=== PATIENT | female | born 1930 | race Caucasian/White ===

== ENCOUNTER → 2016-10-01 | Outpatient (CLI) | payer MEDICARE ==
--- NOTE | 2016-10-01 09:09 | MM ---
Reason for exam: follow-up at short interval from prior study. Last mammogram was performed 6 months ago. 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 Quadrectomy of both breasts, 1976. Took estrogen for 16 years beginning at age 40. Took progesterone for 16 years beginning at age 40. Physical Findings: Nurse did not find any significant physical abnormalities on exam. MG 3D Diag Mammo W/Cad SHANICE Bilateral CC and MLO view(s) were taken. Prior study comparison: April 02, 2016, left breast MG 3d diag mammo w/cad LT. August 28, 2015, bilateral MG 3d screening mammo w/cad. The breast tissue is heterogeneously dense. This may lower the sensitivity of mammography. There is chronic nodularity bilaterally. Stable post operative changes bilaterally.. These results were verbally communicated with the patient and result sheet given to the patient on 10/01/16. ASSESSMENT: Benign, BI-RAD 2 RECOMMENDATION: Routine screening mammogram of both breasts in 1 year.
== END | disposition home or self-care (01) ==
LOC: RADMAMWWP 08:17
PROVIDERS: ATTEND Internal Medicine
DX: R92.8 Other abnormal and inconclusive findings on diagnostic imaging of breast (principal)
CPT/HCPCS: G0204; G0279

== ENCOUNTER 2017-09-27 20:45 | Inpatient (IN) | payer MEDICARE ==
[2017-09-27] MEDS ORDERED: ACETAMINOPHEN TAB 500 MG TAB PO STA (21:24)
[2017-09-27] MEDS ORDERED: IBUPROFEN 600 MG TAB PO STA (21:24)
--- NOTE | 2017-09-27 21:36 | ED ---
General Adult HPI - General Chief complaint: Shortness of Breath Stated complaint: Shaking, EUNICE Time Seen by Provider: 09/27/17 20:55 Source: patient, RN notes reviewed Mode of arrival: wheelchair Limitations: no limitations - History of Present Illness Initial comments: Is an 86-year-old female who presents emergency Department complaining that she just doesn't feel well all over. Patient states she's been a little weaker today than normal. Patient states it started about 1:00 this afternoon. Patient is unaware that she had a fever patient denies any cough. Patient denies shortness of breath or difficulty breathing. Patient denies any chest pain or palpitations. Patient denies any abdominal pain patient denies nausea vomiting diarrhea per patient denies any neck pain or stiffness per patient denies any patient denies any lightheadedness dizziness nursing about so. Patient denies any dysuria hematuria urinary from [place]. Patient states she did get a flu shot this year. - Related Data Home Medications Medication Instructions Recorded Confirmed Aspirin 81 mg PO DAILY 09/27/17 09/27/17 Carbidopa-Levodopa 25-100 mg 2 tab PO TID 09/27/17 09/27/17 [Sinemet 25-100] Cholecalciferol (Vitamin D3) 2,000 unit PO DAILY 09/27/17 09/27/17 [Vitamin D3] Digoxin [Lanoxin] 125 mcg PO DAILY 09/27/17 09/27/17 Donepezil [Aricept] 10 mg PO HS 09/27/17 09/27/17 Omeprazole 20 mg PO AC-BRKFST 09/27/17 09/27/17 Polyethylene Glycol 3350 [Miralax] 17 gm PO DAILY 09/27/17 09/27/17 Allergies Allergy/AdvReac Type Severity Reaction Status Date / Time No Known Allergies Allergy Verified 09/27/17 21:23 Review of Systems ROS Statement: Those systems with pertinent positive or pertinent negative responses have been documented in the HPI. ROS Other: All systems not noted in ROS Statement are negative. Past Medical History Past Medical History: Atrial Fibrillation, GERD/Reflux Additional Past Medical History / Comment(s): parkinson's. History of Any Multi-Drug Resistant Organisms: None Reported Past Surgical History: Cholecystectomy, Hysterectomy Additional Past Surgical History / Comment(s): left ear. Past Psychological History: No Psychological Hx Reported Smoking Status: Former smoker Past Alcohol Use History: None Reported Past Drug Use History: None Reported General Exam - General Exam Comments Initial Comments: GENERAL: Patient is well-developed and well-nourished. Patient is nontoxic and well- hydrated and is in mild distress. ENT: Neck is soft and supple. No significant lymphadenopathy is noted. Oropharynx is clear. Moist mucous membranes. Neck has full range of motion without eliciting any pain. EYES: The sclera were anicteric and conjunctiva were pink and moist. Extraocular movements were intact and pupils were equal round and reactive to light. Eyelids were unremarkable. PULMONARY: Unlabored respirations. Good breath sounds bilaterally. No audible rales rhonchi or wheezing was noted. CARDIOVASCULAR: There is a regular rate and rhythm without any murmurs gallops or rubs. ABDOMEN: Soft and nontender with normal bowel sounds. No palpable organomegaly was noted. There is no palpable pulsatile mass. SKIN: Skin is clear with no lesions or rashes and otherwise unremarkable. NEUROLOGIC: Patient is alert and oriented x3. Cranial nerves II through XII are grossly intact. Motor and sensory are also intact. Normal speech, volume and content. Symmetrical smile. MUSCULOSKELETAL: Normal extremities with adequate strength and full range of motion. No lower extremity swelling or edema. No calf tenderness. LYMPHATICS: No significant lymphadenopathy is noted PSYCHIATRIC: Normal psychiatric evaluation. Normal interpersonal interactions appears functionally intact in deals appropriately with others. No signs of depression. No signs of anxiety. Limitations: no limitations Course Vital Signs 09/27/17 09/27/17 09/27/17 20:55 22:55 23:54 Temperature 100.8 F H 99.1 F Pulse Rate 107 H 84 92 Respiratory 20 16 16 Rate Blood Pressure 204/89 170/78 176/84 O2 Sat by Pulse 98 96 98 Oximetry Medical Decision Making - Medical Decision Making EKG shows normal sinus rhythm at 86 bpm DE interval is 204 QRS is 1:30 QT interval 366 QTC is 437. Patient's EKG shows a right bundle branch block I spoke with some physician he agreed to admit the patient admitted the patient I wrote admitting orders. Patient had a urinary tract infection he received 2 g of Rocephin emergency department as well as a liter and a half of fluid. - Lab Data Result diagrams: 09/27/17 21:57 09/27/17 21:57 Lab Results 09/27/17 09/27/1718 Range/Units 21:30 21:57 21:57 WBC 20.0 H (3.8-10.6) k/uL RBC 4.33 (3.80-5.40) m/uL Hgb 13.0 (11.4-16.0) gm/dL Hct 39.9 (34.0-46.0) % MCV 92.3 (80.0-100.0) fL MCH 29.9 (25.0-35.0) pg MCHC 32.4 (31.0-37.0) g/dL RDW 13.7 (11.5-15.5) % Plt Count 269 (150-450) k/uL Neutrophils % 92 % Lymphocytes % 1 % Monocytes % 5 % Eosinophils % 0 % Basophils % 0 % Neutrophils # 18.5 H (1.3-7.7) k/uL Lymphocytes # 0.2 L (1.0-4.8) k/uL Monocytes # 1.0 (0-1.0) k/uL Eosinophils # 0.1 (0-0.7) k/uL Basophils # 0.0 (0-0.2) k/uL PT (9.0-12.0) sec INR (<1.2) APTT (22.0-30.0) sec Sodium 138 (137-145) mmol/L Potassium 4.3 (3.5-5.1) mmol/L Chloride 99 (98-107) mmol/L Carbon Dioxide 30 (22-30) mmol/L Anion Gap 9 mmol/L BUN 42 H (7-17) mg/dL Creatinine 1.20 H (0.52-1.04) mg/dL Est GFR (MDRD) Af Amer 52 (>60 ml/min/1.73 sqM) Est GFR (MDRD) Non-Af 43 (>60 ml/min/1.73 sqM) Glucose 141 H (74-99) mg/dL Plasma Lactic Acid Stevan (0.7-2.0) mmol/L Calcium 9.4 (8.4-10.2) mg/dL Total Bilirubin 0.6 (0.2-1.3) mg/dL AST 20 (14-36) U/L ALT 17 (9-52) U/L Alkaline Phosphatase 71 (38-126) U/L Troponin I (0.000-0.034) ng/mL Total Protein 6.3 (6.3-8.2) g/dL Albumin 3.8 (3.5-5.0) g/dL Urine Color Yellow Urine Appearance Cloudy H (Clear) Urine pH 5.5 (5.0-8.0) Ur Specific Bonita 1.015 (1.001-1.035) Urine Protein 1+ H (Negative) Urine Glucose (UA) Negative (Negative) Urine Ketones Trace H (Negative) Urine Blood Small H (Negative) Urine Nitrite Negative (Negative) Urine Bilirubin Negative (Negative) Urine Urobilinogen <2.0 (<2.0) mg/dL Ur Leukocyte Esterase Large H (Negative) Urine RBC 29 H (0-5) /hpf Urine WBC >182 H (0-5) /hpf Urine WBC Clumps Many H (None) /hpf Ur Squamous Epith Cells 1 (0-4) /hpf Urine Mucus Rare H (None) /hpf Influenza Type A RNA (Not Detectd) Influenza Type B (PCR) (Not Detectd) 09/27/17 09/27/17 09/27/17 Range/Units 21:57 21:57 21:57 WBC (3.8-10.6) k/uL RBC (3.80-5.40) m/uL Hgb (11.4-16.0) gm/dL Hct (34.0-46.0) % MCV (80.0-100.0) fL MCH (25.0-35.0) pg MCHC (31.0-37.0) g/dL RDW (11.5-15.5) % Plt Count (150-450) k/uL Neutrophils % % Lymphocytes % % Monocytes % % Eosinophils % % Basophils % % Neutrophils # (1.3-7.7) k/uL Lymphocytes # (1.0-4.8) k/uL Monocytes # (0-1.0) k/uL Eosinophils # (0-0.7) k/uL Basophils # (0-0.2) k/uL PT 10.1 (9.0-12.0) sec INR 1.0 (<1.2) APTT 22.1 (22.0-30.0) sec Sodium (137-145) mmol/L Potassium (3.5-5.1) mmol/L Chloride (98-107) mmol/L Carbon Dioxide (22-30) mmol/L Anion Gap mmol/L BUN (7-17) mg/dL Creatinine (0.52-1.04) mg/dL Est GFR (MDRD) Af Amer (>60 ml/min/1.73 sqM) Est GFR (MDRD) Non-Af (>60 ml/min/1.73 sqM) Glucose (74-99) mg/dL Plasma Lactic Acid Stevan 1.3 (0.7-2.0) mmol/L Calcium (8.4-10.2) mg/dL Total Bilirubin (0.2-1.3) mg/dL AST (14-36) U/L ALT (9-52) U/L Alkaline Phosphatase (38-126) U/L Troponin I (0.000-0.034) ng/mL Total Protein (6.3-8.2) g/dL Albumin (3.5-5.0) g/dL Urine Color Urine Appearance (Clear) Urine pH (5.0-8.0) Ur Specific Bonita (1.001-1.035) Urine Protein (Negative) Urine Glucose (UA) (Negative) Urine Ketones (Negative) Urine Blood (Negative) Urine Nitrite (Negative) Urine Bilirubin (Negative) Urine Urobilinogen (<2.0) mg/dL Ur Leukocyte Esterase (Negative) Urine RBC (0-5) /hpf Urine WBC (0-5) /hpf Urine WBC Clumps (None) /hpf Ur Squamous Epith Cells (0-4) /hpf Urine Mucus (None) /hpf Influenza Type A RNA Not Detected (Not Detectd) Influenza Type B (PCR) Not Detected (Not Detectd) 09/27/17 Range/Units 21:57 WBC (3.8-10.6) k/uL RBC (3.80-5.40) m/uL Hgb (11.4-16.0) gm/dL Hct (34.0-46.0) % MCV (80.0-100.0) fL MCH (25.0-35.0) pg MCHC (31.0-37.0) g/dL RDW (11.5-15.5) % Plt Count (150-450) k/uL Neutrophils % % Lymphocytes % % Monocytes % % Eosinophils % % Basophils % % Neutrophils # (1.3-7.7) k/uL Lymphocytes # (1.0-4.8) k/uL Monocytes # (0-1.0) k/uL Eosinophils # (0-0.7) k/uL Basophils # (0-0.2) k/uL PT (9.0-12.0) sec INR (<1.2) APTT (22.0-30.0) sec Sodium (137-145) mmol/L Potassium (3.5-5.1) mmol/L Chloride (98-107) mmol/L Carbon Dioxide (22-30) mmol/L Anion Gap mmol/L BUN (7-17) mg/dL Creatinine (0.52-1.04) mg/dL Est GFR (MDRD) Af Amer (>60 ml/min/1.73 sqM) Est GFR (MDRD) Non-Af (>60 ml/min/1.73 sqM) Glucose (74-99) mg/dL Plasma Lactic Acid Stevan (0.7-2.0) mmol/L Calcium (8.4-10.2) mg/dL Total Bilirubin (0.2-1.3) mg/dL AST (14-36) U/L ALT (9-52) U/L Alkaline Phosphatase (38-126) U/L Troponin I 0.024 (0.000-0.034) ng/mL Total Protein (6.3-8.2) g/dL Albumin (3.5-5.0) g/dL Urine Color Urine Appearance (Clear) Urine pH (5.0-8.0) Ur Specific Bon[place] (1.001-1.035) Urine Protein (Negative) Urine Glucose (UA) (Negative) Urine Ketones (Negative) Urine Blood (Negative) Urine Nitrite (Negative) Urine Bilirubin (Negative) Urine Urobilinogen (<2.0) mg/dL Ur Leukocyte Esterase (Negative) Urine RBC (0-5) /hpf Urine WBC (0-5) /hpf Urine WBC Clumps (None) /hpf Ur Squamous Epith Cells (0-4) /hpf Urine Mucus (None) /hpf Influenza Type A RNA (Not Detectd) Influenza Type B (PCR) (Not Detectd) Disposition Clinical Impression: Urinary tract infection, Weakness Disposition: ADMITTED IP TO THIS HOSP Referrals: Manny Yanez MD [STAFF PHYSICIAN] - 1-2 days Time of Disposition: 23:57
[2017-09-27 21:42] LABS: Appearance,Urine Cloudy (Clear); Bilirubin,Urine Negative (Negative); Blood,Urine Small (Negative); Color,Urine Yellow; Glucose,Urine (UA) Negative (Negative); Ketones,Urine Trace (Negative); Leukocyte Esterase,Urine Large (Negative); Mucus,Urine Rare /hpf; Nitrite,Urine Negative (Negative); PH, Urine 5.5 (5.0-8.0); Protein,Urine 1+ (Negative); RBC,Urine 29 /hpf (0-5); Specific Gravity,Urine 1.015 (1.001-1.035); Squamous Epithelial Cell,Urine 1 /hpf (0-4); Urobilinogen,Urine <2.0 mg/dL (<2.0); WBC,Urine >182 /hpf (0-5)
[2017-09-27] MEDS: SODIUM CHLORIDE 0.9% 500 ML IV SCH (21:56)
[2017-09-27 22:12] LABS: Basophils % (A) 0 %; Eosinophils # (A) 0.1 k/uL (0-0.7); Eosinophils % (A) 0 %; HCT 39.9 % (34.0-46.0); Lymphocytes # (A) 0.2 k/uL (1.0-4.8); Lymphocytes % (A) 1 %; MCH 29.9 pg (25.0-35.0); MCHC 32.4 g/dL (31.0-37.0); MCV 92.3 fL (80.0-100.0); Mean Platelet Volume 7.2; Monocytes % (A) 5 %; Neutrophils # (A) 18.5 k/uL (1.3-7.7); Neutrophils % (A) 92 %; Platelet Count 269 k/uL (150-450); RBC 4.33 m/uL (3.80-5.40); RDW 13.7 % (11.5-15.5)
[2017-09-27 22:20] LABS: Partial Thromboplastin Time 22.1 sec (22.0-30.0); Prothrombin Time 10.1 sec (9.0-12.0)
[2017-09-27 22:21] LABS: Albumin 3.8 g/dL (3.5-5.0); Calcium 9.4 mg/dL (8.4-10.2); Potassium 4.3 mmol/L (3.5-5.1); Total Bilirubin 0.6 mg/dL (0.2-1.3); Total Protein 6.3 g/dL (6.3-8.2)
--- NOTE | 2017-09-27 22:37 | XR ---
EXAMINATION TYPE: XR chest 2V DATE OF EXAM: 09/27/2017 COMPARISON: 05/04/2011 HISTORY: Fever TECHNIQUE: Frontal and lateral views of the chest are obtained. FINDINGS: There is no heart failure nor confluent pneumonic infiltrate. Thoracic aorta is atheromato us. There are chest leads. Costophrenic angles are clear. IMPRESSION: No active cardiopulmonary disease. No change.
[2017-09-27] MEDS ORDERED: cefTRIAXone IN SWFI 1,000 MG/10 ML SYRINGE IVP STA (22:51)
[2017-09-27] MEDS ORDERED: SODIUM CHLORIDE 0.9% 1,000 ML IV ONE (22:52)
[2017-09-27] MEDS ORDERED: cefTRIAXone IN SWFI 2,000 MG/20 ML SYRINGE IVP STA (22:53)
[2017-09-28] MEDS ORDERED: ACETAMINOPHEN TAB 325 MG TAB PO PRN
[2017-09-28] MEDS ORDERED: IBUPROFEN 400 MG TAB PO PRN
[2017-09-28] MEDS ORDERED: SODIUM CHLORIDE 0.9% 1,000 ML IV STA (00:01)
[2017-09-28] MEDS ORDERED: ONDANSETRON 4 MG/2 ML VIAL IVP PRN (00:30)
[2017-09-28] MEDS ORDERED: traMADol 50 MG TAB PO PRN (00:30)
[2017-09-28] MEDS ORDERED: LACTATED RINGERS 1,000 ML IV SCH (00:30)
[2017-09-28] MEDS ORDERED: NALOXONE 0.4 MG/ML 1 ML VIAL IV PRN (00:30)
--- NOTE | 2017-09-28 00:44 | P.HPIM ---
History of Present Illness H&P Date: 09/28/17 Chief Complaint: Chills 86-year-old female who presents emergency Department complaining from fevers, chills. She has also been having general weakness, shortness of breath, she has not been eating and drinking well the last few days. She denied having any chest pain, no cough. No nausea or vomiting, no abdominal pain, no diarrhea. No headaches, no neck pain or stiffness, no lightheadedness or dizziness. She has been having some urinary urgency but denied any dysuria. He does have chronic urinary frequency. No hematuria. In the emergency department she was found to have a fever of 100.8, she was tachycardic at 107, urinalysis was positive for pyuria and she was found to be dehydrated as well. Subsequently she was admitted to the hospital for further evaluation and management. Review of Systems 12 point review of system was performed, negative except for HPI Past Medical History Past Medical History: Atrial Fibrillation, GERD/Reflux Additional Past Medical History / Comment(s): parkinson's. History of Any Multi-Drug Resistant Organisms: None Reported Past Surgical History: Cholecystectomy, Hysterectomy Additional Past Surgical History / Comment(s): left ear. Past Psychological History: No Psychological Hx Reported Smoking Status: Former smoker Past Alcohol Use History: None Reported Past Drug Use History: None Reported Medications and Allergies Home Medications Medication Instructions Recorded Confirmed Type Aspirin 81 mg PO DAILY 09/27/17 09/27/17 History Carbidopa-Levodopa 25-100 mg 2 tab PO TID 09/27/17 09/27/17 History [Sinemet 25-100] Cholecalciferol (Vitamin D3) 2,000 unit PO DAILY 09/27/17 09/27/17 History [Vitamin D3] Digoxin [Lanoxin] 125 mcg PO DAILY 09/27/17 09/27/17 History Donepezil [Aricept] 10 mg PO HS 09/27/17 09/27/17 History Omeprazole 20 mg PO AC-BRKFST 09/27/17 09/27/17 History Polyethylene Glycol 3350 [Miralax] 17 gm PO DAILY 09/27/17 09/27/17 History Allergies Allergy/AdvReac Type Severity Reaction Status Date / Time No Known Allergies Allergy Verified 09/27/17 21:23 Physical Exam Vitals: Vital Signs Temp Pulse Resp BP Pulse Ox 09/27/17 23:54 99.1 F 92 16 176/84 98 09/27/17 22:55 84 16 170/78 96 09/27/17 20:55 100.8 F H 107 H 20 204/89 98 Intake and Output 09/27/17 09/27/17 09/28/17 14:59 22:59 06:59 Other: Weight 61.235 kg Patient Weight 09/28/17 06:59 Weight 61.235 kg Constitutional: No acute distress, conversant, pleasant Eyes:Anicteric sclerae, moist conjunctiva, no lid-lag, PERRLA, ENMT: Oropharynx clear, no erythema, exudates Neck: Supple, FROM, no masses, or JVD, No carotid bruits, No thyromegaly Lungs: Clear to auscultation, Clear to percussion, Normal respiratory effort, no accessory muscle use Cardiovascular: Heart regular in rate and rhythm, No murmurs, gallops, or rubs, No peripheral edema Abdominal: Soft, Nontender, no guarding, rebound or rigidity, Normoactive bowel sounds, No hepatomegaly, No splenomegaly, No palpable mass Skin: Normal temperature, tone, texture, turgor, no induration, No subcutaneous nodules, No rash, lesions, No ulcers Extremities: No digital cyanosis, No clubbing, Pedal pulses intact and symmetrical, Radial pulses intact and symmetrical, No calf tenderness Psychiatric: Alert and oriented to person, place and time, appropriate affect, intact judgement Neuro: Muscles Strength 5/5 in all 4 extremities, Sensation to light touch grossly present throughout, Cranial nerves II-XII grossly intact, no focal sensory deficits Results CBC & Chem 7: 09/27/17 21:57 09/27/17 21:57 Labs: Abnormal Lab Results - Last 24 Hours (Table) 09/27/17 09/27/17 09/27/17 Range/Units 21:30 21:57 21:57 WBC 20.0 H (3.8-10.6) k/uL Neutrophils # 18.5 H (1.3-7.7) k/uL Lymphocytes # 0.2 L (1.0-4.8) k/uL BUN 42 H (7-17) mg/dL Creatinine 1.20 H (0.52-1.04) mg/dL Glucose 141 H (74-99) mg/dL Urine Appearance Cloudy H (Clear) Urine Protein 1+ H (Negative) Urine Ketones Trace H (Negative) Urine Blood Small H (Negative) Ur Leukocyte Esterase Large H (Negative) Urine RBC 29 H (0-5) /hpf Urine WBC >182 H (0-5) /hpf Urine WBC Clumps Many H (None) /hpf Urine Mucus Rare H (None) /hpf Assessment and Plan Plan: #1 acute sepsis: Likely secondary to urinary tract infection Admit to inpatient Monitor temperature curve Start ceftriaxone 1 g IV daily Blood and urine cultures were obtained in the emergency department Follow-up cultures Check lactic acid Was bolused with 1 L in the emergency department, will resume IV fluids at 200 mL per hour #2 Accelerated hypertension: Likely get worse with IV fluids No history of hypertension in the past We'll treat with labetalol 10 mg IV every hour when necessary #3 Parkinson disease: Continue levodopa #4 paroxysmal atrial fibrillation: Continue digoxin Not on anticoagulation likely secondary to falls. #5 DVT prophylaxis: Lovenox subcu Sepsis - Sepsis Sepsis Focused Exam #1 Sepsis Focused Exam Date: 09/28/17 Sepsis Focused Exam Time: 01:00 Sepsis Focused Exam Complete: Yes Vital Signs & RN Notes Reviewed: Yes Capillary Refill: < 2 Seconds: Fingers, Toes Peripheral Pulses: Normal: Radial (R), Radial (L), Posterior Tibialis (R), Posterior Tibialis (L), Dorsalis Pedis (R), Dorsalis Pedis (L) Skin Color: Normal for Patient Respiratory Exam: normal lung sounds Cardiovascular Exam: regular rate, tachycardia
[2017-09-28] MEDS: SODIUM CHLORIDE 0.9% 500 ML IV SCH (01:07)
[2017-09-28] MEDS: SODIUM CHLORIDE 0.9% 1,000 ML IV SCH ×4 (01:30→20:56)
[2017-09-28 02:47] VITALS: BMI 21.7
[2017-09-28 07:17] LABS: Basophils # (A) 0.1 k/uL (0-0.2); Basophils % (A) 0 %; Eosinophils # (A) 0.2 k/uL (0-0.7); Eosinophils % (A) 1 %; HCT 41.2 % (34.0-46.0); HGB 12.7 gm/dL (11.4-16.0); Lymphocytes # (A) 1.2 k/uL (1.0-4.8); Lymphocytes % (A) 7 %; MCH 29.8 pg (25.0-35.0); MCHC 30.9 g/dL (31.0-37.0); MCV 96.4 fL (80.0-100.0); Mean Platelet Volume 6.8; Monocytes # (A) 1.1 k/uL (0-1.0); Monocytes % (A) 6 %; Neutrophils # (A) 14.3 k/uL (1.3-7.7); Neutrophils % (A) 83 %; Platelet Count 256 k/uL (150-450); RBC 4.27 m/uL (3.80-5.40); RDW 13.6 % (11.5-15.5); WBC 17.2 k/uL (3.8-10.6)
[2017-09-28 07:31] LABS: Albumin 3.3 g/dL (3.5-5.0); Calcium 8.5 mg/dL (8.4-10.2); Total Bilirubin 0.6 mg/dL (0.2-1.3); Total Protein 5.9 g/dL (6.3-8.2)
[2017-09-28] MEDS: ASPIRIN 81 MG PO SCH (07:45)
[2017-09-28] MEDS: CARBIDOPA-LEVODOPA 25-100 MG 1 EACH TAB PO SCH ×3 (07:45→20:57)
[2017-09-28] MEDS: PANTOPRAZOLE 40 MG TABLET PO SCH (07:45)
[2017-09-28] MEDS: CHOLECALCIFEROL 1,000 UNIT TAB PO SCH (07:46)
[2017-09-28] MEDS: POLYETHYLENE GLYCOL 3350 17 GM POWD.PACK PO SCH (07:46)
[2017-09-28] MEDS: DIGOXIN 125 MCG TAB PO SCH (07:46)
--- NOTE | 2017-09-28 11:52 | P.PN ---
Progress Note - Text Progress Note Date: 09/28/17 Briefly this is a 86-year-old female that presented with weakness and was found to have sepsis secondary to acute urinary tract infection, apparently she was previously treated with an unknown antibiotic for urinary tract infection pretty recently. It appears the patient's fever is broken, we'll continue empiric IV antibiotics with cefazolin, and await urine cultures and sensitivities.
[2017-09-28] MEDS: hydrALAZINE HCL 10 MG TAB PO PRN ×2 (16:14→21:07)
[2017-09-28] MEDS: DONEPEZIL 10 MG TAB PO SCH (20:57)
[2017-09-28] MEDS: cefTRIAXone IN SWFI 1,000 MG/10 ML SYRINGE IVP SCH (20:58)
[2017-09-29] MEDS: SODIUM CHLORIDE 0.9% 1,000 ML IV SCH ×3 (01:06→22:05)
[2017-09-29] MEDS: POLYETHYLENE GLYCOL 3350 17 GM POWD.PACK PO SCH (07:18)
[2017-09-29] MEDS: hydrALAZINE HCL 10 MG TAB PO PRN ×2 (07:18→22:31)
[2017-09-29] MEDS: DIGOXIN 125 MCG TAB PO SCH (07:19)
[2017-09-29] MEDS: PANTOPRAZOLE 40 MG TABLET PO SCH (07:19)
[2017-09-29] MEDS: ASPIRIN 81 MG PO SCH (07:19)
[2017-09-29] MEDS: CHOLECALCIFEROL 1,000 UNIT TAB PO SCH (07:19)
[2017-09-29] MEDS: CARBIDOPA-LEVODOPA 25-100 MG 1 EACH TAB PO SCH ×3 (07:19→22:01)
[2017-09-29 07:27] LABS: Glucose,Whole Blood 87 mg/dL (75-99)
[2017-09-29] MEDS ORDERED: cloNIDine HCL 0.2 MG TAB PO STA (11:59)
[2017-09-29] MEDS ORDERED: ALPRAZolam 0.5 MG TAB PO STA (12:18)
[2017-09-29] MEDS: HYDROCHLOROTHIAZIDE 25 MG TAB PO SCH (12:43)
--- NOTE | 2017-09-29 13:39 | P.PN ---
Subjective Progress Note Date: 09/29/17 The patient reports to being diaphoretic and sweaty and hot at night, no reported fevers though by nursing. Nursing reports that elevated blood pressures intermittently since yesterday with no previous history of hypertension. Patient also having episodes of lightheadedness, otherwise no acute events overnight Objective - Vital Signs Vital signs: Vital Signs Temp 97.8 F 09/29/17 07:00 Pulse 63 09/29/17 08:56 Resp 18 09/29/17 07:00 BP 210/90 09/29/17 12:08 Pulse Ox 99 09/29/17 07:00 Intake & Output 09/28/17 09/29/17 09/29/17 18:59 06:59 18:59 Intake Total 2280 300 Balance 2280 300 Weight 61.235 kg Intake: Intake, IV Titration 1999 300 Amount Sodium Chloride 0.9% 1999 300 000 ml @ 100 mls/hr IV . Q10H [facility] Rx#:[id number] Oral 280 Other: Voiding Method Toilet Toilet Toilet # Voids 5 2 - Exam Constitutional: No acute distress, conversant, pleasant Eyes: Anicteric sclerae, moist conjunctiva, no lid-lag, PERRLA ENMT: NC/AT,Oropharynx clear, no erythema, exudates Neck:Supple, FROM, no masses, or JVD, No carotid bruits; No thyromegaly Lungs: Clear to auscultation, Clear to percussion, Normal respiratory effort, no accessory muscle use Cardiovascular: Heart regular in rate and rhythm, No murmurs, gallops, or rubs no peripheral edema Abdominal: Soft Nontender, nom distended, no guarding, no rebound or rigidity, Normoactive bowel sounds No hepatomegaly, No splenomegaly, No palpable mass No abdominal wall hernia noted Skin: Normal temperature, tone, texture, turgor, No induration No subcutaneous nodules, No rash, lesions, No ulcers Extremities:No digital cyanosis No clubbing, Pedal pulses intact and symmetrical Radial pulses intact and symmetrical Normal gait and station, No calf tenderness Psychiatric: Alert and oriented to person, place and time, Appropriate affect Intact judgement Neuro: Muscles Strength 5/5 in all 4 extremities, Sensation to light touch grossly present throughout, Cranial nerves II-XII grossly intact. No focal sensory deficits - Labs CBC & Chem 7: 09/28/17 06:57 09/28/17 06:57 Labs: Microbiology - Last 24 Hours (Table) 09/27/17 21:30 Urine Culture - Final Urine,Voided 09/27/17 21:57 Blood Culture - Preliminary Blood No Growth after 24 hours Assessment and Plan (1) Sepsis Narrative/Plan: * Patient afebrile leukocytosis trending down from 20-17 we'll recheck today * Urine cultures pending, awaiting cultures and sensitivities * Continue with empiric coverage with Rocephin Current Visit: Yes Status: Acute Code(s): A41.9 - SEPSIS, UNSPECIFIED ORGANISM SNOMED Code(s): 50049114 (2) Accelerated hypertension Narrative/Plan: * Patient having if to percussion episodes of elevated blood pressure no previous history of hypertension * She was started on when necessary hydralazine yesterday but still pretty elevated today sbp 190s * Give her single dose of clonidine 0.2 and start her on HCTZ 25 mg by mouth daily. * suspect an underlying's anxiety component we'll give her Xanax and see if that makes it better Current Visit: Yes Status: Acute Code(s): I10 - ESSENTIAL (PRIMARY) HYPERTENSION SNOMED Code(s): 93500549 (3) Urinary tract infection Narrative/Plan: * Treatment as above Current Visit: Yes Status: Acute Code(s): N39.0 - URINARY TRACT INFECTION, SITE NOT SPECIFIED SNOMED Code(s): 23337567 (4) Weakness Narrative/Plan: * PT following likely secondary to urinary tract infection Current Visit: Yes Status: Acute Code(s): R53.1 - WEAKNESS SNOMED Code(s) : 62760471
[2017-09-29 14:06] LABS: Basophils % (A) 0 %; Eosinophils # (A) 0.2 k/uL (0-0.7); Eosinophils % (A) 2 %; HGB 10.9 gm/dL (11.4-16.0); Lymphocytes # (A) 0.8 k/uL (1.0-4.8); Lymphocytes % (A) 9 %; MCH 30.5 pg (25.0-35.0); MCHC 32.9 g/dL (31.0-37.0); MCV 92.8 fL (80.0-100.0); Mean Platelet Volume 7.6; Monocytes # (A) 0.6 k/uL (0-1.0); Monocytes % (A) 6 %; Neutrophils # (A) 6.9 k/uL (1.3-7.7); Neutrophils % (A) 79 %; Platelet Count 205 k/uL (150-450); RBC 3.56 m/uL (3.80-5.40); RDW 13.8 % (11.5-15.5); WBC 8.7 k/uL (3.8-10.6)
[2017-09-29] MEDS: DONEPEZIL 10 MG TAB PO SCH (22:01)
[2017-09-29] MEDS: cefTRIAXone IN SWFI 1,000 MG/10 ML SYRINGE IVP SCH (22:01)
[2017-09-30] MEDS: CARBIDOPA-LEVODOPA 25-100 MG 1 EACH TAB PO SCH ×3 (07:47→21:37)
[2017-09-30] MEDS: HYDROCHLOROTHIAZIDE 25 MG TAB PO SCH (07:48)
[2017-09-30] MEDS: ASPIRIN 81 MG PO SCH (07:48)
[2017-09-30] MEDS: DIGOXIN 125 MCG TAB PO SCH (07:49)
[2017-09-30] MEDS: PANTOPRAZOLE 40 MG TABLET PO SCH (07:49)
[2017-09-30] MEDS: POLYETHYLENE GLYCOL 3350 17 GM POWD.PACK PO SCH (07:49)
[2017-09-30] MEDS: CHOLECALCIFEROL 1,000 UNIT TAB PO SCH (07:49)
[2017-09-30] MEDS: SODIUM CHLORIDE 0.9% 1,000 ML IV SCH (07:50)
[2017-09-30 08:59] LABS: Basophils % (A) 1 %; Eosinophils # (A) 0.2 k/uL (0-0.7); Eosinophils % (A) 2 %; HCT 36.3 % (34.0-46.0); HGB 11.5 gm/dL (11.4-16.0); Lymphocytes # (A) 0.9 k/uL (1.0-4.8); Lymphocytes % (A) 11 %; MCH 29.7 pg (25.0-35.0); MCHC 31.6 g/dL (31.0-37.0); MCV 93.8 fL (80.0-100.0); Mean Platelet Volume 7.5; Monocytes # (A) 0.4 k/uL (0-1.0); Monocytes % (A) 5 %; Neutrophils # (A) 6.4 k/uL (1.3-7.7); Neutrophils % (A) 80 %; Platelet Count 223 k/uL (150-450); RBC 3.87 m/uL (3.80-5.40); RDW 13.9 % (11.5-15.5)
[2017-09-30 09:15] LABS: Calcium 9.1 mg/dL (8.4-10.2); Potassium 3.9 mmol/L (3.5-5.1)
[2017-09-30] MEDS ORDERED: amLODIPine 5 MG TAB PO STA (10:11)
--- NOTE | 2017-09-30 12:43 | P.PN ---
Subjective Progress Note Date: 09/30/17 Principal diagnosis: General weakness and chills Patient was having some chills last night, her blood pressure has been running high 170s to 180s systolic. Patient has been anxious on and off throughout the hospitalization. Objective - Vital Signs Vital signs: Vital Signs Temp 97.4 F L 09/30/17 07:00 Pulse 69 09/30/17 08:00 Resp 16 09/30/17 08:00 BP 175/84 09/30/17 07:00 Pulse Ox 97 09/30/17 07:00 Intake & Output 09/29/17 09/30/17 09/30/17 18:59 06:59 18:59 Intake Total 800 1600 Balance 800 1600 Intake: IV 1000 Sodium Chloride 0.9% 1, 1000 000 ml @ 100 mls/hr IV . Q10H [facility] Rx#:[id number] Intake, IV Titration 800 500 Amount Sodium Chloride 0.9% 1, 800 500 000 ml @ 100 mls/hr IV . Q10H [facility] Rx#:[id number] Oral 100 Other: Voiding Method Toilet Toilet Toilet # Voids 1 1 - Exam Constitutional: No acute distress, conversant, pleasant Eyes:Anicteric sclerae, moist conjunctiva, no lid-lag, PERRLA, ENMT: Oropharynx clear, no erythema, exudates Neck: Supple, FROM, no masses, or JVD, No carotid bruits, No thyromegaly Lungs: Clear to auscultation, Clear to percussion, Normal respiratory effort, no accessory muscle use Cardiovascular: Heart regular in rate and rhythm, No murmurs, gallops, or rubs, No peripheral edema Abdominal: Soft, Nontender, no guarding, rebound or rigidity, Normoactive bowel sounds, No hepatomegaly, No splenomegaly, No palpable mass Skin: Normal temperature, tone, texture, turgor, no induration, No subcutaneous nodules, No rash, lesions, No ulcers Extremities: No digital cyanosis, No clubbing, Pedal pulses intact and symmetrical, Radial pulses intact and symmetrical, No calf tenderness Psychiatric: Alert and oriented to person, place and time, appropriate affect, intact judgement Neuro: Muscles Strength 5/5 in all 4 extremities, Sensation to light touch grossly present throughout, Cranial nerves II-XII grossly intact, no focal sensory deficits - Labs CBC & Chem 7: 09/30/17 08:16 09/30/17 08:16 Labs: Abnormal Lab Results - Last 24 Hours (Table) 09/29/17 09/30/17 09/30/17 Range/Units 13:53 08:16 08:16 RBC 3.56 L (3.80-5.40) m/uL Hgb 10.9 L (11.4-16.0) gm/dL Hct 33.0 L (34.0-46.0) % Lymphocytes # 0.8 L 0.9 L (1.0-4.8) k/uL BUN 19 H (7-17) mg/dL Microbiology - Last 24 Hours (Table) 09/27/17 21:57 Blood Culture - Preliminary Blood No Growth after 48 hours 09/27/17 21:30 Urine Culture - Final Urine,Voided Assessment and Plan Plan: #1 Acute sepsis: Likely secondary to urinary tract infection Continue ceftriaxone 1 g IV daily Blood and urine cultures with no growth so far #2 Accelerated hypertension: Likely get worse with IV fluids No history of hypertension in the past, further investigation revealed that patient's blood pressure is normally on the lower side according to her Add Norvasc 5 mg daily Consult cardiology, Dr. Yanez is familiar with the patient, she follows up with him for her atrial fibrillation #3 Parkinson disease: Continue levodopa #4 paroxysmal atrial fibrillation: Continue digoxin Not on anticoagulation likely secondary to falls. Consult cardiology as above #5 DVT prophylaxis: Lovenox subcu
--- NOTE | 2017-09-30 15:33 | P.CRDCN ---
History of Present Illness Consult date: 09/30/17 Consult reason: hypertension History of present illness: Mrs. 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 She sees Dr. Yanez in the office. We have been asked to see her in consultation for elevated blood pressure. Primary team has tried catapres, hydrochlorothiazide and amlodipine without success. She states she has never had an issue with her blood pressure, she typically runs on the lower side of normal. She is currently admitted into the hospital with urinary tract infection is being treated with IV Rocephin. Blood pressure on admission was 204/89 heart rate of 107 she for of 100.8. Since admission her blood pressures have fluctuated from 200 systolic to 150. She is no longer febrile. EKG on arrival reveals sinus mechanism with evidence of left ventricular hypertrophy, right bundle branch block as well as left fascicular block. Chest x-ray is negative for acute cardiopulmonary process. Laboratory data reviewed, hemoglobin 11.5, with blood cell count on admission 20 down to 8.0, potassium 3.9, creatinine 1.03 down from 1.2 on admission. Current cardiac medications include digoxin 125 g daily and aspirin 81 mg daily. Telemetry tracings reveal sinus rhythm with episodes of bradycardia down to the mid 40s. She denies symptoms of dizziness, chest pain, shortness of breath, palpitations, diaphoresis, nausea or vomiting. Review of Systems At the time of exam: CONSTITUTIONAL: Denies fever. Denies chills. EYES: Denies blurred vision. Denies vision changes. Denies eye pain. EARS, NOSE, MOUTH & THROAT: Denies headache. Denies sore throat. Denies ear pain. CARDIOVASCULAR: Denies chest pain. Denies shortness of breath. Denies orthopnea. Denies PND. Denies palpitations. RESPIRATORY: Denies cough. GASTROINTESTINAL: Denies abdominal pain. Denies diarrhea. Denies constipation. Denies nausea. Denies vomiting. MUSCULOSKELETAL: Denies myalgias. INTEGUMENTARY: Denies pruitis. Denies rash. NEUROLOGIC: Denies numbness. Denies tingling. Denies weakness. PSYCHIATRIC: Denies anxiety. Denies depression. ENDOCRINE: Denies fatigue. Denies weight change. Denies polydipsia. Denies polyurina. GENITOURINARY: Denies burning, hematuria or urgency with micturation. HEMATOLOGIC: Denies history of anemia. Denies bleeding. Past Medical History Past Medical History: Atrial Fibrillation, GERD/Reflux Additional Past Medical History / Comment(s): parkinson's. History of Any Multi-Drug Resistant Organisms: None Reported Past Surgical History: Cholecystectomy, Hysterectomy Additional Past Surgical History / Comment(s): left ear. Past Psychological History: No Psychological Hx Reported Smoking Status: Former smoker Past Alcohol Use History: None Reported Past Drug Use History: None Reported - Past Family History Mother Family Medical History: No Reported History Medications and Allergies Home Medications Medication Instructions Recorded Confirmed Type Aspirin 81 mg PO DAILY 09/27/17 09/27/17 History Carbidopa-Levodopa 25-100 mg 2 tab PO TID 09/27/17 09/27/17 History [Sinemet 25-100] Cholecalciferol (Vitamin D3) 2,000 unit PO DAILY 09/27/17 09/27/17 History [Vitamin D3] Digoxin [Lanoxin] 125 mcg PO DAILY 09/27/17 09/27/17 History Donepezil [Aricept] 10 mg PO HS 09/27/17 09/27/17 History Omeprazole 20 mg PO AC-BRKFST 09/27/17 09/27/17 History Polyethylene Glycol 3350 [Miralax] 17 gm PO DAILY 09/27/17 09/27/17 History Allergies Allergy/AdvReac Type Severity Reaction Status Date / Time No Known Allergies Allergy Verified 09/27/17 21:23 Physical Exam Vitals: Vital Signs Temp Pulse Resp BP Pulse Ox 09/30/17 08:00 69 16 09/30/17 07:00 97.4 F L 69 16 175/84 97 09/29/17 23:22 52 L 158/73 09/29/17 22:01 97.3 F L 51 L 16 188/88 95 Intake and Output 09/30/17 09/30/17 09/30/17 06:59 14:59 22:59 Intake Total 1500 Balance 1500 Intake: IV 1000 Sodium Chloride 0.9% 1, 1000 000 ml @ 100 mls/hr IV . Q10H [facility] Rx#:[id number] Intake, IV Titration 500 Amount Sodium Chloride 0.9% 1, 500 000 ml @ 100 mls/hr IV . Q10H [facility] Rx#:[id number] Other: Voiding Method Toilet # Voids 1 Blood pressure 144/67 heart rate 67 afebrile maintaining oxygen saturations on room air. GENERAL: This is a 86-year-old female in no apparent distress at the time of my examination. HEENT: Head is atraumatic, normocephalic. Pupils are equal, round. Sclerae anicteric. Conjunctivae are clear. Mucous membranes of the mouth are moist. Neck is supple. There is no jugular venous distention. No carotid bruit is heard. LUNGS: Clear to auscultation no wheezes, rales or rhonchi. No chest wall tenderness is noted on palpation or with deep breathing. HEART: Regular rate and rhythm without murmurs, rubs or gallops. S1 and S2 heard. ABDOMEN: Soft, nontender. Bowel sounds are heard. No organomegaly noted. EXTREMITIES: No evidence of peripheral edema and no calf tenderness noted. VASCULAR: Radial and dorsalis pedis pulses palpated, no evidence of clubbing. NEUROLOGIC: Patient is awake, alert and oriented x3. Results 09/30/17 08:16 09/30/17 08:16 CBC 09/30/17 Range/Units 08:16 WBC 8.0 (3.8-10.6) k/uL RBC 3.87 (3.80-5.40) m/uL Hgb 11.5 (11.4-16.0) gm/dL Hct 36.3 (34.0-46.0) % Plt Count 223 (150-450) k/uL Comprehensive Metabolic Panel 09/30/17 Range/Units 08:16 Sodium 142 (137-145) mmol/L Potassium 3.9 (3.5-5.1) mmol/L Chloride 107 (98-107) mmol/L Carbon Dioxide 27 (22-30) mmol/L BUN 19 H (7-17) mg/dL Creatinine 1.03 (0.52-1.04) mg/dL Glucose 93 (74-99) mg/dL Calcium 9.1 (8.4-10.2) mg/dL Current Medications Generic Name Dose Route Start Last Admin Trade Name Freq PRN Reason Stop Dose Admin Acetaminophen 650 mg 09/28/17 00:00 Tylenol Tab PO Q4HR PRN Fever and/ or Pain Amlodipine Besylate 5 mg 10/01/17 09:00 Norvasc PO DAILY [facility] Aspirin 81 mg 09/28/17 09:00 09/30/17 07:48 Aspirin PO 81 mg DAILY [facility] Administration Carbidopa/Levodopa 2 each 09/28/17 09:00 09/30/17 07:47 Sinemet 25-100 PO 2 each TID MAGGIE Administration Ceftriaxone Sodium 1,000 mg 09/28/17 22:00 09/29/17 22:01 Rocephin IVP 1,000 mg Q24H MAGGIE Administration Cholecalciferol 2,000 unit 09/28/17 09:00 09/30/17 07:49 Vitamin D3 PO 2,000 unit DAILY [facility] Administration Digoxin 125 mcg 09/28/17 09:00 09/30/17 07:49 Lanoxin PO 125 mcg DAILY [facility] Administration Donepezil HCl 10 mg 09/28/17 21:00 09/29/17 22:01 Aricept PO 10 mg HS [facility] Administration Hydrochlorothiazide 25 mg 09/29/17 12:15 09/30/17 07:48 Hydrodiuril PO 25 mg DAILY [facility] Administration Ibuprofen 400 mg 09/28/17 00:00 Motrin PO Q6HR PRN Pain Lisinopril 5 mg 09/30/17 15:30 Zestril PO DAILY [facility] Naloxone HCl 0.2 mg 09/28/17 00:30 Narcan IV Q2M PRN Opioid Reversal Ondansetron HCl 4 mg 09/28/17 00:30 Zofran IVP Q8HR PRN Nausea And Vomiting Pantoprazole Sodium 40 mg 09/28/17 07:30 09/30/17 07:49 Protonix PO 40 mg AC-BRKFST [facility] Administration Polyethylene Glycol 17 gm 09/28/17 09:00 09/30/17 07:49 Miralax PO 17 gm DAILY [facility] Administration Tramadol HCl 50 mg 09/28/17 00:30 Ultram PO Q6H PRN Moderate Pain Intake and Output 09/30/17 09/30/17 09/30/17 06:59 14:59 22:59 Intake Total 1500 Balance 1500 Intake: IV 1000 Sodium Chloride 0.9% 1, 1000 000 ml @ 100 mls/hr IV . Q10H [facility] Rx#:[id number] Intake, IV Titration 500 Amount Sodium Chloride 0.9% 1, 500 000 ml @ 100 mls/hr IV . Q10H [facility] Rx#:[id number] Other: Voiding Method Toilet # Voids 1 09/30/17 08:16 09/30/17 08:16 Assessment and Plan Assessment: ASSESSMENT 1. Hypertension, no history 2. Urinary tract infection 3. Paroxysmal atrial fibrillation not on long-term anticoagulation secondary to frequent falls. Maintaining sinus mechanism. PLAN Add small dose of lisinopril 5 mg to daily regimen. Continue with amlodipine and hctz as was previously ordered. Telemetry can be discontinued. Further recommendations to follow based on clinical course. Thank you kindly for this consultation. Nurse Practitioner note has been reviewed, I agree with a documented findings and plan of care. Patient was seen and examined.
[2017-09-30] MEDS: LISINOPRIL 5 MG TAB PO SCH (16:38)
[2017-09-30] MEDS: DONEPEZIL 10 MG TAB PO SCH (21:37)
[2017-09-30] MEDS: cefTRIAXone IN SWFI 1,000 MG/10 ML SYRINGE IVP SCH (21:37)
[2017-10-01] MEDS: DIGOXIN 125 MCG TAB PO SCH (06:08)
[2017-10-01] MEDS: LISINOPRIL 5 MG TAB PO SCH (06:08)
[2017-10-01] MEDS: HYDROCHLOROTHIAZIDE 25 MG TAB PO SCH (06:08)
[2017-10-01] MEDS: PANTOPRAZOLE 40 MG TABLET PO SCH (07:56)
[2017-10-01] MEDS: CHOLECALCIFEROL 1,000 UNIT TAB PO SCH (07:56)
[2017-10-01] MEDS: ASPIRIN 81 MG PO SCH (07:56)
[2017-10-01] MEDS: POLYETHYLENE GLYCOL 3350 17 GM POWD.PACK PO SCH (07:56)
[2017-10-01] MEDS: CARBIDOPA-LEVODOPA 25-100 MG 1 EACH TAB PO SCH ×3 (07:56→21:34)
[2017-10-01] MEDS ORDERED: amLODIPine 5 MG TAB PO SCH (09:00)
[2017-10-01] MEDS ORDERED: LISINOPRIL 5 MG TAB PO ONE (09:00)
[2017-10-01] MEDS ORDERED: amLODIPine 5 MG TAB PO ONE (09:00)
--- NOTE | 2017-10-01 10:11 | P.PN ---
Subjective Progress Note Date: 10/01/17 Principal diagnosis: Patient is seen and examined in follow-up of urinary tract infection and uncontrolled hypertension Patient seen and examined today, denies any chest pain trouble breathing denies any headache denies any focal neurologic deficits speech is coherent and intact. She reports some sweating and dizziness when she gets up. She is concerned regarding her high blood pressure readings. She reported to me that she never had high blood pressure readings in the past and if anything her doctors always told her that her blood pressure is low and prescribed her compression stockings to help prevent orthostatic hypotension and falls that she was experiencing. Otherwise patient is tolerating diet denies any dysuria or hematuria denies any nausea or vomiting. Objective - Vital Signs Vital signs: Vital Signs Temp 97.7 F 10/01/17 07:00 Pulse 72 10/01/17 07:00 Resp 18 10/01/17 07:00 BP 194/86 10/01/17 07:00 Pulse Ox 98 10/01/17 07:00 Intake & Output 09/30/17 10/01/17 10/01/17 18:59 06:59 18:59 Intake Total 400 Balance 400 Weight 61.235 kg Intake: Oral 400 Other: Voiding Method Toilet Toilet # Voids 1 1 - Exam Constitutional: vital signs stable, Not in acute distress, pleasant, conversant Eyes: Pupils equal round reactive to light , anicteric sclerae, moist conjunctivae Lungs: Clear to auscultation bilaterally, clear to percussion, normal respiratory effort no use of accessory muscles Cardiovascular: Regular rate and rhythm, no murmurs, no gallops, no rubs, no peripheral edema Gastrointestinal: Soft, no tenderness to palpation, no palpable hepatosplenomegally, bowel sounds positive, no abdominal wall hernias Extremities: No digital cyanosis or clubbing, peripheral pulses palpable and equal over bilateral radial arteries and dorsalis pedis artery, no calf muscle tenderness Psych: Alert, oriented to place, person and time, appropriate affect, intact judgment Neuro: Cranial nerves II-XII grossly intact, no focal sensory deficits to touch , finger-nose exam is intact and speech is coherent and intact - Labs CBC & Chem 7: 09/30/17 08:16 09/30/17 08:16 Labs: Microbiology - Last 24 Hours (Table) 09/27/17 21:57 Blood Culture - Preliminary Blood No Growth after 72 hours Assessment and Plan Assessment: 86 years old female with history of Parkinson disease, paroxysmal A. fib not on anticoagulation, presented due to sweating and generalized weakness was found to have acute urinary tract infection. During this hospital course her blood pressure has been very labile ranging between systolic of 200 down to 110s without taking any blood pressure medications. Blood pressure medications were started yesterday and today patient is complaining of some sweating and dizziness when she gets up. I believe this is all due to autonomic dysfunction and advanced age that's causing positional changes and her blood pressure readings. I further discussed the case with cardiology who she sees regularly Jalen Wheat the nurse practitioner agrees with my plan of holding the blood pressure medications to avoid hypotension, and to check her blood pressure only and sitting positions after 15 minutes of sitting on the chair to have accurate readings. Seems like every time they measured her blood pressure when she is laying flat or she just changed her position the blood pressure readings will be high. I measured the blood pressure myself while she was sitting down for at least 50 minutes and the readings were around 105/58 in both arms. Plan: #Sepsis secondary to urinary tract infection #Acute urinary tract infection Continue with Rocephin to finish a 3 day course of antibiotics Cultures are negative to date Leukocytosis resolved, patient afebrile, patient denies any symptoms of dysuria or hematuria at this point #labile hypertension Patient does not have history of hypertension, actually she complains of frequent falls and orthostatic dizziness, she has been told by her PCP and other physicians in the office that her blood pressure normally runs low and that she should have used compression stockings I think the higher blood pressure readings during this hospital stay is driven by autonomic dysfunction as blood pressure is measured while laying flat or when the patient just changed position resulting in high reading Blood pressure should be measured while patient is sitting down in the chair for at least 15 minutes in both arms I measured the blood pressure myself and in both arms it was around 105/58 Today patient is complaining of some dizziness and sweating I believe this is due to hypotension after starting 3 new blood pressure medications yesterday #Parkinson disease currently stable Continue levodopa #Paroxysmal atrial fibrillation not on anticoagulation due to risk of frequent falling at home, currently in sinus rhythm Continue with digoxin Cardiology is following #DVT prophylaxis On Lovenox subcu Patient will be monitored for another 24 hours off blood pressure medications, renal ultrasound will be performed to check for renal artery stenosis as a possible secondary cause of hypertension for further evaluation, Blood pressure will be monitored closely today and if stable then patient will be possibly discharge tomorrow to home
--- NOTE | 2017-10-01 14:27 | P.PN ---
Subjective Progress Note Date: 10/01/17 Mrs. 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 She sees Dr. Yanez in the office. We have been asked to see her in consultation for elevated blood pressure. Primary team has tried catapres, hydrochlorothiazide and amlodipine without success. She states she has never had an issue with her blood pressure, she typically runs on the lower side of normal. She is currently admitted into the hospital with urinary tract infection is being treated with IV Rocephin. Blood pressure on admission was 204/89 heart rate of 107 she for of 100.8. Since admission her blood pressures have fluctuated from 200 systolic to 150. She is no longer febrile. Hydrochlorothiazide and amlopdipine were added per primary. EKG on arrival reveals sinus mechanism with evidence of left ventricular hypertrophy, right bundle branch block as well as left fascicular block. Chest x-ray is negative for acute cardiopulmonary process. Laboratory data reviewed, hemoglobin 11.5, with blood cell count on admission 20 down to 8.0, potassium 3.9, creatinine 1.03 down from 1.2 on admission. Current cardiac medications include digoxin 125 g daily and aspirin 81 mg daily. Telemetry tracings reveal sinus rhythm with episodes of bradycardia down to the mid 40s. She denies symptoms of dizziness, chest pain, shortness of breath, palpitations, diaphoresis, nausea or vomiting. 10/01/2017 Mrs. Lewis is seen today in follow-up. She is seen sitting in bed with family at the bedside. Blood pressure readings are continuing to be elevated even after being on 3 different medications. Primary started amlodipine and hydrochlorothiazide and we added lisinopril yesterday. Apparently her blood pressure readings were rechecked by Dr. Bah himself after she had been sitting for some time and he got a reading of 105/58 in both arms. He has discontinued antihypertensive medications. She continues to c/o episodes of diaphoresis and headache. Objective - Vital Signs Vital signs: Vital Signs Temp 97.7 F 10/01/17 07:00 Pulse 72 10/01/17 08:00 Resp 18 10/01/17 08:00 BP 194/86 10/01/17 07:00 Pulse Ox 98 10/01/17 07:00 Intake & Output 09/30/17 10/01/17 10/01/17 18:59 06:59 18:59 Intake Total 400 Balance 400 Weight 61.235 kg Intake: Oral 400 Other: Voiding Method Toilet Toilet Toilet # Voids 1 1 - Exam Documented blood pressure from this morning 194/86 with heart rate 72, afebrile and maintain oxygen saturations with oxygen via nasal cannula GENERAL: Well-appearing, well-nourished and in no acute distress. NECK: Supple without JVD or thyromegaly. LUNGS: Breath sounds clear to auscultation bilaterally. Respiration equal and unlabored. No wheezes, rales or rhonchi. HEART: Regular rate and rhythm without murmurs, rubs or gallops. S1 and S2 heard. EXTREMITIES: Normal range of motion, no edema. No clubbing or cyanosis. Peripheral pulses intact and strong. - Labs CBC & Chem 7: 09/30/17 08:16 09/30/17 08:16 Labs: Microbiology - Last 24 Hours (Table) 09/27/17 21:57 Blood Culture - Preliminary Blood No Growth after 72 hours Assessment and Plan Assessment: ASSESSMENT 1. Hypertension, no history 2. Urinary tract infection 3. Paroxysmal atrial fibrillation not on long-term anticoagulation secondary to frequent falls. Maintaining sinus mechanism. Telemetry can be discontinued. PLAN Apparently blood pressure readings have been inconsistent. Recommend manual blood pressure measurements after she has been sitting with her feet on the ground for at least 5 minutes. Agree with holding medications as a trial to evaluate the actual need for antihypertensives. Further recommendations to follow. Nurse Practitioner note has been reviewed, I agree with a documented findings and plan of care. Patient was seen and examined.
--- NOTE | 2017-10-01 17:37 | US ---
EXAMINATION TYPE: US renal artery duplex complete DATE OF EXAM: 10/01/2017 COMPARISON: NONE CLINICAL HISTORY: elevated bp, new meds not effective. HTN for 5 days MEASUREMENTS: RENAL SIZE: Rt Kidney: 10.6 x 3.8 x 5.3cm Lt Kidney: 9.9 x 5.2 x 4.2cm RESISTANCE INDEX Right: 0.69 Left: 0.67 RA/AO RATIO (< 3.5 ) Right: 1.8 Left: 2.0 RA VELOCITY ( < 180 cm/s) Right: 145.8cm/s Left: 162.9cm/s *Technical limitations due to overlying bowel content. Calcifications noted within aorta. Cystic area lower pole left kidney = 2.0 x 1.7 x 1.5cm. No evidence of renal artery stenosis as visualized. Good upstroke at segmentals at hilum. Low resistive waveforms noted throughout. Grayscale, color Doppler, spectral Doppler imaging performed of the aorta, renal arteries, there is c olor flow in the aorta. Cortical medullary differentiation maintained within the kidneys. Waveform an alysis shows risk upstroke at the evaluated arteries. IMPRESSION: Exam is somewhat limited. Renal artery stenosis is not evident. Atheromatous changes present of the a enio. Probable simple cyst lower pole left kidney.
--- NOTE | 2017-10-01 18:01 | ECHOF ---
Referral Reason:murmur MEASUREMENTS -------- HEIGHT: 167.6 cm WEIGHT: 61.2 kg BP: 194/86 RVIDd: 1.7 cm (< 3.3) IVSd: 0.9 cm (0.6 - 1.1) LVIDd: 4.3 cm (3.9 - 5.3) LVPWd: 1.0 cm (0.6 - 1.1) IVSs: 1.2 cm LVIDs: 2.8 cm LVPWs: 1.3 cm LAESV Index (A-L): 32.89 ml/m Ao Diam: 2.9 cm (2.0 - 3.7) AV Cusp: 1.6 cm (1.5 - 2.6) LA Diam: 2.7 cm (2.7 - 3.8) EPSS: 0.3 cm MV E Nixon: 0.90 m/s MV DecT: 229 ms MV A Nixon: 1.05 m/s MV E/A Ratio: 0.86 RAP: 15.00 mmHg RVSP: 41.84 mmHg MV EF SLOPE: 110.98 mm/s (70 - 150) MV EXCURSION: 1.46 cm (> 18.000) FINDINGS -------- Resting bradycardia (HR<60bpm). This was a technically good study. The left ventricular size is normal. Left ventricular wall thickness is normal. Overall left vent ricular systolic function is normal with, an EF between 55 - 60 %. The right ventricle is normal in size and function. LA is midly dilated 29-33ml/m2. RA appears enlarged. Aortic valve is trileaflet and is mildly thickened. There is no evidence of aortic regurgitation. There is no evidence of aortic stenosis. The mitral valve leaflets are mildly thickened. Mild mitral annular calcification present. There is trace to mild mitral regurgitation. Mild tricuspid regurgitation present. There is mild pulmonary hypertension. The right ventricular systolic pressure, as measured by Doppler, is 41.84mmHg. Trace/mild (physiologic) pulmonic regurgitation. The aortic root size is normal. The inferior vena cava is dilated with no significant inspiratory collapse which is consistent estima malaika right atrial pressure of >20 mmHg. Echo free space indicative of a pericardial fat pad. There is no pericardial effusion. CONCLUSIONS -------- 1. Resting bradycardia (HR<60bpm). 2. This was a technically good study. 3. The left ventricular size is normal. 4. Left ventricular wall thickness is normal. 5. Overall left ventricular systolic function is normal with, an EF between 55 - 60 %. 6. LA is midly dilated 29-33ml/m2. 7. RA appears enlarged. 8. Aortic valve is trileaflet and is mildly thickened. 9. The mitral valve leaflets are mildly thickened. 10. Mild mitral annular calcification present. 11. There is trace to mild mitral regurgitation. 12. Mild tricuspid regurgitation present. 13. There is mild pulmonary hypertension. 14. The right ventricular systolic pressure, as measured by Doppler, is 41.84mmHg. 15. Trace/mild (physiologic) pulmonic regurgitation. 16. The aortic root size is normal. 17. The inferior vena cava is dilated with no significant inspiratory collapse which is consistent es timated right atrial pressure of >20 mmHg. 18. Echo free space indicative of a pericardial fat pad. 19. There is no pericardial effusion. CRUTCHING CONTRACTOR: Mo Morataya RDCS
[2017-10-01] MEDS: cefTRIAXone IN SWFI 1,000 MG/10 ML SYRINGE IVP SCH (21:35)
[2017-10-01] MEDS: DONEPEZIL 10 MG TAB PO SCH (21:35)
[2017-10-02 07:53] LABS: Basophils # (A) 0.1 k/uL (0-0.2); Basophils % (A) 1 %; Eosinophils # (A) 0.1 k/uL (0-0.7); Eosinophils % (A) 2 %; HCT 38.4 % (34.0-46.0); HGB 12.7 gm/dL (11.4-16.0); Lymphocytes % (A) 14 %; MCH 30.3 pg (25.0-35.0); MCHC 33.2 g/dL (31.0-37.0); MCV 91.3 fL (80.0-100.0); Mean Platelet Volume 6.9; Monocytes # (A) 0.5 k/uL (0-1.0); Monocytes % (A) 6 %; Neutrophils # (A) 5.2 k/uL (1.3-7.7); Neutrophils % (A) 73 %; Platelet Count 249 k/uL (150-450); RBC 4.21 m/uL (3.80-5.40); RDW 13.6 % (11.5-15.5); WBC 7.1 k/uL (3.8-10.6)
[2017-10-02] MEDS: DIGOXIN 125 MCG TAB PO SCH (08:20)
[2017-10-02] MEDS: CARBIDOPA-LEVODOPA 25-100 MG 1 EACH TAB PO SCH ×3 (08:30→21:50)
[2017-10-02] MEDS: ASPIRIN 81 MG PO SCH (08:30)
[2017-10-02 08:38] LABS: Calcium 9.3 mg/dL (8.4-10.2); Potassium 3.4 mmol/L (3.5-5.1)
[2017-10-02] MEDS ORDERED: LISINOPRIL 10 MG TAB PO SCH (09:00)
[2017-10-02] MEDS ORDERED: amLODIPine 10 MG TAB PO SCH (09:00)
[2017-10-02] MEDS ORDERED: POTASSIUM CHLORIDE ER 20 MEQ TAB.ER PO STA (09:54)
[2017-10-02] MEDS: POLYETHYLENE GLYCOL 3350 17 GM POWD.PACK PO SCH (10:40)
[2017-10-02] MEDS: CHOLECALCIFEROL 1,000 UNIT TAB PO SCH (10:40)
[2017-10-02] MEDS: PANTOPRAZOLE 40 MG TABLET PO SCH (10:40)
--- NOTE | 2017-10-02 12:23 | P.PN ---
Subjective Progress Note Date: 10/02/17 Principal diagnosis: Patient is seen and examined in follow-up of urinary tract infection and orthostatic hypotension Patient seen and examined today, patient continues to deny any trouble breathing or chest pain or any focal neurologic deficits however she is feeling dizzy every time she gets up and walk blood pressure is still low bile most likely due to orthostatic hypotension. RN thought that she felt irregular heartbeats today when the patient tried to go to the bathroom and felt dizzy as she dropped her blood pressure and had a heart rate in the 130s, however; EKG showed sinus rhythm along with telemetry at this time. Otherwise patient to tolerating by mouth intake, denies any nausea or vomiting. Denies any dysuria or hematuria at this point however continues to have nocturia Objective - Vital Signs Vital signs: Vital Signs Temp 98.6 F 10/01/17 23:00 Pulse 133 H 10/02/17 08:00 Resp 16 10/02/17 08:00 BP 89/52 10/02/17 07:00 Pulse Ox 99 10/01/17 23:00 Intake & Output 10/01/17 10/02/17 10/02/17 18:59 06:59 18:59 Intake Total 400 Balance 400 Intake: Oral 400 Other: Voiding Method Toilet Toilet Toilet # Voids 4 2 - Exam Constitutional: vital signs reviewed, Not in acute distress, pleasant, conversant, family at bed side Eyes: Pupils equal round reactive to light , anicteric sclerae, moist conjunctivae Lungs: Clear to auscultation bilaterally, clear to percussion, normal respiratory effort no use of accessory muscles Cardiovascular: Regular rate and rhythm, no murmurs, no gallops, no rubs, no peripheral edema Gastrointestinal: Soft, no tenderness to palpation, no palpable hepatosplenomegally, bowel sounds positive, no abdominal wall hernias Extremities: No digital cyanosis or clubbing, peripheral pulses palpable and equal over bilateral radial arteries and dorsalis pedis artery, no calf muscle tenderness Psych: Alert, oriented to place, person , appropriate affect, intact judgment Neuro: Cranial nerves II-XII grossly intact, no focal sensory deficits to touch , finger-nose exam is intact, no dysdiadikokinesis and speech is coherent and intact - Labs CBC & Chem 7: 10/02/17 07:10 10/02/17 07:10 Labs: Abnormal Lab Results - Last 24 Hours (Table) 10/02/17 Range/Units 07:10 Potassium 3.4 L (3.5-5.1) mmol/L Carbon Dioxide 31 H (22-30) mmol/L Microbiology - Last 24 Hours (Table) 09/27/17 21:57 Blood Culture - Preliminary Blood No Growth after 96 hours Assessment and Plan Assessment: 86 years old female with history of Parkinson disease, paroxysmal A. fib not on anticoagulation, presented due to sweating and generalized weakness was found to have acute urinary tract infection however it was partially treated as has just finished a course of antibiotics for sinus infection, cultures been negative to date . During this hospital course her blood pressure has been very labile ranging between systolic of 200 down to 78 at times without taking any blood pressure medications. Blood pressure medications were started for 1 day due to high systolic blood pressure readings, however patient started complaining of some sweating and dizziness when she gets up which got worse for which blood pressure pills were discontinued. I believe this is all due to autonomic dysfunction and advanced age that's causing orthostatic hypotension, along with known side effects of carbidopa that the patient is taking which results in hypotension mainly orthostatic . Cardiology agreed on holding blood pressure medications due to hypotension. Blood pressure should be measured while patient sitting down in a chair with feet flat on the ground for at least 5-10 minutes before checking the blood pressure. Other options would be utilizing MIL hoses compression stockings for the legs, I discussed with cardiology to consider Midodrin if appropriate, otherwise to avoid the side effect of carbidopa A she will be required to have a medication vacation where carbidopa should be stopped for couple weeks before reintroduced at the lower dose to try to avoid side effects, family were not excited about this idea as carbidopa has really helped with her Parkinson symptoms and they would like to continue carbidopa at the current dose which has been increased back in June. Plan: #Sepsis secondary to urinary tract infection, resolved #Acute urinary tract infection, urine culture reflects partially treated UTI due to being on antibiotics for sinus infection prior to presentation. Continue with Rocephin to finish a 3 day course of antibiotics Cultures are negative to date Leukocytosis resolved, patient afebrile, patient denies any symptoms of dysuria or hematuria at this point Patient has completed course of antibiotic with Rocephin IV. last dose today #Orthostatic hypotension this is multifactorial possibly due to side effect of levodopa/carbidopa, and some component of autonomic dysfunction with advanced age Patient does not have history of hypertension, actually she complains of frequent falls and orthostatic dizziness, she has been told by her PCP and other physicians in the office that her blood pressure normally runs low and that she should have used compression stockings Blood pressure should be measured while patient is sitting down in the chair for at least 5-10 minutes in both arms Yesterday when I took the blood pressure manually she was ranging between mid 70s systolic blood pressure too low 100s Add compression stockings bilaterally for the legs Discussed with cardiology to consider Midodrin #Parkinson disease currently stable Continue levodopa/carbidopa Medication dose was increased recently around June I discussed with the family to avoid the side effect of orthostatic hypotension we will need to lower the dose, the only way to achieve that if we get to have medication vacation where we stop it for couple weeks and then reintroduce it at a lower dose as this type of medication the patient will always require to increase the dose on regular basis to achieve symptomatic control of her Parkinson #Paroxysmal atrial fibrillation not on anticoagulation due to risk of frequent falling at home, currently in sinus rhythm Continue with digoxin Cardiology is following RN suspect possible event of short-lived atrial fibrillation with RVR today however we don't have any EKG or cardiac exercise physiologist rhythm strip to confirm that Electrolytes checked, potassium replaced #Hypokalemia, replace orally Continue to follow-up electrolytes #DVT prophylaxis On Lovenox subcu #Proximal muscle weakness Check a vitamin D3 Check vitamin B-12 level Renal artery ultrasound shows no evidence of renal artery stenosis 2-D echocardiogram of the heart shows left ventricular ejection fraction 5560% no other significant valvular abnormalities Patient continues to struggle with orthostatic hypotension will await further cardiology input regarding possibly starting Midodrin Follow-up electrolytes and replace accordingly Follow vitamin D3 and B12 levels
--- NOTE | 2017-10-02 14:24 | P.PN ---
Subjective Progress Note Date: 10/02/17 Mrs. 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 She sees Dr. Yanez in the office. We have been asked to see her in consultation for elevated blood pressure. Primary team has tried catapres, hydrochlorothiazide and amlodipine without success. She states she has never had an issue with her blood pressure, she typically runs on the lower side of normal. She is currently admitted into the hospital with urinary tract infection is being treated with IV Rocephin. Blood pressure on admission was 204/89 heart rate of 107 she for of 100.8. Since admission her blood pressures have fluctuated from 200 systolic to 150. She is no longer febrile. Hydrochlorothiazide and amlopdipine were added per primary. EKG on arrival reveals sinus mechanism with evidence of left ventricular hypertrophy, right bundle branch block as well as left fascicular block. Chest x-ray is negative for acute cardiopulmonary process. Laboratory data reviewed, hemoglobin 11.5, with blood cell count on admission 20 down to 8.0, potassium 3.9, creatinine 1.03 down from 1.2 on admission. Current cardiac medications include digoxin 125 g daily and aspirin 81 mg daily. Telemetry tracings reveal sinus rhythm with episodes of bradycardia down to the mid 40s. She denies symptoms of dizziness, chest pain, shortness of breath, palpitations, diaphoresis, nausea or vomiting. 10/01/2017 Mrs. Lewis is seen today in follow-up. She is seen sitting in bed with family at the bedside. Blood pressure readings are continuing to be elevated even after being on 3 different medications. Primary started amlodipine and hydrochlorothiazide and we added lisinopril yesterday. Apparently her blood pressure readings were rechecked by Dr. Bah himself after she had been sitting for some time and he got a reading of 105/58 in both arms. He has discontinued antihypertensive medications. She continues to c/o episodes of diaphoresis and headache. 10/02/2017 She is seen today resting in bed with family at the bedside. This morning she was getting up to the bathroom with nursing staff and she became acutely dizzy. Her heart was racing and was tachycardic. Blood pressure was low in the 89/52. EKG was obtained and showed no change. She continues to maintain sinus mechanism. All blood pressure meds are still being held. She is laying in bed in no acute distress, denies dizziness, chest pain, shortness of breath, palpitation. Continues to have symptoms of diaphoresis. Objective - Vital Signs Vital signs: Vital Signs Temp 98.6 F 10/01/17 23:00 Pulse 133 H 10/02/17 08:00 Resp 16 10/02/17 08:00 BP 89/52 10/02/17 07:00 Pulse Ox 99 10/01/17 23:00 Intake & Output 10/01/17 10/02/17 10/02/17 18:59 06:59 18:59 Intake Total 400 Balance 400 Intake: Oral 400 Other: Voiding Method Toilet Toilet Toilet # Voids 4 2 3 - Exam GENERAL: Well-appearing, well-nourished and in no acute distress. NECK: Supple without JVD or thyromegaly. LUNGS: Breath sounds clear to auscultation bilaterally. Respiration equal and unlabored. No wheezes, rales or rhonchi. HEART: Regular rate and rhythm without murmurs, rubs or gallops. S1 and S2 heard. EXTREMITIES: Normal range of motion, no edema. No clubbing or cyanosis. Peripheral pulses intact and strong. - Labs CBC & Chem 7: 10/02/17 07:10 10/02/17 07:10 Labs: Abnormal Lab Results - Last 24 Hours (Table) 10/02/17 Range/Units 07:10 Potassium 3.4 L (3.5-5.1) mmol/L Carbon Dioxide 31 H (22-30) mmol/L Microbiology - Last 24 Hours (Table) 09/27/17 21:57 Blood Culture - Preliminary Blood No Growth after 96 hours Assessment and Plan Assessment: ASSESSMENT 1. Hypertension, no history 2. Urinary tract infection 3. Paroxysmal atrial fibrillation not on long-term anticoagulation secondary to frequent falls. Maintaining sinus mechanism. 4. Parkinson's disease PLAN Continue to monitor blood pressure and heart rate closely. Agree with no further antihypertensive medications. Consider possible neurogenic cause of symptoms secondary to her parkinsons disease. We will continue to follow as needed. Nurse Practitioner note has been reviewed, I agree with a documented findings and plan of care. Patient was seen and examined.
[2017-10-02] MEDS: DONEPEZIL 10 MG TAB PO SCH (20:20)
--- NOTE | 2017-10-02 21:35 | P.CNNES ---
History of Present Illness Consult date: 10/02/17 Reason for Consult: Patient with Parkinson's Disease and labile hypertension. History of Present Illness: This patient is a 86-year-old right-handed white female who was brought into the emergency room for evaluation of sepsis and not feeling well. In the ER the patient was complaining of fevers and chills for several days prior to her admission. She was not eating or drinking well for the last few days. In the emergency room her temperature was 100.8. She was tachycardic with heart rate of 107. Urinalysis came back positive for urinary tract infection. The patient has a history of underlying Parkinson's disease which is been treated for the last 3 years by her neurologist Dr. Powell. She states that in June her dose of Sinemet was increased to 2 tablets by mouth 3 times a day. Prior to that she was on 1-1/2 tablets. Patient states that her Parkinson's condition remains very stable. She was admitted to the hospital and is currently being treated for urinary tract infection. She did show signs of accelerated hypertension and apparently blood pressures have been very labile. She also has a history of paroxysmal atrial fibrillation and is currently on digoxin. She is not on any anticoagulation due to risk of falls. Today the patient's blood pressure has been relatively stable. Prior to that she had very labile blood pressure readings as high as 200 systolic dropping to 80 systolic. She is being evaluated by cardiology who have discontinued her antihypertensive medications yesterday morning. Blood pressures seem to be stable today. She was checked for orthostatic hypotension at bedside this evening and does not appear to show evidence at this time. There was concern whether the patient may be on excessive amount of Sinemet possibly contributing to the fluctuations in her blood pressure. She does not manifest any signs of dyskinesias which would be a sign of excessive Sinemet use. In fact she feels her current dose of Sinemet has been very good in controlling all of her Parkinson features. There is a possibility the patient may have some degree of autonomic dysfunction which can be related to the Parkinson's disease. We are recommending that she should be referred to a tertiary center for autonomic testing. At this time we would recommend she be maintained on her current dose of Sinemet and this can be further addressed by her neurologist when she is discharged. The patient has been up and ambulating today and seems to be doing somewhat better. Blood pressure has not been as labile as on admission. She is being treated for urinary tract infection at this time as well. We will await further recommendations from cardiology as to whether she clearly has orthostatic hypotension to the point that she would require Midodrin. We have discussed all of these findings in detail with the patient and her daughter at bedside. All their questions were answered. We will continue close neurological follow-up with the patient. Review of Systems Constitutional: Denies chills, Denies fever Eyes: denies blurred vision, denies pain Ears, nose, mouth and throat: Denies headache, Denies sore throat Cardiovascular: Denies chest pain, Denies shortness of breath Respiratory: Denies cough Gastrointestinal: Denies abdominal pain, Denies diarrhea, Denies nausea, Denies vomiting Genitourinary: Denies dysuria, Denies hematuria Musculoskeletal: Denies myalgias Integumentary: Denies pruritus, Denies rash Neurological: Reports gait dysfunction, Reports memory loss, Reports motor disturbance, Denies numbness, Denies weakness Psychiatric: Denies anxiety, Denies depression Endocrine: Denies fatigue, Denies weight change Past Medical History Past Medical History: Atrial Fibrillation, GERD/Reflux Additional Past Medical History / Comment(s): parkinson's. History of Any Multi-Drug Resistant Organisms: None Reported Past Surgical History: Cholecystectomy, Hysterectomy Additional Past Surgical History / Comment(s): left ear. Past Psychological History: No Psychological Hx Reported Smoking Status: Former smoker Past Alcohol Use History: None Reported Past Drug Use History: None Reported - Past Family History Mother Family Medical History: No Reported History Medications and Allergies Home Medications Medication Instructions Recorded Confirmed Type Aspirin 81 mg PO DAILY 09/27/17 09/27/17 History Carbidopa-Levodopa 25-100 mg 2 tab PO TID 09/27/17 09/27/17 History [Sinemet 25-100] Cholecalciferol (Vitamin D3) 2,000 unit PO DAILY 09/27/17 09/27/17 History [Vitamin D3] Digoxin [Lanoxin] 125 mcg PO DAILY 09/27/17 09/27/17 History Donepezil [Aricept] 10 mg PO HS 09/27/17 09/27/17 History Omeprazole 20 mg PO AC-[id number] 09/27/17 09/27/17 History Polyethylene Glycol 3350 [Miralax] 17 gm PO DAILY 09/27/17 09/27/17 History Allergies Allergy/AdvReac Type Severity Reaction Status Date / Time No Known Allergies Allergy Verified 09/27/17 21:23 Physical Examination - Vital Signs Vital Signs: Vital Signs Temp Pulse Pulse Pulse Resp BP BP 10/02/17 15:29 16 10/02/17 15:00 121 H 10/02/17 08:00 133 H 79 16 10/02/17 07:00 133 H 79 133 H 89/52 157/114 10/01/17 23:00 98.6 F 69 16 144/72 Pulse Ox 10/02/17 15:29 10/02/17 15:00 10/02/17 08:00 10/02/17 07:00 10/01/17 23:00 99 Intake and Output 10/02/17 10/02/17 10/02/17 06:59 14:59 22:59 Other: Voiding Method Toilet Toilet Toilet # Voids 2 3 - Constitutional General appearance: average body habitus, cooperative - EENT EENT: PERRL, mucous membranes moist - Respiratory Respiratory: lungs clear, normal breath sounds - Cardiovascular Cardiovascular: regular rate, normal S1, normal S2 Extremities: no peripheral edema bilaterally - Gastrointestinal Gastrointestinal: normoactive bowel sounds - Integumentary Integumentary: normal - Neurologic Cranial nerve examination: PERRL, EOMI, VFF, V1/V2/V3 grossly intact, face symmetric, tongue midline, intact gag reflex, intact corneal reflex, normal palatal elevation Speech examination: intact Sensorimotor examination: intact Motor examination - right side: 4/5: biceps, triceps, wrist flexion, wrist extension, commercial account executive, hip flexors, knee extensors, dorsiflexion, toe extension (EHL) , plantarflexion Motor examination - left side: 4/5: biceps, triceps, wrist flexion, wrist extension, commercial account executive, hip flexors, knee extensors, dorsiflexion, toe extension (EHL) , plantarflexion Detailed sensory examination: intact Reflex and gait examination: intact Reflexes: 1+: ankle, bicep, knee, tricep - Musculoskeletal Musculoskeletal: no pain - Psychiatric Psychiatric: mood/affect appropriate, cooperative Results - Laboratory Findings CBC and BMP: 10/02/17 07:10 10/02/17 07:10 Abnormal Lab Findings: Abnormal Labs 09/27/17 09/27/17 09/27/17 21:30 21:57 21:57 WBC 20.0 H RBC Hgb Hct MCHC Neutrophils # 18.5 H Lymphocytes # 0.2 L Monocytes # Potassium Carbon Dioxide BUN 42 H Creatinine 1.20 H Glucose 141 H Total Protein Albumin Urine Appearance Cloudy H Urine Protein 1+ H Urine Ketones Trace H Urine Blood Small H Ur Leukocyte Esterase Large H Urine RBC 29 H Urine WBC >182 H Urine WBC Clumps Many H Urine Mucus Rare H 09/28/17 09/28/17 09/29/17 06:57 06:57 13:53 WBC 17.2 H RBC 3.56 L Hgb 10.9 L Hct 33.0 L MCHC 30.9 L Neutrophils # 14.3 H Lymphocytes # 0.8 L Monocytes # 1.1 H Potassium Carbon Dioxide BUN 35 H Creatinine 1.20 H Glucose Total Protein 5.9 L Albumin 3.3 L Urine Appearance Urine Protein Urine Ketones Urine Blood Ur Leukocyte Esterase Urine RBC Urine WBC Urine WBC Clumps Urine Mucus 09/30/17 09/30/17 10/02/17 08:16 08:16 07:10 WBC RBC Hgb Hct MCHC Neutrophils # Lymphocytes # 0.9 L Monocytes # Potassium 3.4 L Carbon Dioxide 31 H BUN 19 H Creatinine Glucose Total Protein Albumin Urine Appearance Urine Protein Urine Ketones Urine Blood Ur Leukocyte Esterase Urine RBC Urine WBC Urine WBC Clumps Urine Mucus Assessment and Plan (1) Autonomic dysfunction Current Visit: Yes Status: Acute Code(s): G90.9 - DISORDER OF THE AUTONOMIC NERVOUS SYSTEM, UNSPECIFIED SNOMED Code(s): 34853456 (2) Accelerated hypertension Current Visit: Yes Status: Acute Code(s): I10 - ESSENTIAL (PRIMARY) HYPERTENSION SNOMED Code(s): 39632678 (3) Urinary tract infection Current Visit: Yes Status: Acute Code(s): N39.0 - URINARY TRACT INFECTION, SITE NOT SPECIFIED SNOMED Code(s): 88540907 Plan: This patient is a 86-year-old right-handed white female with a known history of Parkinson's disease. She was admitted to Hospital with symptoms of fever and chills. She was found to have evidence of a urinary tract infection and has been treated with antibiotic therapy. She has a history of Parkinson's disease and is been on Sinemet at high dose. Neurology was consulted today due to question of orthostatic hypotension and blood pressure variations. Given her history of Parkinson's disease she most likely has some degree of autonomic dysfunction. We are recommending that she should have this evaluated at a tertiary center with autonomic testing. At this time we would recommend she be maintained on her current dose of Sinemet and to follow-up with her regular neurologist soon after discharge. Her neurological exam reveals her to have no significant findings of Parkinson's symptoms on exam testing. She appears to be appropriate on her current dose of Sinemet. She has no signs of dyskinesias suggesting overdose of the Sinemet currently being given to her. We would recommend she follow-up with her neurologist soon after discharge. He can help arrange for referral to a tertiary center were more elaborate autonomic testing can be done. This likely is contributing to her variation and blood pressure readings. Cardiology is also evaluating the patient and we will await their further recommendations. She has been doing better today after discontinuation of all antihypertensive medications yesterday morning. Would continue to increase her activity and to monitor her closely for any further changes. We did check her for orthostatic hypotension today and she does not seem to demonstrate that on testing at bedside today. We will continue to follow her progress closely. We did discuss all of these findings in detail with the patient and her daughter bedside. All their questions were answered. We will continue to follow her closely during this admission. Her overall prognosis at this time remains guarded.
[2017-10-02] MEDS: cefTRIAXone IN SWFI 1,000 MG/10 ML SYRINGE IVP SCH (21:50)
[2017-10-03] MEDS: PANTOPRAZOLE 40 MG TABLET PO SCH (07:49)
[2017-10-03] MEDS: ASPIRIN 81 MG PO SCH (07:49)
[2017-10-03] MEDS: DIGOXIN 125 MCG TAB PO SCH (07:50)
[2017-10-03] MEDS: CARBIDOPA-LEVODOPA 25-100 MG 1 EACH TAB PO SCH (07:50)
[2017-10-03] MEDS: CHOLECALCIFEROL 1,000 UNIT TAB PO SCH (07:50)
[2017-10-03] MEDS: POLYETHYLENE GLYCOL 3350 17 GM POWD.PACK PO SCH (07:54)
[2017-10-03 07:58] LABS: Calcium 9.7 mg/dL (8.4-10.2); Magnesium 1.7 mg/dL (1.6-2.3); Potassium 3.7 mmol/L (3.5-5.1)
[2017-10-03 08:22] LABS: Basophils # (A) 0.1 k/uL (0-0.2); Basophils % (A) 1 %; Eosinophils # (A) 0.1 k/uL (0-0.7); Eosinophils % (A) 1 %; HCT 39.6 % (34.0-46.0); Lymphocytes # (A) 1.2 k/uL (1.0-4.8); Lymphocytes % (A) 14 %; MCH 30.1 pg (25.0-35.0); MCHC 32.8 g/dL (31.0-37.0); MCV 91.6 fL (80.0-100.0); Mean Platelet Volume 6.8; Monocytes # (A) 0.5 k/uL (0-1.0); Monocytes % (A) 6 %; Neutrophils # (A) 5.9 k/uL (1.3-7.7); Neutrophils % (A) 73 %; Platelet Count 266 k/uL (150-450); RBC 4.33 m/uL (3.80-5.40); RDW 13.6 % (11.5-15.5); WBC 8.1 k/uL (3.8-10.6)
[2017-10-03 08:25] VITALS: BP 92/51; PULSE 79; RESP 18; TEMP 97.7
--- NOTE | 2017-10-03 10:25 | P.DS ---
Providers Date of admission: 09/27/17 23:59 Attending physician: Lacy Easley MD Consults: 09/30/17 12:43 Consult Physician Routine Consulting Provider: Manny Yanez Consult Reason/Comments: a-fib, HTN Do you want consulting provider notified?: Yes 10/02/17 17:05 Consult Physician Routine Consulting Provider: Desiree Ling Consult Reason/Comments: parkinsons, postural hypotension Do you want consulting provider notified?: Yes Primary care physician: Stated None Hospital Course: Diagnosis at discharge #. Sepsis 2/2 UTI #. UTI , upon presentation , no chronic hackett catheter # Labile Blood pressure (SBP max of 200 and kervin of 78 mmHg) due to orthostatic hypotension vs autonomic dysfunction (with parkinsons disease) #. Parkinson's disease #. Paroxysmal atrial fibrilation not on anticoagulation due to fall risk 86 years old female with history of Parkinson disease, paroxysmal A. fib not on anticoagulation, presented due to sweating and generalized weakness was found to have acute urinary tract infection however it was partially treated as has just finished a course of antibiotics for sinus infection, cultures been negative to date . This was treated with full course of Rocephine IVPB while inpatient. Fever and leukocytosis were resolved. During this hospital course her blood pressure has been very labile ranging between systolic of 200 down to 78 at times without taking any blood pressure medications. Blood pressure medications were started for 1 day due to high systolic blood pressure readings , however patient started complaining of some sweating and dizziness when she gets up which got worse for which blood pressure pills were discontinued. I believe this is all due to autonomic dysfunction and advanced age that's causing orthostatic hypotension, along with known side effects of carbidopa that the patient is taking which results in hypotension mainly orthostatic . Cardiology agreed on holding blood pressure medications due to hypotension. Blood pressure should be measured while patient sitting up in a chair with feet flat on the ground for at least 5-10 minutes before checking the blood pressure. Other options would be utilizing MIL hoses compression stockings for the legs, I discussed with cardiology to consider Midodrin if appropriate, otherwise to avoid the side effect of carbidopa/Levodopa she will be required to have a medication vacation where carbidopa should be stopped for couple weeks before reintroduced at the lower dose to try to avoid side effects, Neurology was consulted for further evaluation , and found that carbidopa/ Levodopa is well controlling her symptoms of parkinsons disease and refrained from adjusting the dose, however suggested to the family considering taking the patient to a tertiary center for further evaluation of possilbe autonomic dysfunction , which family agreed. Patient was seen and examined on day of discharge again the blood pressure was in the 150s systolic while laying flat and in the low 100 when sitting up in the chair. Patient denies any fevers or chills chest pain or trouble breathing denies any palpitations. Constitutional: vital signs stable , Not in acute distress, pleasant, conversant Lungs: Clear to auscultation bilaterally, clear to percussion, normal respiratory effort no use of accessory muscles Cardiovascular: Regular rate and rhythm, no murmurs, no gallops, no rubs, no peripheral edema Gastrointestinal: Soft, no tenderness to palpation, no palpable hepatosplenomegally, bowel sounds positive, no abdominal wall hernias Extremities: No digital cyanosis or clubbing, peripheral pulses palpable and equal over bilateral radial arteries and dorsalis pedis artery, no calf muscle tenderness Psych: Alert, oriented to place, person and situation, appropriate affect, intact judgment Patient was discharged in good condition Patient was extensively counseled regarding safety at home to take it slow when changes position or getting out of the bed to take it very slow and wait for a few minutes before she changes position make sure that she is not getting dizzy. She will also utilize a walker that she has a home, agrees to utilize a night light. Seek help from family members when she needs to use the bathroom at night. Patient also counseled to drink enough water daily and to consider oral rehydration solution that she come to her home or other electrolyte rich drinks like gatorade Patient follow-up with her neurologist to seek referral to surgery For Function Testing. And to Evaluate for Any Dose Adjustments of Her Levodopa Carbidopa Patient Is Also Given Referral to New PCP per Her Request Dr. Yates 50 minutes were spent discharging this patient, and more than 50% of the time was spent in counseling the patient and family and in coordinating care. Pertinent Studies: Renal artery ultrasound shows no evidence of renal artery stenosis 2-D echocardiogram of the heart shows left ventricular ejection fraction 55-60% no other significant valvular abnormalities Patient Condition at Discharge: Stable Plan - Discharge Summary New Discharge Prescriptions: Continue Cholecalciferol (Vitamin D3) [Vitamin D3] 2,000 unit PO DAILY Digoxin [Lanoxin] 125 mcg PO DAILY Aspirin 81 mg PO DAILY Polyethylene Glycol 3350 [Miralax] 17 gm PO DAILY Omeprazole 20 mg PO AC-BRKT Carbidopa-Levodopa 25-100 mg [Sinemet 25-100 mg] 2 tab PO TID Donepezil [Aricept] 10 mg PO HS Discharge Medication List Aspirin 81 mg PO DAILY 09/27/17 [History] Carbidopa-Levodopa 25-100 mg [Sinemet 25-100 mg] 2 tab PO TID 09/27/17 [History] Cholecalciferol (Vitamin D3) [Vitamin D3] 2,000 unit PO DAILY 09/27/17 [History] Digoxin [Lanoxin] 125 mcg PO DAILY 09/27/17 [History] Donepezil [Aricept] 10 mg PO HS 09/27/17 [History] Omeprazole 20 mg PO AC-BRKFST 09/27/17 [History] Polyethylene Glycol 3350 [Miralax] 17 gm PO DAILY 09/27/17 [History] Follow up Appointment(s)/Referral(s): Patrick Yates MD [STAFF PHYSICIAN] - 1 Week (Patient to call Dr. Yates' s office Thursday to schedule follow up appointment. The office is closed at time of discharge. ) Manny Yanez MD [STAFF PHYSICIAN] - 1-2 days (Patient to call Dr. Yanez's office Thursday to schedule follow up appointment. The office is closed at time of discharge. ) Patient Instructions/Handouts: Urinary Tract Infection in Women (DC), Chronic Hypertension (DC), Coronary Artery Disease in Women (DC) Activity/Diet/Wound Care/Special Instructions: Follow up with primary caregiver 1 to 5 days Call on Thursday to schedule 's appointments, office closed on weekends Care Plan Goals (MU): take it slow when you change position, walk next to rain, hold rails , use walker , keep a night light on , Discharge Disposition: HOME SELF-CARE
== END 2017-10-03 10:55 | disposition home or self-care (01) | DRG 872 ==
LOC: EC 20:45 → 5MS5E 23:59
PROVIDERS: ADMIT Internal Medicine; ATTEND Internal Medicine
DX: A41.9 Sepsis, unspecified organism (principal); G20 Parkinson's disease; I95.89 Other hypotension; E86.0 Dehydration; I48.0 Paroxysmal atrial fibrillation; I45.2 Bifascicular block; G90.9 Disorder of the autonomic nervous system, unspecified; E87.6 Hypokalemia; N39.0 Urinary tract infection, site not specified; M62.81 Muscle weakness (generalized); I51.7 Cardiomegaly; K21.9 Gastro-esophageal reflux disease without esophagitis; R29.6 Repeated falls; Z79.899 Other long term (current) drug therapy; Z79.82 Long term (current) use of aspirin; Z90.710 Acquired absence of both cervix and uterus; Z91.81 History of falling; Z87.891 Personal history of nicotine dependence
CPT/HCPCS: 36415; 71046; 80048; 80053; 81001; 82306; 82607; 83605; 83735; 84484; 85025; 85610; 85730; 87040; 87086; 87502; 93005; 93306; 93975; 96361; 96374; 99285

== ENCOUNTER → 2017-10-19 | Outpatient (CLI) | payer MEDICARE ==
--- NOTE | 2017-10-20 08:45 | US ---
EXAMINATION TYPE: US thyroid st tissue head/neck DATE OF EXAM: 10/19/2017 COMPARISON: NONE CLINICAL HISTORY: E04.2 nontoxic multinodular goiter. Elderly patient who had to sit up during exam. GLAND SIZE: Right Lobe: 5.1 x 2.3 x 2.2 cm Overall Parenchyma: heterogenous Left Lobe: 5.1 x 1.8 x 2.3 cm Overall Parenchyma: heterogeneous Isthmus Thickness: 0.6 cm NODULES RIGHT: # of nodules measured on right: 0 LEFT: # of nodules measured on left: 1 1. 0.6 x 0.5 x 0.7 cm isoechoic solid nodule at the lower pole with well-defined margins. This nodu le is wider than tall and shows intranodular vascularity. Immediately adjacent there is an additional focus, slightly smaller in size. ISTHMUS: # of nodules measured in the isthmus: 0 Bilateral neck scanned, no evidence of lymphadenopathy. IMPRESSION: Subcentimeter thyroid nodules
== END | disposition home or self-care (01) ==
LOC: RADUSWWP 15:57
PROVIDERS: ATTEND Family Medicine
DX: E04.2 Nontoxic multinodular goiter (principal)
CPT/HCPCS: 76536

== ENCOUNTER → 2017-10-28 | Outpatient (CLI) | payer MEDICARE ==
--- NOTE | 2017-10-28 11:59 | FL ---
MODIFIED SWALLOW / DEGLUTITION STUDY DATE OF EXAM: 10/28/2017 CLINICAL HISTORY: 86-year-old female Dysphagia. History of Parkinson's disease with food sticking in the throat and coming back up. TECHNIQUE: Deglutition study is performed utilizing thin liquid barium, honey and nectar thick liqui d barium, barium thick applesauce, and barium coated cracker. Total fluoroscopy time: 1 minute 45 seconds. Total images: None. Real-time fluoroscopy support was provided to speech pathology. COMPARISON: None. FINDINGS: The oral and pharyngeal phases show satisfactory initiation and propagation with all modalities teste d. Normal mastication is seen with solid modalities tested. There is no evidence of penetration or aspiration with any modality tested. No significant pharyngeal residue was appreciated. Incidentally, there are C4-C6 anterior endplate spondylosis mildly impressing onto the posterior hypo pharynx/upper cervical esophagus. IMPRESSION: Functional swallow. Some anterior endplate spondylosis mildly impressing on to the posterior cervical esophagus. Please refer to speech therapist notes for further details if necessary.
== END | disposition home or self-care (01) ==
LOC: RADFLMAIN 10:56
PROVIDERS: ATTEND Psychiatry & Neurology Neurology
DX: G20 Parkinson's disease (principal)
CPT/HCPCS: 74230

== ENCOUNTER → 2017-11-09 | Outpatient (CLI) | payer MEDICARE ==
--- NOTE | 2017-11-10 13:51 | MM ---
Reason for exam: screening (asymptomatic). Last mammogram was performed 1 year and 1 month ago. 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 Quadrectomy of both breasts, 1977. Took estrogen for 16 years beginning at age 40. Took progesterone for 16 years beginning at age 40. Physical Findings: A clinical breast exam by your physician is recommended on an annual basis and results should be correlated with mammographic findings. MG 3D Screening Mammo W/Cad Bilateral CC and MLO view(s) were taken. Prior study comparison: October 01, 2016, bilateral MG 3d diag mammo w/cad SHANICE. April 02, 2016, left breast MG 3d diag mammo w/cad LT. The breast tissue is heterogeneously dense. This may lower the sensitivity of mammography. Benign calcifications bilaterally. Post surgical changes bilaterally. No significant changes when compared with prior studies. ASSESSMENT: Benign, BI-RAD 2 RECOMMENDATION: Routine screening mammogram of both breasts in 1 year. Manage on a clinical basis with regard to generalized right breast lumpiness. If there is a focal palpable abnormality diagnostic mammogram is recommended.
== END | disposition home or self-care (01) ==
LOC: RADMAMWWP 14:33
PROVIDERS: ATTEND Family Medicine
DX: Z12.31 Encounter for screening mammogram for malignant neoplasm of breast (principal)
CPT/HCPCS: 77063; 77067

== ENCOUNTER 2018-01-26 21:58 | Inpatient (IN) | payer MEDICARE ==
[2018-01-26] MEDS ORDERED: SODIUM CHLORIDE 0.9% 500 ML IV ONE (22:59)
[2018-01-26 23:12] LABS: Basophils # (A) 0.1 k/uL (0-0.2); Basophils % (A) 0 %; Eosinophils # (A) 0.1 k/uL (0-0.7); Eosinophils % (A) 1 %; HCT 37.7 % (34.0-46.0); HGB 12.3 gm/dL (11.4-16.0); Lymphocytes # (A) 0.9 k/uL (1.0-4.8); Lymphocytes % (A) 8 %; MCH 30.2 pg (25.0-35.0); MCHC 32.6 g/dL (31.0-37.0); MCV 92.4 fL (80.0-100.0); Mean Platelet Volume 6.9; Monocytes # (A) 0.8 k/uL (0-1.0); Monocytes % (A) 7 %; Neutrophils # (A) 8.8 k/uL (1.3-7.7); Neutrophils % (A) 80 %; Platelet Count 328 k/uL (150-450); RBC 4.08 m/uL (3.80-5.40); RDW 13.8 % (11.5-15.5); WBC 10.9 k/uL (3.8-10.6)
[2018-01-26 23:24] LABS: Albumin 4.2 g/dL (3.5-5.0); Calcium 9.3 mg/dL (8.4-10.2); Magnesium 1.7 mg/dL (1.6-2.3); Total Bilirubin 0.4 mg/dL (0.2-1.3); Total Protein 6.6 g/dL (6.3-8.2)
[2018-01-26 23:25] LABS: INR 1.1 (<1.2); Partial Thromboplastin Time 23.3 sec (22.0-30.0); Prothrombin Time 10.4 sec (9.0-12.0)
[2018-01-26 23:27] LABS: Appearance,Urine Cloudy (Clear); Bacteria,Urine Rare /hpf; Bilirubin,Urine Negative (Negative); Blood,Urine Negative (Negative); Color,Urine Yellow; Glucose,Urine (UA) Negative (Negative); Hyaline Casts,Urine 29 /lpf (0-2); Ketones,Urine Trace (Negative); Leukocyte Esterase,Urine Moderate (Negative); Mucus,Urine Rare /hpf; Nitrite,Urine Negative (Negative); PH, Urine 5.5 (5.0-8.0); Protein,Urine Trace (Negative); RBC,Urine 3 /hpf (0-5); Specific Gravity,Urine 1.017 (1.001-1.035); Squamous Epithelial Cell,Urine 8 /hpf (0-4); WBC,Urine 9 /hpf (0-5)
--- NOTE | 2018-01-26 23:39 | XR ---
EXAMINATION TYPE: XR chest 2V DATE OF EXAM: 01/26/2018 COMPARISON: 09/27/2017 HISTORY: Syncope TECHNIQUE: Frontal and lateral views of the chest are obtained. FINDINGS: There is no heart failure nor confluent pneumonic infiltrate. Heart is enlarged. Costophre nils angles are clear. Thoracic aorta is atheromatous. Bony thorax is intact. IMPRESSION: No active cardiopulmonary disease. Cardiomegaly. No change.
--- NOTE | 2018-01-26 23:39 | ED ---
General Adult HPI - General Chief complaint: Syncope Stated complaint: Fall Time Seen by Provider: 01/26/18 22:21 Source: patient Mode of arrival: ambulatory Limitations: no limitations - History of Present Illness Initial comments: This is an 87-year-old female who presents emergency department for multiple falls route the day and also syncope. Patient lives alone with her . He states that she usually ambulate with a walker however has been very unsteady on her feet which has gradually worsened over the last few weeks. Today she fell multiple times. She is he states that today she just decided to let go of her walker and she fell straight back and hit her head. There is no loss of consciousness at that time however he states that later on when they're in the kitchen she had an episode where her eyes rolled back in her head like she was about to fall. He is able to catch her and put her down on a chair before she fell however this is when they decided to bring her to the emergency department. Patient states that she does not have any chest pain. She states that she does feel generally weak and was recently diagnosed with a urinary tract infection by her primary doctor. Also stated that her kidney function was also noted to be "off" by her primary doctor. She was started on some type of diuretic and told to follow-up this week for repeat labs. She denies any nausea, vomiting, or diarrhea. No dark or bloody stools. No other acute complaints. - Related Data Home Medications Medication Instructions Recorded Confirmed Carbidopa-Levodopa 25-100 mg 2 tab PO TID 09/27/17 01/26/18 [Sinemet 25-100 mg] Digoxin [Lanoxin] 125 mcg PO DAILY 09/27/17 01/26/18 Donepezil [Aricept] 10 mg PO HS 09/27/17 01/26/18 Polyethylene Glycol 3350 [Miralax] 17 gm PO DAILY PRN 09/27/17 01/26/18 Ciprofloxacin HCl [Cipro] 250 mg PO Q12H 01/26/18 01/26/18 Furosemide [Lasix] 20 mg PO DAILY 01/26/18 01/26/18 Allergies Allergy/AdvReac Type Severity Reaction Status Date / Time No Known Allergies Allergy Verified 01/26/18 22:51 Review of Systems ROS Statement: Those systems with pertinent positive or pertinent negative responses have been documented in the HPI. ROS Other: All systems not noted in ROS Statement are negative. Past Medical History Past Medical History: Atrial Fibrillation, GERD/Reflux Additional Past Medical History / Comment(s): parkinson's. History of Any Multi-Drug Resistant Organisms: None Reported Past Surgical History: Cholecystectomy, Hysterectomy Additional Past Surgical History / Comment(s): left ear. Past Psychological History: No Psychological Hx Reported Smoking Status: Former smoker Past Alcohol Use History: None Reported Past Drug Use History: None Reported - Past Family History Mother Family Medical History: No Reported History General Exam - General Exam Comments Initial Comments: Constitutional: Awake alert Appears comfortable Head: Normocephalic atraumatic , no obvious signs of head trauma Eyes: no conjunctival injection No scleral icterus EOMI Neck: No JVD Supple, no midline tenderness Heart: Regular rate rhythm normal S1-S2 no murmurs Lungs: Clear to auscultation bilaterally No wheezing No rales Abdomen: Soft nondistended nontender Extremities: Non edematous DP pulses intact Radial pulses intact Neuro: A&Ox3 No focal neurologic deficits, patient was ambulatory with assistance to the bathroom Psych: Appropriate mood and affect Limitations: no limitations Course Vital Signs 01/26/18 01/26/18 01/26/18 22:08 22:37 23:50 Temperature 96.9 F L 97.4 F L Pulse Rate 74 63 60 Respiratory 19 18 18 Rate Blood Pressure 93/61 143/68 166/68 O2 Sat by Pulse 99 97 99 Oximetry EKG Findings - EKG Comments: EKG Findings:: EKG showing normal sinus rhythm with a rate of 61. There is a first-degree AV block. The patient has what appears to be a right bundle- branch block as well. There is no abnormal ST segment changes or T-wave inversions. QTC is 430. No ectopy. Medical Decision Making - Medical Decision Making Is in a 7-year-old female who presents emergency department for multiple falls and a syncopal episode. The patient was found to have signs of dehydration and acute kidney injury with a creatinine of 1.8. The patient otherwise had no other abnormalities on her workup. No traumatic findings. The patient has been having multiple falls which is been gradually worsening for the last few weeks. The family is concerned with her debility and not being able to ambulate throughout the house. There is concern for her safety as well. Due to her having a syncopal episode in her dehydration and like to keep her fluids overnight. She also may benefit from physical therapy evaluation. Patient likely needs to go through a course of rehab to get her strength back. The patient and family are updated of the plan and agree. All questions answered. - Lab Data Result diagrams: 01/26/18 22:30 01/26/18 22:30 Lab Results 01/26/18 01/26/18 01/26/18 Range/Units 22:30 22:30 22:30 WBC 10.9 H (3.8-10.6) k/uL RBC 4.08 (3.80-5.40) m/uL Hgb 12.3 (11.4-16.0) gm/dL Hct 37.7 (34.0-46.0) % MCV 92.4 (80.0-100.0) fL MCH 30.2 (25.0-35.0) pg MCHC 32.6 (31.0-37.0) g/dL RDW 13.8 (11.5-15.5) % Plt Count 328 (150-450) k/uL Neutrophils % 80 % Lymphocytes % 8 % Monocytes % 7 % Eosinophils % 1 % Basophils % 0 % Neutrophils # 8.8 H (1.3-7.7) k/uL Lymphocytes # 0.9 L (1.0-4.8) k/uL Monocytes # 0.8 (0-1.0) k/uL Eosinophils # 0.1 (0-0.7) k/uL Basophils # 0.1 (0-0.2) k/uL PT (9.0-12.0) sec INR (<1.2) APTT (22.0-30.0) sec Sodium 139 (137-145) mmol/L Potassium 4.0 (3.5-5.1) mmol/L Chloride 97 L (98-107) mmol/L Carbon Dioxide 26 (22-30) mmol/L Anion Gap 16 mmol/L BUN 46 H (7-17) mg/dL Creatinine 1.80 H (0.52-1.04) mg/dL Est GFR (CKD-EPI)AfAm 29 (>60 ml/min/1.73 sqM) Est GFR (CKD-EPI)NonAf 25 (>60 ml/min/1.73 sqM) Glucose 118 H (74-99) mg/dL Calcium 9.3 (8.4-10.2) mg/dL Magnesium 1.7 (1.6-2.3) mg/dL Total Bilirubin 0.4 (0.2-1.3) mg/dL AST 19 (14-36) U/L ALT 18 (9-52) U/L Alkaline Phosphatase 68 (38-126) U/L CK-MB (CK-2) 2.4 (0.0-2.4) ng/mL Troponin I 0.018 (0.000-0.034) ng/mL Total Protein 6.6 (6.3-8.2) g/dL Albumin 4.2 (3.5-5.0) g/dL Urine Color Urine Appearance (Clear) Urine pH (5.0-8.0) Ur Specific [place] (1.001-1.035) Urine Protein (Negative) Urine Glucose (UA) (Negative) Urine Ketones (Negative) Urine Blood (Negative) Urine Nitrite (Negative) Urine Bilirubin (Negative) Urine Urobilinogen (<2.0) mg/dL Ur Leukocyte Esterase (Negative) Urine RBC (0-5) /hpf Urine WBC (0-5) /hpf Ur Squamous Epith Cells (0-4) /hpf Urine Bacteria (None) /hpf Hyaline Casts (0-2) /lpf Urine Mucus (None) /hpf 01/26/18 01/26/18 Range/Units 22:30 23:05 WBC (3.8-10.6) k/uL RBC (3.80-5.40) m/uL Hgb (11.4-16.0) gm/dL Hct (34.0-46.0) % MCV (80.0-100.0) fL MCH (25.0-35.0) pg MCHC (31.0-37.0) g/dL RDW (11.5-15.5) % Plt Count (150-450) k/uL Neutrophils % % Lymphocytes % % Monocytes % % Eosinophils % % Basophils % % Neutrophils # (1.3-7.7) k/uL Lymphocytes # (1.0-4.8) k/uL Monocytes # (0-1.0) k/uL Eosinophils # (0-0.7) k/uL Basophils # (0-0.2) k/uL PT 10.4 (9.0-12.0) sec INR 1.1 (<1.2) APTT 23.3 (22.0-30.0) sec Sodium (137-145) mmol/L Potassium (3.5-5.1) mmol/L Chloride (98-107) mmol/L Carbon Dioxide (22-30) mmol/L Anion Gap mmol/L BUN (7-17) mg/dL Creatinine (0.52-1.04) mg/dL Est GFR (CKD-EPI)AfAm (>60 ml/min/1.73 sqM) Est GFR (CKD-EPI)NonAf (>60 ml/min/1.73 sqM) Glucose (74-99) mg/dL Calcium (8.4-10.2) mg/dL Magnesium (1.6-2.3) mg/dL Total Bilirubin (0.2-1.3) mg/dL AST (14-36) U/L ALT (9-52) U/L Alkaline Phosphatase (38-126) U/L CK-MB (CK-2) (0.0-2.4) ng/mL Troponin I (0.000-0.034) ng/mL Total Protein (6.3-8.2) g/dL Albumin (3.5-5.0) g/dL Urine Color Yellow Urine Appearance Cloudy H (Clear) Urine pH 5.5 (5.0-8.0) Ur Specific [place] 1.017 (1.001-1.035) Urine Protein Trace H (Negative) Urine Glucose (UA) Negative (Negative) Urine Ketones Trace H (Negative) Urine Blood Negative (Negative) Urine Nitrite Negative (Negative) Urine Bilirubin Negative (Negative) Urine Urobilinogen 2.0 (<2.0) mg/dL Ur Leukocyte Esterase Moderate H (Negative) Urine RBC 3 (0-5) /hpf Urine WBC 9 H (0-5) /hpf Ur Squamous Epith Cells 8 H (0-4) /hpf Urine Bacteria Rare H (None) /hpf Hyaline Casts 29 H (0-2) /lpf Urine Mucus Rare H (None) /hpf Disposition Clinical Impression: CATHI (acute kidney injury), Dehydration, Syncope Disposition: ADMITTED IP TO THIS [facility] Condition: Stable
--- NOTE | 2018-01-26 23:40 | XR ---
EXAMINATION TYPE: XR pelvis AP view DATE OF EXAM: 01/26/2018 COMPARISON: NONE HISTORY: Pain after a fall TECHNIQUE: Single view FINDINGS: Pelvic ring is intact. There is vascular calcification. There is periarticular calcificatio n at the hip joints. Sacroiliac joints appear normal. Hip joint spaces are normal for age. IMPRESSION: No fracture. Mild chondrocalcinosis.
--- NOTE | 2018-01-26 23:43 | CT ---
EXAMINATION TYPE: CT brain shahida tian DATE OF EXAM: 01/26/2018 COMPARISON: NONE HISTORY: Fall CT DLP: 1361.50 mGycm Automated exposure control for dose reduction was used. TECHNIQUE: CT scan of the head and cervical spine are performed without contrast. FINDINGS: There is mild cerebral atrophy. There is no mass effect nor midline shift. There is no si gn of intracranial hemorrhage. The calvarium is intact. The cervical vertebra have normal alignment. There is moderate posterior endplate spurring at C3-4 an d C5-6. There is developmentally adequate spinal canal. I see no cervical bony spinal stenosis. There is some narrowing of the C4-5 C5-6 disc spaces. Facet joints are intact. Skull base is intact. IMPRESSION: Head CT scan is normal for age. Spondylotic changes in the cervical spine. No fracture. Moderate hypertrophic facet arthropathy noted on the right side at C1-C2.
[2018-01-26 23:58] LABS: Creatine Kinase MB 2.4 ng/mL (0.0-2.4); Troponin I 0.018 ng/mL (0.000-0.034)
[2018-01-27] MEDS ORDERED: NALOXONE 0.4 MG/ML 1 ML VIAL IV PRN (00:10)
[2018-01-27] MEDS ORDERED: POLYETHYLENE GLYCOL 3350 17 GM POWD.PACK PO PRN (00:12)
[2018-01-27] MEDS: SODIUM CHLORIDE 0.9% 1,000 ML IV SCH ×2 (00:43→11:39)
[2018-01-27] MEDS: CARBIDOPA-LEVODOPA 25-100 MG 1 EACH TAB PO SCH ×3 (07:26→21:03)
[2018-01-27] MEDS ORDERED: DIGOXIN 125 MCG TAB PO SCH (09:00)
[2018-01-27] MEDS ORDERED: ASPIRIN 325 MG TAB PO STA (11:54)
[2018-01-27] MEDS ORDERED: LORazepam 2 MG/ML INJ IV PRN (15:56)
[2018-01-27] MEDS ORDERED: LACTULOSE 20 GM/30 ML CUP PO PRN (15:56)
[2018-01-27] MEDS ORDERED: CALCIUM CARBONATE 500 MG CHEWABLE PO PRN (15:56)
[2018-01-27] MEDS ORDERED: ONDANSETRON 4 MG/2 ML VIAL IVP PRN (15:56)
--- NOTE | 2018-01-27 17:19 | HP ---
HISTORY AND PHYSICAL DATE OF ADMISSION: 01/27/2018 DATE OF SERVICE: 01/27/2018 PRESENTING COMPLAINT: Falls. HISTORY OF PRESENTING COMPLAINT: This is an extremely pleasant 87-year-old patient who follows with Dr. Montano. The patient is accompanied by her and her son. Chronic stable medical conditions include Parkinson disease, paroxysmal atrial fibrillation and mild dementia. The patient is able to give me rather good description of her history. The patient was diagnosed with Parkinson disease 2-3 years ago and has been stable on the current medications. Patient has noticed difficulty in swallowing for at least about a year and food gets stuck in the middle of the chest, sometimes has to bring it back up. The patient has lost about 25-30 pounds. Patient over a year ago did have an attempted EGD what was described by the family and nothing further could be done because there some bleeding inside. I cannot get any more details about the same. The patient also has known paroxysmal atrial fibrillation for which patient is on digoxin. The patient does get severe reflux symptoms. The patient is occasionally forgetful, but able to carry out her activities. The patient now presents with falls, weak and tired. Does get dizzy, lightheaded with standing up. The patient has been diagnosed with autonomic dysfunction with a blood pressure also being rather labile. Because patient had falls 3 times in the last 24-48 hours, hence she was brought in. Denies any chest pain or palpitation. There was some troponin leak. Hence she has been also admitted for further cardiac workup. REVIEW OF SYSTEMS: CONSTITUTIONAL: Tired. HEENT: None. RESPIRATORY: None. CARDIOVASCULAR: None. GASTROINTESTINAL: As above. GENITOURINARY: Urinary incontinence. MUSCULOSKELETAL: None. DERMATOLOGICAL: None. HEMATOLOGIC: None. LYMPHATICS: None. PSYCHIATRY: Occasionally forgetful. NEUROLOGICAL: As above. PAST MEDICAL HISTORY: Parkinson disease, paroxysmal atrial fibrillation, autonomic dysfunction, GERD, mild dementia, atrial fibrillation, gait dysfunction, uses a walker. PAST SURGICAL HISTORY: Cholecystectomy, hysterectomy. SOCIAL HISTORY: The patient smoked a pack a day for 30 years, stopped 35 years ago. No alcohol. . FAMILY HISTORY: Reviewed, noncontributory to presentation. HOME MEDICATIONS: 1. MiraLAX 17 g p.o. daily p.r.n. 2. Lasix 20 mg p.o. daily. 3. Aricept 10 mg q.h.s. 4. Digoxin 125 mcg p.o. daily. 5. Cipro 250 mg q.12h. 6. Sinemet 25/100 2 tablets p.o. t.i.d. ALLERGIES: None. EXAMINATION: Temperature 97.5, pulse 68, respirations 16, blood pressure 157/75, pulse ox 100% on room air. GENERAL APPEARANCE: Thin build, sitting up, awake. EYES: Pupils equal. Conjunctivae pale. HEENT: External nose and ears normal. Oral cavity: Dry mucous membranes. NECK: JVD not raised. Mass not palpable. RESPIRATORY: Effort normal. LUNGS: Slightly decreased breath sounds. CARDIOVASCULAR: First and second sounds normal. No edema. ABDOMEN: Soft, nontender. Liver and spleen not palpable. LYMPHATIC: No lymph node palpable in neck or axillae. PSYCHIATRY: Alert and oriented x3. Mood and affect normal. NEUROLOGICAL: Pupils equal. Cranial nerves grossly intact. Power and sensation grossly intact. The patient has got no rigidity. No tremors. INVESTIGATIONS: White count 10.9, hemoglobin 12.3. Potassium 4, BUN 46, creatinine 1.80. Troponin 0.018, 0.030, 0.067. Chest x-ray: Some cardiomegaly. EKG shows right bundle branch block. ASSESSMENT: 1. Acute renal failure, prerenal. Cannot rule out an acute tubular necrosis component. The patient with poor oral intake and also being on Lasix. 2. Idiopathic Parkinson disease with symptoms controlled on the current medications. 3. Progressive dysphagia with food getting stuck in the middle of the chest. Need to rule out stricture versus that secondary to malignancy. 4. Weight loss from poor oral intake. 5. Gait dysfunction. Patient uses a walker at the baseline. 6. Paroxysmal atrial fibrillation, currently in sinus rhythm. 7. Severe gastroesophageal reflux disease. 8. Chronic urinary stress incontinence. 9. Autonomic dysfunction, explaining patient's labile hypertension and heart rate and orthostatic hypertension. PLAN: At this point, will stop patient's Lasix. Will also stop the digoxin in the setting of renal failure and hydrate the patient. Repeat labs in the morning. Fall precautions are in place. Continue with the patient's Sinemet. We will do a barium swallow in the morning and also consulting GI with a view to EGD. Will get a Cardiology opinion because of troponin leak, though in the setting of renal failure, this is not much of a concern. Patient denies any cardiac symptoms. The patient also will be put on PPIs. I do not see much of a benefit to Aricept right now. Hence, will discontinue the same and that is possibly contributing to some of the side effects; hence, will stop the same. Care was discussed at length with the patient. This took a bit of time. The patient has multiple issues, will need at least 2 overnights in the hospital. Repeat electrolytes. MMODL / IJN: [id number] /
[2018-01-27] MEDS: ENOXAPARIN 40 MG/0.4 ML SYRINGE SQ SCH (18:14)
[2018-01-27] MEDS: LACTATED RINGERS 1,000 ML IV SCH ×2 (18:15→23:16)
[2018-01-27] MEDS ORDERED: DONEPEZIL 10 MG TAB PO SCH (21:00)
[2018-01-27] MEDS ORDERED: MELATONIN 3 MG TABLET PO PRN (21:00)
[2018-01-27] MEDS: METOPROLOL TARTRATE 12.5 MG TAB PO SCH (21:03)
[2018-01-28 06:54] LABS: Basophils # (A) 0.1 k/uL (0-0.2); Basophils % (A) 1 %; Eosinophils # (A) 0.1 k/uL (0-0.7); Eosinophils % (A) 1 %; HCT 35.4 % (34.0-46.0); HGB 11.5 gm/dL (11.4-16.0); Lymphocytes % (A) 13 %; MCH 30.5 pg (25.0-35.0); MCHC 32.6 g/dL (31.0-37.0); MCV 93.6 fL (80.0-100.0); Monocytes # (A) 0.5 k/uL (0-1.0); Monocytes % (A) 6 %; Neutrophils # (A) 5.8 k/uL (1.3-7.7); Neutrophils % (A) 76 %; Platelet Count 289 k/uL (150-450); RBC 3.79 m/uL (3.80-5.40); RDW 13.9 % (11.5-15.5); WBC 7.7 k/uL (3.8-10.6)
[2018-01-28 07:04] LABS: Calcium 8.8 mg/dL (8.4-10.2); Potassium 3.8 mmol/L (3.5-5.1)
[2018-01-28] MEDS: METOPROLOL TARTRATE 12.5 MG TAB PO SCH ×2 (08:03→20:40)
[2018-01-28] MEDS: ENOXAPARIN 40 MG/0.4 ML SYRINGE SQ SCH (08:04)
[2018-01-28] MEDS: CARBIDOPA-LEVODOPA 25-100 MG 1 EACH TAB PO SCH ×3 (08:04→20:40)
[2018-01-28] MEDS: LACTATED RINGERS 1,000 ML IV SCH ×3 (08:17→21:35)
--- NOTE | 2018-01-28 09:39 | FL ---
EXAMINATION TYPE: FL barium swallow DATE OF EXAM: 01/28/2018 CLINICAL HISTORY: Dysphagia TECHNIQUE: A double contrast esophagram is performed utilizing air and barium. A total of 1 minute and 49 seconds of fluoroscopic time was utilized during procedure with 36 images saved. COMPARISON: 10/28/2017 FINDINGS: The patient described difficulty initiating each swallow. The esophagus shows abnormal devin lity as there are tertiary contractions in the gravity dependent position seen throughout the entiret y of the esophagus that are reproduced throughout the examination. There is also delayed emptying int o the stomach due to mild narrowing at the gastroesophageal junction without obstruction or stricture . No hiatal hernia is seen. Moderate grade intraesophageal reflux was noted throughout the exam witho ut gastroesophageal reflux. Again noted are anterior osteophytes from approximately C4-C6 mildly impr essing upon the upper cervical esophagus in the patient's area of dysphagia. IMPRESSION: 1. Diffusely abnormal motility with tertiary contractions throughout the examination and the entirety of the esophagus most compatible with presbyesophagus. Overall delayed transit and slowed emptying t hrough the slightly narrowed gastroesophageal junction without obstructing stricture. 2. Moderate grade intraesophageal reflux throughout the examination. 3. Redemonstration of anterior osteophytes from approximately C4-C6 mildly impressing upon the upper posterior cervical esophagus in the region of the patient's localized dysphagia.
--- NOTE | 2018-01-28 10:20 | CONS ---
CONSULTATION CHIEF COMPLAINT: Recurrent falls. This is an 87-year-old lady with history of severe parkinsonism, paroxysmal atrial fibrillation, and dementia who comes to hospital having had falls at home. She has been having similar problems for the last several months and has had same problems at last admission. Patient lost about 30 pounds and has not been able to swallow and keep food down. At the time of my evaluation, she appears alert, pleasant. Denies any actual syncopal events other than the falls. Patient also has had labile hypertension secondary to autonomic dysfunction. Her labile hypertension is probably related to a combination of problems including parkinsonism, the medication she is on for parkinsonism, the weight loss and intravascular volume depletion and dehydration. The troponin is slightly elevated at 0.18, 0.03 and 0.067 and this may be related to the renal insufficiency that she had on presentation with a BUN of 46 and creatinine of 1.8. EKG shows sinus rhythm with right bundle branch block and left anterior fascicular block and nonspecific ST-T wave changes. She did not have any high-grade AV block. PAST MEDICAL HISTORY: Significant for parkinsonism. CURRENT MEDICATIONS: Include Sinemet, Lanoxin, Aricept, Lasix. ALLERGIES: There are no known drug allergies. FAMILY HISTORY: Negative for premature coronary artery disease. SOCIAL HISTORY: Negative for current smoking or EtOH abuse. REVIEW OF SYSTEMS: HEENT is unremarkable. CARDIAC: As described above. RESPIRATORY: Negative. GI negative. GENITOURINARY: Negative. ALLERGY/IMMUNOLOGY: Negative. MUSCULOSKELETAL: Significant for parkinsonism. PSYCHOSOCIAL: Negative. ENDOCRINE Negative. HEMATOLOGICAL: Negative. DERM: Negative Rest of the system review is not relevant. PHYSICAL EXAM: On exam, patient is afebrile. Heart rate is 80 beats per minute, blood pressure is 176/83, respiratory rate is 18. Chest exam reveals good air entry bilaterally. Heart exam reveals first and second heart sounds and a systolic murmur at the left lower sternal border. Abdomen is soft. Exam of extremities did not reveal any edema. Peripheral pulses are felt. ASSESSMENT: 1. Recurrent falls, probably related to parkinsonism and dehydration. 2. Elevated troponin secondary to renal insufficiency. 3. Weight loss. 4. Hypertension. PLAN: I am going to start the patient on Norvasc 5 mg daily, stop the Lasix, stop the digoxin that she is on. I will obtain a 2D echo. MMODL / IJN: [id number] /
--- NOTE | 2018-01-28 11:41 | ECHOF ---
Referral Reason:assess wall motion abnormality MEASUREMENTS -------- HEIGHT: 167.6 cm WEIGHT: 59.4 kg BP: 175/77 IVSd: 0.9 cm (0.6 - 1.1) LVIDd: 4.1 cm (3.9 - 5.3) LVPWd: 1.0 cm (0.6 - 1.1) IVSs: 1.2 cm LVIDs: 2.4 cm LVPWs: 1.6 cm Ao Diam: 3.2 cm (2.0 - 3.7) AV Cusp: 1.9 cm (1.5 - 2.6) LA Diam: 3.1 cm (2.7 - 3.8) MV EXCURSION: 6.681 mm (> 18.000) MV EF SLOPE: 51 mm/s (70 - 150) EPSS: 0.5 cm MV E Nixon: 0.76 m/s MV DecT: 282 ms MV A Nixon: 0.88 m/s MV E/A Ratio: 0.87 RAP: 5.00 mmHg RVSP: 21.90 mmHg FINDINGS -------- Sinus rhythm. This was a technically good study. The left ventricular size is normal. Left ventricular wall thickness is normal. Overall left vent ricular systolic function is normal with, an EF between 60 - 65 %. The right ventricle is normal in size. The left atrium is normal in size. The right atrium is normal in size. Aortic valve is trileaflet and is mildly thickened. The mitral valve leaflets are mildly thickened. No mitral regurgitation. Mild tricuspid regurgitation present. The right ventricular systolic pressure, as measured by Doppl er, is 21.90mmHg. Pulmonic valve appears structurally normal. The aortic root size is normal. The pericardium is normal. CONCLUSIONS -------- 1. Sinus rhythm. 2. This was a technically good study. 3. The left ventricular size is normal. 4. Left ventricular wall thickness is normal. 5. Overall left ventricular systolic function is normal with, an EF between 60 - 65 %. 6. The right ventricle is normal in size. 7. The left atrium is normal in size. 8. The right atrium is normal in size. 9. Aortic valve is trileaflet and is mildly thickened. 10. The mitral valve leaflets are mildly thickened. 11. No mitral regurgitation. 12. Mild tricuspid regurgitation present. 13. The right ventricular systolic pressure, as measured by Doppler, is 21.90mmHg. 14. Pulmonic valve appears structurally normal. 15. The aortic root size is normal. 16. The pericardium is normal. INTERPERSONAL COMMUNICATIONS PROFESSOR: Maria Eugenia Mitchell RDCS
[2018-01-28] MEDS: amLODIPine 5 MG TAB PO SCH (15:12)
--- NOTE | 2018-01-28 16:47 | PN ---
PROGRESS NOTE DATE OF SERVICE: 01/28/18 PRESENTING COMPLAINT: Fall. INTERVAL HISTORY: This patient with multiple problems including multiple falls, found to be severely orthostatic, has underlying autonomic dysfunction. Barium swallow was cut back showing presbyesophagus. 2D echocardiogram was unremarkable. The patient is not able to keep much food down again even though now she is on a pureed diet. REVIEW OF SYSTEMS: Done for constitutional, cardiovascular, GI, pulmonary; relevant findings as above. CURRENT MEDICATIONS: Reviewed. PHYSICAL EXAMINATION: On examination; temperature 97.9, pulse 54, respirations 16, blood pressure 132/84, lying down, standing up to 84/53, pulse ox 96% on room air. GENERAL APPEARANCE: Lying in bed, tired-appearing. EYES: Pupils equal. Conjunctivae pale. HEENT: External appearance of nose and ears normal. Oral cavity normal. NECK: JVD not raised. Mass not palpable. RESPIRATORY: Effort, lungs decreased breath sounds. CARDIOVASCULAR: 1st and 2nd sounds normal. No edema. ABDOMEN: Soft, nontender. Liver and spleen not palpable. PSYCHIATRY: Alert and oriented x3. Mood and affect normal. INVESTIGATIONS: White count 7.7, potassium 3.8, BUN 30, creatinine 1.11. 2D echo unremarkable. ASSESSMENT: 1. Acute renal failure prerenal from poor oral intake and Lasix, improving. 2. Idiopathic Parkinson disease. 3. 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 4. Severe gastroesophageal reflux disease from above. 5. Weight loss from poor oral intake. 6. Gait dysfunction, uses a walker. 7. Paroxysmal atrial fibrillation, currently in sinus rhythm. 8. Chronic urinary stress incontinence. 9. Significant autonomic dysfunction causing labile hypertension and orthostatic hypertension. PLAN: Patient will be started on Protonix 40 mg twice a day given that the patient is not able to keep any food down and has been losing some weight. The only other option is getting a feeding tube. Will have GI address that with the patient. The patient was thinking about the same. We will also add Florinef 0.1 mg twice a day and patient already got Steven stockings and go from there. Overall prognosis is guarded. MMODL / IJN: [id number] /
[2018-01-28] MEDS: PANTOPRAZOLE 40 MG TABLET PO SCH (17:37)
[2018-01-28] MEDS: FLUDROCORTISONE 0.1 MG TAB PO SCH ×2 (17:37→20:40)
[2018-01-29] MEDS: PANTOPRAZOLE 40 MG TABLET PO SCH ×3 (06:21→18:48)
[2018-01-29] MEDS: LACTATED RINGERS 1,000 ML IV SCH ×2 (06:30→20:10)
--- NOTE | 2018-01-29 12:27 | P.PN ---
Subjective Progress Note Date: 01/29/18 Principal diagnosis: Falls and labile blood pressure This is an 87-year-old female with known history of severe parkinsonism, paroxysmal atrial fibrillation, dementia, who presented to the hospital after having several falls at home. Patient also has lost a significant amount of weight and has not been able to swallow and keep food down. She was seen in consultation yesterday by Dr. Bonilla because of abnormal troponin as well as labile hypertension. An echocardiogram with Doppler study was performed which revealed an ejection fraction of 60-65%. Blood pressure 136 /68, heart rate in the 60s, 96% on room air. Objective - Vital Signs Vital signs: Vital Signs Temp 97.8 F 01/29/18 08:00 Pulse 68 01/29/18 08:00 Resp 16 01/29/18 08:00 BP 136/69 01/29/18 08:00 Pulse Ox 96 01/29/18 08:00 Intake & Output 01/28/18 01/29/18 01/29/18 18:59 06:59 18:59 Intake Total 1323 2250 Output Total 450 Balance 873 2250 Weight 59.5 kg 58.9 kg 58.9 kg Intake: IV 625 1250 Lactated Ringers 1,000 ml 625 1250 @ 125 mls/hr IV .Q8H [facility] Rx#:[id number] Intake, IV Titration 1000 Amount Lactated Ringers 1,000 ml 1000 @ 125 mls/hr IV .Q8H [facility] Rx#:[id number] Oral 698 Output: Urine 450 Other: Voiding Method Bedpan Toilet Toilet # Voids 1 5 # Bowel Movements 0 - Exam PHYSICAL EXAMINATION: GENERAL: Pleasant 87 year old female in no apparent distress at the time of my examination HEENT: Head is atraumatic, normocephalic. Pupils equal, round. Sclera anicteric. Conjunctiva are clear. Mucous membranes of the mouth are moist. Neck is supple. There is no elevated jugular venous pressure.] No carotid bruit is heard. HEART EXAMINATION: Heart S1, S2 systolic murmur is heard. No murmur or gallop heard. CHEST EXAMINATION: Lungs are clear to auscultation and precussion. No chest wall tenderness is noted on palpation or with deep breathing. ABDOMEN: Soft, nontender. Bowel sounds are heard. No organomegaly noted. EXTREMITIES: 2+ peripheral pulses with no evidence of peripheral edema and no calf tenderness noted. NEUROLOGIC patient is awake, alert and oriented OX3. . - Labs CBC & Chem 7: 01/28/18 06:03 01/28/18 06:03 Assessment and Plan Plan: Assessment and plan #1 recurrent falls, likely secondary to parkinsonism and dehydration. #2 abnormal troponin, likely secondary to renal insufficiency #3 weight loss #4 hypertension Plan Patient's blood pressure today is stable, echocardiogram with Doppler study revealed a normal left ventricular systolic function. From cardiology's perspective we will follow this patient along with you now on an as-needed basis only, please don't hesitate to call with any questions. DNP note has been reviewed, I agree with a documented findings and plan of care. Patient was seen and examined.
[2018-01-29] MEDS: CARBIDOPA-LEVODOPA 25-100 MG 1 EACH TAB PO SCH ×3 (13:29→20:11)
[2018-01-29] MEDS: ENOXAPARIN 40 MG/0.4 ML SYRINGE SQ SCH (13:29)
[2018-01-29 15:31] LABS: Glucose,Whole Blood 97 mg/dL (75-99)
[2018-01-29] MEDS: METOPROLOL TARTRATE 12.5 MG TAB PO SCH ×2 (16:22→20:10)
[2018-01-29] MEDS: amLODIPine 5 MG TAB PO SCH (16:22)
[2018-01-29] MEDS: FLUDROCORTISONE 0.1 MG TAB PO SCH ×2 (16:22→20:10)
[2018-01-29] MEDS ORDERED: PROPOFOL 10 MG/ML 20 ML VIAL IV ONE (16:33)
[2018-01-29] MEDS ORDERED: ceFAZolin 1,000 MG VIAL ONE (16:33)
[2018-01-29] MEDS ORDERED: LIDOCAINE 1% INJ 10MG/ML (20 ML MDV) ONE (16:33)
[2018-01-29] MEDS ORDERED: IV FLUID CONTINUATION 150 ML IV ONE (17:10)
--- NOTE | 2018-01-29 17:19 | P.CONS ---
History of Present Illness - Reason for Consult Consult date: 01/29/18 Dysphagia. - History of Present Illness The patient is an 87-year-old female with history of Parkinson's disease, atrial fibrillation and mild dementia, was admitted to the hospital because of weakness and frequent falls. Apparently she has been having difficulty swallowing with the sensation of food stuck in her esophagus. This has been happening for the last year or so. She lost 25-30 pounds over that period of time. She had an attempt at upper endoscopy previously and during this hospitalization she had a barium swallow that appeared abnormal with difficulty of initiating the swallow as well as tertiary contractions and possible narrowing in the distal esophagus. We will asked to see her regarding her difficulties swallowing. Review of Systems Constitutional: Denied fever, chills or unintentional weight loss Neurologic: No headaches, double vision or other sensory or motor changes Cardiopulmonary: No chest pains, shortness of breath or palpitations Gastrointestinal: See present illness above Genitourinary: No hematuria, dysuria or frequency Musculoskeletal:No joint swelling or pain Skin: No rashes Hematologic: No bleeding tendency Psychiatric: No anxiety or depression Past Medical History Past Medical History: Atrial Fibrillation, GERD/Reflux Additional Past Medical History / Comment(s): parkinson's. History of Any Multi-Drug Resistant Organisms: None Reported Past Surgical History: Cholecystectomy, Hysterectomy Additional Past Surgical History / Comment(s): left ear. Past Psychological History: No Psychological Hx Reported Smoking Status: Former smoker Past Alcohol Use History: None Reported Past Drug Use History: None Reported - Past Family History Mother Family Medical History: No Reported History Medications and Allergies Home Medications Medication Instructions Recorded Confirmed Type Carbidopa-Levodopa 25-100 mg 2 tab PO TID 09/27/17 01/26/18 History [Sinemet 25-100 mg] Digoxin [Lanoxin] 125 mcg PO DAILY 09/27/17 01/26/18 History Donepezil [Aricept] 10 mg PO HS 09/27/17 01/26/18 History Polyethylene Glycol 3350 [Miralax] 17 gm PO DAILY PRN 09/27/17 01/26/18 History Ciprofloxacin HCl [Cipro] 250 mg PO Q12H 01/26/18 01/26/18 History Furosemide [Lasix] 20 mg PO DAILY 01/26/18 01/26/18 History Allergies Allergy/AdvReac Type Severity Reaction Status Date / Time No Known Allergies Allergy Verified 01/26/18 22:51 Physical Exam Vitals: Vital Signs Temp Pulse Resp BP BP Pulse Ox 01/29/18 12:00 97.9 F 63 18 159/76 99 01/29/18 08:00 97.8 F 68 16 136/69 96 01/29/18 04:00 97.8 F 64 17 164/84 98 01/28/18 23:44 55 L 16 01/28/18 23:42 97.6 F 55 L 16 151/80 98 01/28/18 20:00 97.7 F 63 19 167/87 98 01/28/18 16:00 98.7 F 68 16 168/88 98 Intake and Output 01/29/18 01/29/18 01/29/18 06:59 14:59 22:59 Intake Total 1250 Balance 1250 Intake: IV 1250 Lactated Ringers 1,000 ml 1250 @ 125 mls/hr IV .Q8H [facility] Rx#:[id number] Other: Voiding Method Toilet Toilet # Voids 1 3 # Bowel Movements 0 Weight 58.9 kg 58.9 kg General: Appears stated age, very pleasant in no acute distress Head and neck: Normocephalic and atraumatic, conjunctivae pink and sclerae not icteric, mucous membranes moist and pink. No masses in the neck or tracheal shifts Lungs: Clear to auscultation with no dullness to percussion Heart: Irregular, no abnormal sounds, murmurs, gallops or friction Abdomen: Soft, no masses or organomegalies. No tenderness. Bowel sounds present Extremities: No clubbing, cyanosis or edema Neurologic: Alert and oriented 3. Cranial nerves grossly intact. No gross sensory or motor abnormalities Results CBC & Chem 7: 01/28/18 06:03 01/28/18 06:03 Assessment and Plan Assessment: A 57-year-old female with dysphagia and abnormal esophagogram. With her symptoms including weakness, falls and significant weight loss enteral nutritional support could be considered. Plan: Agree with your current management. I discussed at length with the patient and family an approach that includes an upper endoscopy with the possibility of placing a gastrostomy feeding tube depending on the findings as you have suggested.
--- NOTE | 2018-01-29 18:11 | P.PCN ---
Date of Procedure: 01/29/18 Procedure(s) Performed: Procedure: Esophagogastroduodenoscopy and biopsy and placement of a gastrostomy feeding tube percutaneously PEG. Preoperative diagnosis: Dysphagia, weight loss and abnormal barium swallow. Postoperative diagnosis: 1. Esophagitis, biopsies obtained to rule out infectious etiology. 2. Successful replacement of gastrostomy feeding tube. Preparation and sedation: Were provided by anesthesia. Brief clinical history: The patient is an 87-year-old female with history of Parkinson's disease, atrial fibrillation and mild dementia, was admitted to the hospital because of weakness and frequent falls. Apparently, she has been having difficulty swallowing with the sensation of food stuck in her esophagus. This has been happening for the last year or so. She lost 25-30 pounds over that period of time. She had an attempt at upper endoscopy previously and during this hospitalization she had a barium swallow that appeared abnormal with difficulty of initiating the swallow as well as tertiary contractions and possible narrowing in the distal esophagus. Other details as summarized in the history and physical and dictated consultation and progress notes. This evaluation is to assess for treatable conditions to guide our therapy and for possible placement of a feeding tube since she has not been receiving adequate large amount for close to a year. Procedure: With the patient on her left lateral decubitus position and after informed consent and adequate sedation, I passed a Olympus-GIF 160 video upper endoscope through the cricopharyngeus down the esophagus. There was significant hesitation to passing the endoscope through the cricopharyngeus area possibly related to her dysmotility problem. There was some erythema in the esophagus and occasional white exudates not classical of Marita esophagitis but biopsies were obtained at the conclusion of the examination. The GE junction was around 40 cm from the incisors. The endoscope was then passed into the stomach which was insufflated with air and inspected in detail including the retroflex view in the cardia. Finally, the endoscope was passed through the pylorus into the duodenum. The stomach, pyloric channel, duodenal bulb, post bulbar area and descending duodenum appeared normal. At this point, I proceeded to place a gastrostomy feeding tube. The skin was cleansed with Betadine. 1% Xylocaine was used for local anesthesia. A small incision was made using #11 blade. A needle catheter was then inserted through the incision and once in the gastric lumen it was captured with the snare that was advanced through the operating channel of the endoscope. Subsequently, a guidewire was passed through the needle and was captured by the snare, then the endoscope and the guidewire were withdrawn through the mouth. A 20-[place] [employer] gastrostomy feeding tube was then advanced over the guidewire and once it emerged through the abdominal incision it was pulled to position. I reinserted the endoscope over the guidewire back into the stomach to confirm the proper placement of the feeding tube and as I was withdrawing the endoscope , I took time to biopsy the esophagus. 1 g Kefzol was given IV piggyback during the procedure. The patient tolerated the procedure well. Plan: I summarized the findings to the patient and to the family. We will consult the dietitian regarding tube feedings.
--- NOTE | 2018-01-29 22:27 | PN ---
PROGRESS NOTE DATE OF SERVICE: 01/29/2018. PRESENTING COMPLAINT: Fall. INTERVAL HISTORY: The patient presented with severe orthostasis from autonomic dysfunction. Found to have Presbyesophagus. The patient is having trouble also with pureed diet. REVIEW OF SYSTEMS: Done for constitutional, cardiovascular, GI, pulmonary; relevant findings as above. CURRENT MEDICATIONS: Reviewed, that include Norvasc, Sinemet, Florinef LR, Lopressor. PHYSICAL EXAMINATION: Temperature 97.9, pulse 62, respiratory rate 18, blood pressure 159/76, pulse ox 99% on room air. GENERAL APPEARANCE: Lying in bed, comfortable. EYES: Pupils equal. Conjunctivae pale. HEENT: External appearance of nose and ears. Oral cavity normal. NECK: JVD not raised. Mass not palpable. Respiratory effort normal. LUNGS: Decreased breath sounds. CARDIOVASCULAR: 1st and 2nd heart sounds are normal. No edema. ABDOMEN: Soft, nontender. Liver and spleen not palpable. PSYCHIATRY: Alert and oriented x3. Mood and affect normal. INVESTIGATIONS: Accu-Cheks are noted. ASSESSMENT: 1. Acute renal failure, prerenal, from poor oral intake and Lasix, improving. 2. Idiopathic Parkinson disease. 3. Severe dysphagia and regurgitation from severe presbyesophagus. 4. Severe gastroesophageal reflux disease and possibly esophagitis. 5. Weight loss from poor oral intake. 6. Gait dysfunction, uses a walker. 7. Paroxysmal atrial fibrillation, currently in sinus rhythm. 8. Chronic urinary stress incontinence. 9. Significant autonomic dysfunction causing labile hypertension and orthostatic hypotension. PLAN: I had talk with the patient earlier today about the PEG tube and then spoke to the patient's son and . The options are really limited as the patient is not able to swallow. Later, Dr. Vieira also came in the room and we all had a combined talk. The patient did, in the meantime, agree to proceed with a PEG tube, well understanding that the options are very limited and she will continue to lose weight otherwise. Later today patient will be proceeding for a PEG tube. Total time spent today was about 40 minutes with over 25 minutes of discussion. MMCOLTL / REBEKAN: [id number] /
[2018-01-30] MEDS: ACETAMINOPHEN TAB 325 MG TAB PO PRN ×4 (00:31→20:55)
[2018-01-30] MEDS: LACTATED RINGERS 1,000 ML IV SCH ×3 (02:30→15:34)
[2018-01-30 06:23] LABS: Glucose,Whole Blood 108 mg/dL (75-99)
[2018-01-30] MEDS: PANTOPRAZOLE 40 MG TABLET PO SCH ×3 (06:31→16:39)
[2018-01-30 07:22] LABS: Calcium 8.7 mg/dL (8.4-10.2); Potassium 3.2 mmol/L (3.5-5.1)
[2018-01-30] MEDS: ENOXAPARIN 40 MG/0.4 ML SYRINGE SQ SCH (08:14)
[2018-01-30] MEDS: amLODIPine 5 MG TAB PO SCH (08:14)
[2018-01-30] MEDS: METOPROLOL TARTRATE 12.5 MG TAB PO SCH ×2 (08:14→20:52)
[2018-01-30] MEDS: CARBIDOPA-LEVODOPA 25-100 MG 1 EACH TAB PO SCH ×3 (08:14→20:52)
[2018-01-30] MEDS: FLUDROCORTISONE 0.1 MG TAB PO SCH ×2 (08:14→20:52)
[2018-01-30 11:39] LABS: Glucose,Whole Blood 100 mg/dL (75-99)
[2018-01-30 13:59] LABS: Hemoglobin A1C 5.7 % (4.0-6.0)
[2018-01-30] MEDS ORDERED: POTASSIUM CHLORIDE ER 20 MEQ TAB.ER PO STA (14:33)
[2018-01-30 16:27] LABS: Glucose,Whole Blood 125 mg/dL (75-99)
[2018-01-30 21:27] LABS: Glucose,Whole Blood 99 mg/dL (75-99)
--- NOTE | 2018-01-30 23:19 | PN ---
PROGRESS NOTE DATE OF SERVICE: 01/30/2018 PRESENTING COMPLAINT: Fall. INTERVAL HISTORY: This patient presents with severe orthostatic from autonomic dysfunction, also having progressive dysphagia, found to have presbyesophagus. The patient had a PEG tube placed yesterday, was started on slow feed tubing. and son are present in the room. The patient is otherwise comfortable. REVIEW OF SYSTEMS: Done for constitutional, cardiovascular, GI, pulmonary; relevant findings as above. CURRENT MEDICATIONS: Reviewed that include: 1. Sinemet. 2. Lopressor. 3. Florinef. EXAMINATION: Temperature 97, pulse 80, respirations 18, blood pressure 113/76, pulse ox 97% on room air. GENERAL APPEARANCE: Lying in bed, cheerful, awake. EYES: Conjunctivae pale. HEENT: External appearance of nose and ears normal. Oral cavity normal. NECK: JVD not raised. Mass not palpable. RESPIRATORY: Effort normal. LUNGS: Decreased breath sounds. CARDIOVASCULAR: First and second sounds normal. No edema. ABDOMEN: Soft, nontender. PEG tube in place. Liver, spleen not palpable. PSYCHIATRY: Alert and oriented x3. Mood and affect were normal. INVESTIGATIONS: Potassium 3.2, BUN 23, creatinine 1.01. Accu-Cheks are noted. ASSESSMENT: 1. Acute renal failure, prerenal from poor oral intake and Lasix, improved. 2. Idiopathic Parkinson disease. 3. Severe dysphagia and regurgitation from severe presbyesophagus. 4. Severe gastroesophageal reflux disease and esophagitis. 5. Weight loss from poor oral intake. 6. Gait dysfunction, uses a walker. 7. Paroxysmal atrial fibrillation, currently in sinus rhythm. 8. Chronic urinary stress incontinence. 9. Severe autonomic dysfunction causing labile hypertension, orthostatic hypertension. 10.Percutaneous endoscopic gastrostomy tube placement. Overall, patient is feeling much better. Care was discussed with the patient and family. Potassium will be replaced. They are looking at patient going to ECF because of patient's significant weakness. PT/OT is on the case. licensed clinical social worker is also consulted, looking at patient going to the F. MMCOLTL / IJN: [id number] /
[2018-01-31 00:17] LABS: Glucose,Whole Blood 132 mg/dL (75-99)
[2018-01-31 06:32] LABS: Calcium 8.8 mg/dL (8.4-10.2); Potassium 3.4 mmol/L (3.5-5.1)
[2018-01-31 06:40] LABS: Glucose,Whole Blood 103 mg/dL (75-99)
[2018-01-31] MEDS: ACETAMINOPHEN TAB 325 MG TAB PO PRN (06:45)
[2018-01-31] MEDS: CARBIDOPA-LEVODOPA 25-100 MG 1 EACH TAB PO SCH ×3 (08:51→21:14)
[2018-01-31] MEDS: FLUDROCORTISONE 0.1 MG TAB PO SCH ×2 (08:51→21:14)
[2018-01-31] MEDS: ENOXAPARIN 40 MG/0.4 ML SYRINGE SQ SCH (08:51)
[2018-01-31] MEDS: amLODIPine 5 MG TAB PO SCH (08:51)
[2018-01-31] MEDS: METOPROLOL TARTRATE 12.5 MG TAB PO SCH ×2 (08:52→21:14)
[2018-01-31 11:35] LABS: Glucose,Whole Blood 123 mg/dL (75-99)
[2018-01-31] MEDS ORDERED: POTASSIUM CHLORIDE ER 20 MEQ TAB.ER PO STA (15:09)
[2018-01-31] MEDS ORDERED: POTASSIUM BICARBONATE/CIT AC 20 MEQ TABLET.EFF PO ONE (16:45)
[2018-01-31 17:09] LABS: Glucose,Whole Blood 105 mg/dL (75-99)
[2018-01-31] MEDS: PANTOPRAZOLE SODIUM 40 MG GRANULE PKT PO SCH (17:23)
--- NOTE | 2018-01-31 19:50 | PN ---
PROGRESS NOTE DATE OF SERVICE: 01/31/18. PRESENTING COMPLAINT: Fall. INTERVAL HISTORY: This patient presented with severe orthostatic hypotension from autonomic dysfunction, severe dysphagia, found to have presbyesophagus and esophagitis, had a PEG tube placed, just feels tired, run down. PEG tube feeding is up to 30 mL an hour. The patient just feels tired. The patient has slight diarrhea. REVIEW OF SYSTEMS: Done for constitutional, cardiovascular, GI, pulmonary; relevant findings as above. CURRENT MEDICATIONS: Reviewed. The patient has lactulose of course will be discontinued. The patient is only p.r.n. Zofran will be stopped. PHYSICAL EXAMINATION: Temperature 97.8, pulse 52, respiratory 18, blood pressure 134/76, pulse ox 99% on room air. GENERAL APPEARANCE: Lying in bed, tired appearing. EYES: Pupils equal. Conjunctivae pale. HEENT: External appearance of nose and ears normal. Oral cavity normal. NECK: JVD not raised. Mass not palpable. RESPIRATORY: Effort, lungs decreased breath sounds. CARDIOVASCULAR: 1st and 2nd sounds normal. No edema. ABDOMEN: Soft, nontender. PEG tube in place. Liver and spleen not palpable. PSYCHIATRY: Alert and oriented x3. Mood and affect normal. INVESTIGATIONS: Potassium 3.4, BUN 23, creatinine 0.9. Accu-Cheks are noted. ASSESSMENT: 1. Acute renal failure prerenal from poor oral intake and Lasix, now resolved. 2. Idiopathic Parkinson disease. 3. Severe dysphagia and regurgitation from severe presbyesophagus. 4. Severe gastroesophageal reflux disease and esophagitis. 5. Weight loss from poor oral intake. 6. Gait dysfunction, uses a walker. 7. Paroxysmal atrial fibrillation, currently in sinus rhythm. 8. Chronic urinary stress incontinence. 9. Severe autonomic dysfunction causing labile hypertension, orthostatic hypotension. 10.Percutaneous PEG tube placement. 11.Medical debility. PLAN: Care was discussed with the at the bedside. Looking at the patient go down to the ECF. The patient has rather slight diarrhea from the tube feeding, which is expected. We will add some MiraLAX. MMODL / IJN: [id number] /
[2018-01-31 20:26] LABS: Glucose,Whole Blood 129 mg/dL (75-99)
[2018-01-31 20:27] VITALS: RESP 16
[2018-01-31] MEDS: PSYLLIUM HUSK 100% 6 GM PACKET PO SCH ×2 (21:14→21:22)
[2018-02-01 06:19] LABS: Glucose,Whole Blood 100 mg/dL (75-99)
[2018-02-01] MEDS: PANTOPRAZOLE SODIUM 40 MG GRANULE PKT PO SCH (07:39)
[2018-02-01] MEDS: CARBIDOPA-LEVODOPA 25-100 MG 1 EACH TAB PO SCH (07:39)
[2018-02-01] MEDS: ENOXAPARIN 40 MG/0.4 ML SYRINGE SQ SCH (07:39)
[2018-02-01] MEDS: FLUDROCORTISONE 0.1 MG TAB PO SCH (07:40)
[2018-02-01] MEDS: amLODIPine 5 MG TAB PO SCH (07:40)
[2018-02-01] MEDS: METOPROLOL TARTRATE 12.5 MG TAB PO SCH (07:40)
[2018-02-01] MEDS: PSYLLIUM HUSK 100% 6 GM PACKET PO SCH (07:48)
[2018-02-01 08:22] LABS: Calcium 8.8 mg/dL (8.4-10.2); Potassium 3.6 mmol/L (3.5-5.1)
[2018-02-01 10:59] VITALS: BMI 22.2
[2018-02-01 11:46] LABS: Glucose,Whole Blood 116 mg/dL (75-99)
[2018-02-01 15:49] VITALS: BP 160/78; PULSE 68; TEMP 97.8
--- NOTE | 2018-02-01 16:12 | DS ---
DISCHARGE SUMMARY DATE OF ADMISSION: 01/27/2018. DATE OF DISCHARGE: February 01, 2018. FINAL DIAGNOSES: 1. Acute renal failure prerenal from poor oral intake, present on admission. 2. Severe dysphagia and regurgitation from severe presbyesophagus, new diagnosis. 3. Severe gastroesophageal reflux disease esophagitis from reflux POA. 4. Weight loss from poor oral intake. 5. Gait dysfunction uses a walker. 6. Paroxysmal atrial fibrillation currently in sinus rhythm. 7. Chronic urinary stress incontinence. 8. Severe autonomic dysfunction causing labile hypertension/orthostatic hypertension. 9. Percutaneous PEG tube placement procedure by Dr. Vieira. 10.Medical debility. HOSPITAL COURSE: This patient presented with multiple issues, having a lot of difficulty swallowing. The patient had a barium study that did confirm presbyesophagus. The patient had lost about 30 pounds. EGD was carried out that did show esophagitis and a PEG tube was placed. The patient tolerating a diet well. For orthostatic hypertension, patient is put on Florinef and given stockings. Overall patient doing better. Care was discussed today with the patient and family at the bedside. Questions were answered. Tube feeding will go from 12 hours at night. Discussion and discharge planning more than 35 minutes. DISCHARGE MEDICATIONS: 1. Sinemet 25/100 2 tablets p.o. t.i.d. 2. Florinef 0.1 mg p.o. b.i.d. 3. Melatonin 3 mg q.h.s. p.r.n. 4. Lopressor 12.5 p.o. b.i.d. 5. Protonix 40 mg p.o. b.i.d. 6. Metamucil 6 grams p.o. b.i.d. 7. Amlodipine 5 mg p.o. daily. 8. Jevity 1.5 90 mL 12 hours at night from 8:00 pm to 8:00 am. DISPOSITION: [facility]. FOLLOW: Follow up with Dr. Reeves at [facility]. Follow up with Dr. Montano after DC from [facility]. Discharge planning more than 35 minutes. Additionally discontinued medications include digoxin, MiraLAX and Aricept, Lasix and ciprofloxacin. MMODL / IJN: [id number] /
== END 2018-02-01 16:45 | DRG 683 ==
LOC: EC 21:58 → 5MS5E 01-27 00:13 → INTOOBSV 01-27 00:13 → 6SEL 01-27 14:18 → OBSVTOIN 01-27 15:56 → 5MS5E 01-31 10:19
PROVIDERS: ADMIT Hospitalist; ATTEND Hospitalist
PROC: 3E0G76Z Introduction of Nutritional Substance into Upper GI, Via Natural or Artificial Opening (ICD-10-PCS; 2018-01-29)
PROC: 0DB58ZX Excision of Esophagus, Via Natural or Artificial Opening Endoscopic, Diagnostic (ICD-10-PCS; principal; 2018-01-29 09:30)
PROC: 0DH63UZ Insertion of Feeding Device into Stomach, Percutaneous Approach (ICD-10-PCS; 2018-01-29 09:30)
DX: N17.9 Acute kidney failure, unspecified (principal); I45.2 Bifascicular block; N39.0 Urinary tract infection, site not specified; E86.0 Dehydration; G20 Parkinson's disease; I48.0 Paroxysmal atrial fibrillation; G90.9 Disorder of the autonomic nervous system, unspecified; R13.10 Dysphagia, unspecified; F03.90 Unspecified dementia, unspecified severity, without behavioral disturbance, psychotic disturbance, mood disturbance, and anxiety; K22.8 Other specified diseases of esophagus; N39.3 Stress incontinence (female) (male); I95.1 Orthostatic hypotension; I10 Essential (primary) hypertension; K21.0 Gastro-esophageal reflux disease with esophagitis; R63.4 Abnormal weight loss; R29.6 Repeated falls; R26.81 Unsteadiness on feet; Z79.899 Other long term (current) drug therapy; Z90.49 Acquired absence of other specified parts of digestive tract; Z90.710 Acquired absence of both cervix and uterus; Z87.891 Personal history of nicotine dependence; W19.XXXA Unspecified fall, initial encounter; Y92.000 Kitchen of unspecified non-institutional (private) residence as the place of occurrence of the external cause
CPT/HCPCS: 36415; 43239; 43246; 70450; 71046; 72125; 72170; 74220; 80048; 80053; 81001; 82553; 83036; 83735; 84484; 85025; 85379; 85610; 85730; 88305; 93005; 93306; 96360; 96361; 99285

== ENCOUNTER → 2018-02-23 | Outpatient (CLI) | payer MEDICARE ==
--- NOTE | 2018-02-23 16:46 | US ---
EXAMINATION TYPE: US venous doppler duplex LE DATE OF EXAM: 02/23/2018 3:03 PM COMPARISON: NONE CLINICAL HISTORY: R79.1 ABN COAGULATION PROFILE. Elevated d dimer SIDE PERFORMED: Bilateral TECHNIQUE: The lower extremity deep venous system is examined utilizing real time linear array sonog boby with graded compression, doppler sonography and color-flow sonography. VESSELS IMAGED: External Iliac Vein (EIV) Common Femoral Vein Deep Femoral Vein Greater Saphenous Vein * Femoral Vein Popliteal Vein Small Saphenous Vein * Proximal Calf Veins (* superficial vessels) Right Leg: Appears negative for DVT Left Leg: Appears negative for DVT Grayscale, color doppler, spectral doppler imaging performed of the deep veins of the lower extremiti es. There is normal flow, compressibility, vascular waveforms. IMPRESSION: No sonographic evidence of deep venous thrombosis within either lower extremity.
== END ==
LOC: RADUSWWP 15:01
PROVIDERS: ATTEND Family Medicine
DX: R79.1 Abnormal coagulation profile (principal)
CPT/HCPCS: 93970

== ENCOUNTER 2018-04-27 12:14 | Emergency (ER) | payer MEDICARE ==
[2018-04-27 12:22] VITALS: RESP 18
[2018-04-27] MEDS ORDERED: SODIUM CHLORIDE 0.9% 1,000 ML IV ONE (12:39)
--- NOTE | 2018-04-27 12:42 | ED ---
General Adult HPI - General Chief complaint: Weakness Stated complaint: Fall Time Seen by Provider: 04/27/18 12:15 Source: patient, RN notes reviewed Mode of arrival: wheelchair Limitations: no limitations - History of Present Illness Initial comments: This is an 87-year-old female presents emergency Department complaining that she has been falling on a regular basis for the last 2 or 3 months. Patient states she does have Parkinson's disease. Patient states she is not able to eat swallow very good so they put a feeding tube in place so she get more food. Patient states she does not drink much water or fluids every day and they did not put any into her feeding tube. Patient states normally in the morning she feels very weak but has a day goes on she gets stronger but today she did seem any stronger this afternoon and she fell over trying to get her underwear on so her brought her to the emergency department. Patient currently states she hit her right lower back and it's tender to palpation but there was no significant tenderness according to the patient. Patient denies hitting her head or neck. Patient denies any extremity pain. Patient denies any chest pain difficulty breathing or shortness of breath. Patient denies any palpitations. Patient denies any recent fever chills or cough. Patient denies any nausea vomiting or diarrhea recently. - Related Data Home Medications Medication Instructions Recorded Confirmed Carbidopa-Levodopa 25-100 mg 2 tab PO Q8H 09/27/17 04/27/18 [Sinemet 25-100 mg] Ferrous Sulfate [Feosol] 325 mg PO DAILY 04/27/18 04/27/18 Furosemide [Lasix] 20 mg PO BID 04/27/18 04/27/18 Osmolite 1.5cal Liquid 237 ml PO DAILY 04/27/18 04/27/18 Potassium Chloride Oral Liquid 40 meq PEG/G-TUBE DAILY 04/27/18 04/27/18 Previous Rx's Medication Instructions Recorded Fludrocortisone [Florinef] 0.1 mg PO BID tab 02/01/18 Metoprolol Tartrate [Lopressor] 12.5 mg PO BID tab 02/01/18 Pantoprazole Sodium [Protonix] 40 mg PO BID #1 tablet. 02/01/18 amLODIPine [Norvasc] 5 mg PO DAILY tab 02/01/18 Allergies Allergy/AdvReac Type Severity Reaction Status Date / Time No Known Allergies Allergy Verified 04/27/18 12:44 Review of Systems ROS Statement: Those systems with pertinent positive or pertinent negative responses have been documented in the HPI. ROS Other: All systems not noted in ROS Statement are negative. Past Medical History Past Medical History: Atrial Fibrillation, GERD/Reflux Additional Past Medical History / Comment(s): parkinson's. History of Any Multi-Drug Resistant Organisms: None Reported Past Surgical History: Cholecystectomy, Hysterectomy Additional Past Surgical History / Comment(s): left ear. Past Psychological History: No Psychological Hx Reported Smoking Status: Former smoker Past Alcohol Use History: None Reported Past Drug Use History: None Reported - Past Family History Mother Family Medical History: No Reported History General Exam - General Exam Comments Initial Comments: GENERAL: Patient is well-developed and well-nourished. Patient is nontoxic and well- hydrated and is in no acute distress. ENT: Neck is soft and supple. No significant lymphadenopathy is noted. Oropharynx is clear. Moist mucous membranes. Neck has full range of motion without eliciting any pain. EYES: The sclera were anicteric and conjunctiva were pink and moist. Extraocular movements were intact and pupils were equal round and reactive to light. Eyelids were unremarkable. PULMONARY: Unlabored respirations. Good breath sounds bilaterally. No audible rales rhonchi or wheezing was noted. CARDIOVASCULAR: There is a regular rate and rhythm without any murmurs gallops or rubs. ABDOMEN: Soft and nontender with normal bowel sounds. No palpable organomegaly was noted. There is no palpable pulsatile mass. SKIN: Skin is clear with no lesions or rashes and otherwise unremarkable. NEUROLOGIC: Patient is alert and oriented x3. Cranial nerves II through XII are grossly intact. Motor and sensory are also intact. Normal speech, volume and content. Symmetrical smile. MUSCULOSKELETAL: Normal extremities with adequate strength and full range of motion. No lower extremity swelling or edema. No calf tenderness. Patient has some slight tenderness to the right lower back. LYMPHATICS: No significant lymphadenopathy is noted PSYCHIATRIC: Normal psychiatric evaluation. Limitations: no limitations Course Vital Signs 04/27/18 04/27/18 04/27/18 12:16 13:00 13:15 Temperature 98.0 F Pulse Rate 72 67 Pulse Rate [ 70 Sitting Cork Wirer] Pulse Rate [ 73 Standing Cork Wirer ] Pulse Rate [ 65 Supine Cork Wirer] Respiratory 18 18 Rate Blood Pressure 84/55 114/58 Blood Pressure 99/59 [Right Arm Sitting] Blood Pressure 72/51 [Right Arm Standing] Blood Pressure 131/60 [Right Arm Supine] O2 Sat by Pulse 100 97 Oximetry 04/27/18 14:31 Temperature Pulse Rate Pulse Rate [ 72 Sitting Cork Wirer] Pulse Rate [ 76 Standing Cork Wirer ] Pulse Rate [ 75 Supine Cork Wirer] Respiratory Rate Blood Pressure Blood Pressure 159/76 [Right Arm Sitting] Blood Pressure 110/59 [Right Arm Standing] Blood Pressure 177/70 [Right Arm Supine] O2 Sat by Pulse Oximetry Medical Decision Making - Medical Decision Making EKG shows normal sinus rhythm at 67 bpm [place] interval is 202 QRS is 134 QT interval 444 QTC is 469. Patient's EKG shows no ST segment elevation or depression however there is a right bundle branch block. Patient's received a liter and a half of fluid and when I went back in the room the patient was feeling back to her baseline. Repeat orthostatics though she was still orthostatic positive her blood pressures at the lowest were 110 systolic. An patient had no symptoms while standing. - Lab Data Result diagrams: 04/27/18 12:38 04/27/18 12:38 Lab Results 04/27/18 04/27/18 04/27/18 Range/Units 12:38 12:38 12:38 WBC 11.0 H (3.8-10.6) k/uL RBC 4.37 (3.80-5.40) m/uL Hgb 12.9 (11.4-16.0) gm/dL Hct 39.7 (34.0-46.0) % MCV 90.9 (80.0-100.0) fL MCH 29.5 (25.0-35.0) pg MCHC 32.5 (31.0-37.0) g/dL RDW 14.2 (11.5-15.5) % Plt Count 257 (150-450) k/uL Neutrophils % 78 % Lymphocytes % 11 % Monocytes % 7 % Eosinophils % 1 % Basophils % 0 % Neutrophils # 8.5 H (1.3-7.7) k/uL Lymphocytes # 1.2 (1.0-4.8) k/uL Monocytes # 0.8 (0-1.0) k/uL Eosinophils # 0.1 (0-0.7) k/uL Basophils # 0.0 (0-0.2) k/uL Sodium 140 (137-145) mmol/L Potassium 3.7 (3.5-5.1) mmol/L Chloride 97 L (98-107) mmol/L Carbon Dioxide 33 H (22-30) mmol/L Anion Gap 10 mmol/L BUN 58 H (7-17) mg/dL Creatinine 1.40 H (0.52-1.04) mg/dL Est GFR (CKD-EPI)AfAm 39 (>60 ml/min/1.73 sqM) Est GFR (CKD-EPI)NonAf 34 (>60 ml/min/1.73 sqM) Glucose 98 (74-99) mg/dL Calcium 9.4 (8.4-10.2) mg/dL Magnesium 2.1 (1.6-2.3) mg/dL Total Bilirubin 0.7 (0.2-1.3) mg/dL AST 20 (14-36) U/L ALT 11 (9-52) U/L Alkaline Phosphatase 76 (38-126) U/L Troponin I 0.032 (0.000-0.034) ng/mL Total Protein 6.5 (6.3-8.2) g/dL Albumin 3.9 (3.5-5.0) g/dL Urine Color Urine Appearance (Clear) Urine pH (5.0-8.0) Ur Specific [place] (1.001-1.035) Urine Protein (Negative) Urine Glucose (UA) (Negative) Urine Ketones (Negative) Urine Blood (Negative) Urine Nitrite (Negative) Urine Bilirubin (Negative) Urine Urobilinogen (<2.0) mg/dL Ur Leukocyte Esterase (Negative) Urine RBC (0-5) /hpf Urine WBC (0-5) /hpf Ur Squamous Epith Cells (0-4) /hpf Hyaline Casts (0-2) /lpf Urine Mucus (None) /hpf 04/27/18 Range/Units 13:06 WBC (3.8-10.6) k/uL RBC (3.80-5.40) m/uL Hgb (11.4-16.0) gm/dL Hct (34.0-46.0) % MCV (80.0-100.0) fL MCH (25.0-35.0) pg MCHC (31.0-37.0) g/dL RDW (11.5-15.5) % Plt Count (150-450) k/uL Neutrophils % % Lymphocytes % % Monocytes % % Eosinophils % % Basophils % % Neutrophils # (1.3-7.7) k/uL Lymphocytes # (1.0-4.8) k/uL Monocytes # (0-1.0) k/uL Eosinophils # (0-0.7) k/uL Basophils # (0-0.2) k/uL Sodium (137-145) mmol/L Potassium (3.5-5.1) mmol/L Chloride (98-107) mmol/L Carbon Dioxide (22-30) mmol/L Anion Gap mmol/L BUN (7-17) mg/dL Creatinine (0.52-1.04) mg/dL Est GFR (CKD-EPI)AfAm (>60 ml/min/1.73 sqM) Est GFR (CKD-EPI)NonAf (>60 ml/min/1.73 sqM) Glucose (74-99) mg/dL Calcium (8.4-10.2) mg/dL Magnesium (1.6-2.3) mg/dL Total Bilirubin (0.2-1.3) mg/dL AST (14-36) U/L ALT (9-52) U/L Alkaline Phosphatase (38-126) U/L Troponin I (0.000-0.034) ng/mL Total Protein (6.3-8.2) g/dL Albumin (3.5-5.0) g/dL Urine Color Yellow Urine Appearance Clear (Clear) Urine pH 5.5 (5.0-8.0) Ur Specific [place] 1.011 (1.001-1.035) Urine Protein Negative (Negative) Urine Glucose (UA) Negative (Negative) Urine Ketones Negative (Negative) Urine Blood Negative (Negative) Urine Nitrite Negative (Negative) Urine Bilirubin Negative (Negative) Urine Urobilinogen <2.0 (<2.0) mg/dL Ur Leukocyte Esterase Small H (Negative) Urine RBC 1 (0-5) /hpf Urine WBC 4 (0-5) /hpf Ur Squamous Epith Cells 4 (0-4) /hpf Hyaline Casts 11 H (0-2) /lpf Urine Mucus Rare H (None) /hpf Disposition Clinical Impression: Renal insufficiency, Dehydration, Orthostatic hypotension Disposition: HOME SELF-CARE Instructions: Hypotension (ED), Dehydration (ED) Is patient prescribed a controlled substance at d/c from ED?: No Referrals: Vincent Montano MD [Primary Care Provider] - 1-2 days Time of Disposition: 14:42
[2018-04-27 13:14] LABS: Albumin 3.9 g/dL (3.5-5.0); Calcium 9.4 mg/dL (8.4-10.2); Magnesium 2.1 mg/dL (1.6-2.3); Potassium 3.7 mmol/L (3.5-5.1); Total Bilirubin 0.7 mg/dL (0.2-1.3); Total Protein 6.5 g/dL (6.3-8.2)
[2018-04-27 13:17] LABS: Appearance,Urine Clear (Clear); Bilirubin,Urine Negative (Negative); Blood,Urine Negative (Negative); Color,Urine Yellow; Glucose,Urine (UA) Negative (Negative); Hyaline Casts,Urine 11 /lpf (0-2); Ketones,Urine Negative (Negative); Leukocyte Esterase,Urine Small (Negative); Mucus,Urine Rare /hpf; Nitrite,Urine Negative (Negative); PH, Urine 5.5 (5.0-8.0); Protein,Urine Negative (Negative); RBC,Urine 1 /hpf (0-5); Specific Gravity,Urine 1.011 (1.001-1.035); Squamous Epithelial Cell,Urine 4 /hpf (0-4); Urobilinogen,Urine <2.0 mg/dL (<2.0); WBC,Urine 4 /hpf (0-5)
[2018-04-27 13:23] LABS: Basophils % (A) 0 %; Eosinophils # (A) 0.1 k/uL (0-0.7); Eosinophils % (A) 1 %; HCT 39.7 % (34.0-46.0); HGB 12.9 gm/dL (11.4-16.0); Lymphocytes # (A) 1.2 k/uL (1.0-4.8); Lymphocytes % (A) 11 %; MCH 29.5 pg (25.0-35.0); MCHC 32.5 g/dL (31.0-37.0); MCV 90.9 fL (80.0-100.0); Mean Platelet Volume 6.7; Monocytes # (A) 0.8 k/uL (0-1.0); Monocytes % (A) 7 %; Neutrophils # (A) 8.5 k/uL (1.3-7.7); Neutrophils % (A) 78 %; Platelet Count 257 k/uL (150-450); RBC 4.37 m/uL (3.80-5.40); RDW 14.2 % (11.5-15.5)
[2018-04-27 14:33] VITALS: PULSE 75
[2018-04-27 15:14] VITALS: BP 172/81; TEMP 97.9
== END 2018-04-27 15:16 | disposition home or self-care (01) ==
LOC: EC 12:14
DX: N28.9 Disorder of kidney and ureter, unspecified (principal); E86.0 Dehydration; I95.1 Orthostatic hypotension; I45.10 Unspecified right bundle-branch block; G20 Parkinson's disease; Z87.891 Personal history of nicotine dependence; Z79.899 Other long term (current) drug therapy; W19.XXXA Unspecified fall, initial encounter; Y92.002 Bathroom of unspecified non-institutional (private) residence as the place of occurrence of the external cause
CPT/HCPCS: 36415; 80053; 81001; 83735; 84484; 85025; 93005; 96360; 96361; 99285

== ENCOUNTER → 2018-08-04 | Outpatient (CLI) | payer MEDICARE ==
--- NOTE | 2018-08-04 11:50 | FL ---
EXAMINATION TYPE: FL barium swallow w video DATE OF EXAM: 08/04/2018 MODIFIED SWALLOW / DEGLUTITION STUDY CLINICAL HISTORY: Dysphagia. History of Parkinson's disease. TECHNIQUE: Deglutition study is performed utilizing thin liquid barium, honey and nectar thick liqui d barium, barium thick pudding, and barium coated cracker. A total of 2 minutes 39 seconds of fluoros copic time was utilized during procedure. Serial spot images are saved. COMPARISON: Prior esophagram January 28, 2018. FINDINGS: The oral and pharyngeal phases show satisfactory initiation and propagation with all modali ties tested. Satisfactory mastication is seen with solid modalities tested. There is no evidence of penetration or aspiration with any modality tested. Mild pharyngeal residue was appreciated into the piriform sinus. At origin of trachea along prevertebral tissue there is persistent nearly 1 cm densit y could reflect calcification incidentally noted, it was felt possible diverticulum but persisted in retrospect prior to patient drinking. Note is made of redemonstration of severe esophageal dysmotilit y or achalasia with pooling of contrast in the esophagus and abnormal tertiary contractions. Similar findings are discussed on prior esophagram report. IMPRESSION: No penetration or aspiration observed. Please refer to speech therapist notes for furthe r details if necessary.
== END ==
LOC: RADFLMAIN 10:38
DX: Z43.1 Encounter for attention to gastrostomy (principal)
CPT/HCPCS: 74230

== ENCOUNTER → 2018-08-17 | Day surgery (SDC) | payer MEDICARE ==
[2018-08-13 10:14] VITALS: BMI 21.4
[~2018-08-17] MED LIST: HYDROmorphone 0.5 MG/0.5 ML SYRINGE IVP PRN; LACTATED RINGERS 1,000 ML IV ONE; LACTATED RINGERS 1,000 ML IV SCH; LIDOCAINE 1% 20 ML VIAL (10MG/ML) FOR IV START INTRADERMA PRN; LIDOCAINE 1% INJ 10MG/ML (20 ML MDV) ONE; PROPOFOL 10 MG/ML 20 ML VIAL IV ONE
[2018-08-17 07:34] VITALS: TEMP 97.4
--- NOTE | 2018-08-17 10:29 | P.PCN ---
Date of Procedure: 08/17/18 Procedure(s) Performed: Procedure: PEG tube removal. Preoperative diagnosis: History of dysphagia and weight loss and PEG tube placement. Postoperative diagnosis: Successful removal of the PEG tube with gentle traction. Preparation and sedation: Was provided by anesthesia. Brief clinical history: The patient is an 87-year-old female with history of Parkinson's disease, atrial fibrillation and mild dementia who had a feeding tube placed in January of last year because of difficulty swallowing with the sensation of food stuck in her throat and 25-30 pounds of weight loss and abnormal barium study. The patient has done well since and is now able to take her feedings and supplements orally. There was issues with the feeding tube including possible fungal growth inside the tube and she wanted it removed or replaced if there is still need. I scheduled a modified barium swallow which did not show any penetration and aspiration. Procedure: With the patient in the supine position and after informed consent and adequate sedation, the gastrostomy feeding tube was removed by gentle sustained traction and it came out intact. The site of the tube did not show any infection, inflammation or bleeding. It was cleansed and a pressure dressing was placed. The patient tolerated the procedure well. Plan: The patient will be kept nothing by mouth for 2-4 hours then allowed liquid diet for the following meal and then her diet can be advanced as tolerated. Further plans can be made based on her course. She will follow-up with you as planned.
[2018-08-17 10:50] VITALS: BP 160/81; PULSE 117; RESP 18
== END ==
LOC: ORWHC2ENDO 07:18
DX: Z43.1 Encounter for attention to gastrostomy (principal); I48.91 Unspecified atrial fibrillation; K21.9 Gastro-esophageal reflux disease without esophagitis; G20 Parkinson's disease; F03.90 Unspecified dementia, unspecified severity, without behavioral disturbance, psychotic disturbance, mood disturbance, and anxiety; I11.0 Hypertensive heart disease with heart failure; I50.9 Heart failure, unspecified; I95.1 Orthostatic hypotension; Z79.899 Other long term (current) drug therapy
CPT/HCPCS: J2001; J2704; G0463; 99212

== ENCOUNTER 2018-08-20 04:55 | Inpatient (IN) | payer MEDICARE ==
[2018-08-20] MEDS ORDERED: PIPERACILLIN-TAZOBACTAM 3.375 GM in SODIUM CHLORIDE 0.9% 100 ML IVPB STA (05:15)
[2018-08-20] MEDS ORDERED: VANCOMYCIN IV PER PHARMACY 1 EACH MISC MISCELLANE PRN (05:15)
[2018-08-20] MEDS: SODIUM CHLORIDE 0.9% 500 ML 500 ML IV SCH (05:40)
[2018-08-20 05:48] LABS: Basophils % (A) 0 %; Eosinophils # (A) 0.2 k/uL (0-0.7); Eosinophils % (A) 2 %; HCT 39.6 % (34.0-46.0); HGB 12.9 gm/dL (11.4-16.0); Lymphocytes # (A) 0.7 k/uL (1.0-4.8); Lymphocytes % (A) 6 %; MCH 30.4 pg (25.0-35.0); MCHC 32.5 g/dL (31.0-37.0); MCV 93.7 fL (80.0-100.0); Mean Platelet Volume 7.2; Monocytes # (A) 0.6 k/uL (0-1.0); Monocytes % (A) 5 %; Neutrophils # (A) 9.2 k/uL (1.3-7.7); Neutrophils % (A) 83 %; Platelet Count 208 k/uL (150-450); RBC 4.23 m/uL (3.80-5.40); WBC 11.1 k/uL (3.8-10.6)
--- NOTE | 2018-08-20 05:54 | XR ---
EXAM: XR Chest, 2 Views CLINICAL HISTORY: ITS.REASON XR Reason: cough TECHNIQUE: Frontal and lateral views of the chest. COMPARISON: 01/26/18 chest x-ray IMPRESSION: Increased opacity in the right lower lobe, likely subsegmental atelectasis. No pleural effusion. Unchanged heart size.
[2018-08-20 05:57] LABS: INR 1.1 (<1.2); Partial Thromboplastin Time 28.9 sec (22.0-30.0); Prothrombin Time 11.3 sec (9.0-12.0)
[2018-08-20] MEDS ORDERED: VANCOMYCIN 1,250 MG in SODIUM CHLORIDE 0.9% 250 ML IVPB ONE (06:00)
[2018-08-20 06:05] LABS: Albumin 3.9 g/dL (3.5-5.0); Calcium 9.2 mg/dL (8.4-10.2); Potassium 3.3 mmol/L (3.5-5.1); Total Bilirubin 0.9 mg/dL (0.2-1.3); Total Protein 6.8 g/dL (6.3-8.2)
[2018-08-20 06:17] LABS: Creatine Kinase MB 2.1 ng/mL (0.0-2.4); Troponin I 0.014 ng/mL (0.000-0.034)
[2018-08-20] MEDS ORDERED: Potassium Replacement Protocol 1 EACH MISC MISCELLANE PRN (06:29)
--- NOTE | 2018-08-20 07:12 | ED ---
General Adult HPI - General Chief complaint: Upper Respiratory Infection Stated complaint: COUGH,EUNICE Time Seen by Provider: 08/20/18 05:15 Source: patient, family Mode of arrival: wheelchair Limitations: no limitations - History of Present Illness Initial comments: Mary is an 87-year-old female with a history of Parkinson's and previously a history of difficulty with swallowing for which she had a gastrostomy tube placed. The tube was subsequently removed earlier in the week. Patient reports she's had a minimally productive cough throughout the week, throughout the night tonight she had persistent coughing shortness breath which prompted her come to the ER for evaluation. Patient denies any fevers, chills, nausea or vomiting she reports she's been eating well with no difficulty with swallowing. She does report palpitations shortness of breath and minimally productive cough. She did receive her flu vaccine this year. - Related Data Home Medications Medication Instructions Recorded Confirmed RX: Carbidopa-Levodopa 25-100 mg 2 tab PO Q8H 09/27/17 08/20/18 [Sinemet 25-100 mg] Ferrous Sulfate [Feosol] 325 mg PO DAILY 04/27/18 08/20/18 RX: Potassium Chloride Oral Liquid 20 meq PEG/G-TUBE DAILY 04/27/18 08/20/18 Pramipexole [Mirapex] 0.25 mg PO DAILY 08/13/18 08/20/18 Furosemide [Lasix] 20 mg PO DAILY 08/20/18 08/20/18 Pantoprazole Sodium [Protonix] 40 mg PO DAILY 08/20/18 08/20/18 Previous Rx's Medication Instructions Recorded RX: Fludrocortisone [Florinef] 0.1 mg PO BID tab 02/01/18 RX: Metoprolol Tartrate [Lopressor] 12.5 mg PO BID tab 02/01/18 Allergies Allergy/AdvReac Type Severity Reaction Status Date / Time No Known Allergies Allergy Verified 08/20/18 07:07 Review of Systems ROS Statement: Those systems with pertinent positive or pertinent negative responses have been documented in the HPI. ROS Other: All systems not noted in ROS Statement are negative. Past Medical History Past Medical History: Atrial Fibrillation, GERD/Reflux Additional Past Medical History / Comment(s): parkinson's. History of Any Multi-Drug Resistant Organisms: None Reported Past Surgical History: Cholecystectomy, Hysterectomy Additional Past Surgical History / Comment(s): left ear. Past Psychological History: No Psychological Hx Reported Smoking Status: Former smoker Past Alcohol Use History: None Reported Past Drug Use History: None Reported - Past Family History Mother Family Medical History: No Reported History Sister(s) Family Medical History: Cancer General Exam - General Exam Comments Initial Comments: Physical Exam GENERAL: Elderly female in moderate distress HENT: Normocephalic, Atraumatic. EYES: PERRL, EOMI PULMONARY: Crackles at right base CARDIOVASCULAR: Tachycardic, regular ABDOMEN: Soft and nontender with normal bowel sounds. Well-healing gastrostomy incision SKIN: Skin is clear with no lesions or rashes and otherwise unremarkable. : Deferred NEUROLOGIC: Patient is alert and oriented x3. Moving all extremities spontaneously MUSCULOSKELETAL: Normal extremities with adequate strength and full range of motion. No lower extremity swelling or edema. No calf tenderness. PSYCHIATRIC: Normal psychiatric evaluation. Limitations: no limitations Limitations: no limitations Course Vital Signs 08/20/18 08/20/18 08/20/18 04:57 05:30 06:00 Temperature 98.4 F Pulse Rate 116 H 102 H 93 Respiratory 20 20 24 Rate Blood Pressure 120/79 158/84 158/84 O2 Sat by Pulse 93 L 95 96 Oximetry 08/20/18 07:00 Temperature Pulse Rate 96 Respiratory 24 Rate Blood Pressure 162/96 O2 Sat by Pulse 96 Oximetry EKG Findings - EKG Comments: EKG Findings:: EKG obtained at 5:46 AM, rate is 102 rhythm is sinus tachycardia no prolonged LA and bifascicular block. LA is 216, QRS 132, QTc 471. Acute ST elevations or depressions no evidence of acute ischemia or infarction. Medical Decision Making - Medical Decision Making Patient was seen and evaluated history was obtained from the patient at bedside and review of medical record Signs were reviewed patient was noted to be hypoxic with oxygen saturation of only 93% on room air, tachycardic with heart rates ranging from 102-120 afebrile Patient with cough on physical exam patient has audible crackles Sepsis workup initiated Broad spectrum antibiotics ordered Labs with mild leukocytosis, elevated creatinine, hypokalemia Chest x-ray with right lower lobe consolidation concerning for pneumonia versus atelectasis on x-ray however based on her physical exam I have a high concern for pneumonia Patient care was discussed with Dr. D of the [facility] Physician Team who agrees with plan for admission for sepsis secondary to pneumonia with hypoxia and an elderly female - Lab Data Result diagrams: 08/20/18 05:25 08/20/18 05:25 Lab Results 08/20/18 08/20/18 08/20/18 Range/Units 05:25 05:25 05:25 WBC 11.1 H (3.8-10.6) k/uL RBC 4.23 (3.80-5.40) m/uL Hgb 12.9 (11.4-16.0) gm/dL Hct 39.6 (34.0-46.0) % MCV 93.7 (80.0-100.0) fL MCH 30.4 (25.0-35.0) pg MCHC 32.5 (31.0-37.0) g/dL RDW 14.0 (11.5-15.5) % Plt Count 208 (150-450) k/uL Neutrophils % 83 % Lymphocytes % 6 % Monocytes % 5 % Eosinophils % 2 % Basophils % 0 % Neutrophils # 9.2 H (1.3-7.7) k/uL Lymphocytes # 0.7 L (1.0-4.8) k/uL Monocytes # 0.6 (0-1.0) k/uL Eosinophils # 0.2 (0-0.7) k/uL Basophils # 0.0 (0-0.2) k/uL PT (9.0-12.0) sec INR (<1.2) APTT (22.0-30.0) sec Sodium 139 (137-145) mmol/L Potassium 3.3 L (3.5-5.1) mmol/L Chloride 100 (98-107) mmol/L Carbon Dioxide 31 H (22-30) mmol/L Anion Gap 8 mmol/L BUN 29 H (7-17) mg/dL Creatinine 1.06 H (0.52-1.04) mg/dL Est GFR (CKD-EPI)AfAm 55 (>60 ml/min/1.73 sqM) Est GFR (CKD-EPI)NonAf 48 (>60 ml/min/1.73 sqM) Glucose 130 H (74-99) mg/dL Plasma Lactic Acid Stevan 1.2 (0.7-2.0) mmol/L Calcium 9.2 (8.4-10.2) mg/dL Total Bilirubin 0.9 (0.2-1.3) mg/dL AST 18 (14-36) U/L ALT 30 (9-52) U/L Alkaline Phosphatase 67 (38-126) U/L Total Creatine Kinase (30-135) U/L CK-MB (CK-2) (0.0-2.4) ng/mL CK-MB (CK-2) Rel Index Troponin I (0.000-0.034) ng/mL Total Protein 6.8 (6.3-8.2) g/dL Albumin 3.9 (3.5-5.0) g/dL Influenza Type A RNA (Not Detectd) Influenza Type B (PCR) (Not Detectd) 08/20/18 08/20/18 08/20/18 Range/Units 05:25 05:25 05:25 WBC (3.8-10.6) k/uL RBC (3.80-5.40) m/uL Hgb (11.4-16.0) gm/dL Hct (34.0-46.0) % MCV (80.0-100.0) fL MCH (25.0-35.0) pg MCHC (31.0-37.0) g/dL RDW (11.5-15.5) % Plt Count (150-450) k/uL Neutrophils % % Lymphocytes % % Monocytes % % Eosinophils % % Basophils % % Neutrophils # (1.3-7.7) k/uL Lymphocytes # (1.0-4.8) k/uL Monocytes # (0-1.0) k/uL Eosinophils # (0-0.7) k/uL Basophils # (0-0.2) k/uL PT 11.3 (9.0-12.0) sec INR 1.1 (<1.2) APTT 28.9 (22.0-30.0) sec Sodium (137-145) mmol/L Potassium (3.5-5.1) mmol/L Chloride (98-107) mmol/L Carbon Dioxide (22-30) mmol/L Anion Gap mmol/L BUN (7-17) mg/dL Creatinine (0.52-1.04) mg/dL Est GFR (CKD-EPI)AfAm (>60 ml/min/1.73 sqM) Est GFR (CKD-EPI)NonAf (>60 ml/min/1.73 sqM) Glucose (74-99) mg/dL Plasma Lactic Acid Stevan (0.7-2.0) mmol/L Calcium (8.4-10.2) mg/dL Total Bilirubin (0.2-1.3) mg/dL AST (14-36) U/L ALT (9-52) U/L Alkaline Phosphatase (38-126) U/L Total Creatine Kinase 60 (30-135) U/L CK-MB (CK-2) 2.1 (0.0-2.4) ng/mL CK-MB (CK-2) Rel Index 3.5 Troponin I 0.014 (0.000-0.034) ng/mL Total Protein (6.3-8.2) g/dL Albumin (3.5-5.0) g/dL Influenza Type A RNA Not Detected (Not Detectd) Influenza Type B (PCR) Not Detected (Not Detectd) Critical Care Time Critical Care Time: Yes Total Critical Care Time: 15 Critical Care Time: Critical Care Critical care time was exclusive of separately billable procedures and treating other patients and teaching time. Critical care was necessary to treat or prevent imminent or life-threatening deterioration. Critical care was time spent personally by me on the following activities: development of treatment plan with patient or surrogate, discussions with consultants, discussions with primary provider, evaluation of patient's response to treatment, examination of patient, obtaining history from patient or surrogate, ordering and performing treatments and interventions, ordering and review of laboratory studies, ordering and review of radiographic studies, pulse oximetry, re-evaluation of patient's condition and review of old charts. Disposition Clinical Impression: Sepsis, CAP (community acquired pneumonia), Hypokalemia Disposition: ADMITTED IP TO THIS HOSP Is patient prescribed a controlled substance at d/c from ED?: No Referrals: Vincent Montano MD [Primary Care Provider] - 1-2 days
[2018-08-20] MEDS: CARBIDOPA-LEVODOPA 25-100 MG 1 EACH TAB PO SCH ×3 (07:51→21:32)
[2018-08-20] MEDS: POTASSIUM CHLORIDE ER 20 MEQ TAB.ER PO SCH ×2 (07:56→09:13)
[2018-08-20] MEDS ORDERED: PRAMIPEXOLE 0.25 MG TAB PO SCH (09:00)
[2018-08-20 09:09] LABS: Appearance,Urine Clear (Clear); Bilirubin,Urine Negative (Negative); Blood,Urine Negative (Negative); Color,Urine Yellow; Glucose,Urine (UA) Negative (Negative); Ketones,Urine Negative (Negative); Leukocyte Esterase,Urine Small (Negative); Mucus,Urine Rare /hpf; Nitrite,Urine Negative (Negative); PH, Urine 5.5 (5.0-8.0); Protein,Urine Trace (Negative); RBC,Urine 1 /hpf (0-5); Specific Gravity,Urine 1.011 (1.001-1.035); Squamous Epithelial Cell,Urine 2 /hpf (0-4); Urobilinogen,Urine <2.0 mg/dL (<2.0); WBC,Urine 1 /hpf (0-5)
[2018-08-20] MEDS: FLUDROCORTISONE 0.1 MG TAB PO SCH ×2 (09:11→21:32)
[2018-08-20] MEDS: METOPROLOL TARTRATE 12.5 MG TAB PO SCH ×2 (09:11→20:38)
[2018-08-20] MEDS ORDERED: MELATONIN 3 MG TABLET PO PRN (09:44)
[2018-08-20] MEDS ORDERED: ONDANSETRON 4 MG/2 ML VIAL IVP PRN (09:44)
[2018-08-20] MEDS ORDERED: NALOXONE 0.4 MG/ML 1 ML VIAL IV PRN (09:44)
[2018-08-20] MEDS ORDERED: ACETAMINOPHEN TAB 325 MG TAB PO PRN (09:44)
[2018-08-20] MEDS ORDERED: SODIUM CHLORIDE 0.9% 1,000 ML IV SCH (09:45)
[2018-08-20] MEDS ORDERED: ALBUTEROL NEBULIZED 2.5 MG/3 ML INHALATION PRN (09:50)
--- NOTE | 2018-08-20 09:58 | P.HPIM ---
History of Present Illness H&P Date: 08/20/18 Chief Complaint: cough The patient is a 87-year-old female with a past medical history of Parkinson's disease, esophageal dysmotility with recent PEG tube removal on 08/17, congestive heart failure, atrial fibrillation, and mild dementia who presented to the ER with cough for 3-4 days. The ER she underwent an extensive evaluation. On arrival she was tachycardic with a heart rate of 116 and tachypnic with a respiratory rate of 24. IV fluids, and potassium. She was admitted for further monitoring. Patient seen and examined at bedside in the ER with present. Patient does have mild dementia and also helps in history taking. She began developing a cough 3-4 days ago [place] and she has had increased weakness and falls. This is associated with shortness of breath that is worse when trying to ambulate better with rest. She has had chills but denies taking her temperature. She reports a runny and stuffy nose. No sore throat. She reports diarrhea but the takes it was secondary to accidental administration of MiraLAX. The patient makes it into a drink not realizing what it was. She also reports DrBarbara gonsales. states that this is unchanged from chronic. She's had worsening confusion over the last several days. She does have baseline dementia but seems to be getting worse. did have pneumonia last week and was hospitalized for 3 days and then given a course of oral Levaquin. Patient has been following with GI regarding dysphagia. She initially had a PEG tube secondary to poor oral intake and weight loss. That was removed on by Dr. Vieira. Prior to PEG tube being removed she had a formal barium swallow study which did not show any difficulty with swallowing but did show poor esophageal motility with possible achalasia. EGD did not demonstrate achalasia and its likely secondary to her Parkinson's disease. Patient reports that she does still sometimes have vomiting but it has not significantly increased since her PEG tube was removed. They have not noticed any signs of choking when eating or aspiration. Patient currently uses a walker. Her helps her with her ADLs including have to help her with dressing. He does all the cooking and cleaning and is her 24-hour caregiver. He indicates some caregiver burnout. They have children but all of them live out of state and unable to help on a regular basis. Review of Systems Pertinent positives and negatives as discussed in HPI, a complete review of systems was performed and all other systems are negative. Past Medical History Past Medical History: Atrial Fibrillation, Cancer, Heart Failure, GERD/Reflux, Hypertension, Musculoskeletal Disorder, Neurologic Disorder Additional Past Medical History / Comment(s): Severe presbyesophagus-recently had peg tube removed/still some swallowing difficulty, severe esophagitis, parkinson's disease, confused at times per spousedementia, gait dysfunction, falls, automic dysfunction-HTN/orthostatic hypotension, IBS, stress incontinence , goiter, skin cancer with removals. History of Any Multi-Drug Resistant Organisms: None Reported Past Surgical History: Breast Surgery, Cholecystectomy, Ear Surgery, Hysterectomy, Tonsillectomy Additional Past Surgical History / Comment(s): EGDs/Peg tube insertion and removal on 08/17/18, colonoscopy, R ear stapedectomy, bilateral 1/4 breast removed (thought cancer but was calcium deposits), skin cancer removals. Smoking Status: Former smoker Past Drug Use History: None Reported Additional History: Lives with , needs help wtih ADLs, Uses a walker - Past Family History Mother Family Medical History: Congestive Heart Failure (CHF) Sister(s) Family Medical History: Cancer Additional Family Medical History / Comment(s): Colon cancer Father Additional Family Medical History / Comment(s): Father was an alcoholic. Medications and Allergies Home Medications Medication Instructions Recorded Confirmed Type Carbidopa-Levodopa 25-100 mg 2 tab PO TID 09/27/17 08/20/18 History [Sinemet 25-100 mg] Fludrocortisone [Florinef] 0.1 mg PO BID tab 02/01/18 08/20/18 Rx Metoprolol Tartrate [Lopressor] 12.5 mg PO BID tab 02/01/18 08/20/18 Rx Ferrous Sulfate [Feosol] 325 mg PO DAILY@1000 04/27/18 08/20/18 History Potassium Chloride Oral Liquid 10 meq PEG/G-TUBE BID 04/27/18 08/20/18 History Pramipexole [Mirapex] 0.25 mg PO DAILY@1800 08/13/18 08/20/18 History Furosemide [Lasix] 20 mg PO DAILY 08/20/18 08/20/18 History Pantoprazole Sodium [Protonix] 40 mg PO DAILY 08/20/18 08/20/18 History Allergies Allergy/AdvReac Type Severity Reaction Status Date / Time No Known Allergies Allergy Verified 08/20/18 07:07 Physical Exam Osteopathic Statement: *. No significant issues noted on an osteopathic structural exam other than those noted in the History and Physical/Consult. Vitals: Vital Signs Temp Pulse Pulse Resp BP BP Pulse Ox 08/20/18 09:23 98.4 F 94 16 95/56 92 L 08/20/18 08:00 98.6 F 08/20/18 07:56 96 22 138/100 93 L 08/20/18 07:00 96 24 162/96 96 08/20/18 06:00 93 24 158/84 96 08/20/18 05:30 102 H 20 158/84 95 08/20/18 04:57 98.4 F 116 H 20 120/79 93 L Intake and Output 08/19/18 08/20/18 08/20/18 22:59 06:59 14:59 Other: Weight 62.142 kg 63.73 kg General: ill appearing, mild distress, appears at stated age, normal weight Derm: no unusual rashes/lesions no unusual ecchymoses, warm, dry Head: atraumatic, normocephalic, symmetric Eyes: EOMI, no lid lag, anicteric sclera, pupils equal round reactive to light ENT: Nose and ears atraumatic, no thrush, no pharyngeal erythema Neck: No thyromegaly, no cervical lymphadenopathy, trachea midline, supple Mouth: no lip lesion, mucus membranes dry Cardiovascular: S1S2 reg, no murmur, positive posterior tibial pulse bilateral, no edema, capillary refill less than 2 seconds Lungs: rhonchi b/l bases R>L , no accessory muscle use Abdominal: soft, nontender to palpation, no guarding, no appreciable organomegaly, normal bowel sounds Ext: no gross muscle atrophy, muscle strength 4 out of 5 in b/l UE, 4/5 RLE and 3/5 LLE, no contractures, Neuro: CN II-XI grossly intact, light touch intact all 4 extremities, finger to nose poor bilateral, Psych:Alert, oriented to self and situation, appropriate affect Results CBC & Chem 7: 08/20/18 05:25 08/20/18 05:25 Labs: Abnormal Lab Results - Last 24 Hours (Table) 08/20/18 08/20/18 08/20/18 Range/Units 05:25 05:25 08:42 WBC 11.1 H (3.8-10.6) k/uL Neutrophils # 9.2 H (1.3-7.7) k/uL Lymphocytes # 0.7 L (1.0-4.8) k/uL Potassium 3.3 L (3.5-5.1) mmol/L Carbon Dioxide 31 H (22-30) mmol/L BUN 29 H (7-17) mg/dL Creatinine 1.06 H (0.52-1.04) mg/dL Glucose 130 H (74-99) mg/dL Urine Protein Trace H (Negative) Ur Leukocyte Esterase Small H (Negative) Urine Mucus Rare H (None) /hpf Chest x-ray: report reviewed, image reviewed (R LL infiltrate) Thrombosis Risk Factor Assmnt - DVT/VTE Prophylaxis DVT/VTE Prophylaxis: Pharmacologic Prophylaxis ordered - Choose All That Apply Any of the Below Risk Factors Present?: Yes Each Factor Represents 1 point: Sepsis (< 1month), Serious lung disease incl. pneumonia (< 1month) Other Risk Factors: Yes Each Risk Factor Represents 3 Points: Age 75 years or older Other congenital or acquired thrombophilia - If yes, enter type in comment: No Thrombosis Risk Factor Assessment Total Risk Factor Score: 5 Thrombosis Risk Factor Assessment Level: High Risk Assessment and Plan Assessment: Pneumonia with sepsis( tachycardia and tachypnea) - Zosyn to cover for gram negatives and anerobes, with possibility of aspiration. Consult speech for review - Levaquin to cover atypicals - Sputum culture if able - IVF gentle with hx of CHF - Bronchodilators Acute hypoxic respiratoy failure - treatment as above - check echo with recent edema and addition of lasix Dementia - safe and supportive environment Hypokalemia - replace and recheck in AM - check magnesium in AM Parkinsons disease with frequent falls and gait instability, autonomic instability - continue home florinef - Fall precautions - PT/OT - Mirapex, sinemet Esophageal dysmotility - consult speech - is on regular diet at home. GERD - PPI A fib - not on chronic anticoagulation due to falls - monitor HE - Continue home metoprolol The patient is admitted with an anticipated greater than 2 midnight stay for evaluation of Pneumonia with sepsis. Surrogate decision-maker: CODE STATUS: DO NOT RESUSCITATE DVT prophylaxis: Heparin Discussed with: Patient, , ED nursing Anticipated discharge date: 2-[address]: home with home health A total of 65 minutes was spent on the care of this complex patient more than 50 % of the time was spent in counseling and care coordination.
[2018-08-20] MEDS ORDERED: POTASSIUM BICARBONATE/CIT AC 20 MEQ TABLET.EFF PO SCH (10:00)
[2018-08-20] MEDS: PANTOPRAZOLE 40 MG TABLET PO SCH (10:08)
[2018-08-20] MEDS: POTASSIUM BICARBONATE/CIT AC 20 MEQ TABLET.EFF PEG/G-TUBE SCH (10:09)
[2018-08-20] MEDS: FERROUS SULFATE 325 MG TAB PO SCH (10:18)
[2018-08-20] MEDS: ALBUTEROL NEBULIZED 2.5 MG/3 ML INHALATION SCH ×3 (11:19→19:52)
--- NOTE | 2018-08-20 11:31 | ECHOF ---
Referral Reason:chf MEASUREMENTS -------- HEIGHT: 167.6 cm WEIGHT: 63.5 kg BP: 95/56 RVIDd: 2.5 cm (< 3.3) IVSd: 1.1 cm (0.6 - 1.1) LVIDd: 4.5 cm (3.9 - 5.3) LVPWd: 1.1 cm (0.6 - 1.1) IVSs: 1.2 cm LVIDs: 3.0 cm LVPWs: 1.3 cm LA Diam: 3.0 cm (2.7 - 3.8) LAESV Index (A-L): 23.78 ml/m Ao Diam: 3.3 cm (2.0 - 3.7) AV Cusp: 1.9 cm (1.5 - 2.6) MV EXCURSION: 15.358 mm (> 18.000) MV EF SLOPE: 146 mm/s (70 - 150) EPSS: 0.7 cm RAP: 5.00 mmHg RVSP: 40.20 mmHg FINDINGS -------- Undetermined rhythm. This was a technically adequate study. The left ventricular size is normal. There is borderline concentric left ventricular hypertrophy. Overall left ventricular systolic function is low-normal with, an EF between 50 - 55 %. The right ventricle is normal in size. Normal LA size by volume 22+/-6 ml/m2. The right atrium is normal in size. There is mild aortic valve sclerosis. The mitral valve leaflets are mildly thickened. Mild mitral annular calcification present. Mild m itral regurgitation is present. Mild tricuspid regurgitation present. There is mild pulmonary hypertension. The right ventricular systolic pressure, as measured by Doppler, is 40.20mmHg. The pulmonic valve was not well visualized. The aortic root size is normal. Normal inferior vena cava with normal inspiratory collapse consistent with estimated right atrial pre ssure of 5 mmHg. The inferior vena cava is mildly dilated. There is no pericardial effusion. CONCLUSIONS -------- 1. Undetermined rhythm. 2. This was a technically adequate study. 3. The left ventricular size is normal. 4. There is borderline concentric left ventricular hypertrophy. 5. Overall left ventricular systolic function is low-normal with, an EF between 50 - 55 %. 6. The right ventricle is normal in size. 7. Normal LA size by volume 22+/-6 ml/m2. 8. The right atrium is normal in size. 9. There is mild aortic valve sclerosis. 10. The mitral valve leaflets are mildly thickened. 11. Mild mitral annular calcification present. 12. Mild mitral regurgitation is present. 13. Mild tricuspid regurgitation present. 14. There is mild pulmonary hypertension. 15. The right ventricular systolic pressure, as measured by Doppler, is 40.20mmHg. 16. The pulmonic valve was not well visualized. 17. The aortic root size is normal. 18. Normal inferior vena cava with normal inspiratory collapse consistent with estimated right atrial pressure of 5 mmHg. 19. The inferior vena cava is mildly dilated. 20. There is no pericardial effusion. CLINICAL QUALITY ASSURANCE SPECIALIST: Ana Yusuf RDCS
[2018-08-20] MEDS: LEVOFLOXACIN 750MG-D5W PMX 750 MG in DEXTROSE/WATER 1 150ML.BAG IVPB SCH (12:36)
[2018-08-20 13:16] LABS: Appearance,Urine Clear (Clear); Bilirubin,Urine Negative (Negative); Blood,Urine Negative (Negative); Color,Urine Light Yellow; Glucose,Urine (UA) Negative (Negative); Ketones,Urine Negative (Negative); Leukocyte Esterase,Urine Negative (Negative); Nitrite,Urine Negative (Negative); PH, Urine 5.5 (5.0-8.0); Protein,Urine Negative (Negative); Specific Gravity,Urine 1.009 (1.001-1.035); Urobilinogen,Urine <2.0 mg/dL (<2.0)
[2018-08-20] MEDS ORDERED: SODIUM CHLORIDE 0.9% 500 ML 500 ML IV ONE (16:45)
[2018-08-20] MEDS ORDERED: METOPROLOL TARTRATE 12.5 MG TAB PO STA (16:53)
[2018-08-20] MEDS: PRAMIPEXOLE 0.25 MG TAB PO SCH (17:40)
[2018-08-20] MEDS ORDERED: DILTIAZEM DRIP BOLUS FROM BAG 1 MG SOLN IV ONE (17:53)
[2018-08-20] MEDS ORDERED: HEPARIN SODIUM,PORCINE 5,000 UNIT/ML 1 ML VIAL IV PRN (17:59)
[2018-08-20] MEDS ORDERED: DILTIAZEM 50 MG in SODIUM CHLORIDE 0.9% 40 ML IV SCH (18:00)
[2018-08-20] MEDS ORDERED: HEPARIN SOD,PORK IN 0.45% NACL 25,000 UNIT in 0.45% NACL 1 250ML.BAG IV SCH (18:00)
--- NOTE | 2018-08-20 18:07 | P.PN ---
Progress Note - Text Progress Note Date: 08/20/18 Hospitalist Interval Note CTSP: A fib with RVR Nursing noted HR 120-150, attempted 500 cc bolus without adequate decrease in her HR. Patient seen and examined at bedside. She denies chest pain, palpitations, is still having SOB which may be worse than earlier today. Appears at same mentation level. Vital signs reviewed General: non toxic, no distress, appears at stated age Derm: warm, dry Head: atraumatic, normocephalic, symmetric Eyes: EOMI, no lid lag, anicteric sclera Mouth: no lip lesion, mucus membranes moist Cardiovascular: S1S2 irreg, no murmur, positive posterior tibial pulse bilateral , Lungs: Rhonchi bilateral , no accessory muscle use Ext: no gross muscle atrophy, no edema, no contractures Neuro: CN II-XI grossly intact, no focal neuro deficits Psych: Alert, oriented to self and situation, appropriate affect Assessment/Plan: A fib with RVR- 0.9NS bolus without response, stat BMP and Mg, troponin, and PT/ INR, cardizem 10 mg IVP followed by gtt, heparin gtt due to A fib with RVR. Transfer to [facility] care. Consult cardiology Likely due to PNA and cough A total of 31 minutes of critical care time was spent with this complex patient.
[2018-08-20 18:44] LABS: Calcium 8.3 mg/dL (8.4-10.2); Magnesium 1.5 mg/dL (1.6-2.3); Potassium 3.4 mmol/L (3.5-5.1)
[2018-08-20] MEDS: POTASSIUM BICARBONATE/CIT AC 20 MEQ TABLET.EFF NG-TUBE SCH ×2 (20:37→21:32)
[2018-08-20] MEDS: guaiFENesin 600 MG TABLET.ER PO SCH (20:38)
[2018-08-20] MEDS ORDERED: HEPARIN SODIUM,PORCINE 5,000 UNIT/ML 1 ML VIAL SQ SCH (21:00)
[2018-08-20] MEDS ORDERED: POTASSIUM BICARBONATE/CIT AC 20 MEQ TABLET.EFF PO ONE (23:24)
[2018-08-20] MEDS ORDERED: FUROSEMIDE 10 MG/ML 2 ML VIAL IV ONE (23:38)
[2018-08-21] MEDS: MAGNESIUM SULFATE-D5W PMX 1 GM in DEXTROSE/WATER 1 100ML.BAG IVPB SCH ×3 (00:13→04:36)
[2018-08-21] MEDS ORDERED: VANCOMYCIN 1,250 MG in SODIUM CHLORIDE 0.9% 250 ML IVPB SCH (06:00)
[2018-08-21] MEDS: PANTOPRAZOLE 40 MG TABLET PO SCH (06:32)
[2018-08-21] MEDS: CARBIDOPA-LEVODOPA 25-100 MG 1 EACH TAB PO SCH ×3 (06:32→21:39)
--- NOTE | 2018-08-21 06:59 | XR ---
EXAMINATION TYPE: XR chest 1V portable DATE OF EXAM: 08/21/2018 HISTORY: pneumonia. REFERENCE: Previous study dated 08/20/2018. FINDINGS: Lung volumes are prominent. The heart is mildly enlarged. There is improved aeration of bot h lung bases. Pleural spaces are clear. IMPRESSION: 1. COPD. 2. CARDIOMEGALY. 3. OVERALL IMPROVED AERATION OF BOTH LUNG BASES.
[2018-08-21 07:20] LABS: HGB 12.1 gm/dL (11.4-16.0); MCH 29.7 pg (25.0-35.0); MCHC 31.1 g/dL (31.0-37.0); MCV 95.5 fL (80.0-100.0); Mean Platelet Volume 7.3; Platelet Count 203 k/uL (150-450); RBC 4.09 m/uL (3.80-5.40); RDW 13.7 % (11.5-15.5)
[2018-08-21 07:36] LABS: Calcium 8.7 mg/dL (8.4-10.2); Magnesium 2.4 mg/dL (1.6-2.3); Phosphorus 2.9 mg/dL (2.5-4.5); Potassium 3.4 mmol/L (3.5-5.1)
[2018-08-21] MEDS: ALBUTEROL NEBULIZED 2.5 MG/3 ML INHALATION SCH ×3 (08:20→21:41)
[2018-08-21] MEDS: FUROSEMIDE 20 MG TAB PO SCH (08:54)
[2018-08-21] MEDS: POTASSIUM BICARBONATE/CIT AC 20 MEQ TABLET.EFF PEG/G-TUBE SCH (08:54)
[2018-08-21] MEDS: FLUDROCORTISONE 0.1 MG TAB PO SCH ×2 (08:54→21:38)
[2018-08-21] MEDS: METOPROLOL TARTRATE 25 MG TAB PO SCH ×2 (08:54→21:39)
[2018-08-21] MEDS: FERROUS SULFATE 325 MG TAB PO SCH (08:54)
[2018-08-21] MEDS: guaiFENesin 600 MG TABLET.ER PO SCH ×2 (08:54→21:39)
[2018-08-21] MEDS: ASPIRIN 81 MG PO SCH (09:06)
--- NOTE | 2018-08-21 09:06 | P.PN ---
Subjective Progress Note Date: 08/21/18 Principal diagnosis: shortness of breath This patient is a 87-year-old female with a past medical history of Parkinson's disease, esophageal dysmotility with recent PEG tube removal on 08/17, congestive heart failure, atrial fibrillation, and mild dementia who presented to the ER with cough for 3-4 days. The ER she underwent an extensive evaluation. On arrival she was tachycardic with a heart rate of 116 and tachypnic with a respiratory rate of 24. She was started on zosyn, vancomycin, IV fluids, and potassium. She was admitted for further monitoring and care of pneumonia. She was started on bronchdilators, mucines, and abx where changed to levaquin and zosyn. Echo was completed which showed normal EF. She developed A.fib with RVR on the evening of 08/20. She responded to an additional dose of oral metoprolol she was not started on a heparin gtt as she is a poor candidate for anticoagulation due to hx of falls. Patient seen and examined at bedside. States that she can feel her heart racing when she lays flat. Still feeling SOB and having a cough. No nausea, no vomiting , no diarrhea. Still feeling weak. Objective - Vital Signs Vital signs: Vital Signs Temp 98 F 08/21/18 08:00 Pulse 88 08/21/18 08:24 Resp 16 08/21/18 08:00 BP 117/63 08/21/18 08:00 Pulse Ox 90 L 08/21/18 08:24 Intake & Output 08/20/18 08/21/18 08/21/18 18:59 06:59 18:59 Intake Total 850 Output Total 1050 Balance 850 -1050 Weight 63.73 kg 61.3 kg Intake: Intake, IV Titration 450 Amount Levofloxacin 750Mg-D5w 150 Pmx 750 mg In Dextrose/ Water 1 150ml.bag @ 100 mls/hr IVPB Q48H MAGG[facility] Rx#: [id number] Piperacillin-Tazobactam 3 100 .375 gm In Sodium Chloride 0.9% 100 ml @ 25 mls/hr IVPB ONCE STA Rx# :[id number] Sodium Chloride 0.9% 1, 200 000 ml @ 50 mls/hr IV . Q20H MAGGIE Rx#:[id number] Oral 400 Output: Urine 1050 Other: # Voids 1 - Exam General: ill appearing, mild distress, appears at stated age Derm: warm, dry Head: atraumatic, normocephalic, symmetric Eyes: EOMI, no lid lag, anicteric sclera Mouth: no lip lesion, mucus membranes moist Cardiovascular: S1S2 irrg and tachy, no murmur, positive posterior tibial pulse bilateral, Lungs: rhonchi with faint wheeze bilateral , no accessory muscle use Abdominal: soft, nontender to palpation, no guarding, no appreciable organomegaly Ext: no gross muscle atrophy, no edema, no contractures Neuro: CN II-XI grossly intact, no focal neuro deficits Psych: Alert, oriented to situation, appropriate affect - Labs CBC & Chem 7: 08/21/18 05:54 08/21/18 05:54 Labs: Abnormal Lab Results - Last 24 Hours (Table) 08/20/18 08/20/18 08/21/18 Range/Units 08:42 17:36 05:54 Potassium 3.4 L 3.4 L (3.5-5.1) mmol/L Chloride 95 L (98-107) mmol/L Carbon Dioxide 39 H (22-30) mmol/L BUN 21 H 18 H (7-17) mg/dL Glucose 133 H 130 H (74-99) mg/dL Calcium 8.3 L (8.4-10.2) mg/dL Magnesium 1.5 L 2.4 H (1.6-2.3) mg/dL Urine Protein Trace H (Negative) Ur Leukocyte Esterase Small H (Negative) Urine Mucus Rare H (None) /hpf Microbiology - Last 24 Hours (Table) 08/20/18 05:25 Blood Culture - Preliminary Blood No Growth after 24 hours 08/20/18 08:42 Urine Culture - Preliminary Urine,Voided Assessment and Plan Assessment: Pneumonia with sepsis (tachycardia and tachypnea) - Zosyn and Levaquin D #2 - Sputum culture if able - IVF stopped and given lasix X 1. - Bronchodilators, add steroids Acute hypoxic respiratoy failure - treatment as above - echo with preserved EF and no over signs of heart failure Dementia - safe and supportive environment A fib - not on chronic anticoagulation due to falls, ASA added - Tele - increase metoprolol to 25 BID - cardio recs - echo with preserved EF and no significant valvular disease Hypokalemia - replace and recheck in AM Parkinsons disease with frequent falls and gait instability, autonomic instability - continue home damarisf - Fall precautions - PT/OT - Mirapex, sinemet Esophageal dysmotility - consult speech - is on regular diet at home. GERD - PPI Hypomagnesemia, resolved DVT prophylaxis: Heparin Discussed with: Patient, nursing Anticipated discharge date: 2-[address]: home with home health A total of 40 minutes was spent on the care of this complex patient more than 50 % of the time was spent in counseling and care coordination.
[2018-08-21] MEDS: predniSONE 20 MG TAB PO SCH (09:07)
--- NOTE | 2018-08-21 18:46 | CONS ---
CONSULTATION DATE OF SERVICE: August 21, 2018. REASON FOR THE CONSULTATION: Atrial fibrillation. HISTORY OF PRESENT ILLNESS: This is a very pleasant 87-year-old female patient who I follow in the office as an outpatient with known history of paroxysmal atrial fibrillation, as well as known history of advanced dementia who was brought to the hospital by her family. Apparently, the patient has been experiencing symptoms of cough and shortness of breath, so she was diagnosed with pneumonia. She was found to be in atrial fibrillation with rapid ventricular response. She has been diagnosed with paroxysmal atrial fibrillation and she was receiving metoprolol 12.5 mg p.o. b.i.d. She was not on any oral anticoagulation because of her risk of falling and bleeding. I did address that with her today who stated that her dementia has gotten worse and her gait is very unsteady. PAST MEDICAL HISTORY: 1. Paroxysmal atrial fibrillation. 2. Underlying dementia. PAST SURGICAL HISTORY: No major cardiovascular surgery. SOCIAL HISTORY: The patient does not smoke or drink alcohol. MEDICATIONS: Medications at home include metoprolol 12.5 mg p.o. b.i.d. PHYSICAL EXAMINATION: GENERAL APPEARANCE: The patient does not look in any pain or distress. Vitals showed pressure is 133/70, heart rate 102 beats per minute and saturation is 94%. Cardiovascular examination shows irregularly irregular rhythm with a normal S1 and S2. Respiratory examination shows clear breathing sounds bilaterally. Extremities examination no pedal edema was noted. ASSESSMENT: 1. Atrial fibrillation with rapid ventricular response. 2. Paroxysmal atrial fibrillation. PLAN: 1. Agree about increasing the dose of metoprolol to 25 mg p.o. b.i.d. 2. I would I would not start the patient on any oral anticoagulation, giving her history of falling and bleeding. 3. We will continue following up with her. Thank you for allowing us to participate in her care. MMODL / IJN: [id number] /
[2018-08-21] MEDS: PRAMIPEXOLE 0.25 MG TAB PO SCH (21:31)
[2018-08-21] MEDS: HEPARIN SODIUM,PORCINE 5,000 UNIT/ML 1 ML VIAL SQ SCH ×2 (21:31→23:48)
[2018-08-22] MEDS: PANTOPRAZOLE 40 MG TABLET PO SCH (06:29)
[2018-08-22] MEDS: CARBIDOPA-LEVODOPA 25-100 MG 1 EACH TAB PO SCH ×3 (06:30→20:34)
[2018-08-22 07:37] LABS: HCT 37.4 % (34.0-46.0); HGB 11.6 gm/dL (11.4-16.0); Hypochromasia Slight; MCH 29.8 pg (25.0-35.0); MCV 96.3 fL (80.0-100.0); Mean Platelet Volume 7.2; Platelet Count 205 k/uL (150-450); RBC 3.89 m/uL (3.80-5.40); RDW 13.5 % (11.5-15.5); WBC 9.1 k/uL (3.8-10.6)
[2018-08-22 08:23] LABS: Calcium 8.8 mg/dL (8.4-10.2); Magnesium 2.1 mg/dL (1.6-2.3); Potassium 3.2 mmol/L (3.5-5.1)
[2018-08-22] MEDS: ALBUTEROL NEBULIZED 2.5 MG/3 ML INHALATION SCH ×4 (09:04→20:02)
[2018-08-22] MEDS: ASPIRIN 81 MG PO SCH (09:39)
[2018-08-22] MEDS: predniSONE 20 MG TAB PO SCH (09:39)
[2018-08-22] MEDS: FUROSEMIDE 20 MG TAB PO SCH (09:39)
[2018-08-22] MEDS: guaiFENesin 600 MG TABLET.ER PO SCH ×2 (09:39→20:35)
[2018-08-22] MEDS: METOPROLOL TARTRATE 25 MG TAB PO SCH ×2 (09:39→20:35)
[2018-08-22] MEDS: FLUDROCORTISONE 0.1 MG TAB PO SCH ×2 (09:39→20:34)
[2018-08-22] MEDS: FERROUS SULFATE 325 MG TAB PO SCH (09:39)
[2018-08-22] MEDS: HEPARIN SODIUM,PORCINE 5,000 UNIT/ML 1 ML VIAL SQ SCH ×3 (09:39→20:35)
[2018-08-22] MEDS: POTASSIUM BICARBONATE/CIT AC 20 MEQ TABLET.EFF PEG/G-TUBE SCH (09:40)
[2018-08-22] MEDS: POTASSIUM CHLORIDE ER 20 MEQ TAB.ER PO SCH ×2 (10:49→12:43)
[2018-08-22] MEDS: LEVOFLOXACIN 750MG-D5W PMX 750 MG in DEXTROSE/WATER 1 150ML.BAG IVPB SCH (10:49)
--- NOTE | 2018-08-22 11:04 | P.PN ---
Subjective Progress Note Date: 08/22/18 Principal diagnosis: Paroxysmal atrial fibrillation This is a pleasant 87-year-old female patient with a past medical history significant for paroxysmal atrial fibrillation not on oral anticoagulation because of history of falling and bleeding as well as advanced Parkinson disease and memory impairment was admitted to the hospital with pneumonia as well as atrial fibrillation with RVR. She underwent an echocardiogram which revealed normal LV function without significant valvular abnormalities. On follow-up with her today, 08/22/2018, she is feeling better. She still coughing. She was converted to normal sinus mechanism. The dose of metoprolol was increased when she was admitted to the hospital. Objective - Vital Signs Vital signs: Vital Signs Temp 97.2 F L 08/22/18 08:00 Pulse 80 08/22/18 09:16 Resp 16 08/22/18 08:00 BP 108/57 08/22/18 08:00 Pulse Ox 97 08/22/18 08:00 Intake & Output 08/21/18 08/22/18 08/22/18 18:59 06:59 18:59 Intake Total 120 120 Balance 120 120 Weight 61.7 kg Intake: Oral 120 120 Other: # Voids 2 1 - Constitutional General appearance: Present: no acute distress - Respiratory Respiratory: bilateral: rhonchi - Cardiovascular Rhythm: regular Heart sounds: normal: S1, S2 - Labs CBC & Chem 7: 08/22/18 06:47 08/22/18 06:47 Labs: Abnormal Lab Results - Last 24 Hours (Table) 08/22/18 Range/Units 06:47 Potassium 3.2 L (3.5-5.1) mmol/L Chloride 96 L (98-107) mmol/L Carbon Dioxide 40 H (22-30) mmol/L BUN 26 H (7-17) mg/dL Glucose 114 H (74-99) mg/dL Microbiology - Last 24 Hours (Table) 08/20/18 05:25 Blood Culture - Preliminary Blood No Growth after 48 hours 08/20/18 08:42 Urine Culture - Final Urine,Voided Assessment and Plan Assessment: Assessment #1 pneumonia #2 paroxysmal atrial fibrillation #3 advanced Parkinson disease #4 advanced dementia Plan #1 continue the current dose of metoprolol #2 continue holding any kind of long-term anticoagulation #3 follow-up with the patient
--- NOTE | 2018-08-22 13:02 | P.PN ---
Subjective Progress Note Date: 08/22/18 Principal diagnosis: shortness of breath This patient is a 87-year-old female with a past medical history of Parkinson's disease, esophageal dysmotility with recent PEG tube removal on 08/17, congestive heart failure, atrial fibrillation, and mild dementia who presented to the ER with cough for 3-4 days. The ER she underwent an extensive evaluation. On arrival she was tachycardic with a heart rate of 116 and tachypnic with a respiratory rate of 24. She was started on zosyn, vancomycin, IV fluids, and potassium. She was admitted for further monitoring and care of pneumonia. She was started on bronchdilators, mucines, and abx where changed to levaquin and zosyn. Echo was completed which showed normal EF. She developed A.fib with RVR on the evening of 08/20. She responded to an additional dose of oral metoprolol she was not started on a heparin gtt as she is a poor candidate for anticoagulation due to hx of falls. She continued to progress well. Patient seen and examined at bedside. No chest pain, SOB, nausea, feels that her breathing is better and she is now having a productive cough. Still feeling weak. Objective - Vital Signs Vital signs: Vital Signs Temp 97.2 F L 08/22/18 08:00 Pulse 84 08/22/18 12:30 Resp 16 08/22/18 12:00 BP 118/60 08/22/18 12:00 Pulse Ox 98 08/22/18 12:00 Intake & Output 08/21/18 08/22/18 08/22/18 18:59 06:59 18:59 Intake Total 120 120 Balance 120 120 Weight 61.7 kg Intake: Oral 120 120 Other: # Voids 2 1 - Exam General: ill appearing, no distress, appears at stated age Derm: warm, dry Head: atraumatic, normocephalic, symmetric Eyes: EOMI, no lid lag, anicteric sclera Mouth: no lip lesion, mucus membranes moist Cardiovascular: S1S2 irrg and tachy, no murmur, positive posterior tibial pulse bilateral, Lungs: faint wheeze bilateral , no accessory muscle use Abdominal: soft, nontender to palpation, no guarding, no appreciable organomegaly Ext: no gross muscle atrophy, no edema, no contractures Neuro: CN II-XI grossly intact, no focal neuro deficits Psych: Alert, oriented to situation, appropriate affect - Labs CBC & Chem 7: 08/22/18 06:47 08/22/18 06:47 Labs: Abnormal Lab Results - Last 24 Hours (Table) 08/22/18 Range/Units 06:47 Potassium 3.2 L (3.5-5.1) mmol/L Chloride 96 L (98-107) mmol/L Carbon Dioxide 40 H (22-30) mmol/L BUN 26 H (7-17) mg/dL Glucose 114 H (74-99) mg/dL Microbiology - Last 24 Hours (Table) 08/20/18 05:25 Blood Culture - Preliminary Blood No Growth after 48 hours 08/20/18 08:42 Urine Culture - Final Urine,Voided Assessment and Plan Assessment: Pneumonia with sepsis - Zosyn and Levaquin D #3 - Sputum culture pending - Bronchodilators, steroids Pulm HTN - follow closely - optimize fluid status Acute hypoxic respiratoy failure - treatment as above - echo with preserved EF and no over signs of heart failure Dementia - safe and supportive environment A fib, RVR resolved - not on chronic anticoagulation due to falls - Tele - metoprolol to 25 BID - cardio recs - echo with preserved EF and no significant valvular disease Hypokalemia - replace and recheck in AM Parkinsons disease with frequent falls and gait instability, autonomic instability - continue home florinef - Fall precautions - PT/OT - Mirapex, sinemet Esophageal dysmotility - speech recs appreciated - is on regular diet at home. GERD - PPI Hypomagnesemia, resolved DVT prophylaxis: Heparin Discussed with: Patient, nursing Anticipated discharge date: 24-[address]: home with home health vs SNF A total of 35 minutes was spent on the care of this complex patient more than 50 % of the time was spent in counseling and care coordination.
[2018-08-22] MEDS: PRAMIPEXOLE 0.25 MG TAB PO SCH (17:35)
[2018-08-23] MEDS: PANTOPRAZOLE 40 MG TABLET PO SCH (06:07)
[2018-08-23] MEDS: CARBIDOPA-LEVODOPA 25-100 MG 1 EACH TAB PO SCH ×3 (06:07→20:07)
[2018-08-23 06:47] LABS: Calcium 9.4 mg/dL (8.4-10.2); Magnesium 2.1 mg/dL (1.6-2.3); Potassium 3.5 mmol/L (3.5-5.1)
[2018-08-23] MEDS: ALBUTEROL NEBULIZED 2.5 MG/3 ML INHALATION SCH ×4 (08:22→21:01)
[2018-08-23] MEDS: DOCUSATE 100 MG CAP PO PRN (09:16)
[2018-08-23] MEDS: guaiFENesin 600 MG TABLET.ER PO SCH ×2 (09:16→20:07)
[2018-08-23] MEDS: METOPROLOL TARTRATE 25 MG TAB PO SCH ×2 (09:16→20:07)
[2018-08-23] MEDS: FUROSEMIDE 20 MG TAB PO SCH (09:16)
[2018-08-23] MEDS: predniSONE 20 MG TAB PO SCH (09:16)
[2018-08-23] MEDS: FERROUS SULFATE 325 MG TAB PO SCH (09:16)
[2018-08-23] MEDS: FLUDROCORTISONE 0.1 MG TAB PO SCH ×2 (09:17→20:07)
[2018-08-23] MEDS: POTASSIUM BICARBONATE/CIT AC 20 MEQ TABLET.EFF PO SCH (09:17)
[2018-08-23] MEDS: HEPARIN SODIUM,PORCINE 5,000 UNIT/ML 1 ML VIAL SQ SCH ×3 (09:17→22:40)
--- NOTE | 2018-08-23 09:29 | P.PN ---
Subjective Progress Note Date: 08/23/18 Principal diagnosis: Paroxysmal atrial fibrillation This is a pleasant 87-year-old female patient with a past medical history significant for paroxysmal atrial fibrillation not on oral anticoagulation because of history of falling and bleeding as well as advanced Parkinson disease and memory impairment was admitted to the hospital with pneumonia as well as atrial fibrillation with RVR. She underwent an echocardiogram which revealed normal LV function without significant valvular abnormalities. On follow-up with her today, 08/23/2018, she is feeling better. She still coughing. She was converted to normal sinus mechanism. The dose of metoprolol was increased when she was admitted to the hospital. I do recommend keeping the patient for additional 24 hours in the hospital. Objective - Vital Signs Vital signs: Vital Signs Temp 96.7 F L 08/23/18 09:10 Pulse 83 08/23/18 09:10 Resp 16 08/23/18 09:10 BP 102/59 08/23/18 09:10 Pulse Ox 100 08/23/18 09:10 Intake & Output 08/22/18 08/23/18 08/23/18 18:59 06:59 18:59 Intake Total 400 Balance 400 Weight 61.9 kg Intake: Oral 400 Other: # Voids 2 - Constitutional General appearance: Present: no acute distress - Respiratory Respiratory: right: rales - Cardiovascular Rhythm: regular Heart sounds: normal: S1, S2 - Labs CBC & Chem 7: 08/22/18 06:47 08/23/18 05:59 Labs: Abnormal Lab Results - Last 24 Hours (Table) 08/23/18 Range/Units 05:59 Chloride 96 L (98-107) mmol/L Carbon Dioxide 39 H (22-30) mmol/L BUN 31 H (7-17) mg/dL Glucose 105 H (74-99) mg/dL Microbiology - Last 24 Hours (Table) 08/20/18 05:25 Blood Culture - Preliminary Blood No Growth after 72 hours 08/22/18 09:00 Gram Stain - Preliminary Sputum Assessment and Plan Assessment: Assessment #1 pneumonia #2 paroxysmal atrial fibrillation #3 advanced Parkinson disease #4 advanced dementia Plan #1 continue the current dose of metoprolol #2 continue holding any kind of long-term anticoagulation #3 follow-up with the patient
[2018-08-23 14:53] VITALS: BMI 22.0
--- NOTE | 2018-08-23 15:45 | P.PN ---
Subjective Progress Note Date: 08/23/18 Principal diagnosis: Pneumonia Patient Saturating 100% on room air. She denies shortness of breath, chest pain or palpitations. Discussed with son and , plans for [facility]. Objective - Vital Signs Vital signs: Vital Signs Temp 96.7 F L 08/23/18 09:10 Pulse 72 08/23/18 11:35 Resp 16 08/23/18 11:35 BP 159/80 08/23/18 11:35 Pulse Ox 96 08/23/18 11:35 Intake & Output 08/22/18 08/23/18 08/23/18 18:59 06:59 18:59 Intake Total 400 Balance 400 Weight 61.9 kg Intake: Oral 400 Other: # Voids 2 1 - Exam General: [non toxic], [no distress], [appears at stated age] Derm: [warm], [dry] Head: [atraumatic], [normocephalic], [symmetric] Eyes: [EOMI], [no lid lag], [anicteric sclera] Mouth: [no lip lesion], [mucus membranes moist] Cardiovascular: [S1S2 reg], [irregular] Lungs: [Decreased breath sounds bilaterally], [no rhonchi, no rales] , [no accessory muscle use] Abdominal: [soft], [ nontender to palpation], [no guarding], [no appreciable organomegaly] Ext: [no gross muscle atrophy], [no edema], [no contractures] Neuro: [no focal neuro deficits] Psych: [Alert], [oriented], [appropriate affect] - Labs CBC & Chem 7: 08/22/18 06:47 08/23/18 05:59 Labs: Abnormal Lab Results - Last 24 Hours (Table) 08/23/18 Range/Units 05:59 Chloride 96 L (98-107) mmol/L Carbon Dioxide 39 H (22-30) mmol/L BUN 31 H (7-17) mg/dL Glucose 105 H (74-99) mg/dL Microbiology - Last 24 Hours (Table) 08/20/18 05:25 Blood Culture - Preliminary Blood No Growth after 72 hours 08/22/18 09:00 Gram Stain - Preliminary Sputum Assessment and Plan Assessment: Assessment and Plan 1. Penumonia with sepsis 2. A-Fib with RVR 3. Esophageal dysmotility 4. Parkinsons disease with frequent falls and gait instability, autonomic instability 1. Initially afebrile with a mild leukocytosis 11.1 which resolved on day 2. Most recent CXR shows improved aeration of both lung bases. BNP 2140, Echocardiogram shows EF 50-55%, low concerns for active HF. Tylenol PRN for fever. Continue Levofloxacin 750 mg IV Q48H. Continue Albuterol neb 2.5 mg INH QID scheduled and PRN for shortness of breath or wheezing. Continue Mucinex 600 mg PO BID. Telemetry monitoring. O2 per NC to maintain O2 sat > 92%. Blood cultures are prelim negative at 72H, Sputum cultures are prelim negative. 2. HR ~ 70s. Continue Metoprolol 25 mg PO BID. Not on AC due to chronic falls. Telemetry monitoring. Keep Mg > 2 and K > 4. FU Cardiology 3. Continue Protonix 40 mg PO QAM. NDD3 as per speech therapy. 4. Continue Carbidopa-Levodopa 2 tab PO TID. Continue Fludrocortisone 0.1 mg PO BID. Fall precautions. Will follow PT and OT recommendations. Patient being treated for pneumonia, greatly improved, pending home O2 test. Seen by cardiology for atrial fibrillation, metoprolol increased, advised additional 24 hours of monitoring. Likely DC tomorrow.
[2018-08-23] MEDS: PRAMIPEXOLE 0.25 MG TAB PO SCH (16:57)
[2018-08-24] MEDS: CARBIDOPA-LEVODOPA 25-100 MG 1 EACH TAB PO SCH ×3 (06:18→20:49)
[2018-08-24] MEDS: PANTOPRAZOLE 40 MG TABLET PO SCH (06:18)
[2018-08-24] MEDS: ALBUTEROL NEBULIZED 2.5 MG/3 ML INHALATION SCH ×4 (08:36→19:54)
[2018-08-24] MEDS: predniSONE 20 MG TAB PO SCH (09:05)
[2018-08-24] MEDS: HEPARIN SODIUM,PORCINE 5,000 UNIT/ML 1 ML VIAL SQ SCH ×3 (09:05→20:49)
[2018-08-24] MEDS: POTASSIUM BICARBONATE/CIT AC 20 MEQ TABLET.EFF PO SCH (09:05)
[2018-08-24] MEDS: guaiFENesin 600 MG TABLET.ER PO SCH ×2 (09:06→20:49)
[2018-08-24] MEDS: FLUDROCORTISONE 0.1 MG TAB PO SCH (09:06)
[2018-08-24] MEDS: FUROSEMIDE 20 MG TAB PO SCH (09:06)
[2018-08-24] MEDS: METOPROLOL TARTRATE 25 MG TAB PO SCH ×3 (09:06→20:49)
[2018-08-24] MEDS: FERROUS SULFATE 325 MG TAB PO SCH (09:06)
--- NOTE | 2018-08-24 09:26 | P.PN ---
Subjective Progress Note Date: 08/24/18 Principal diagnosis: Paroxysmal atrial fibrillation This is a pleasant 87-year-old female patient with a past medical history significant for paroxysmal atrial fibrillation not on oral anticoagulation because of history of falling and bleeding as well as advanced Parkinson disease and memory impairment was admitted to the hospital with pneumonia as well as atrial fibrillation with RVR. She underwent an echocardiogram which revealed normal LV function without significant valvular abnormalities. On follow-up with her today, 08/24/2018, she is feeling better. She still coughing. She still not feeling well. She is in sinus rhythm with slightly sinus tachycardia. I would increase the dose of metoprolol to 25 mg by mouth 3 times a day. Objective - Vital Signs Vital signs: Vital Signs Temp 97.3 F L 08/24/18 09:03 Pulse 82 08/24/18 09:03 Resp 16 08/24/18 09:03 BP 123/58 08/24/18 09:03 Pulse Ox 96 08/24/18 09:03 Intake & Output 08/23/18 08/24/18 08/24/18 18:59 06:59 18:59 Intake Total 240 240 480 Output Total 350 Balance 240 -110 480 Weight 61.9 kg Intake: Oral 240 240 480 Output: Urine 350 Other: # Voids 3 3 - Labs CBC & Chem 7: 08/22/18 06:47 08/23/18 05:59 Labs: Microbiology - Last 24 Hours (Table) 08/22/18 09:00 Gram Stain - Final Sputum Sputum Culture - Final Marita albicans 08/20/18 05:25 Blood Culture - Preliminary Blood No Growth after 96 hours Assessment and Plan Assessment: Assessment #1 pneumonia #2 paroxysmal atrial fibrillation #3 advanced Parkinson disease #4 advanced dementia Plan #1 increase the dose of metoprolol #2 continue holding any kind of long-term anticoagulation #3 follow-up with the patient
--- NOTE | 2018-08-24 11:49 | CDI ---
Documentation Clarification Form Date: 08/24/2018 1137 CDS: Kateryna Martinez RN, CCDS Admit Date: 08/20/2018 0713 Patient Name: Mary Lewis ATTENTION: The Clinical Documentation Specialists (CDI) and [facility] Coding Staff appreciate your assistance in clarifying documentation. Please respond to the clarification below the line at the bottom and electronically sign. The CDI & [facility] Coding staff will review the response and follow-up if needed. Please note: Queries are made part of the Legal Health Record. If you have any questions, please contact the author of this message via ITS. Dr. Camacho Pneumonia was documented in your notes and requires further specificity. History/Risk Factors: Parkinsons disease, possible aspiration, GERD, severe presbyesophagus Clinical Indicators: 08/20 H&P: "Pneumonia with sepsis (tachycardia and tachypnea) - Zosyn to cover for gram negatives and anaerobes, with possibility of aspiration. Consult speech for review - Levaquin to cover atypicals - Sputum culture if able." Vital signs: temp 98.4, hr 116, rr 20, b/p 120/79, spo2 93% ra WBC: 11.1/10/9.1 Left shift: 9.2 CXR: COPD, Cardiomegaly, improved aeration of bilateral lungs 08/23 Attending Lung/Breathing assessment: "Lungs: [Decreased breath sounds bilaterally], [no rhonchi, no rales], [no accessory muscle use]." Treatment: Antibiotics: IV Levaquin 750 mg IVPB q 48 hrs., IV Vanco PTD, IV Zosyn 3.375 IVPB x 1 dose O2: Room air to 4L NC and weaned back to Room Air Breathing Tx: Ventolin INH QID and PRN In order to capture the severity of condition, please clarify if the condition signifies and you are treating for: Aspiration Pneumonia, identify if: Due to solids or liquids Bacterial Pneumonia, specify causal organism (if known) Gram Negative Pneumonia Due to Strep Due to Staph Due to E. Coli Other bacteria (please specify) Other, please specify Unable to determine Please continue to document in your progress notes and discharge summary in order to capture severity of illness and risk of mortality. Include clinical findings that support your diagnosis. Unable to determine MTDD
[2018-08-24] MEDS: DOCUSATE 100 MG CAP PO PRN (11:51)
[2018-08-24] MEDS: LEVOFLOXACIN 750MG-D5W PMX 750 MG in DEXTROSE/WATER 1 150ML.BAG IVPB SCH (11:52)
--- NOTE | 2018-08-24 11:58 | CDI ---
Documentation Clarification Form Date: 08/24/18 1152 CDS: Kateryna Martinez RN, CCDS Admit Date: 08/20/18 0713 Patient Name: Mary Lewis ATTENTION: The Clinical Documentation Specialists (CDI) and [facility] Coding Staff appreciate your assistance in clarifying documentation. Please respond to the clarification below the line at the bottom and electronically sign. The CDI & [facility] Coding staff will review the response and follow-up if needed. Please note: Queries are made part of the Legal Health Record. If you have any questions, please contact the author of this message via ITS. Dr. Camacho, CHF is documented in the H&P and Progress notes by the Attending MD and requires further specificity. History/Risk Factors: CHF, Atrial Fib, HTN Clinical Indicators: 08/20 H&P: " IVF gentle with hx of CHF." VS/Pulse OX: Temp 98.4, HR 116, rr 20, b/p 120/79, spo2 93% ra BNP: 2140 08/20/18 Echocardiogram Results: EF 50-55% Chest X Ray: "COPD.CARDIOMEGALY" Treatment: Lasix 20 mg IVP OT followed by 20 mg PO QD Lopressor 25 mg Po TID 1.5L IVF Bolus In your professional opinion, can you please clarify the acuity and type of CHF if known? Diastolic Heart Failure: Acute Chronic Acute on Chronic Systolic & Diastolic Heart Failure: Acute Chronic Acute on Chronic Heart Failure Unable to Determine Other, please specify Please continue to document in your progress notes and discharge summary in order to capture severity of illness and risk of mortality. Include clinical findings that support your diagnosis. Chronic diastolic CHF MTDD
--- NOTE | 2018-08-24 12:54 | P.DS ---
Providers Date of admission: 08/20/18 07:13 Expected date of discharge: 08/24/18 Attending physician: Eduardo Benitez MD Consults: 08/20/18 18:06 Consult Physician Urgent Consulting Provider: Manny Yanez Consult Reason/Comments: a fib with RVR Do you want consulting provider notified?: Yes Primary care physician: Vincent Montano - Discharge Diagnosis(es) (1) Atrial fibrillation with RVR Current Visit: Yes Status: Acute (2) Esophageal dysmotility Current Visit: Yes Status: Acute (3) Parkinsons disease Current Visit: Yes Status: Acute (4) CAP (community acquired pneumonia) Current Visit: Yes Status: Acute (5) Sepsis Current Visit: Yes Status: Acute Hospital Course: 87-year-old female with a past medical history of Parkinson's disease , esophageal dysmotility with recent PEG tube removal on 08/17/18, congestive heart failure, atrial fibrillation, and mild dementia who presented to the ER with cough for 3-4 days. The ER she underwent an extensive evaluation. On arrival she was tachycardic with a heart rate of 116 and tachypnic with a respiratory rate of 24. She was started on IV Zosyn and vancomycin for the treatment of pneumonia. She was noted to be initially afebrile with a mild leukocytosis of 11.1 which resulted on day 2. Chest x-ray on day 2 showed improved aeration of both lung bases. BNP was 2140, echocardiogram showing ejection fraction of 50-55% with low concerns of active heart failure. She was given Tylenol as needed for fever. IV Zosyn and vancomycin was discontinued for levofloxacin 750 mg IV every 48 hours for a total of 10 days. She was continued on albuterol nebulize treatment 4 times a day scheduled and as needed for shortness of breath or wheezing. She was given Mucinex twice a day. She was given oxygen per nasal cannula to maintain oxygen saturation greater than 92%. Blood cultures were prelim negative at 72 hours. Sputum cultures were positive for Marita albicans. Her heart rate was controlled with metoprolol 25 mg by mouth 3 times a day. She is not on anticoagulation due to chronic falls. Otherwise, her home medications were resumed for esophageal dysmotility and Parkinson's disease. She was evaluated by speech therapy for dysphagia and was cleared to eat NDD 3. Patient seen and examined. No acute events overnight. Patient reports great improvement in her breathing, back to baseline. She denies chest pain, palpitations or shortness of breath. She continues to have a cough Dr. Richards of yellow sputum. She does report some constipation, last bowel movement 2 days ago. Looking for to going home. General: [non toxic], [no distress], [appears at stated age] Derm: [warm], [dry] Head: [atraumatic], [normocephalic], [symmetric] Eyes: [EOMI], [no lid lag], [anicteric sclera] Mouth: [no lip lesion], [mucus membranes moist] Cardiovascular: [S1S2 reg], [irregular] Lungs: [Decreased breath sounds bilaterally], [no rhonchi, no rales] , [no accessory muscle use] Abdominal: [soft], [ nontender to palpation], [no guarding], [no appreciable organomegaly] Ext: [no gross muscle atrophy], [no edema], [no contractures] Neuro: [no focal neuro deficits] Psych: [Alert], [oriented], [appropriate affect] Assessment and Plan 1. Penumonia with sepsis 2. A-Fib with RVR 3. Esophageal dysmotility 4. Parkinsons disease with frequent falls and gait instability, autonomic instability 1. Initially afebrile with a mild leukocytosis 11.1 which resolved on day 2. Most recent CXR shows improved aeration of both lung bases. BNP 2140, Echocardiogram shows EF 50-55%, low concerns for active HF. Tylenol PRN for fever. Continue Levofloxacin 750 mg IV Q48H. Continue Albuterol neb 2.5 mg INH QID scheduled and PRN for shortness of breath or wheezing. Continue Mucinex 600 mg PO BID. Telemetry monitoring. O2 per [place] to maintain O2 sat > 92%. Blood cultures are prelim negative at 96H, Sputum cultures positive for Marita albicans likely contaminant. 2. HR ~ 70s. Change Metoprolol 25 mg PO BID to TID. Not on AC due to chronic falls. Telemetry monitoring. Keep Mg > 2 and K > 4. FU Cardiology 3. Continue Protonix 40 mg PO QAM. NDD3 as per speech therapy. 4. Continue Carbidopa-Levodopa 2 tab PO TID. Continue Fludrocortisone 0.1 mg PO BID. Fall precautions. Will follow PT and OT recommendations. Passed home O2 test. Seen by cardiology for atrial fibrillation, metoprolol increased. DC today [facility]. Pertinent Studies: Chest x-ray Echocardiogram Patient Condition at Discharge: Stable Plan - Discharge Summary Discharge Rx Participant: No New Discharge Prescriptions: New RX: Albuterol Nebulized [Ventolin Nebulized] 2.5 mg INHALATION RT-QID nebu RX: guaiFENesin [Mucinex] 600 mg PO Q12HR #14 tablet.er RX: Levofloxacin 750 mg PO Q48H #7 tablet RX: Metoprolol Tartrate [Lopressor] 25 mg PO TID #90 tab RX: predniSONE 40 mg PO DAILY #4 tab Continue RX: Carbidopa-Levodopa 25-100 mg [Sinemet 25-100 mg] 2 tab PO TID RX: Fludrocortisone [Florinef] 0.1 mg PO BID tab RX: Ferrous Sulfate [Iron (65 MG Elemental)] 325 mg PO DAILY@1000 RX: Potassium Chloride Oral Liquid 10 meq PEG/G-TUBE BID RX: Pramipexole [Mirapex] 0.25 mg PO DAILY@1800 RX: Furosemide [Lasix] 20 mg PO DAILY RX: Pantoprazole Sodium [Protonix] 40 mg PO DAILY Discontinued RX: Metoprolol Tartrate [Lopressor] 12.5 mg PO BID tab Discharge Medication List RX: Carbidopa-Levodopa 25-100 mg [Sinemet 25-100 mg] 2 tab PO TID 09/27/17 [ History] RX: Fludrocortisone [Florinef] 0.1 mg PO BID tab 02/01/18 [Rx] RX: Ferrous Sulfate [Iron (65 MG Elemental)] 325 mg PO DAILY@1000 04/27/18 [ History] RX: Potassium Chloride Oral Liquid 10 meq PEG/G-TUBE BID 04/27/18 [History] RX: Pramipexole [Mirapex] 0.25 mg PO DAILY@1800 08/13/18 [History] RX: Furosemide [Lasix] 20 mg PO DAILY 08/20/18 [History] RX: Pantoprazole Sodium [Protonix] 40 mg PO DAILY 08/20/18 [History] RX: Albuterol Nebulized [Ventolin Nebulized] 2.5 mg INHALATION RT-QID nebu [Rx] RX: Levofloxacin 750 mg PO Q48H #7 tablet 08/24/18 [Rx] RX: Metoprolol Tartrate [Lopressor] 25 mg PO TID #90 tab 08/24/18 [Rx] RX: guaiFENesin [Mucinex] 600 mg PO Q12HR #14 tablet.er 08/24/18 [Rx] RX: predniSONE 40 mg PO DAILY #4 tab 08/24/18 [Rx] Follow up Appointment(s)/Referral(s): Vincent Montano MD [Primary Care Provider] - 1-2 days Manny Yanez MD [Family Provider] - 1 Week Activity/Diet/Wound Care/Special Instructions: [facility] BMP in 1 week Dx: Metabolic alkalosis CXR in 1 week Dx: Pneumonia Please follow-up with her primary care provider within 1-2 days of discharge. Please obtain a chest x-ray within 1 week of discharge. Please obtain a BMP within 1 week of discharge. The results should be followed up with your primary care provider. Please take all medications as advised. Discharge Disposition: TRANSFER TO SNF/ECF
[2018-08-24] MEDS: PRAMIPEXOLE 0.25 MG TAB PO SCH (16:35)
[2018-08-25] MEDS: FLUDROCORTISONE 0.1 MG TAB PO SCH ×3 (03:20→20:27)
[2018-08-25] MEDS: PANTOPRAZOLE 40 MG TABLET PO SCH (06:28)
[2018-08-25] MEDS: CARBIDOPA-LEVODOPA 25-100 MG 1 EACH TAB PO SCH ×3 (06:28→20:27)
--- NOTE | 2018-08-25 07:29 | P.PN ---
Subjective Progress Note Date: 08/25/18 Principal diagnosis: Paroxysmal atrial fibrillation This is a pleasant 87-year-old female patient with a past medical history significant for paroxysmal atrial fibrillation not on oral anticoagulation because of history of falling and bleeding as well as advanced Parkinson disease and memory impairment was admitted to the hospital with pneumonia as well as atrial fibrillation with RVR. She underwent an echocardiogram which revealed normal LV function without significant valvular abnormalities. On follow-up with her today, 08/25/2018, she is feeling better. She still coughing. She still not feeling well. She is in sinus rhythm with slightly sinus tachycardia. I am going to increase the dose of metoprolol to 50 mg by mouth twice a day. The patient continues to have intermittent episodes of tachycardia. Objective - Vital Signs Vital signs: Vital Signs Temp 97.0 F L 08/25/18 03:17 Pulse 115 H 08/25/18 03:17 Resp 18 08/25/18 03:17 BP 126/78 08/25/18 03:17 Pulse Ox 94 L 08/25/18 03:17 Intake & Output 08/24/18 08/25/18 08/25/18 18:59 06:59 18:59 Intake Total 1200 Output Total 200 Balance 1200 -200 Weight 61.3 kg Intake: Oral 1200 Output: Urine 200 Other: # Voids 1 # Bowel Movements 1 - Constitutional General appearance: Present: no acute distress - Respiratory Respiratory: bilateral: rales - Cardiovascular Rhythm: regular Heart sounds: normal: S1, S2 - Labs CBC & Chem 7: 08/22/18 06:47 08/23/18 05:59 Labs: Microbiology - Last 24 Hours (Table) 08/22/18 09:00 Gram Stain - Final Sputum Sputum Culture - Final Marita albicans 08/20/18 05:25 Blood Culture - Preliminary Blood No Growth after 96 hours Assessment and Plan Assessment: Assessment #1 pneumonia #2 paroxysmal atrial fibrillation #3 advanced Parkinson disease #4 advanced dementia Plan #1 increase the dose of metoprolol #2 continue holding any kind of long-term anticoagulation #3 follow-up with the patient
[2018-08-25] MEDS: predniSONE 20 MG TAB PO SCH (08:29)
[2018-08-25] MEDS: guaiFENesin 600 MG TABLET.ER PO SCH ×2 (08:29→20:27)
[2018-08-25] MEDS: FUROSEMIDE 20 MG TAB PO SCH (08:29)
[2018-08-25] MEDS: HEPARIN SODIUM,PORCINE 5,000 UNIT/ML 1 ML VIAL SQ SCH ×2 (08:29→15:40)
[2018-08-25] MEDS: POTASSIUM BICARBONATE/CIT AC 20 MEQ TABLET.EFF PO SCH (08:29)
[2018-08-25] MEDS: FERROUS SULFATE 325 MG TAB PO SCH (08:30)
[2018-08-25] MEDS: ALBUTEROL NEBULIZED 2.5 MG/3 ML INHALATION SCH ×4 (08:32→19:51)
--- NOTE | 2018-08-25 11:51 | P.PN ---
Subjective Progress Note Date: 08/25/18 Principal diagnosis: Pneumonia, atrial fibrillation, placement Patient was seen and examined. No acute events overnight. Patient continues to complain of cough, productive of yellow sputum. She denies any shortness of breath, chest pain or palpitations. Her is at bedside. She is pending insurance acceptance for [facility]. Objective - Vital Signs Vital signs: Vital Signs Temp 97.3 F L 08/25/18 08:15 Pulse 80 08/25/18 08:42 Resp 22 08/25/18 08:15 BP 82/46 08/25/18 08:15 Pulse Ox 98 08/25/18 08:15 Intake & Output 08/24/18 08/25/18 08/25/18 18:59 06:59 18:59 Intake Total 1200 720 Output Total 200 400 Balance 1200 -200 320 Weight 61.3 kg Intake: Oral 1200 720 Output: Urine 200 400 Other: # Voids 1 # Bowel Movements 1 - Exam General: [non toxic], [no distress], [appears at stated age] Derm: [warm], [dry] Head: [atraumatic], [normocephalic], [symmetric] Eyes: [EOMI], [no lid lag], [anicteric sclera] Mouth: [no lip lesion], [mucus membranes moist] Cardiovascular: [S1S2 reg], [irregular] Lungs: [Decreased breath sounds bilaterally], [no rhonchi, no rales] , [no accessory muscle use] Abdominal: [soft], [ nontender to palpation], [no guarding], [no appreciable organomegaly] Ext: [no gross muscle atrophy], [no edema], [no contractures] Neuro: [no focal neuro deficits] Psych: [Alert], [oriented], [appropriate affect] - Labs CBC & Chem 7: 08/22/18 06:47 08/23/18 05:59 Labs: Microbiology - Last 24 Hours (Table) 08/20/18 05:25 Blood Culture - Preliminary Blood No Growth after 120 hours 08/22/18 09:00 Gram Stain - Final Sputum Sputum Culture - Final Marita albicans Assessment and Plan Assessment: Assessment and Plan 1. Penumonia with sepsis 2. A-Fib with RVR 3. Esophageal dysmotility 4. Parkinsons disease with frequent falls and gait instability, autonomic instability 1. Initially afebrile with a mild leukocytosis 11.1 which resolved on day 2. Most recent CXR shows improved aeration of both lung bases. BNP 2140, Echocardiogram shows EF 50-55%, low concerns for active HF. Tylenol PRN for fever. Continue Levofloxacin 750 mg IV Q48H. Continue Albuterol neb 2.5 mg INH QID scheduled and PRN for shortness of breath or wheezing. Continue Mucinex 600 mg PO BID. Telemetry monitoring. O2 per [place] to maintain O2 sat > 92%. Blood cultures are prelim negative at 120H, Sputum cultures positive for Marita albicans likely contaminant. 2. HR ~ 70s. Change Metoprolol 50 mg PO BID. Not on AC due to chronic falls. Telemetry monitoring. Keep Mg > 2 and K > 4. FU Cardiology 3. Continue Protonix 40 mg PO QAM. NDD3 as per speech therapy. 4. Continue Carbidopa-Levodopa 2 tab PO TID. Continue Fludrocortisone 0.1 mg PO BID. Fall precautions. Will follow PT and OT recommendations. Passed home O2 test. Seen by cardiology for atrial fibrillation, metoprolol increased. Patient is discharged, medically cleared, pending insurance approval for [facility]. (1) Atrial fibrillation with RVR Current Visit: Yes Status: Acute Code(s): I48.91 - UNSPECIFIED ATRIAL FIBRILLATION SNOMED Code(s): 550483427655886 (2) Esophageal dysmotility Current Visit: Yes Status: Acute Code(s): K22.4 - DYSKINESIA OF ESOPHAGUS SNOMED Code(s): 801155720 (3) Parkinsons disease Current Visit: Yes Status: Acute Code(s): G20 - PARKINSON'S DISEASE SNOMED Code(s): 04313431 (4) CAP (community acquired pneumonia) Current Visit: Yes Status: Acute Code(s): J18.9 - PNEUMONIA, UNSPECIFIED ORGANISM SNOMED Code(s): 026107081 (5) Sepsis Current Visit: Yes Status: Acute Code(s): A41.9 - SEPSIS, UNSPECIFIED ORGANISM SNOMED Code(s): 08017547
[2018-08-25] MEDS: METOPROLOL TARTRATE 50 MG TAB PO SCH ×2 (12:37→20:27)
[2018-08-25] MEDS: PRAMIPEXOLE 0.25 MG TAB PO SCH (18:06)
[2018-08-26] MEDS: HEPARIN SODIUM,PORCINE 5,000 UNIT/ML 1 ML VIAL SQ SCH ×4 (01:07→23:27)
[2018-08-26] MEDS: CARBIDOPA-LEVODOPA 25-100 MG 1 EACH TAB PO SCH ×3 (06:39→21:17)
[2018-08-26] MEDS: PANTOPRAZOLE 40 MG TABLET PO SCH (06:39)
[2018-08-26 07:28] LABS: Basophils % (A) 0 %; Eosinophils # (A) 0.1 k/uL (0-0.7); Eosinophils % (A) 1 %; HCT 38.9 % (34.0-46.0); HGB 12.2 gm/dL (11.4-16.0); Lymphocytes # (A) 1.8 k/uL (1.0-4.8); Lymphocytes % (A) 19 %; MCH 29.4 pg (25.0-35.0); MCHC 31.3 g/dL (31.0-37.0); MCV 94.1 fL (80.0-100.0); Mean Platelet Volume 6.3; Monocytes # (A) 0.6 k/uL (0-1.0); Monocytes % (A) 6 %; Neutrophils # (A) 6.9 k/uL (1.3-7.7); Neutrophils % (A) 70 %; Platelet Count 311 k/uL (150-450); RBC 4.14 m/uL (3.80-5.40); RDW 13.6 % (11.5-15.5); WBC 9.8 k/uL (3.8-10.6)
[2018-08-26 07:41] LABS: Calcium 9.1 mg/dL (8.4-10.2)
[2018-08-26 08:06] LABS: Potassium 3.4 mmol/L (3.5-5.1)
--- NOTE | 2018-08-26 08:13 | P.PN ---
Subjective Progress Note Date: 08/26/18 Principal diagnosis: Paroxysmal atrial fibrillation This is a pleasant 87-year-old female patient with a past medical history significant for paroxysmal atrial fibrillation not on oral anticoagulation because of history of falling and bleeding as well as advanced Parkinson disease and memory impairment was admitted to the hospital with pneumonia as well as atrial fibrillation with RVR. She underwent an echocardiogram which revealed normal LV function without significant valvular abnormalities. On follow-up with her today, 08/26/2018, she is feeling better. She still coughing. But her chest examination is clear and I could not hear any crackles. The blood pressure and heart rate are within normal limits. The patient can be discharged home from the cardiac vascular standpoint overview. Objective - Vital Signs Vital signs: Vital Signs Temp 98 F 08/26/18 04:00 Pulse 67 08/26/18 04:00 Resp 17 08/26/18 04:00 BP 137/67 08/26/18 04:00 Pulse Ox 95 08/26/18 04:00 Intake & Output 08/25/18 08/26/18 08/26/18 18:59 06:59 18:59 Intake Total 1320 800 Output Total 400 400 Balance 920 400 Weight 61.9 kg Intake: Oral 1320 800 Output: Urine 400 400 Other: Voiding Method Toilet # Voids 2 1 - Constitutional General appearance: Present: no acute distress - Respiratory Respiratory: bilateral: CTA - Cardiovascular Rhythm: regular Heart sounds: normal: S1, S2 - Labs CBC & Chem 7: 08/26/18 06:38 08/26/18 06:38 Labs: Abnormal Lab Results - Last 24 Hours (Table) 08/26/18 Range/Units 06:38 Potassium 3.4 L (3.5-5.1) mmol/L Chloride 94 L (98-107) mmol/L Carbon Dioxide 43 H* (22-30) mmol/L BUN 37 H (7-17) mg/dL Microbiology - Last 24 Hours (Table) 08/20/18 05:25 Blood Culture - Final Blood No Growth after 144 hours Assessment and Plan Assessment: Assessment #1 pneumonia #2 paroxysmal atrial fibrillation #3 advanced Parkinson disease #4 advanced dementia Plan #1 increase the dose of metoprolol #2 continue holding any kind of long-term anticoagulation #3 the patient can be discharged home
[2018-08-26] MEDS: ALBUTEROL NEBULIZED 2.5 MG/3 ML INHALATION SCH ×4 (08:34→20:08)
[2018-08-26] MEDS: FLUDROCORTISONE 0.1 MG TAB PO SCH ×2 (09:26→21:17)
[2018-08-26] MEDS: METOPROLOL TARTRATE 50 MG TAB PO SCH ×2 (09:26→21:17)
[2018-08-26] MEDS: guaiFENesin 600 MG TABLET.ER PO SCH ×2 (09:26→21:19)
[2018-08-26] MEDS: FUROSEMIDE 20 MG TAB PO SCH (09:26)
[2018-08-26] MEDS: FERROUS SULFATE 325 MG TAB PO SCH (09:26)
[2018-08-26] MEDS: POTASSIUM BICARBONATE/CIT AC 20 MEQ TABLET.EFF PO SCH (09:26)
[2018-08-26] MEDS: predniSONE 20 MG TAB PO SCH (09:27)
[2018-08-26] MEDS: LEVOFLOXACIN 750MG-D5W PMX 750 MG in DEXTROSE/WATER 1 150ML.BAG IVPB SCH (12:19)
--- NOTE | 2018-08-26 17:41 | P.PN ---
Subjective Progress Note Date: 08/26/18 Principal diagnosis: Pneumonia, placement Patient was seen and examined. No acute events overnight. Patient complains of cough, productive of yellow sputum. She denies chest pain, shortness of breath or palpitations. I discussed the case with nursing home social worker [place]. Patient has been denied for inpatient rehab. I discussed the case with the , we will attempt to do a peer to peer review for inpatient rehab tomorrow morning. If this is unsuccessful, patient is likely to be discharged home with home PT. states that this would be difficult but possible. I do believe that the patient would benefit greatly from inpatient rehabilitation. Objective - Vital Signs Vital signs: Vital Signs Temp 98.2 F 08/26/18 09:15 Pulse 72 08/26/18 16:27 Resp 16 08/26/18 15:05 BP 115/73 08/26/18 15:05 Pulse Ox 95 08/26/18 16:16 Intake & Output 08/25/18 08/26/18 08/26/18 18:59 06:59 18:59 Intake Total 1320 800 480 Output Total 400 400 Balance 920 400 480 Weight 61.9 kg 61.9 kg Intake: Oral 1320 800 480 Output: Urine 400 400 Other: Voiding Method Toilet Toilet # Voids 2 1 2 - Exam General: [non toxic], [no distress], [appears at stated age] Derm: [warm], [dry] Head: [atraumatic], [normocephalic], [symmetric] Eyes: [EOMI], [no lid lag], [anicteric sclera] Mouth: [no lip lesion], [mucus membranes moist] Cardiovascular: [S1S2 reg], [irregular] Lungs: [Decreased breath sounds bilaterally], [no rhonchi, no rales] , [no accessory muscle use] Abdominal: [soft], [ nontender to palpation], [no guarding], [no appreciable organomegaly] Ext: [no gross muscle atrophy], [no edema], [no contractures] Neuro: [no focal neuro deficits] Psych: [Alert], [oriented], [appropriate affect] - Labs CBC & Chem 7: 08/26/18 06:38 08/26/18 06:38 Labs: Abnormal Lab Results - Last 24 Hours (Table) 08/26/18 Range/Units 06:38 Potassium 3.4 L (3.5-5.1) mmol/L Chloride 94 L (98-107) mmol/L Carbon Dioxide 43 H* (22-30) mmol/L BUN 37 H (7-17) mg/dL Microbiology - Last 24 Hours (Table) 08/20/18 05:25 Blood Culture - Final Blood No Growth after 144 hours Assessment and Plan Assessment: Assessment and Plan 1. Penumonia with sepsis 2. A-Fib with RVR 3. Esophageal dysmotility 4. Parkinsons disease with frequent falls and gait instability, autonomic instability 1. Initially afebrile with a mild leukocytosis 11.1 which resolved on day 2. Most recent CXR shows improved aeration of both lung bases. BNP 2140, Echocardiogram shows EF 50-55%, low concerns for active HF. Tylenol PRN for fever. Continue Levofloxacin 750 mg IV Q48H. Continue Albuterol neb 2.5 mg INH QID scheduled and PRN for shortness of breath or wheezing. Continue Mucinex 600 mg PO BID. Telemetry monitoring. O2 per [place] to maintain O2 sat > 92%. Blood cultures are negative, Sputum cultures positive for Marita albicans likely contaminant. 2. HR ~ 70s. Change Metoprolol 50 mg PO BID. Not on AC due to chronic falls. Telemetry monitoring. Keep Mg > 2 and K > 4. FU Cardiology 3. Continue Protonix 40 mg PO QAM. NDD3 as per speech therapy. 4. Continue Carbidopa-Levodopa 2 tab PO TID. Continue Fludrocortisone 0.1 mg PO BID. Fall precautions. Will follow PT and OT recommendations. Patient is medically cleared for discharge to inpatient rehab. Patient has been denied by [facility] late this afternoon. I will attempt to do a peer to peer tomorrow for possible inpatient rehab. Otherwise, patient will go home with her and home PT. I do believe that the patient would benefit greatly from inpatient rehab. Patient to be discharged tomorrow. (1) Atrial fibrillation with RVR Current Visit: Yes Status: Acute Code(s): I48.91 - UNSPECIFIED ATRIAL FIBRILLATION SNOMED Code(s): 872931155314152 (2) Esophageal dysmotility Current Visit: Yes Status: Acute Code(s): K22.4 - DYSKINESIA OF ESOPHAGUS SNOMED Code(s): 031188690 (3) Parkinsons disease Current Visit: Yes Status: Acute Code(s): G20 - PARKINSON'S DISEASE SNOMED Code(s): 62103806 (4) CAP (community acquired pneumonia) Current Visit: Yes Status: Acute Code(s): J18.9 - PNEUMONIA, UNSPECIFIED ORGANISM SNOMED Code(s): 897300000 (5) Sepsis Current Visit: Yes Status: Acute Code(s): A41.9 - SEPSIS, UNSPECIFIED ORGANISM SNOMED Code(s): 31703709
[2018-08-26] MEDS: PRAMIPEXOLE 0.25 MG TAB PO SCH (17:59)
[2018-08-27 04:37] VITALS: RESP 14; TEMP 98
[2018-08-27 05:34] VITALS: BP 180/90
[2018-08-27] MEDS: METOPROLOL TARTRATE 50 MG TAB PO SCH (06:26)
[2018-08-27] MEDS: PANTOPRAZOLE 40 MG TABLET PO SCH (07:27)
[2018-08-27] MEDS: ALBUTEROL NEBULIZED 2.5 MG/3 ML INHALATION SCH ×2 (07:27→11:16)
[2018-08-27] MEDS: guaiFENesin 600 MG TABLET.ER PO SCH (07:27)
[2018-08-27] MEDS: FUROSEMIDE 20 MG TAB PO SCH (07:27)
[2018-08-27] MEDS: CARBIDOPA-LEVODOPA 25-100 MG 1 EACH TAB PO SCH (07:28)
[2018-08-27] MEDS: FLUDROCORTISONE 0.1 MG TAB PO SCH (07:28)
[2018-08-27] MEDS: HEPARIN SODIUM,PORCINE 5,000 UNIT/ML 1 ML VIAL SQ SCH (07:28)
[2018-08-27] MEDS: predniSONE 20 MG TAB PO SCH (07:28)
[2018-08-27] MEDS: POTASSIUM BICARBONATE/CIT AC 20 MEQ TABLET.EFF PO SCH (07:28)
--- NOTE | 2018-08-27 11:00 | P.PN ---
Subjective Progress Note Date: 08/27/18 Principal diagnosis: Pneumonia Patient was seen and examined. No acute events overnight. Patient reports improvement in her breathing. She denies any shortness of breath, chest pain or palpitations. She continues to cough up mucus sputum. Yesterday projected from inpatient rehab. I was supposed to do a peer to peer review this morning, however has decided to take the patient home. He ensures that he can provide 24-hour support. Multiple family members at bedside. Objective - Vital Signs Vital signs: Vital Signs Temp 98.0 F 08/27/18 04:35 Pulse 74 08/27/18 07:37 Resp 14 08/27/18 04:35 BP 180/90 08/27/18 05:33 Pulse Ox 93 L 08/27/18 04:35 Intake & Output 08/26/18 08/27/18 08/27/18 18:59 06:59 18:59 Intake Total 480 400 Balance 480 400 Weight 61.9 kg 62 kg Intake: Oral 480 400 Other: Voiding Method Toilet Toilet Toilet # Voids 2 2 - Exam General: [non toxic], [no distress], [appears at stated age] Derm: [warm], [dry] Head: [atraumatic], [normocephalic], [symmetric] Eyes: [EOMI], [no lid lag], [anicteric sclera] Mouth: [no lip lesion], [mucus membranes moist] Cardiovascular: [S1S2 reg], [irregular] Lungs: [Decreased breath sounds bilaterally], [no rhonchi, no rales] , [no accessory muscle use] Abdominal: [soft], [ nontender to palpation], [no guarding], [no appreciable organomegaly] Ext: [no gross muscle atrophy], [no edema], [no contractures] Neuro: [no focal neuro deficits] Psych: [Alert], [oriented], [appropriate affect] - Labs CBC & Chem 7: 08/26/18 06:38 08/26/18 06:38 Labs: Microbiology - Last 24 Hours (Table) 08/20/18 05:25 Blood Culture - Final Blood No Growth after 144 hours Assessment and Plan Assessment: Assessment and Plan 1. Penumonia with sepsis 2. Hypochloremic metabolic alkalosis 3. Prerenal azotemia 4. A-Fib with RVR 5. Esophageal dysmotility 6. Parkinsons disease with frequent falls and gait instability, autonomic instability 1. Initially afebrile with a mild leukocytosis 11.1 which resolved on day 2. Most recent CXR shows improved aeration of both lung bases. BNP 2140, Echocardiogram shows EF 50-55%, low concerns for active HF. Tylenol PRN for fever. Continue Levofloxacin 750 mg IV Q48H. Continue Albuterol neb 2.5 mg INH QID scheduled and PRN for shortness of breath or wheezing. Continue Mucinex 600 mg PO BID. Telemetry monitoring. O2 per [place] to maintain O2 sat > 92%. Blood cultures are negative, Sputum cultures positive for Marita albicans likely contaminant. 2. Chloride is 94 and bicarbonate is 43. Patient has no respiratory distress. Likely secondary to Lasix and potassium bicarbonate supplementation. Will discontinue bicarbonate supplementation. She is to follow-up BMP in one week. 3. BUN is 37, creatinine is within normal limits. Likely secondary to Lasix use, possible dehydration. Encourage by mouth hydration. She is to follow-up BMP in one week. 4. HR ~ 70s. Change Metoprolol 50 mg PO BID. Not on AC due to chronic falls. Telemetry monitoring. Keep Mg > 2 and K > 4. FU Cardiology 5. Continue Protonix 40 mg PO QAM. NDD3 as per speech therapy. 6. Continue Carbidopa-Levodopa 2 tab PO TID. Continue Fludrocortisone 0.1 mg PO BID. Fall precautions. Will follow PT and OT recommendations. would like to take the patient home. She is to obtain a BMP and chest x -ray within 1 week. She is advised follow-up with her primary care provider within 1-2 days of discharge. Physical therapy to be set up at home. (1) Atrial fibrillation with RVR Current Visit: Yes Status: Acute Code(s): I48.91 - UNSPECIFIED ATRIAL FIBRILLATION SNOMED Code(s): 098198734444910 (2) Esophageal dysmotility Current Visit: Yes Status: Acute Code(s): K22.4 - DYSKINESIA OF ESOPHAGUS SNOMED Code(s): 492705880 (3) Parkinsons disease Current Visit: Yes Status: Acute Code(s): G20 - PARKINSON'S DISEASE SNOMED Code(s): 26541372 (4) CAP (community acquired pneumonia) Current Visit: Yes Status: Acute Code(s): J18.9 - PNEUMONIA, UNSPECIFIED ORGANISM SNOMED Code(s): 299093320 (5) Sepsis Current Visit: Yes Status: Acute Code(s): A41.9 - SEPSIS, UNSPECIFIED ORGANISM SNOMED Code(s): 11098199
[2018-08-27] MEDS: FERROUS SULFATE 325 MG TAB PO SCH (11:19)
[2018-08-27 11:37] VITALS: PULSE 84
== END 2018-08-27 12:45 | disposition home health service (06) | DRG 871 ==
LOC: EC 04:55 → 4SSUR 07:13 → 3SCARD 18:24 → 3NMEDONC 08-26 23:22
PROVIDERS: ADMIT Hospitalist; ATTEND Hospitalist
DX: A41.9 Sepsis, unspecified organism (principal); J18.9 Pneumonia, unspecified organism; J96.01 Acute respiratory failure with hypoxia; E87.3 Alkalosis; I50.32 Chronic diastolic (congestive) heart failure; E83.42 Hypomagnesemia; E87.6 Hypokalemia; E87.8 Other disorders of electrolyte and fluid balance, not elsewhere classified; F03.90 Unspecified dementia, unspecified severity, without behavioral disturbance, psychotic disturbance, mood disturbance, and anxiety; G20 Parkinson's disease; I11.0 Hypertensive heart disease with heart failure; I27.20 Pulmonary hypertension, unspecified; I48.0 Paroxysmal atrial fibrillation; K21.9 Gastro-esophageal reflux disease without esophagitis; K22.4 Dyskinesia of esophagus; R29.6 Repeated falls; T50.1X5A Adverse effect of loop [high-ceiling] diuretics, initial encounter; Z66 Do not resuscitate; Z79.899 Other long term (current) drug therapy; Z80.0 Family history of malignant neoplasm of digestive organs; Z81.1 Family history of alcohol abuse and dependence; Z82.49 Family history of ischemic heart disease and other diseases of the circulatory system; Z85.828 Personal history of other malignant neoplasm of skin; Z87.891 Personal history of nicotine dependence; Z90.710 Acquired absence of both cervix and uterus; Z91.81 History of falling; Z90.49 Acquired absence of other specified parts of digestive tract
CPT/HCPCS: 36415; 71045; 71046; 80048; 80053; 81001; 81003; 82550; 82553; 83605; 83735; 83880; 84100; 84484; 85025; 85027; 85610; 85730; 87040; 87070; 87086; 87205; 87502; 93005; 93306; 94640; 94760; 96365; 96366; 99212; 99285

== ENCOUNTER 2020-01-02 14:45 | Emergency (ER) | payer MEDICARE ==
[2020-01-02] MEDS ORDERED: SODIUM CHLORIDE 0.9% 500 ML 500 ML IV STA (15:06)
--- NOTE | 2020-01-02 15:11 | ED ---
General Adult HPI - General Chief complaint: Weakness Stated complaint: Weakness Time Seen by Provider: 01/02/20 14:51 Source: patient, EMS, RN notes reviewed, old records reviewed Mode of arrival: EMS Limitations: physical limitation - History of Present Illness Initial comments: 89-year-old female patient with past medical history of atrial fibrillation, CHF, hypertension, Parkinson's disease presents to ED for chief complaint of 3 days of generalized weakness and headache. Patient reports that she has had a mild frontal and bitemporal headache for the last 2 days. Denies any acute changes in vision. Denies any recent falls or trauma but she does say that she is more unsteady when walking. Denies any chest pain or shortness of breath. Denies any other complaints. Systemic: Pt denies fatigue, fever/chills, rash. Pt denies weakness, night s weats, weight loss. Neuro: Pt denies visual disturbances, syncope or pre-syncope. HEENT: Pt denies ocular discharge or irritation, otalgia, rhinorrhea, pharyngitis or notable lymphadenopathy. Cardiopulmonary: Pt denies chest pain, SOB, heart palpitations, dyspnea on exertion. Abdominal/GI: Pt denies abdominal pain, n/v/d. : Pt denies dysuria, burning w/ urination, frequency/urgency. Denies new onset urinary or bowel incontinence. MSK: Pt denies myalgia, loss of strength or function in extremities. Neuro: Pt denies paresthesias. - Related Data Home Medications Medication Instructions Recorded Confirmed Carbidopa-Levodopa 25-100 mg 2 tab PO DAILY@0800 09/27/17 01/02/20 [Sinemet 25-100 mg] Potassium Chloride Oral Liquid 10 meq PEG/G-TUBE BID@08,199904/27/18 01/02/20 Pramipexole [Mirapex] 0.25 mg PO DAILY@1800 08/13/18 01/02/20 Furosemide [Lasix] 20 mg PO DAILY@0800 08/20/18 01/02/20 Pantoprazole Sodium [Protonix] 40 mg PO DAILY@0800 08/20/18 01/02/20 Carbidopa-Levodopa 25-100 mg 1 tab PO BID@1400,199901/02/20 01/02/20 [Sinemet 25-100] Donepezil [Aricept] 10 mg PO DAILY@0800 01/02/20 01/02/20 Ferrous Sulfate [Feosol] 325 mg PO DAILY@1000 01/02/20 01/02/20 Fludrocortisone [Florinef] 0.1 mg PO BID@0800,199901/02/20 01/02/20 Memantine [Namenda] 5 mg PO DAILY@79901/02/20 01/02/20 Metoprolol Tartrate [Lopressor] 50 mg PO BID@0800,199901/02/20 01/02/20 Mirabegron [Myrbetriq] 50 mg PO DAILY@1800 01/02/20 01/02/20 Multivitamins, Thera [Multivitamin 1 tab PO DAILY@79901/02/20 01/02/20 (formulary)] Allergies Allergy/AdvReac Type Severity Reaction Status Date / Time No Known Allergies Allergy Verified 01/02/20 16:02 Review of Systems ROS Statement: Those systems with pertinent positive or pertinent negative responses have been documented in the HPI. ROS Other: All systems not noted in ROS Statement are negative. 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 History of Any Multi-Drug Resistant Organisms: None Reported Past Surgical History: Breast Surgery, Cholecystectomy, Ear Surgery, Hystere ctomy, Tonsillectomy Additional Past Surgical History / Comment(s): EGDs/Peg tube insertion and removal on 08/17/18, colonoscopy, R ear stapedectomy, bilateral 1 breast remov ed (thought cancer but was calcium deposits), skin cancer removals. Smoking Status: Former smoker Past Drug Use History: None Reported - Past Family History Mother Family Medical History: Congestive Heart Failure (CHF) Sister(s) Family Medical History: Cancer Additional Family Medical History / Comment(s): Colon cancer Father Additional Family Medical History / Comment(s): Father was an alcoholic. General Exam - General Exam Comments Initial Comments: Constitutional: NAD, AOX3, Pt has pleasant affect. HEENT: NC/AT, trachea midline, neck supple, no lymphadenopathy. Posterior pharynx non erythematous, without exudates. External ears appear normal, without discharge. Mucous membranes moist. Eyes PERRLA, EOM intact. There is no scleral icterus. No pallor noted. Cardiopulmonary: RRR, no murmurs, rubs or gallops, no JVD noted. Lungs CTAB in anterior and posterior mckee. No peripheral edema. Abdominal exam: Abdomen soft and non-distended. Abdomen non-tender to palpation in all 4 quadrants. Bowel sounds active in LLQ. No hepatosplenomegaly. No ecchymosis Neuro: CN II-XII intact. No nuchal rigidity. No raccon eyes, no lindsey sign, no hemotympanum. No cervical spinal tenderness. NIH 0. MSK: Full active ROM in upper and lower extremities, 5/5 stregnth. Limitations: physical limitation Course Vital Signs 01/02/20 01/02/20 01/02/20 14:48 15:07 15:55 Temperature 97.4 F L 97.4 F L Pulse Rate 65 57 L 60 Respiratory 16 15 15 Rate Blood Pressure 185/90 185/90 199/104 O2 Sat by Pulse 98 98 96 Oximetry 01/02/20 01/02/20 01/02/20 16:42 17:30 19:00 Temperature 97.7 F Pulse Rate 61 72 Respiratory 16 Rate Blood Pressure 159/100 156/92 196/92 O2 Sat by Pulse 97 96 Oximetry Medical Decision Making - Medical Decision Making 89-year-old female patient with past medical history of atrial fibrillation, CHF, hypertension, Parkinson's disease presents to ED for chief complaint of 3 days of generalized weakness and headache. Patient reports that she has had a mild frontal and bitemporal headache for the last 2 days. Denies any acute changes in vision. Denies any recent falls or trauma but she does say that she is more unsteady when walking. Denies any chest pain or shortness of breath. Denies any other complaints. Patient vital signs display mild hypertension. Physical exam did not display acute pathology. Neurologic exam is intact. There is no tenderness to the temporal region or skin changes. Laboratory investigations are obtained and are unremarkable. Troponin is at patient's baseline. She is not expressing any chest pain. Chest x-ray did not display any acute process. CT brain displayed mild atrophy appropriate for age. Patient was administered 400 mL saline bolus by EMS. Patient was that she is feeling much improved. Patient's laboratory without difficulty. Patient denies any acute complaints. His headache has resolved. Patient discharged will follow up with primary care provider will return to ER if condition worsens. Case discussed with Dr. Srivastava. - Lab Data Result diagrams: 01/02/20 15:46 01/02/20 15:46 Lab Results 01/02/20 01/02/20 01/02/20 Range/Units 15:17 15:46 15:46 WBC 7.2 (3.8-10.6) k/uL RBC 4.32 (3.80-5.40) m/uL Hgb 13.2 (11.4-16.0) gm/dL Hct 41.5 (34.0-46.0) % MCV 96.0 (80.0-100.0) fL MCH 30.5 (25.0-35.0) pg MCHC 31.8 (31.0-37.0) g/dL RDW 13.8 (11.5-15.5) % Plt Count 200 (150-450) k/uL Neutrophils % 81 % Lymphocytes % 10 % Monocytes % 6 % Eosinophils % 1 % Basophils % 0 % Neutrophils # 5.8 (1.3-7.7) k/uL Lymphocytes # 0.7 L (1.0-4.8) k/uL Monocytes # 0.4 (0-1.0) k/uL Eosinophils # 0.1 (0-0.7) k/uL Basophils # 0.0 (0-0.2) k/uL Sodium 137 (137-145) mmol/L Potassium 4.4 (3.5-5.1) mmol/L Chloride 99 (98-107) mmol/L Carbon Dioxide 34 H (22-30) mmol/L Anion Gap 4 mmol/L BUN 16 (7-17) mg/dL Creatinine 0.78 (0.52-1.04) mg/dL Est GFR (CKD-EPI)AfAm 79 (>60 ml/min/1.73 sqM) Est GFR (CKD-EPI)NonAf 68 (>60 ml/min/1.73 sqM) Glucose 107 H (74-99) mg/dL Plasma Lactic Acid Stevan (0.7-2.0) mmol/L Calcium 8.9 (8.4-10.2) mg/dL Phosphorus 3.8 (2.5-4.5) mg/dL Magnesium 1.9 (1.6-2.3) mg/dL Total Bilirubin 1.3 (0.2-1.3) mg/dL AST 36 (14-36) U/L ALT 6 (4-34) U/L Alkaline Phosphatase 56 (38-126) U/L Troponin I (0.000-0.034) ng/mL Total Protein 6.5 (6.3-8.2) g/dL Albumin 3.8 (3.5-5.0) g/dL Urine Color Light Yellow Urine Appearance Clear (Clear) Urine pH 7.0 (5.0-8.0) Ur Specific Chicken 1.006 (1.001-1.035) Urine Protein Negative (Negative) Urine Glucose (UA) Negative (Negative) Urine Ketones Negative (Negative) Urine Blood Negative (Negative) Urine Nitrite Negative (Negative) Urine Bilirubin Negative (Negative) Urine Urobilinogen <2.0 (<2.0) mg/dL Ur Leukocyte Esterase Negative (Negative) 01/02/20 01/02/20 Range/Units 15:46 15:46 WBC (3.8-10.6) k/uL RBC (3.80-5.40) m/uL Hgb (11.4-16.0) gm/dL Hct (34.0-46.0) % MCV (80.0-100.0) fL MCH (25.0-35.0) pg MCHC (31.0-37.0) g/dL RDW (11.5-15.5) % Plt Count (150-450) k/uL Neutrophils % % Lymphocytes % % Monocytes % % Eosinophils % % Basophils % % Neutrophils # (1.3-7.7) k/uL Lymphocytes # (1.0-4.8) k/uL Monocytes # (0-1.0) k/uL Eosinophils # (0-0.7) k/uL Basophils # (0-0.2) k/uL Sodium (137-145) mmol/L Potassium (3.5-5.1) mmol/L Chloride (98-107) mmol/L Carbon Dioxide (22-30) mmol/L Anion Gap mmol/L BUN (7-17) mg/dL Creatinine (0.52-1.04) mg/dL Est GFR (CKD-EPI)AfAm (>60 ml/min/1.73 sqM) Est GFR (CKD-EPI)NonAf (>60 ml/min/1.73 sqM) Glucose (74-99) mg/dL Plasma Lactic Acid Stevan 1.4 (0.7-2.0) mmol/L Calcium (8.4-10.2) mg/dL Phosphorus (2.5-4.5) mg/dL Magnesium (1.6-2.3) mg/dL Total Bilirubin (0.2-1.3) mg/dL AST (14-36) U/L ALT (4-34) U/L Alkaline Phosphatase (38-126) U/L Troponin I 0.022 (0.000-0.034) ng/mL Total Protein (6.3-8.2) g/dL Albumin (3.5-5.0) g/dL Urine Color Urine Appearance (Clear) Urine pH (5.0-8.0) Ur Specific Chicken (1.001-1.035) Urine Protein (Negative) Urine Glucose (UA) (Negative) Urine Ketones (Negative) Urine Blood (Negative) Urine Nitrite (Negative) Urine Bilirubin (Negative) Urine Urobilinogen (<2.0) mg/dL Ur Leukocyte Esterase (Negative) - EKG Data -: EKG Interpreted by Me (and Dr. Srivastava ) EKG Comments: Ventricular rate 58, VT interval 232, QRS 140, QT/QTc 474/465. Sinus bradycardia with first-degree AV block. Right bundle branch block. T wave abnormality. Abnormal EKG. No ST elevations or depressions. Disposition Clinical Impression: Weakness Disposition: HOME SELF-CARE Condition: Stable Instructions (If sedation given, give patient instructions): Weakness (ED) Additional Instructions: Follow-up with primary care provider tomorrow. Return immediately to the ER if condition worsens in any way. Is patient prescribed a controlled substance at d/c from ED?: No Referrals: Vincent Montano MD [Primary Care Provider] - 1-2 days
[2020-01-02 15:27] LABS: Appearance,Urine Clear (Clear); Bilirubin,Urine Negative (Negative); Blood,Urine Negative (Negative); Color,Urine Light Yellow; Glucose,Urine (UA) Negative (Negative); Ketones,Urine Negative (Negative); Leukocyte Esterase,Urine Negative (Negative); Nitrite,Urine Negative (Negative); Protein,Urine Negative (Negative); Specific Gravity,Urine 1.006 (1.001-1.035); Urobilinogen,Urine <2.0 mg/dL (<2.0)
[2020-01-02 15:57] LABS: Basophils % (A) 0 %; Eosinophils # (A) 0.1 k/uL (0-0.7); Eosinophils % (A) 1 %; HCT 41.5 % (34.0-46.0); HGB 13.2 gm/dL (11.4-16.0); Lymphocytes # (A) 0.7 k/uL (1.0-4.8); Lymphocytes % (A) 10 %; MCH 30.5 pg (25.0-35.0); MCHC 31.8 g/dL (31.0-37.0); Monocytes # (A) 0.4 k/uL (0-1.0); Monocytes % (A) 6 %; Neutrophils # (A) 5.8 k/uL (1.3-7.7); Neutrophils % (A) 81 %; Platelet Count 200 k/uL (150-450); RBC 4.32 m/uL (3.80-5.40); RDW 13.8 % (11.5-15.5); WBC 7.2 k/uL (3.8-10.6)
[2020-01-02 16:05] LABS: Albumin 3.8 g/dL (3.5-5.0); Calcium 8.9 mg/dL (8.4-10.2); Magnesium 1.9 mg/dL (1.6-2.3); Phosphorus 3.8 mg/dL (2.5-4.5); Total Bilirubin 1.3 mg/dL (0.2-1.3); Total Protein 6.5 g/dL (6.3-8.2)
[2020-01-02 16:07] LABS: Potassium 4.4 mmol/L (3.5-5.1)
--- NOTE | 2020-01-02 16:48 | CT ---
EXAMINATION TYPE: CT brain wo con DATE OF EXAM: 01/02/2020 COMPARISON: 01/26/2018 HISTORY: ams CT DLP: 1096.4 mGycm Automated exposure control for dose reduction was used. There is mild cerebral cortical atrophy. There is no mass effect nor midline shift. There is no sign of intracranial hemorrhage. The calvarium is intact. There is no evidence of cerebral edema. IMPRESSION: Mild atrophy appropriate for age. No acute intracranial abnormality. No change.
--- NOTE | 2020-01-02 16:51 | XR ---
EXAMINATION TYPE: XR chest 2V DATE OF EXAM: 01/02/2020 COMPARISON: 08/21/2018 HISTORY: Weakness TECHNIQUE: 2 views. FINDINGS: There is no heart failure nor confluent pneumonic infiltrate. There is pulmonary hyperinflation and m ild flattening of the diaphragm. Thoracic aorta is atheromatous. There are chest leads. IMPRESSION: No active cardiopulmonary disease. COPD. Minimal pulmonary fibrotic changes. There is jose l aring of some mild interstitial infiltrate in the lower lobes compared to old exam.
[2020-01-02 19:01] VITALS: BP 196/92; PULSE 72; RESP 16; TEMP 97.7
== END 2020-01-02 19:05 | disposition home or self-care (01) ==
LOC: EC 14:45
DX: R53.1 Weakness (principal); I48.91 Unspecified atrial fibrillation; I50.9 Heart failure, unspecified; I11.0 Hypertensive heart disease with heart failure; G20 Parkinson's disease; Z79.899 Other long term (current) drug therapy; K21.9 Gastro-esophageal reflux disease without esophagitis; Z85.828 Personal history of other malignant neoplasm of skin; Z90.89 Acquired absence of other organs; Z90.49 Acquired absence of other specified parts of digestive tract; Z90.710 Acquired absence of both cervix and uterus; Z87.891 Personal history of nicotine dependence; Z80.0 Family history of malignant neoplasm of digestive organs; R51 Headache
CPT/HCPCS: 36415; 70450; 71046; 80053; 81003; 83605; 83735; 84100; 84484; 85025; 93005; 99285

== ENCOUNTER 2020-01-03 10:55 | Inpatient (IN) | payer MEDICARE ==
[2020-01-03 11:56] LABS: Basophils % (A) 0 %; Eosinophils # (A) 0.1 k/uL (0-0.7); Eosinophils % (A) 1 %; HCT 42.7 % (34.0-46.0); HGB 13.5 gm/dL (11.4-16.0); Lymphocytes # (A) 0.6 k/uL (1.0-4.8); Lymphocytes % (A) 5 %; MCH 30.5 pg (25.0-35.0); MCHC 31.6 g/dL (31.0-37.0); MCV 96.6 fL (80.0-100.0); Mean Platelet Volume 7.2; Monocytes # (A) 0.7 k/uL (0-1.0); Monocytes % (A) 5 %; Neutrophils # (A) 10.7 k/uL (1.3-7.7); Neutrophils % (A) 87 %; Platelet Count 224 k/uL (150-450); RBC 4.42 m/uL (3.80-5.40); RDW 13.9 % (11.5-15.5); WBC 12.3 k/uL (3.8-10.6)
--- NOTE | 2020-01-03 12:01 | XR ---
EXAMINATION TYPE: XR chest 2V DATE OF EXAM: 01/03/2020 COMPARISON: 01/02/2020 HISTORY: Weakness and hypotension TECHNIQUE: Frontal and lateral views of the chest are obtained. FINDINGS: There is diffuse osseous demineralization and mid thoracic compression deformity that is o verall similar from the prior of 01/02/2020. Pulmonary hyperinflation indicative of underlying COPD is redemonstrated with mildly enlarged cardiomediastinal silhouette. Skinfold overlies the right lower h emithorax. No new focal consolidation, pleural effusion or pneumothorax. IMPRESSION: No acute cardiopulmonary process. Underlying COPD.
[2020-01-03 12:06] LABS: Calcium 9.3 mg/dL (8.4-10.2); Magnesium 1.8 mg/dL (1.6-2.3); Potassium 3.7 mmol/L (3.5-5.1); Total Bilirubin 1.6 mg/dL (0.2-1.3); Total Protein 6.6 g/dL (6.3-8.2)
[2020-01-03 12:09] LABS: INR 1.2 (<1.2); Partial Thromboplastin Time 23.1 sec (22.0-30.0); Prothrombin Time 12.5 sec (9.0-12.0)
[2020-01-03] MEDS ORDERED: NALOXONE 0.4 MG/ML 1 ML VIAL IV PRN (13:08)
--- NOTE | 2020-01-03 13:08 | ED ---
General Adult HPI - General Chief complaint: Syncope Stated complaint: Syncope Time Seen by Provider: 01/03/20 11:43 Source: patient, family, RN notes reviewed, old records reviewed (From yesterday. Computed tomography scan reported as normal.) Mode of arrival: wheelchair Limitations: no limitations - History of Present Illness Initial comments: Patient is a pleasant 89-year-old female presenting to the emergency department for syncopal versus near-syncopal episodes. Patient had 3 yesterday and came to the emergency department. Patient was feeling better and able to walk around. Patient had another episode this morning. Patient feels weak all over. Patient again fell down. Unclear patient lost consciousness for a second or 2. No headache or confusion. Patient does have Parkinson's and recently had her carbidopa increased. No chest pain or dyspnea. No isolated area of weakness. - Related Data Home Medications Medication Instructions Recorded Confirmed Carbidopa-Levodopa 25-100 mg 2 tab PO DAILY@0809/27/17 01/02/20 [Sinemet 25-100 mg] Potassium Chloride Oral Liquid 10 meq PEG/G-TUBE BID@08,199904/27/18 01/02/20 Pramipexole [Mirapex] 0.25 mg PO DAILY@179908/13/18 01/02/20 Furosemide [Lasix] 20 mg PO DAILY@79908/20/18 01/02/20 Pantoprazole Sodium [Protonix] 40 mg PO DAILY@79908/20/18 01/02/20 Carbidopa-Levodopa 25-100 mg 1 tab PO BID@1400,199901/02/20 01/02/20 [Sinemet 25-100] Donepezil [Aricept] 10 mg PO DAILY@79901/02/20 01/02/20 Ferrous Sulfate [Feosol] 325 mg PO DAILY@99901/02/20 01/02/20 Fludrocortisone [Florinef] 0.1 mg PO BID@799,199901/02/20 01/02/20 Memantine [Namenda] 5 mg PO DAILY@79901/02/20 01/02/20 Metoprolol Tartrate [Lopressor] 50 mg PO BID@799,199901/02/20 01/02/20 Mirabegron [Myrbetriq] 50 mg PO DAILY@1800 01/02/20 01/02/20 Multivitamins, Thera [Multivitamin 1 tab PO DAILY@0800 01/02/20 01/02/20 (formulary)] Allergies Allergy/AdvReac Type Severity Reaction Status Date / Time No Known Allergies Allergy Verified 01/03/20 11:11 Review of Systems ROS Statement: Those systems with pertinent positive or pertinent negative responses have been documented in the HPI. ROS Other: All systems not noted in ROS Statement are negative. Constitutional: Denies: fever Eyes: Denies: eye pain ENT: Denies: ear pain Respiratory: Denies: cough Cardiovascular: Denies: chest pain Endocrine: Reports: fatigue Gastrointestinal: Denies: abdominal pain Genitourinary: Denies: dysuria Musculoskeletal: Denies: back pain Skin: Denies: rash Neurological: Reports: as per HPI, weakness (Generalized). 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 History of Any Multi-Drug Resistant Organisms: None Reported Past Surgical History: Breast Surgery, Cholecystectomy, Ear Surgery, Hysterectomy, Tonsillectomy Additional Past Surgical History / Comment(s): EGDs/Peg tube insertion and removal on 08/17/18, colonoscopy, R ear stapedectomy, bilateral 1/4 breast removed (thought cancer but was calcium deposits), skin cancer removals. Past Psychological History: No Psychological Hx Reported Smoking Status: Former smoker Past Drug Use History: None Reported - Past Family History Mother Family Medical History: Congestive Heart Failure (CHF) Sister(s) Family Medical History: Cancer Additional Family Medical History / Comment(s): Colon cancer Father Additional Family Medical History / Comment(s): Father was an alcoholic. General Exam Limitations: no limitations General appearance: alert, in no apparent distress Head exam: Present: normocephalic Eye exam: Present: normal appearance, PERRL, EOMI ENT exam: Present: mucous membranes dry Neck exam: Present: normal inspection Respiratory exam: Present: normal lung sounds bilaterally Cardiovascular Exam: Present: regular rate, normal rhythm GI/Abdominal exam: Present: soft. Absent: tenderness Extremities exam: Present: normal inspection, full ROM. Absent: tenderness Back exam: Present: normal inspection Neurological exam: Present: alert Expanded Neurological exam: Present: protecting the airway Patient oriented to: Present: person, place. Absent: time (Oriented to month and date however not year) Speech: Present: fluid speech Cranial nerves: EOM's Intact: Normal Motor strength exam: RUE: 5, LUE: 5, RLE: 5, LLE: 5 Eye Response: (4) open spontaneously Motor Response: (6) obeys commands Verbal Response: (4) confused conversation Psychiatric exam: Present: normal affect, normal mood Skin exam: Present: normal color Course Vital Signs 01/03/20 01/03/20 01/03/20 11:07 11:20 11:34 Temperature 97.5 F L Pulse Rate 52 L 60 57 L Respiratory 18 16 16 Rate Blood Pressure 67/42 121/62 114/58 O2 Sat by Pulse 94 L 100 100 Oximetry 01/03/20 12:25 Temperature Pulse Rate 57 L Respiratory 16 Rate Blood Pressure 150/73 O2 Sat by Pulse 99 Oximetry EKG Findings - EKG Comments: EKG Findings:: Sinus bradycardia 59. First 3 AV block CA of 220. QRS 140. QTc 469. QT 474-6. Right bundle branch block. Left anterior fascicular block. LVH. No acute ST change. Medical Decision Making - Lab Data Result diagrams: 01/03/20 11:20 01/03/20 11:20 Lab Results 01/03/20 01/03/20 01/03/20 Range/Units 11:20 11:20 11:20 WBC 12.3 H (3.8-10.6) k/uL RBC 4.42 (3.80-5.40) m/uL Hgb 13.5 (11.4-16.0) gm/dL Hct 42.7 (34.0-46.0) % MCV 96.6 (80.0-100.0) fL MCH 30.5 (25.0-35.0) pg MCHC 31.6 (31.0-37.0) g/dL RDW 13.9 (11.5-15.5) % Plt Count 224 (150-450) k/uL Neutrophils % 87 % Lymphocytes % 5 % Monocytes % 5 % Eosinophils % 1 % Basophils % 0 % Neutrophils # 10.7 H (1.3-7.7) k/uL Lymphocytes # 0.6 L (1.0-4.8) k/uL Monocytes # 0.7 (0-1.0) k/uL Eosinophils # 0.1 (0-0.7) k/uL Basophils # 0.0 (0-0.2) k/uL PT 12.5 H (9.0-12.0) sec INR 1.2 H (<1.2) APTT 23.1 (22.0-30.0) sec Sodium 137 (137-145) mmol/L Potassium 3.7 (3.5-5.1) mmol/L Chloride 96 L (98-107) mmol/L Carbon Dioxide 35 H (22-30) mmol/L Anion Gap 6 mmol/L BUN 22 H (7-17) mg/dL Creatinine 1.19 H (0.52-1.04) mg/dL Est GFR (CKD-EPI)AfAm 47 (>60 ml/min/1.73 sqM) Est GFR (CKD-EPI)NonAf 41 (>60 ml/min/1.73 sqM) Glucose 182 H (74-99) mg/dL Plasma Lactic Acid Stevan (0.7-2.0) mmol/L Calcium 9.3 (8.4-10.2) mg/dL Magnesium 1.8 (1.6-2.3) mg/dL Total Bilirubin 1.6 H (0.2-1.3) mg/dL AST 29 (14-36) U/L ALT 6 (4-34) U/L Alkaline Phosphatase 58 (38-126) U/L Troponin I (0.000-0.034) ng/mL Total Protein 6.6 (6.3-8.2) g/dL Albumin 4.0 (3.5-5.0) g/dL 01/03/20 01/03/20 Range/Units 11:20 11:20 WBC (3.8-10.6) k/uL RBC (3.80-5.40) m/uL Hgb (11.4-16.0) gm/dL Hct (34.0-46.0) % MCV (80.0-100.0) fL MCH (25.0-35.0) pg MCHC (31.0-37.0) g/dL RDW (11.5-15.5) % Plt Count (150-450) k/uL Neutrophils % % Lymphocytes % % Monocytes % % Eosinophils % % Basophils % % Neutrophils # (1.3-7.7) k/uL Lymphocytes # (1.0-4.8) k/uL Monocytes # (0-1.0) k/uL Eosinophils # (0-0.7) k/uL Basophils # (0-0.2) k/uL PT (9.0-12.0) sec INR (<1.2) APTT (22.0-30.0) sec Sodium (137-145) mmol/L Potassium (3.5-5.1) mmol/L Chloride (98-107) mmol/L Carbon Dioxide (22-30) mmol/L Anion Gap mmol/L BUN (7-17) mg/dL Creatinine (0.52-1.04) mg/dL Est GFR (CKD-EPI)AfAm (>60 ml/min/1.73 sqM) Est GFR (CKD-EPI)NonAf (>60 ml/min/1.73 sqM) Glucose (74-99) mg/dL Plasma Lactic Acid Stevan 1.4 (0.7-2.0) mmol/L Calcium (8.4-10.2) mg/dL Magnesium (1.6-2.3) mg/dL Total Bilirubin (0.2-1.3) mg/dL AST (14-36) U/L ALT (4-34) U/L Alkaline Phosphatase (38-126) U/L Troponin I <0.012 (0.000-0.034) ng/mL Total Protein (6.3-8.2) g/dL Albumin (3.5-5.0) g/dL Disposition Clinical Impression: Syncope Disposition: ADMITTED IP TO THIS [facility] Is patient prescribed a controlled substance at d/c from ED?: No Referrals: Vincent Montano MD [Primary Care Provider] - 1-2 days Decision Time: 13:08
[2020-01-03] MEDS ORDERED: SODIUM CHLORIDE 0.9% 1,000 ML IV SCH (13:15)
[2020-01-03 13:20] LABS: Appearance,Urine Clear (Clear); Bilirubin,Urine Negative (Negative); Blood,Urine Negative (Negative); Color,Urine Light Yellow; Glucose,Urine (UA) Negative (Negative); Ketones,Urine Negative (Negative); Leukocyte Esterase,Urine Negative (Negative); Nitrite,Urine Negative (Negative); PH, Urine 6.5 (5.0-8.0); Protein,Urine Negative (Negative); Specific Gravity,Urine 1.007 (1.001-1.035); Urobilinogen,Urine <2.0 mg/dL (<2.0)
--- NOTE | 2020-01-03 15:43 | US ---
EXAMINATION TYPE: US carotid duplex BILAT DATE OF EXAM: 01/03/2020 COMPARISON: NONE CLINICAL HISTORY: thrombus. disorientation EXAM MEASUREMENTS: RIGHT: Peak Systolic Velocity (PSV) cm/sec ----- Right CCA: 43.3 ----- Right ICA: 76.4 ----- Right ECA: 95.3 ICA/CCA ratio: 1.8 RIGHT: End Diastole cm/sec ----- Right CCA: 12.7 ----- Right ICA: 18.8 ----- Right ECA: 17.6 LEFT: Peak Systolic Velocity (PSV) cm/sec ----- Left CCA: 45.9 ----- Left ICA: 70.3 ----- Left ECA: 45.9 ICA/CCA ratio: 1.5 LEFT: End Diastole cm/sec ----- Left CCA: 11.0 ----- Left ICA: 23.2 ----- Left ECA: 0.0 VERTEBRALS (direction of flow): Right Vertebral: Antegrade Left Vertebral: Antegrade Rhythm: Arrhythmia No significant stenosis seen. Extensive shadowing plaque noted bilaterally. No elevated velocities. IMPRESSION: 1. Grayscale atherosclerosis of the right carotid bulb is out of proportion to the measured velocitie s concerning for stenosis despite the measured velocities and internal carotid artery to common carot id artery ratio. CTA neck is recommended for further evaluation. 2. Incidentally noted cardiac arrhythmia. Correlate with EKG. Criteria for Assigning % of Stenosis / Diameter reduction (Estimation based on the indirect measurements of the internal carotid artery velocities (ICA PSV). 1. Normal (no stenosis)=ICA PSV < 125 cm/s: ratio < 2.0: ICA EDV<40 cm/s. 2. Less than 50% stenosis=ICA PSV < 125 cm/s: ratio < 2.0: ICA EDV<40 cm/s. 3. 50 to 69% stenosis=ICA PSV of 125 to 230 cm/s: ration 2.0 ? 4.0: ICA EDV 40-100 cm/s. 4. Greater than 70% stenosis to near occlusion= ICA PSV > 230 cm/s: ratio > 4.0: ICA EDV > 100 cm/s. 5. Near occlusion= ICA PSV velocities may be low or undetectable: variable ratio and ICA EDV. 6. Total occlusion=unable to detect flow.
--- NOTE | 2020-01-03 16:23 | CONS ---
CONSULTATION Mrs. Lewis is an 89-year-old female with a known history of Parkinson's disease, history of paroxysmal atrial fibrillation, has been followed by Dr. Yanez, presented to the emergency room with symptoms of progressive weakness. She does not describe clear syncopal episode. She said she was getting to bed and she lost her energy and fell but did not pass out. The patient has been having progressive weakness over the last week or so. She was seen in the emergency room yesterday with similar findings. Her appetite has been poor and she has been losing weight. She has a history of paroxysmal atrial fibrillation, although has not felt any palpitation recently. She has underwent an echocardiogram in July of 2018. At that time, she was in sinus mechanism. She has not been anticoagulated because of the unsteadiness while walking and the multiple falls in the past. That apparently has been discussed by Dr. Yanez with her . She has no symptoms to suggest angina pectoris. She has occasional rare edema. She has some dyspnea on exertion, but her activity is limited. She denies any clear PND or orthopnea. MEDICATION: At home include Mirapex, Protonix, Myrbetriq, Lopressor 50 mg twice a day, Namenda 5 mg daily, Lasix 20 mg daily, Florinef, iron. Aricept and Sinemet. REVIEW OF SYSTEMS: RESPIRATORY SYSTEM: She denies any recent wheezing or cough. No history of obstructive lung disease. GI SYSTEM: No recent GI bleeding. No peptic ulcer disease/ SYSTEM: No dysuria or hematuria. NERVOUS SYSTEM: She has history of Parkinson's, but no stroke or seizure. PHYSICAL EXAMINATION: She is an 89-year-old female, alert, in no apparent distress. Blood pressure running in the 120-150 in the ER, 67 systolic was documented, although I am not quite sure it was accurate, but her heart rate has been in the 50s. HEAD: Normocephalic. EYES: Sclerae nonicteric. NECK: Good upstroke, no bruit, no venous distention. LUNGS: Clear to auscultation. HEART: Regular rate and rhythm, S1, S2. No S3 with systolic murmur, ejection type. No diastolic murmur, no rub. ABDOMEN: Soft, nontender, positive bowel sounds, no organomegaly. EXTREMITIES: Varicosities noted with no edema. LAB DATA: EKG shows sinus mechanism, rate of 59, right bundle branch block and left axis deviation. BUN and creatinine 22 and 1.19. Troponin less than 0.012. Chest x-ray shows no acute infiltrate. Yesterday during her visit to the emergency room, she had a CT scan of the head that revealed no acute bleeding. IMPRESSION: 1. Symptoms of progressive fatigue and lack of energy. No documented syncope and no evidence of atrial fibrillation, could be related to dehydration or the Parkinson's. 2. Paroxysmal atrial fibrillation remains in sinus mechanism, not anticoagulated because of falls in the past and unsteadiness because of the Parkinson's disease. 3. History of Parkinson's disease. 4. Bradycardia, most likely worsened by the beta estefania. RECOMMENDATION: From the cardiac standpoint, an echocardiogram with Doppler will be obtained. I will cut down the dose of her beta estefania. I will follow her renal function. Depending on her blood pressure and her response, further recommendation will be made. Thank you for this consult. Will follow with you. TRINIL / IJN: [id number] /
[2020-01-03] MEDS: METOPROLOL TARTRATE 25 MG TAB PO SCH ×2 (17:45→17:46)
--- NOTE | 2020-01-03 19:45 | P.HPIM ---
History of Present Illness H&P Date: 01/03/20 Chief Complaint: Weak tired History of presenting complaint: This is a pleasant 89-year-old patient who follows a Dr. Vincent Montano. Chronic stable medical conditions include atrial fibrillation, GERD, hypertension, severe esophagitis, Parkinson's disease, kidney dysfunction, autonomic dysfunction and orthostatic hypotension, irritable bowel syndrome, stress incontinence,. Patient also has a diagnosis of severe presbyesophagus. Patient states in the past she's had an attempted dilatation of the esophagus that was unsuccessful by ENT physician. Patient did have a PEG tube in the past. When she was encouraged oral intake and subsequently the PEG tube was removed about 2 years ago. History is mainly supplemented by the at the bedside. Patient continues to have trouble with swallowing. Sometimes not able to keep the food also been before cause back up again. We diet. Swallowing is a trouble. As usual also having weight loss. No fever or chills. No shortness of breath no cough. Review of systems: GEN.: Weak tired rundown weight loss EYES: None HEENT: None NECK: None RESPIRATORY: None CARDIOVASCULAR: None GASTROINTESTINAL: As above GENITOURINARY: None MUSCULOSKELETAL: Bone pains LYMPHATICS: None HEMATOLOGICAL: None PSYCHIATRY: A bit forgetful NEUROLOGICAL: Tremors, gait dysfunction, trouble swallow swallowing Past medical history to include: atrial fibrillation, GERD, hypertension, severe esophagitis, Parkinson's disease, kidney dysfunction, autonomic dysfunction and orthostatic hypotension, irritable bowel syndrome, stress incontinence,. Patient also has a diagnosis of severe presbyesophagus Social history: . Does use of walker. Smoked for 27 years stopped in 1976. No alcohol. Physical examination: VITAL SIGNS: 97.5, 52, 18, 121/62, 94% on room air GENERAL: BMI 20.7, thin build loss of subcutaneous fat, bony prominences. EYES: Pupils equal. Conjunctiva palel. HEENT: External appearance of nose and ears normal, oral cavity grossly normal. NECK: JVD not raised; masses not palpable. HEART: First and second heart sounds are normal; no edema. LUNGS: Respiratory rate normal; clear to auscultation. ABDOMEN: Soft, nontender, liver spleen not palpable, no masses palpable. PSYCH: Alert and oriented x3; mood and affect tiredl. NEUROLOGICAL: Cranial nerves grossly intact; no facial asymmetry, power and sensation grossly intact. Tremors present. LYMPHATICS: No lymph nodes palpable in the axilla and neck INVESTIGATIONS, reviewed in the clinical context: White count 12.3 hemoglobin 13.5 platelets 224 pro time 12.5 potassium 3.7 bicarb 35 bun 22 creatinine 1.19 Troponin I 2 negative UA negative EKG tracing personally reviewed by me-normal sinus rhythm with a by vascular block Chest x-ray film personally reviewed by me-lung mckee are clear, some hyperinflation Assessment: -This is a patient with long-standing history of presbyesoesophagus and trouble with swallowing for a long time. In the past has had a PEG tube. That was discontinued about 2 years ago. And patient studied better. Admitted with progressive time oral intake is gradually gone down. Appetite is gone down bruising weight. Becoming more weak and tired. 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 Overall prognosis guarded. Since patient has failed swallowing in the past but the options may be limited. Only other option may be a PEG tube feeding again. We will get a GI consultation. Lovenox for DVT prophylaxis. Patient will be hydrated. Lasix to be discontinued. Fall precautions. We will also start the patient on IV PPI. Past Medical History Past Medical History: Atrial Fibrillation, Cancer, Heart Failure, GERD/Reflux, Hypertension, Musculoskeletal Disorder, Neurologic Disorder Additional Past Medical History / Comment(s): Severe presbyesophagus-peg tube removed, severe esophagitis, parkinson's disease, confused at times per spouse dementia, gait dysfunction, falls, automic dysfunction-HTN/orthostatic hypotension, IBS, stress incontinence, goiter, skin cancer with removals. History of Any Multi-Drug Resistant Organisms: None Reported Past Surgical History: Breast Surgery, Cholecystectomy, Ear Surgery, Hysterectomy, Tonsillectomy Additional Past Surgical History / Comment(s): EGDs/Peg tube insertion and removal on 08/17/18, colonoscopy, R ear stapedectomy, bilateral 1/4 breast removed (thought cancer but was calcium deposits), skin cancer removals. Past Psychological History: No Psychological Hx Reported Additional Psychological History / Comment(s): Pt resides with her spouse. She ambulates with a walker. Smoking Status: Former smoker Past Alcohol Use History: None Reported Additional Past Alcohol Use History / Comment(s): Pt started smoking in 1949 and quit in 1976 Past Drug Use History: None Reported - Past Family History Mother Family Medical History: Congestive Heart Failure (CHF) Sister(s) Family Medical History: Cancer Additional Family Medical History / Comment(s): Colon cancer Father Additional Family Medical History / Comment(s): Father was an alcoholic. Medications and Allergies Home Medications Medication Instructions Recorded Confirmed Type Carbidopa-Levodopa 25-100 mg 2 tab PO DAILY@79909/27/17 01/03/20 History [Sinemet 25-100 mg] Potassium Chloride Oral Liquid 10 meq PEG/G-TUBE BID@0800,199904/27/18 01/03/20 History Pramipexole [Mirapex] 0.25 mg PO DAILY@179908/13/18 01/03/20 History Furosemide [Lasix] 20 mg PO DAILY@79908/20/18 01/03/20 History Pantoprazole Sodium [Protonix] 40 mg PO DAILY@79908/20/18 01/03/20 History Carbidopa-Levodopa 25-100 mg 1 tab PO BID@1400,199901/02/20 01/03/20 History [Sinemet 25-100] Donepezil [Aricept] 10 mg PO DAILY@79901/02/20 01/03/20 History Ferrous Sulfate [Feosol] 325 mg PO DAILY@1000 01/02/20 01/03/20 History Fludrocortisone [Florinef] 0.1 mg PO BID@08,199901/02/20 01/03/20 History Memantine [Namenda] 5 mg PO DAILY@79901/02/20 01/03/20 History Metoprolol Tartrate [Lopressor] 50 mg PO BID@0800,199901/02/20 01/03/20 History Mirabegron [Myrbetriq] 50 mg PO DAILY@1800 01/02/20 01/03/20 History Multivitamins, Thera [Multivitamin 1 tab PO DAILY@0800 01/02/20 01/03/20 History (formulary)] Allergies Allergy/AdvReac Type Severity Reaction Status Date / Time No Known Allergies Allergy Verified 01/03/20 13:54 Physical Exam Vitals: Vital Signs Temp Pulse Pulse Resp BP BP BP 01/03/20 16:00 65 16 133/62 01/03/20 14:20 97.4 F L 65 18 129/72 190/91 01/03/20 12:25 57 L 16 150/73 01/03/20 11:34 57 L 16 114/58 01/03/20 11:20 60 16 121/62 01/03/20 11:07 97.5 F L 52 L 18 67/42 Pulse Ox 01/03/20 16:00 01/03/20 14:20 92 L 01/03/20 12:25 99 01/03/20 11:34 100 01/03/20 11:20 100 01/03/20 11:07 94 L Intake and Output 01/03/20 01/03/20 01/03/20 06:59 14:59 22:59 Intake Total 120 Balance 120 Intake: Oral 120 Other: # Voids 1 Weight 58.06 kg Results CBC & Chem 7: 01/03/20 11:20 01/03/20 11:20 Labs: Abnormal Lab Results - Last 24 Hours (Table) 01/03/20 01/03/20 01/03/20 Range/Units 11:20 11:20 11:20 WBC 12.3 H (3.8-10.6) k/uL Neutrophils # 10.7 H (1.3-7.7) k/uL Lymphocytes # 0.6 L (1.0-4.8) k/uL PT 12.5 H (9.0-12.0) sec INR 1.2 H (<1.2) Chloride 96 L (98-107) mmol/L Carbon Dioxide 35 H (22-30) mmol/L BUN 22 H (7-17) mg/dL Creatinine 1.19 H (0.52-1.04) mg/dL Glucose 182 H (74-99) mg/dL Total Bilirubin 1.6 H (0.2-1.3) mg/dL Thrombosis Risk Factor Assmnt - Choose All That Apply Each Risk Factor Represents 3 Points: Age 75 years or older Thrombosis Risk Factor Assessment Total Risk Factor Score: 3 Thrombosis Risk Factor Assessment Level: Moderate Risk
[2020-01-03] MEDS: LACTATED RINGERS 1,000 ML IV SCH (20:30)
[2020-01-03] MEDS: CARBIDOPA-LEVODOPA 25-100 MG 1 EACH TAB PO SCH (20:30)
[2020-01-03] MEDS: FLUDROCORTISONE 0.1 MG TAB PO SCH (20:30)
[2020-01-03] MEDS ORDERED: ENOXAPARIN 40 MG/0.4 ML SYRINGE SQ SCH (21:00)
[2020-01-04 07:42] LABS: Calcium 8.8 mg/dL (8.4-10.2); Potassium 3.2 mmol/L (3.5-5.1)
[2020-01-04] MEDS: LACTATED RINGERS 1,000 ML IV SCH ×3 (08:23→17:21)
[2020-01-04] MEDS: MULTIVITAMINS, THERA 1 EACH TAB PO SCH (08:26)
[2020-01-04] MEDS: CARBIDOPA-LEVODOPA 25-100 MG 1 EACH TAB PO SCH ×3 (08:26→20:05)
[2020-01-04] MEDS: FLUDROCORTISONE 0.1 MG TAB PO SCH ×2 (08:27→20:05)
[2020-01-04] MEDS: DONEPEZIL 10 MG TAB PO SCH (08:27)
[2020-01-04] MEDS: PANTOPRAZOLE 40 MG TABLET PO SCH (08:27)
[2020-01-04] MEDS: MEMANTINE 5 MG TAB PO SCH (08:27)
--- NOTE | 2020-01-04 09:00 | ECHOF ---
Referral Reason: MEASUREMENTS -------- HEIGHT: 167.6 cm WEIGHT: 58.1 kg BP: RVIDd: 1.8 cm (< 3.3) IVSd: 1.3 cm (0.6 - 1.1) LVIDd: 3.9 cm (3.9 - 5.3) LVPWd: 1.2 cm (0.6 - 1.1) IVSs: 1.9 cm LVIDs: 1.5 cm LVPWs: 1.9 cm Ao Diam: 3.4 cm (2.0 - 3.7) AV Cusp: 1.6 cm (1.5 - 2.6) LA Diam: 1.7 cm (2.7 - 3.8) MV EXCURSION: 13.015 mm (> 18.000) MV EF SLOPE: 20 mm/s (70 - 150) EPSS: 0.3 cm MV E Nixon: 0.51 m/s MV DecT: 280 ms MV A Nixon: 1.26 m/s MV E/A Ratio: 0.40 RAP: 5.00 mmHg RVSP: 29.32 mmHg FINDINGS -------- Sinus rhythm. This was a technically good study. The left ventricular size is normal. There is mild concentric left ventricular hypertrophy. Overa ll left ventricular systolic function is normal with, an EF between 55 - 60 %. The right ventricle is normal in size. The left atrial size is normal. The right atrial size is normal. Aortic valve is trileaflet and is mildly thickened. The mitral valve is normal. The mitral valve leaflets are mildly thickened. Mild mitral regurgita tion is present. The tricuspid valve appears structurally normal. Mild tricuspid regurgitation present. Right vent ricular systolic pressure is normal at < 35 mmHg. Trace/mild (physiologic) pulmonic regurgitation. The aortic root size is normal. Normal inferior vena cava with normal inspiratory collapse consistent with estimated right atrial pre ssure of 5 mmHg. There is no pericardial effusion. CONCLUSIONS -------- 1. Sinus rhythm. 2. This was a technically good study. 3. The left ventricular size is normal. 4. There is mild concentric left ventricular hypertrophy. 5. Overall left ventricular systolic function is normal with, an EF between 55 - 60 %. 6. The right ventricle is normal in size. 7. The left atrial size is normal. 8. The right atrial size is normal. 9. Aortic valve is trileaflet and is mildly thickened. 10. The mitral valve is normal. 11. The mitral valve leaflets are mildly thickened. 12. Mild mitral regurgitation is present. 13. The tricuspid valve appears structurally normal. 14. Mild tricuspid regurgitation present. 15. Right ventricular systolic pressure is normal at < 35 mmHg. 16. Trace/mild (physiologic) pulmonic regurgitation. 17. The aortic root size is normal. 18. Normal inferior vena cava with normal inspiratory collapse consistent with estimated right atrial pressure of 5 mmHg. 19. There is no pericardial effusion. BANK NOTE DESIGNER: Maria Eugenia Mitchell RDCS
[2020-01-04] MEDS ORDERED: POTASSIUM CHLORIDE ER 20 MEQ TAB.ER PO STA (12:41)
--- NOTE | 2020-01-04 13:55 | P.PN ---
Subjective Progress Note Date: 01/04/20 This is a pleasant 89-year-old female with a known history of Parkinson's disease, paroxysmal atrial fibrillation, followed by Dr. Gurrola. Percentage the emergency room with symptoms were progressive weakness and falling at home. No complaints of syncope. She has not been anticoagulated in the past because of unsteadiness while walking and multiple falls which has been discussed by Dr. Gurrola with her and her . She has no current complaints of chest discomfort, orthopnea PND. Continues to have episodes of extreme weakness upon standing. Complains of occasional edema but has none currently and occasional dyspnea on exertion but her activity is quite limited. Orthostatic blood pressures showed significant drop in systolic blood pressure from 190s lying to 80s standing. Patient is quite symptomatic. Continues to have significant orthostatic changes despite stopping Lasix and decreasing Lopressor. Continues to be on Florinef 0.1 mg by mouth twice a day. Objective - Vital Signs Vital signs: Vital Signs Temp 97.8 F 01/04/20 05:05 Pulse 69 01/04/20 12:00 Resp 16 01/04/20 12:00 BP 163/82 01/04/20 12:00 Pulse Ox 99 01/04/20 12:00 Intake & Output 01/03/20 01/04/20 01/04/20 18:59 06:59 18:59 Intake Total 120 600 Balance 120 600 Weight 58.06 kg 54.93 kg Intake: Intake, IV Titration 600 Amount Lactated Ringers 1,000 ml 600 @ 100 mls/hr IV .Q10H [facility] Rx#:[id number] Oral 120 Other: Voiding Method Bedpan # Voids 1 2 1 - Exam PHYSICAL EXAMINATION: HEENT: Head is atraumatic, normocephalic. Pupils equal, round. Neck is supple. There is no elevated jugular venous pressure. HEART EXAMINATION: Heart sounds regular, S1 and S2 with a systolic murmur CHEST EXAMINATION: Lungs are clear to auscultation. No chest wall tenderness is noted on palpation or with deep breathing. ABDOMEN: Soft, nontender. Bowel sounds are heard. No organomegaly noted. EXTREMITIES: 2+ peripheral pulses with no evidence of peripheral edema and no calf tenderness noted. NEUROLOGIC patient is awake, alert and oriented x3. . - Labs CBC & Chem 7: 01/03/20 11:20 06/10/20 06:23 Labs: Abnormal Lab Results - Last 24 Hours (Table) 01/04/20 Range/Units 06:23 Potassium 3.2 L (3.5-5.1) mmol/L Carbon Dioxide 32 H (22-30) mmol/L BUN 24 H (7-17) mg/dL Assessment and Plan Assessment: #1 symptoms of orthostasis, systolic blood pressure dropped to 190s to 80s, l ikely due to autonomic dysfunction secondary to Parkinson's but could be related to dehydration as the patient has been unable to eat or drink while and has lost about 20 pounds #2 paroxysmal atrial fibrillation, maintained sinus mechanism, not anticoagulated because of frequent falls in the past #3 history of Parkinson's disease #4 bradycardia, likely worsened by beta estefania, improved with reduction of beta estefania dose Plan: From cardiology's perspective, medications were reviewed and will continue the same. Continue metoprolol tartrate 25 mg by mouth 3 times a day and Florinef 0.1 mg by mouth twice a day. We will continue to follow the patient 5 further recommendations accordingly. [employer] note has been reviewed, I agree with a documented findings and plan of care. Patient was seen and examined.
[2020-01-04] MEDS: METOPROLOL TARTRATE 25 MG TAB PO SCH ×3 (14:46→21:33)
--- NOTE | 2020-01-04 18:17 | CONS ---
CONSULTATION DATE OF DICTATION: 01/04/2020. REFERRING PHYSICIAN: Dr. Shea. HISTORY OF PRESENT ILLNESS: Thank you for allowing me to evaluate Mary Lewis who is an 89-year-old right- handed white female who presented to [facility] initially on 01/02/2020 for evaluation of episodes where the patient became weak and collapsed to the floor. She states this occurred twice on Thursday when she was trying to navigate from the bed to the bathroom and back, but denied losing consciousness or striking her head with either of these falls. The patient simply states that she becomes "weak and I know I am going down." With these episodes, the patient denies prodromal symptoms such as lightheadedness, nausea, vomiting, diaphoresis, or chest pain. She questions whether there was some associated palpitations. On Thursday, the patient was given IV fluids in the emergency room, she felt better and was subsequently discharged home but returned the next day with a similar episode. In addition to these issues, the patient has had reduction in oral intake due to difficulty holding things down. The patient states that when she tries to swallow food it will get stuck part-way down and hurt and at times may come back up. As a result of this reduced oral intake, the patient states she has lost 24 pounds over the past 1 year. Due to this issue, the patient previously had a PEG tube in placed, although it was removed in July 2018 because the patient "did not like it." On medical floor, the patient has had documented orthostatic hypotension with supine blood pressure of 196/93, and standing 87/61. The patient apparently has a history of orthostatic hypotension and is maintained on Florinef 0.1 mg b.i.d. and apparently was doing fairly well until 2 days ago. Upon presentation, the patient was found to have prerenal azotemia and is currently being hydrated and Cardiology evaluated the patient and lowered her dose of beta-estefania. The patient denies previous history of stroke or seizure. She states she has tried compression stockings in the past for orthostatic hypotension, although has difficulty getting these on. The patient states she was diagnosed with Parkinson's for 5-6 years and symptoms preceding this diagnosis included micrographia and tripping. The patient states she has never had significant tremor and she has noted no significant response to Sinemet. ALLERGIES: No known drug allergies. HOME MEDICATIONS: Mirapex 0.5 mg daily, potassium, Protonix, multivitamin, Myrbetriq, Lopressor, Namenda, Lasix, Florinef 0.1 mg b.i.d., Feosol, Aricept 10 mg daily, and senna 25/100 2 tabs q.a.m., 1 Q 2:00 pm and 1 daily 10:00 pm. PAST MEDICAL HISTORY: Parkinson's disease, paroxysmal atrial fibrillation, CHF, GERD, hypertension, irritable bowel syndrome, stress urinary incontinence and restless legs syndrome. PAST SURGICAL HISTORY: Breast surgery with benign histology, cholecystectomy, hysterectomy, tonsillectomy, PEG tube placement with subsequent removal, bilateral cataract extraction, right ear stapedectomy. SOCIAL HISTORY: The patient quit smoking in 1989 and occasionally consumes alcohol. She is with 5 children. Lives in house with her . She has ambulated with a four-wheel walker over the past 2 years. FAMILY HISTORY: Is noncontributory, the patient denies family history of Parkinson's disease. REVIEW OF SYSTEMS: Fourteen systems are reviewed and no changes were identified. The review of systems documented in history and physical. PHYSICAL EXAM: Upon arrival to the patient's room, she was lying in bed, receptive to the examiner. Affect is normal. She is of thin build, fairly accurate historian and appears of stated age. She has facial masking in generalized bradykinesia, but no rest tremor was noted. VITAL SIGNS: Blood pressure while lying was 186/93 and while standing 87/61, pulse 76, respiratory rate 16, temperature 98.1. The patient states she is currently 121 pounds and previously weighed on average 145 pounds. SKIN AND EXTREMITIES: Mild arthritic changes are noted in the hands, chronic skin changes are noted in the distal lower extremities. Head and neck no signs of trauma. Neck is supple without meningeal signs. Arteries are nontender and without bruits. HEART: Regular rate and rhythm. Higher cortical function: Mental status: Patient was alert, oriented to self. She knew she was in [facility]. She knew the floor, [facility], stated the year was "2001", but knew the month, day of week and could name the current President. The patient's speech was hypophonic but not dysarthric. She was able to name repeat and read. There was no right/left disorientation, finger agnosia or extinction to double simultaneous stimulation. CRANIAL NERVES II THROUGH XII: Pupils are post-surgical and reactive to light symmetrically. No afferent pupillary defect. Visual mckee are intact to confrontation. 3, 4, 6: No ptosis. Extraocular movements were full with mildly limited upgaze. No nystagmus. Five, pinprick light touch intact in all 3 divisions. Motor 5 intact. VII: No facial asymmetry or weakness. 8, reduced finger rub on the right per patient. IX, X palate aly in midline. 11, strength intact. 12 tongue protruded midline without fasciculation or atrophy. Motor examination: There is diffuse loss of bulk, particularly in hand intrinsic muscles with essentially normal tone, in particular no cogwheel rigidity was present. No rest tremor was noted. The patient is mildly generally bradykinetic. Strength is at least 4+ over 5 in a nonfocal fashion. Sensory intact to pinprick and light touch in all extremities per patient. Reflexes are 1/4 in the upper extremities, 0/1 in the lower extremities. Plantar responses flexor bilaterally. Fried's is absent. Coordination [id number], heel- to-mckeon movements are intact. Rapid alternating movements are slow but symmetric. DIAGNOSTIC TESTING: The patient had a CT scan of brain completed without contrast in the emergency room on 01/02/2020, which demonstrated atrophy but no acute pathology was identified. Chest x- ray revealed no acute pathology. LAB WORK: Demonstrates a white blood cell count of 12.3 with a hemoglobin of 13.5, platelet count 224. Sodium 138, potassium 3.2, BUN 24 with a creatinine of 0.83. INR 1.2. Calcium 9.3, magnesium 1.8, ALT 6, AST 29. Troponin negative. Urinalysis revealed negative nitrate and leukocyte esterase. IMPRESSION: 1. Episodes of generalized weakness and collapsing without loss of consciousness, likely secondary to near-syncope related to documented orthostatic hypotension, prerenal azotemia and deconditioning. Despite history of orthostatic hypotension, the patient had done fairly well maintained on Florinef until 2 days ago. 2. Parkinsonism diagnosed 5-6 years ago with autonomic dysfunction including orthostatic hypotension and probable associated esophageal dysmotility, which may be secondary to idiopathic Parkinson disease, although with lack of rest tremor and no significant response to Sinemet, multiple system atrophy may also be considered. 3. The patient reports limited oral intake secondary to difficulty holding things down with resultant 24 pounds weight loss over the past year. The patient had a PEG tube in the past, but this was removed as she did not like it. 4. History of paroxysmal atrial fibrillation, not on anticoagulation secondary to fall risk. 5. Mild cognitive decline, maintained on Aricept/Namenda. 6. Medical problems including congestive heart failure, gastroesophageal reflux disease, hypertension, irritable bowel syndrome, restless legs syndrome, and stress urinary incontinence. RECOMMENDATION: 1. I discussed my impression and plan with the patient and she expressed understanding. 2. Considering the patient had reportedly done fairly well until 2 days ago, agree with initially approaching the orthostasis with hydration, and Cardiology decreased the patient's dose of beta estefania. If the orthostatic hypotension persists despite these measures and use of Florinef, the addition of Midodrine may be considered, although with the use of this medication the patient will need to lay down with the head elevated to avoid supine hypertension. The patient has tried compression stockings in the past, but had difficulty getting them on. Another option on outpatient basis would be the addition of a new medication named Northera, which was released for the use of neurogenic orthostatic hypotension. 3. The patient had a CT scan of brain completed on 01/02/2020, which demonstrated no acute pathology and during this hospitalization, carotid ultrasound demonstrated no significant stenosis on either side and antegrade flow in the vertebral arteries. An echocardiogram demonstrated an ejection fraction of 55-60 percent. 4. Increase activity as tolerated/conditioning exercises. 5. Upon discharge, the patient will follow up with her outpatient neurologist. 6. We will follow with you intermittently. Thank you for allowing me to participate in the care of your patient. MMODL / IJN: [id number] / MTDD
[2020-01-04] MEDS: PRAMIPEXOLE 0.25 MG TAB PO SCH (19:01)
--- NOTE | 2020-01-04 19:56 | P.PN ---
Progress Note - Text Progress Note Date: 01/04/20 Chief Complaint: Weak tired History of presenting complaint: This is a pleasant 89-year-old patient who follows a Dr. Vincent Montano. Chronic stable medical conditions include atrial fibrillation, GERD, hypertension, severe esophagitis, Parkinson's disease, kidney dysfunction, autonomic dysfunction and orthostatic hypotension, irritable bowel syndrome, stress incontinence,. Patient also has a diagnosis of severe presbyesophagus. Patient states in the past she's had an attempted dilatation of the esophagus that was unsuccessful by ENT physician. Patient did have a PEG tube in the past. When she was encouraged oral intake and subsequently the PEG tube was removed about 2 years ago. History is mainly supplemented by the at the bedside. Patient continues to have trouble with swallowing. Sometimes not able to keep the food also been before cause back up again. We diet. Swallowing is a trouble. As usual also having weight loss. No fever or chills. No shortness of breath no cough. Today-laying in bed. Tired. Getting IV fluids. Awaiting GI input. Review of systems: Was done for constitutional, cardiovascular, GI, pulmonary. relevant finding as above Active Medications Carbidopa/Levodopa (Sinemet 25-100) 1 each PO BID@1400,2000 [facility] Last Admin: 01/04/20 14:52 Dose: 1 each Documented by: Carbidopa/Levodopa (Sinemet 25-100) 2 each PO DAILY@0800 [facility] Last Admin: 01/04/20 08:26 Dose: 2 each Documented by: Donepezil HCl (Aricept) 10 mg PO DAILY@0800 [facility] Last Admin: 01/04/20 08:27 Dose: 10 mg Documented by: Fludrocortisone Acetate (Florinef) 0.1 mg PO BID@00,1999 [facility] Last Admin: 01/04/20 08:27 Dose: 0.1 mg Documented by: Lactated Ringer's (Lactated Ringers) 1,000 mls @ 100 mls/hr IV .Q10H [facility] Last Admin: 01/04/20 17:21 Dose: 100 mls/hr Documented by: Lactated Ringer's (Lactated Ringers) 1,000 mls @ 20 mls/hr IV .Q24H [facility] Last Admin: 01/04/20 14:46 Dose: Not Given Documented by: Memantine (Namenda) 5 mg PO DAILY@0800 [facility] Last Admin: 01/04/20 08:27 Dose: 5 mg Documented by: Metoprolol Tartrate (Lopressor) 25 mg PO TID [facility] Last Admin: 01/04/20 16:07 Dose: 25 mg Documented by: Multivitamins (Theragran) 1 each PO DAILY@0800 [facility] Last Admin: 01/04/20 08:26 Dose: 1 each Documented by: Naloxone HCl (Narcan) 0.2 mg IV Q2M PRN PRN Reason: Opioid Reversal Mirabegron [ (Myrbetriq] 50 Mg) 50 mg PO DAILY@1800 [facility] Last Admin: 01/04/20 18:49 Dose: Not Given Documented by: Pantoprazole Sodium (Protonix) 40 mg PO DAILY@0800 [facility] Last Admin: 01/04/20 08:27 Dose: 40 mg Documented by: Pramipexole Dihydrochloride (Mirapex) 0.25 mg PO DAILY@1800 [facility] Last Admin: 01/04/20 19:01 Dose: 0.25 mg Documented by: Physical examination: VITAL SIGNS: 97.8, 72, 16, 179/79, 98% on 2 L orthostatic. GENERAL: thin build loss of subcutaneous fat, bony prominences. EYES: Pupils equal. Conjunctiva palel. HEENT: External appearance of nose and ears normal, oral cavity grossly normal. NECK: JVD not raised; masses not palpable. HEART: First and second heart sounds are normal; no edema. LUNGS: Respiratory rate normal; clear to auscultation. ABDOMEN: Soft, nontender, liver spleen not palpable, no masses palpable. PSYCH: Alert and oriented x3; mood and affect tiredl. NEUROLOGICAL: Cranial nerves grossly intact; no facial asymmetry, Tremors present. INVESTIGATIONS, reviewed in the clinical context: Potassium 3.2 creatinine 0.83 Previous testing White count 12.3 hemoglobin 13.5 platelets 224 pro time 12.5 potassium 3.7 bicarb 35 bun 22 creatinine 1.19 Troponin I 2 negative UA negative EKG tracing personally reviewed by me-normal sinus rhythm with a by vascular block Chest x-ray film personally reviewed by me-lung mckee are clear, some hyperinflation Assessment: -This is a patient with long-standing history of presbyesoesophagus and trouble with swallowing for a long time. In the past has had a PEG tube. That was discontinued about 2 years ago. And patient studied better. Admitted with progressive time oral intake is gradually gone down. Appetite is gone down bruising weight. Becoming more weak and tired. 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 Options are limited. We'll probably need a PEG tube again. Await GI input
--- NOTE | 2020-01-05 03:45 | CONS ---
CONSULTATION DATE OF DICTATION: 01/04/2020 REASON FOR CONSULTATION: Dysphagia and weight loss. HISTORY OF PRESENT ILLNESS: The patient is an 89-year-old pleasant white female who was diagnosed with Parkinson disease in the past, history of gastroesophageal reflux disease was admitted to hospital because of difficulty swallowing for the last several weeks duration; however, for the last 2 weeks, she has been experiencing epigastric discomfort and pain when she swallows food. She lost about 20 pounds in the last 2 months. Patient stated that she had oropharyngeal dysphagia in the past and she underwent a PEG tube placement by Dr. Vieira in 2018 and subsequently in early part of 2019 that was removed. Since then she has been able to manage her diet reasonably well with no problems. She reports no abdominal pain. She does complain of some passive . Does have occasional nausea, vomiting. PAST MEDICAL HISTORY: Significant for hypertension, gastroesophageal reflux disease, atrial fibrillation, Parkinson disease, chronic kidney disease, irritable bowel syndrome, stress incontinence, orthostatic hypotension. PAST SURGICAL HISTORY: PEG tube placement in 2018 subsequently removed [address] Vieira. History of ear surgery, hysterectomy, tonsillectomy, breast surgery. SOCIAL HISTORY: Former smoker. No alcohol use. FAMILY HISTORY: Mother congestive heart failure, sister has colon cancer and father was an alcoholic. MEDICATIONS: Medications at home include Sinemet, Aricept, Feosol, Florinef, Namenda, Lopressor, Myrbetriq, multivitamin, potassium chloride, Mirapex, Protonix, Lasix. ALLERGIES: None. REVIEW OF SYSTEMS: CARDIOPULMONARY: No chest pain or shortness of breath. : No dysuria, no hematuria. MUSCULOSKELETAL: Some chronic back pain. NEUROLOGY: Unremarkable other than Parkinson disease diagnosed 5 years ago. ENT/VISION: Unremarkable. CONSTITUTIONAL: Weight loss of 20 pounds. No fever, chills, night sweats. GI: As mentioned above. HEMATOLOGY: Unremarkable. PSYCHIATRIC: Unremarkable. PHYSICAL EXAMINATION: She appears comfortable. No apparent distress. Vital signs are stable. Blood pressure 97/42, pulse rate 52, temperature 97.5. HEENT EXAMINATION: Unremarkable. Conjunctivae pink. Sclerae anicteric. Oral cavity, no lesions. NECK: No JVD or lymph node enlargement. CHEST: Clear to auscultation. HEART: Regular rate and rhythm. ABDOMEN: Soft. Bowel sounds are positive. No organomegaly. EXTREMITIES: No pedal edema. SKIN: No rashes. NEURO: She is alert and oriented x3. No focal deficits. LABS: Labs from today: WBC 12.3, hemoglobin 13.5, platelets are normal. PT/INR is within normal limits. Basic metabolic panel is within normal limits. IMPRESSION: 1. Severe epigastric pain and dysphagia/odynophagia on and off for the last 2 weeks duration and weight loss of 20 pounds in the last 2 months. Rule out possibility of esophageal stricture. 2. History of Parkinson disease with prior history of oropharyngeal dysphagia. She had a PEG tube placement by Dr. Vieira in 2018 and subsequently removed 6 months later with improved swallowing. 3. History of gastroesophageal reflux disease, has been maintained on Protonix 40 mg daily. RECOMMENDATION: I had a lengthy discussion with the patient regarding proceeding with an EGD and possibility of PEG tube placement. At this time she refuses to have another PEG tube placed. She wants to have an EGD done first, evaluate and based on the findings, she will decide if she wants to have a gastrostomy tube in the future. She is scheduled for an upper endoscopy tomorrow. In the meantime, continue with Protonix 40 mg daily and will follow with you closely. Thank you for this consultation. MMODL / IJN: [id number] /
[2020-01-05] MEDS: LACTATED RINGERS 1,000 ML IV SCH ×4 (05:23→22:16)
[2020-01-05 08:42] LABS: Basophils % (A) 0 %; Eosinophils # (A) 0.2 k/uL (0-0.7); Eosinophils % (A) 2 %; HCT 40.3 % (34.0-46.0); HGB 13.2 gm/dL (11.4-16.0); Lymphocytes # (A) 0.9 k/uL (1.0-4.8); Lymphocytes % (A) 8 %; MCH 31.8 pg (25.0-35.0); MCHC 32.7 g/dL (31.0-37.0); MCV 97.2 fL (80.0-100.0); Mean Platelet Volume 7.2; Monocytes # (A) 0.7 k/uL (0-1.0); Monocytes % (A) 6 %; Neutrophils # (A) 9.6 k/uL (1.3-7.7); Neutrophils % (A) 82 %; Platelet Count 185 k/uL (150-450); RBC 4.14 m/uL (3.80-5.40); RDW 13.6 % (11.5-15.5); WBC 11.8 k/uL (3.8-10.6)
[2020-01-05 08:51] LABS: African American GFR (CKD) >90 (>60 ml/min/1.73 sqM); Anion Gap 5 mmol/L; Blood Urea Nitrogen 14 mg/dL (7-17); Calcium 8.7 mg/dL (8.4-10.2); Carbon Dioxide 37 mmol/L (22-30); Chloride 98 mmol/L (98-107); Glucose 98 mg/dL (74-99); Non-African American GFR(CKD) 81 (>60 ml/min/1.73 sqM); Potassium 2.9 mmol/L (3.5-5.1); Sodium 140 mmol/L (137-145)
[2020-01-05] MEDS ORDERED: Potassium Replacement Protocol 1 EACH MISC MISCELLANE PRN (09:00)
[2020-01-05] MEDS: POTASSIUM CHLORIDE 10 MEQ in WATER FOR INJECTION 1 100ML.BAG IVPB SCH ×6 (09:18→15:56)
--- NOTE | 2020-01-05 12:59 | P.PN ---
Subjective Progress Note Date: 01/05/20 This is a pleasant 89-year-old female with a known history of Parkinson's disease, paroxysmal atrial fibrillation, followed by Dr. Gurrola. Percentage the emergency room with symptoms were progressive weakness and falling at home. No complaints of syncope. She has not been anticoagulated in the past because of unsteadiness while walking and multiple falls which has been discussed by Dr. Gurrola with her and her . She has no current complaints of chest discomfort, orthopnea PND. Continues to have episodes of extreme weakness upon standing. Complains of occasional edema but has none currently and occasional dyspnea on exertion but her activity is quite limited. Orthostatic blood pressures showed significant drop in systolic blood pressure from 190s lying to 80s standing. Patient is quite symptomatic. Continues to have significant orthostatic changes despite stopping Lasix and decreasing Lopressor. Continues to be on Florinef 0.1 mg by mouth twice a day. 01/05/2020 Patient was seen and examined resting comfortably in a chair this morning. She is scheduled to undergo upper endoscopy today following which she will make a determination whether or not to proceed with PEG tube placement. Continues to have significant orthostatic hypotension. Objective - Vital Signs Vital signs: Vital Signs Temp 97.9 F 01/05/20 08:00 Pulse 77 01/05/20 11:32 Resp 16 01/05/20 11:32 BP 124/69 01/05/20 11:32 Pulse Ox 95 01/05/20 11:32 Intake & Output 01/04/20 01/05/20 01/05/20 18:59 06:59 18:59 Intake Total 240 800 0 Output Total 200 800 Balance 40 800 -800 Weight 54.93 kg 58 kg Intake: Intake, IV Titration 800 Amount Lactated Ringers 1,000 ml 800 @ 20 mls/hr IV .Q24H [facility] Rx#:[id number] Oral 240 0 Output: Urine 200 800 Other: Voiding Method Bedpan # Voids 1 3 1 # Bowel Movements 0 0 - Exam PHYSICAL EXAMINATION: HEENT: Head is atraumatic, normocephalic. Pupils equal, round. Neck is supple. There is no elevated jugular venous pressure. HEART EXAMINATION: Heart sounds regular, S1 and S2 with a systolic murmur CHEST EXAMINATION: Lungs are clear to auscultation. No chest wall tenderness is noted on palpation or with deep breathing. ABDOMEN: Soft, nontender. Bowel sounds are heard. No organomegaly noted. EXTREMITIES: 2+ peripheral pulses with no evidence of peripheral edema and no calf tenderness noted. NEUROLOGIC patient is awake, alert and oriented x3. . - Labs CBC & Chem 7: 01/05/20 08:19 01/05/20 08:19 Labs: Abnormal Lab Results - Last 24 Hours (Table) 01/05/20 01/05/20 Range/Units 08:19 08:19 WBC 11.8 H (3.8-10.6) k/uL Neutrophils # 9.6 H (1.3-7.7) k/uL Lymphocytes # 0.9 L (1.0-4.8) k/uL Potassium 2.9 L (3.5-5.1) mmol/L Carbon Dioxide 37 H (22-30) mmol/L Assessment and Plan Assessment: #1 symptoms of orthostasis, systolic blood pressure dropped to 190s to 80s, likely due to autonomic dysfunction secondary to Parkinson's but could be exacerbated by dehydration as the patient has been unable to eat or drink while and has lost about 20 pounds #2 paroxysmal atrial fibrillation, maintained sinus mechanism, not anticoagulated because of frequent falls in the past #3 history of Parkinson's disease #4 bradycardia, likely worsened by beta estefania, improved with reduction of beta estefania dose Plan: From cardiology's perspective, medications were reviewed, we will add Midodrine. Continue metoprolol tartrate 25 mg by mouth 3 times a day and Florinef 0.1 mg by mouth twice a day. Apply compression stockings. We will continue to follow the patient and provide further recommendations accordingly. MID LEVEL PRACTITIONER note has been reviewed, I agree with a documented findings and plan of care. Patient was seen and examined.
[2020-01-05] MEDS ORDERED: LIDOCAINE 1% INJ 10MG/ML (20 ML MDV) ONE (14:47)
[2020-01-05] MEDS ORDERED: PROPOFOL 10 MG/ML 20 ML VIAL IV ONE (14:47)
[2020-01-05] MEDS ORDERED: IV FLUID CONTINUATION 1,000 ML IV ONE (14:48)
[2020-01-05] MEDS: CARBIDOPA-LEVODOPA 25-100 MG 1 EACH TAB PO SCH ×3 (14:52→22:16)
[2020-01-05] MEDS: METOPROLOL TARTRATE 25 MG TAB PO SCH ×3 (14:53→22:16)
[2020-01-05] MEDS: FLUDROCORTISONE 0.1 MG TAB PO SCH ×2 (14:53→22:16)
--- NOTE | 2020-01-05 15:02 | P.PCN ---
Date of Procedure: 01/05/20 Procedure(s) Performed: BRIEF HISTORY: Patient is a 89-year-old, pleasant, white female, admitted hospital with epigastric pain and dysphagia/odynophagia for the last 2 weeks' duration.. The PEG tube placement by Dr. Castillo 2018 for 6 months and subsequently removed. PROCEDURE PERFORMED: Esophagogastroduodenoscopy. PREOPERATIVE DIAGNOSIS: Dysphagia. IV sedation per anesthesia. PROCEDURE: After informed consent was obtained, the patient was brought into the endoscopy unit. IV sedation was administered by Anesthesia under continuous monitoring. Initially the Olympus GIF-140 video endoscope was inserted into the mouth. Esophagus intubated with some difficulty. difficulty. It was gradually advanced into the stomach and duodenum and carefully examined. The bulb and the second part of the duodenum appeared normal. The scope at this time was withdrawn to the stomach, adequately insufflated with air, and upon careful examination, mucosa of the antrum, had mild gastritis. The body, cardia and the fundus appeared normal. The scope was then withdrawn into the esophagus. The GE junction was located at 39 cm from the incisors. There was diffuse spasm throughout the entire esophagus suggestive of esophageal dysmotility but no obvious esophagitis or esophageal stricture identified. Patient tolerated the procedure well. IMPRESSION: 1. Evidence of diffuse esophageal dysmotility but no evidence of esophageal stricture or esophagitis 2. Mild gastritis. 3. 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 She'll be started on a soft diet. If she cannot tolerate the diet she will be a candidate for a PEG tube placement.
[2020-01-05] MEDS: DONEPEZIL 10 MG TAB PO SCH (16:02)
[2020-01-05] MEDS: PANTOPRAZOLE 40 MG TABLET PO SCH (16:03)
[2020-01-05] MEDS: MULTIVITAMINS, THERA 1 EACH TAB PO SCH (16:03)
[2020-01-05] MEDS: MEMANTINE 5 MG TAB PO SCH (16:03)
[2020-01-05] MEDS: MIDODRINE 5 MG TAB PO SCH (16:07)
--- NOTE | 2020-01-05 20:45 | P.PN ---
Progress Note - Text Progress Note Date: 01/05/20 Chief Complaint: Weak tired History of presenting complaint: This is a pleasant 89-year-old patient who follows a Dr. Vincent Montano. Chronic stable medical conditions include atrial fibrillation, GERD, hypertension, severe esophagitis, Parkinson's disease, kidney dysfunction, autonomic dysfunction and orthostatic hypotension, irritable bowel syndrome, stress incontinence,. Patient also has a diagnosis of severe presbyesophagus. Patient states in the past she's had an attempted dilatation of the esophagus that was unsuccessful by ENT physician. Patient did have a PEG tube in the past. When she was encouraged oral intake and subsequently the PEG tube was removed about 2 years ago. History is mainly supplemented by the at the bedside. Patient continues to have trouble with swallowing. Sometimes not able to keep the food also been before cause back up again. We diet. Swallowing is a trouble. As usual also having weight loss. No fever or chills. No shortness of breath no cough. Today-. Saw the patient this morning. Comfortable. Feels a bit better. Getting IV fluids. Awaiting EGD. Review of systems: Was done for constitutional, cardiovascular, GI, pulmonary. relevant finding as above Active Medications Carbidopa/Levodopa (Sinemet 25-100) 1 each PO BID@1400,2000 [facility] Last Admin: 01/05/20 16:06 Dose: 1 each Documented by: Carbidopa/Levodopa (Sinemet 25-100) 2 each PO DAILY@0800 [facility] Last Admin: 01/05/20 14:52 Dose: Not Given Documented by: Donepezil HCl (Aricept) 10 mg PO DAILY@0800 [facility] Last Admin: 01/05/20 16:02 Dose: 10 mg Documented by: Fludrocortisone Acetate (Florinef) 0.1 mg PO BID@0800,2000 [facility] Last Admin: 01/05/20 14:53 Dose: Not Given Documented by: Lactated Ringer's (Lactated Ringers) 1,000 mls @ 100 mls/hr IV .Q10H [facility] Last Admin: 01/05/20 14:53 Dose: Not Given Documented by: Lactated Ringer's (Lactated Ringers) 1,000 mls @ 20 mls/hr IV .Q24H [facility] Last Admin: 01/05/20 14:52 Dose: Not Given Documented by: Memantine (Namenda) 5 mg PO DAILY@0800 [facility] Last Admin: 01/05/20 16:03 Dose: 5 mg Documented by: Metoprolol Tartrate (Lopressor) 25 mg PO TID [facility] Last Admin: 01/05/20 16:03 Dose: 25 mg Documented by: Midodrine (Proamatine) 2.5 mg PO AC-TID [facility] Last Admin: 01/05/20 16:07 Dose: 2.5 mg Documented by: Miscellaneous Information (Potassium Per Protocol) 1 each MISCELLANE DAILY PRN; Protocol PRN Reason: Per Protocol Multivitamins (Theragran) 1 each PO DAILY@0800 [facility] Last Admin: 01/05/20 16:03 Dose: 1 each Documented by: Naloxone HCl (Narcan) 0.2 mg IV Q2M PRN PRN Reason: Opioid Reversal Mirabegron [ (Myrbetriq] 50 Mg) 50 mg PO DAILY@1800 [facility] Last Admin: 01/05/20 16:04 Dose: Not Given Documented by: Pantoprazole Sodium (Protonix) 40 mg PO DAILY@0800 [facility] Last Admin: 01/05/20 16:03 Dose: 40 mg Documented by: Pramipexole Dihydrochloride (Mirapex) 0.25 mg PO DAILY@1800 [facility] Last Admin: 01/04/20 19:01 Dose: 0.25 mg Documented by: Physical examination: VITAL SIGNS: 97.9, 67, 16, 158/74, 93% on room air GENERAL: Sitting up in a chair, very comfortable EYES: Pupils equal. Conjunctiva pale. HEENT: External appearance of nose and ears normal, oral cavity grossly normal. NECK: JVD not raised; masses not palpable. HEART: First and second heart sounds are normal; no edema. LUNGS: Respiratory rate normal; clear to auscultation. ABDOMEN: Soft, nontender, liver spleen not palpable, no masses palpable. PSYCH: Alert and oriented x3; mood and affect tiredl. NEUROLOGICAL: Tremors present. INVESTIGATIONS, reviewed in the clinical context: White count 11.8 hemoglobin 13.2 potassium 2.9 Previous testing White count 12.3 hemoglobin 13.5 platelets 224 pro time 12.5 potassium 3.7 bicarb 35 bun 22 creatinine 1.19 Troponin I 2 negative UA negative EKG tracing personally reviewed by me-normal sinus rhythm with a by vascular block Chest x-ray film personally reviewed by me-lung mckee are clear, some hyperinflation Assessment: -This is a patient with long-standing history of presbyesoesophagus and trouble with swallowing for a long time. In the past has had a PEG tube. That was discontinued about 2 years ago. And patient studied better. Admitted with progressive time oral intake is gradually gone down. Appetite is gone down bruising weight. Becoming more weak and tired. Patient cause fall of multiple including orthostatic muscle weakness with myopathy and dehydration -Myopathy, multifactorial -Orthostatic hypotension from Parkinson's from autonomic dysfunction. -GERD -Essential hypertension -Severe presbyesophagus -Idiopathic Parkinson's disease -Chronic gait dysfunction uses a walker -Irritable bowel syndrome -Urinary stress incontinence -Moderate protein calorie malnutrition from decreased oral intake -Acute kidney injury-prerenal from decreased oral intake-improved Plan: -Later this afternoon underwent EGD by Dr. Bao Bonilla. Did not seem any significant esophagitis. Severe motility disorder. Plan is to see how she does with feeding. If not she'll require a PEG tube. Patient symmetrically orthostatic because of autonomic dysfunction.
[2020-01-05] MEDS: PRAMIPEXOLE 0.25 MG TAB PO SCH (22:16)
[2020-01-06] MEDS: LACTATED RINGERS 1,000 ML IV SCH ×4 (09:26→20:57)
[2020-01-06] MEDS: MIDODRINE 5 MG TAB PO SCH ×3 (09:28→17:48)
[2020-01-06] MEDS: DONEPEZIL 10 MG TAB PO SCH (09:29)
[2020-01-06] MEDS: CARBIDOPA-LEVODOPA 25-100 MG 1 EACH TAB PO SCH ×3 (09:29→20:58)
[2020-01-06] MEDS: FLUDROCORTISONE 0.1 MG TAB PO SCH ×2 (09:30→21:30)
[2020-01-06] MEDS: MEMANTINE 5 MG TAB PO SCH (09:30)
[2020-01-06] MEDS: PANTOPRAZOLE 40 MG TABLET PO SCH (09:30)
[2020-01-06] MEDS: METOPROLOL TARTRATE 25 MG TAB PO SCH ×3 (09:30→20:58)
[2020-01-06] MEDS: MULTIVITAMINS, THERA 1 EACH TAB PO SCH (09:30)
--- NOTE | 2020-01-06 12:02 | P.PN ---
Subjective Progress Note Date: 01/06/20 This is a pleasant 89-year-old female with a known history of Parkinson's disease, paroxysmal atrial fibrillation, followed by Dr. Gurrola. Percentage the emergency room with symptoms were progressive weakness and falling at home. No complaints of syncope. She has not been anticoagulated in the past because of unsteadiness while walking and multiple falls which has been discussed by Dr. Gurrola with her and her . She has no current complaints of chest discomfort, orthopnea PND. Continues to have episodes of extreme weakness upon standing. Complains of occasional edema but has none currently and occasional dyspnea on exertion but her activity is quite limited. Orthostatic blood pressures showed significant drop in systolic blood pressure from 190s lying to 80s standing. Patient is quite symptomatic. Continues to have significant orthostatic changes despite stopping Lasix and decreasing Lopressor. Continues to be on Florinef 0.1 mg by mouth twice a day. 01/05/2020 Patient was seen and examined resting comfortably in a chair this morning. She is scheduled to undergo upper endoscopy today following which she will make a determination whether or not to proceed with PEG tube placement. Continues to have significant orthostatic hypotension. 01/06/2020 She was seen and examined today resting in bed. Continues to have significant difficulty swallowing with regurgitation of fluids at this time. EGD performed yesterday showed evidence of diffuse esophageal dysmotility but no evidence of esophageal stricture or esophagitis, mild gastritis, mild cricopharyngeal dysfunction. She was started on a soft diet but if this is not tolerated she's recommended to undergo PEG tube placement. No orthostatic vital signs have been completed yet today. Patient was up to the bedside commode and denies any dizziness, weakness, lightheadedness, syncope or near syncope at that time. She continues on metoprolol 25 mg by mouth 3 times a day, Midodrine 2.5 mg 3 times a day, Sinemet, Aricept, Florinef 0.1 mg by mouth twice a day. Objective - Vital Signs Vital signs: Vital Signs Temp 97.9 F 01/05/20 15:30 Pulse 59 L 01/06/20 04:00 Resp 18 01/06/20 04:00 BP 156/68 01/06/20 04:00 Pulse Ox 93 L 01/06/20 04:00 Intake & Output 01/05/20 01/06/20 01/06/20 18:59 06:59 18:59 Intake Total 340 Output Total 1000 200 Balance -660 -200 Weight 58.5 kg 58.5 kg Intake: IV 100 Oral 240 Output: Urine 1000 200 Other: Voiding Method Bedpan # Voids 0 1 2 # Bowel Movements 1 1 - Exam PHYSICAL EXAMINATION: HEENT: Head is atraumatic, normocephalic. Pupils equal, round. Neck is supple. There is no elevated jugular venous pressure. HEART EXAMINATION: Heart sounds regular, S1 and S2 with a systolic murmur CHEST EXAMINATION: Lungs are clear to auscultation. No chest wall tenderness is noted on palpation or with deep breathing. ABDOMEN: Soft, nontender. Bowel sounds are heard. No organomegaly noted. EXTREMITIES: 2+ peripheral pulses with no evidence of peripheral edema and no calf tenderness noted. NEUROLOGIC patient is awake, alert and oriented x3. . - Labs CBC & Chem 7: 01/05/20 08:19 01/05/20 13:47 Assessment and Plan Assessment: #1 symptoms of orthostasis, systolic blood pressure dropped to 190s to 80s, likely due to autonomic dysfunction secondary to Parkinson's, could be exacerbated by dehydration as the patient has been unable to eat or drink for a while and has lost about 20 pounds #2 paroxysmal atrial fibrillation, maintained sinus mechanism, not anticoagulated because of frequent falls in the past #3 history of Parkinson's disease #4 bradycardia, likely worsened by beta estefania, improved with reduction of beta estefania dose #5 severe esophageal dysmotility, followed by GI Plan: From cardiology's perspective, medications were reviewed, we will continue the same. Continue compression stockings. Continue to follow orthostatic vital signs. We will continue to follow the patient and provide further recommendations accordingly. [employer]CH[employer] PROJECT MANAGER note has been reviewed, I agree with a documented findings and plan of care. Patient was seen and examined.
[2020-01-06 16:19] LABS: INR 1.2 (<1.2); Prothrombin Time 11.7 sec (9.0-12.0)
[2020-01-06] MEDS: PRAMIPEXOLE 0.25 MG TAB PO SCH (17:48)
--- NOTE | 2020-01-06 18:46 | CDI ---
Documentation Clarification Form Date: 01/06/2020 06:21:08 PM From: Jeimy Acuna RN CCDS Admit Date: 01/03/2020 01:08:00 PM Patient Name: Mary Lewis Visit Number: [id number] Discharge Date: ATTENTION: The Clinical Documentation Specialists (CDI) and [facility] Coding Staff appreciate your assistance in clarifying documentation. Please respond to the clarification below the line at the bottom and electronically sign. The CDI & [facility] Coding staff will review the response and follow-up if needed. Please note: Queries are made part of the Legal Health Record. If you have any questions, please contact the author of this message via ITS. Dr. Chidi Shea CHF is documented in the H&P 01/02 under medical history History/Risk Factors: 89-year-old female presenting with weakness all over and falling. Unclear if pt lost consciousness for a second or two. Medical history; Atrial fibrillation, Heart failure, Parkinsons disease Autonomic dysfunction, HTN and Orthostatic Hypotension. Clinical Indicators: 01/02 VS/Pulse OX: B/P 67/42; HR 52; Temp 97.5F; RR 18; SpO2 95% room air 01/02 Echocardiogram Results: mild concentric left ventricular hypertrophy. Ventricular function is normal with an EF between 55 - 60%. Right ventricle is normal in size. Mild mitral regurgitation is present. Mild tricuspid regurgitation present. 01/02 Chest X Ray: No acute cardiopulmonary process. Home meds Lopressor 50mg PO BID, Lasix 20mg PO Daily Treatment: 01/02 Lopressor 25mg PO TID In your professional opinion, can you please clarify the acuity and type of CHF if known? Chronic Diastolic Heart Failure Heart Failure Ruled Out Unable to Determine Other, please specify (Last Revision: October 2017) No CHF MTDD
--- NOTE | 2020-01-06 19:28 | PN ---
PROGRESS NOTE DATE OF DICTATION: 01/06/2020 This patient is an 89-year-old pleasant white female with history of Parkinson's disease, atrial fibrillation, gastroesophageal reflux disease, admitted to the hospital because of dysphagia. She underwent an upper endoscopy yesterday that showed severe esophageal dysmotility, but no obvious esophageal stricture was identified. Following the procedure, I had a lengthy discussion with the patient and she was advised to continue with a soft diet and see if she can meet her caloric intake. However, today she tried some Ensure and had severe regurgitation and dysphagia, and hence she decided to have a PEG tube placement tomorrow. PHYSICAL EXAMINATION: She appears comfortable. No apparent distress. Vital signs are stable. Blood pressure is 144/86, pulse rate 71, temperature 96.9. HEENT examination unremarkable. Conjunctivae pink. Sclerae anicteric. Oral cavity no lesions. NECK: No JVD or lymph node enlargement. CHEST: Clear to auscultation. HEART: Regular rate and rhythm. ABDOMEN: Soft. Bowel sounds are positive. No organomegaly. EXTREMITIES: No pedal edema. SKIN: No rashes. NEUROLOGIC: Alert and oriented x3. No focal deficits. LABS: WBC 11.8, hemoglobin 13.2, platelets normal. Basic metabolic panel is normal. PT/INR is 1.2. IMPRESSION: 1. Severe dysphagia secondary to esophageal dysmotility, status post esophagogastroduodenoscopy yesterday that did not show any evidence of esophageal stricture. Patient continues to remain symptomatic with passive regurgitation, difficulty swallowing with soft foods. 2. History of Parkinson's disease. 3. History of hypertension and hyperlipidemia. 4. Gastroesophageal reflux disease, on Protonix 40 mg daily. RECOMMENDATIONS: Once again, I had a lengthy discussion with the patient regarding placement of a PEG tube. She is agreeable to proceed with it tomorrow. In the meantime, advised to continue with a soft diet, continue with Protonix 40 mg daily, and will follow with you. Thank you for this consultation. MMODL / IJN: [id number] /
--- NOTE | 2020-01-06 20:31 | P.PN ---
Progress Note - Text Progress Note Date: 01/06/20 Chief Complaint: Weak tired History of presenting complaint: This is a pleasant 89-year-old patient who follows a Dr. Vincent Montano. Chronic stable medical conditions include atrial fibrillation, GERD, hypertension, severe esophagitis, Parkinson's disease, kidney dysfunction, autonomic dysfunction and orthostatic hypotension, irritable bowel syndrome, stress incontinence,. Patient also has a diagnosis of severe presbyesophagus. Patient states in the past she's had an attempted dilatation of the esophagus that was unsuccessful by ENT physician. Patient did have a PEG tube in the past. When she was encouraged oral intake and subsequently the PEG tube was removed about 2 years ago. History is mainly supplemented by the at the bedside. Patient continues to have trouble with swallowing. Sometimes not able to keep the food also been before cause back up again. We diet. Swallowing is a trouble. As usual also having weight loss. No fever or chills. No shortness of breath no cough. EGD done on January [address] Bao Bonilla showed severe presbyesophagus. No obvious esophagitis. Today-. Patient again throwing up this morning. Tired. Sitting upon a chair. Review of systems: Was done for constitutional, cardiovascular, GI, pulmonary. relevant finding as above Active Medications Carbidopa/Levodopa (Sinemet 25-100) 1 each PO BID@1400,1999 [facility] Last Admin: 01/06/20 13:14 Dose: 1 each Documented by: Carbidopa/Levodopa (Sinemet 25-100) 2 each PO DAILY@0800 [facility] Last Admin: 01/06/20 09:29 Dose: 2 each Documented by: Donepezil HCl (Aricept) 10 mg PO DAILY@0800 [facility] Last Admin: 01/06/20 09:29 Dose: 10 mg Documented by: Fludrocortisone Acetate (Florinef) 0.1 mg PO BID@799,1999 [facility] Last Admin: 01/06/20 09:30 Dose: 0.1 mg Documented by: Lactated Ringer's (Lactated Ringers) 1,000 mls @ 100 mls/hr IV .Q10H [facility] Last Admin: 01/06/20 17:27 Dose: Not Given Documented by: Lactated Ringer's (Lactated Ringers) 1,000 mls @ 20 mls/hr IV .Q24H [facility] Last Admin: 01/06/20 13:15 Dose: Not Given Documented by: Cefazolin Sodium 1,000 mg/ (Sodium Chloride) 50 mls @ 100 mls/hr IVPB Q8HR [facility] Stop: 01/07/20 07:29 Memantine (Namenda) 5 mg PO DAILY@0800 [facility] Last Admin: 01/06/20 09:30 Dose: 5 mg Documented by: Metoprolol Tartrate (Lopressor) 25 mg PO TID [facility] Last Admin: 01/06/20 17:48 Dose: 25 mg Documented by: Midodrine (Proamatine) 2.5 mg PO AC-TID [facility] Last Admin: 01/06/20 17:48 Dose: 2.5 mg Documented by: Miscellaneous Information (Potassium Per Protocol) 1 each MISCELLANE DAILY PRN; Protocol PRN Reason: Per Protocol Multivitamins (Theragran) 1 each PO DAILY@0800 [facility] Last Admin: 01/06/20 09:30 Dose: 1 each Documented by: Naloxone HCl (Narcan) 0.2 mg IV Q2M PRN PRN Reason: Opioid Reversal Mirabegron [ (Myrbetriq] 50 Mg) 50 mg PO DAILY@1800 [facility] Last Admin: 01/06/20 17:27 Dose: Not Given Documented by: Pantoprazole Sodium (Protonix) 40 mg PO DAILY@0800 [facility] Last Admin: 01/06/20 09:30 Dose: 40 mg Documented by: Pramipexole Dihydrochloride (Mirapex) 0.25 mg PO DAILY@1800 [facility] Last Admin: 01/06/20 17:48 Dose: 0.25 mg Documented by: Physical examination: VITAL SIGNS: 96.9, 65, 18, 150/80, 92% room air GENERAL: Sitting up in a chair, tired EYES: Pupils equal. Conjunctiva pale. HEENT: External appearance of nose and ears normal, oral cavity grossly normal. NECK: JVD not raised; masses not palpable. HEART: First and second heart sounds are normal; no edema. LUNGS: Respiratory rate normal; clear to auscultation. ABDOMEN: Soft, nontender, liver spleen not palpable, no masses palpable. PSYCH: Alert and oriented x3; mood and affect tiredl. NEUROLOGICAL: Tremors present. INVESTIGATIONS, reviewed in the clinical context: White count 11.8 hemoglobin 13.2 potassium 2.9 Previous testing White count 12.3 hemoglobin 13.5 platelets 224 pro time 12.5 potassium 3.7 bicarb 35 bun 22 creatinine 1.19 Troponin I 2 negative UA negative EKG tracing personally reviewed by me-normal sinus rhythm with a by vascular block Chest x-ray film personally reviewed by me-lung mckee are clear, some hyperinflation Assessment: -This is a patient with long-standing history of presbyesoesophagus and trouble with swallowing for a long time. In the past has had a PEG tube. That was discontinued about 2 years ago. And patient studied better. Admitted with progressive time oral intake is gradually gone down. Appetite is gone down bruising weight. Becoming more weak and tired. Patient cause fall of multiple including orthostatic muscle weakness with myopathy and dehydration -Severe presbyesophagus -Myopathy, multifactorial -Orthostatic hypotension from Parkinson's from autonomic dysfunction. -GERD -Essential hypertension -Severe presbyesophagus -Idiopathic Parkinson's disease -Chronic gait dysfunction uses a walker -Irritable bowel syndrome -Urinary stress incontinence -Moderate protein calorie malnutrition from decreased oral intake -Acute kidney injury-prerenal from decreased oral intake-improved Plan: -Had a very lengthy discussion of the bedside with the patient. Did explain that the condition of presbyesophagus and she's had for some time is rather relentless. The only intermittent periods of time that she is able to eat. She has lost significant amount of weight. This extended waiting will not change anything and she's had this for a long time a prior PEG tube for the same reason. Patient is agreeable to move forward with a PEG tube. Did convey this to run a and P for GI. Patient is being scheduled for tomorrow. Total time spent today was about 45 minutes with over 25 minutes of discussion.
[2020-01-07 02:32] LABS: Glucose,Whole Blood 122 mg/dL (75-99)
--- NOTE | 2020-01-07 02:32 | CT ---
EXAMINATION TYPE: CT brain cspine wo con DATE OF EXAM: 01/07/2020 COMPARISON: CT brain 01/02/2020 HISTORY: fall Headache. Neck pain CT DLP: 1282 mGycm Automated exposure control for dose reduction was used. There is some cerebral cortical atrophy. There is no mass effect nor midline shift. There is no sign of intracranial hemorrhage. The calvarium is intact. There is no evidence of cerebral edema. Cervical vertebra have normal alignment. There is degenerative disc space narrowing at C4-5 and C5-6 with spurring. The skull base is intact. Posterior elements are intact. There is some hypertrophic os teophyte formation on the anterior aspect of the lateral mass of C1 vertebra on the right side. IMPRESSION: Cerebral atrophy appropriate for age. No acute intracranial abnormality. Right posterior temporal par ietal scalp hematoma is a change compared to old exam. Spondylotic changes in the cervical spine. No fracture seen.
[2020-01-07] MEDS ORDERED: PROPOFOL 10 MG/ML 20 ML VIAL IV ONE (08:27)
[2020-01-07] MEDS ORDERED: IV FLUID CONTINUATION 300 ML IV ONE (08:29)
--- NOTE | 2020-01-07 08:47 | P.PCN ---
Date of Procedure: 01/07/20 Procedure(s) Performed: Brief history: Patient is a -[age] year-old pleasant white female scheduled for an EGD with PEG tube placement today.. She is been complaining of dysphagia for liquids and solids for the last few weeks duration. She had an upper Endoscopy done 2 days ago that showed severe esophageal dysmotility and no evidence of esophageal stricture. Her oral intake has been significantly low with Procedure performed: EGD with PEG tube placement Preoperative diagnosis: Severe dysphagia secondary to esophageal dysmotility IV sedation by anesthesia Procedure: After informed consent was obtained with the patient as well as the family the patient was brought into the endoscopy unit. IV conscious sedation was administered by anesthesia under continuous monitoring. The Olympus GF 160 video endoscope was inserted into the mouth and esophagus intubated without any difficulty and was gradually advanced to the stomach and duodenum. The bulb and second part of the duodenum was visualized which appeared normal. The scope at this time was withdrawn to the stomach adequately insufflated with air. Adequate transillumination was achieved onto the anterior abdominal wall. At the site of adequate transillumination and maximal finger indentation, on the anterior abdominal wall, this area was sterilely prepped and draped. One percent Xylocaine was infiltrated into the skin and a small incision was made. Trocar and cannula was passed through the incision into the stomach cavity. The trocar was removed. Guidewire was passed through the cannula into the stomach cavity which was held by the snare that was passed through the scope. The guidewire along with the scope was gently withdrawn from the stomach esophagus out of the mouth. A 20-Amharic [employer] PEG tube was passed over the guidewire and was gently advanced into the mouth and esophagus and stomach. With gentle traction the guidewire along with the PEG tube was pulled from the anterior abdominal wall until the internal bumper appeared to be in secure position. Repeat EGD was performed and the esophagus intubated without any difficulty and was advanced into the stomach. The internal bumper appeared to be in secure position. The visualized portions of the antrum body cardia and fundus of the stomach appeared normal. The esophagus was carefully examined as the scope was gradually being withdrawn which appeared normal. At this time external bumper was placed on the PEG tube closer to the anterior abdominal wall at 3 cm sindy. The patient tolerated the procedure well. Impression: Successful 20-Amharic [employer] PEG tube placement as described above. Recommendations: Findings of this examination were discussed with the patient's family. The patient will be started on tube feeds tomorrow. Post-PEG tube orders were written.
[2020-01-07] MEDS ORDERED: ACETAMINOPHEN TAB 325 MG TAB PO PRN (09:59)
[2020-01-07] MEDS: MIDODRINE 5 MG TAB PO SCH ×3 (10:04→18:02)
[2020-01-07] MEDS: METOPROLOL TARTRATE 25 MG TAB PO SCH ×3 (10:12→22:15)
[2020-01-07] MEDS: PANTOPRAZOLE 40 MG TABLET PO SCH (10:12)
[2020-01-07] MEDS: MEMANTINE 5 MG TAB PO SCH (10:12)
[2020-01-07] MEDS: DONEPEZIL 10 MG TAB PO SCH (10:13)
[2020-01-07] MEDS: MULTIVITAMINS, THERA 1 EACH TAB PO SCH (10:13)
[2020-01-07] MEDS: CARBIDOPA-LEVODOPA 25-100 MG 1 EACH TAB PO SCH ×3 (10:13→22:15)
[2020-01-07] MEDS: FLUDROCORTISONE 0.1 MG TAB PO SCH ×2 (11:00→22:15)
[2020-01-07 11:46] LABS: HCT 37.8 % (34.0-46.0); HGB 12.4 gm/dL (11.4-16.0); MCH 31.8 pg (25.0-35.0); MCV 96.5 fL (80.0-100.0); Mean Platelet Volume 7.2; Platelet Count 176 k/uL (150-450); RBC 3.91 m/uL (3.80-5.40); RDW 13.8 % (11.5-15.5); WBC 7.5 k/uL (3.8-10.6)
[2020-01-07 11:51] LABS: African American GFR (CKD) >90 (>60 ml/min/1.73 sqM); Anion Gap 3 mmol/L; Blood Urea Nitrogen 14 mg/dL (7-17); Calcium 8.6 mg/dL (8.4-10.2); Carbon Dioxide 34 mmol/L (22-30); Chloride 102 mmol/L (98-107); Glucose 122 mg/dL (74-99); Magnesium 1.3 mg/dL (1.6-2.3); Non-African American GFR(CKD) 85 (>60 ml/min/1.73 sqM); Potassium 2.8 mmol/L (3.5-5.1); Sodium 139 mmol/L (137-145)
--- NOTE | 2020-01-07 14:52 | P.PN ---
Subjective Progress Note Date: 01/07/20 This is a pleasant 89-year-old female with a known history of Parkinson's disease, paroxysmal atrial fibrillation, followed by Dr. Gurrola. Percentage the emergency room with symptoms were progressive weakness and falling at home. No complaints of syncope. She has not been anticoagulated in the past because of unsteadiness while walking and multiple falls which has been discussed by Dr. Gurrola with her and her . She has no current complaints of chest discomfort, orthopnea PND. Continues to have episodes of extreme weakness upon standing. Complains of occasional edema but has none currently and occasional dyspnea on exertion but her activity is quite limited. Orthostatic blood pressures showed significant drop in systolic blood pressure from 190s lying to 80s standing. Patient is quite symptomatic. Continues to have significant orthostatic changes despite stopping Lasix and decreasing Lopressor. Continues to be on Florinef 0.1 mg by mouth twice a day. 01/05/2020 Patient was seen and examined resting comfortably in a chair this morning. She is scheduled to undergo upper endoscopy today following which she will make a determination whether or not to proceed with PEG tube placement. Continues to have significant orthostatic hypotension. 01/06/2020 She was seen and examined today resting in bed. Continues to have significant difficulty swallowing with regurgitation of fluids at this time. EGD performed yesterday showed evidence of diffuse esophageal dysmotility but no evidence of esophageal stricture or esophagitis, mild gastritis, mild cricopharyngeal dysfunction. She was started on a soft diet but if this is not tolerated she's recommended to undergo PEG tube placement. No orthostatic vital signs have been completed yet today. Patient was up to the bedside commode and denies any dizziness, weakness, lightheadedness, syncope or near syncope at that time. She continues on metoprolol 25 mg by mouth 3 times a day, Midodrine 2.5 mg 3 times a day, Sinemet, Aricept, Florinef 0.1 mg by mouth twice a day. 01/07/2020 The patient was seen and examined today resting in bed. She underwent placement of a PEG tube this morning by Dr. Soraya echeverria. Patient did get up out of bed last night by herself, became weak and fell with a scalp laceration. Computed tomography scan of the head showed cerebral atrophy appropriate for age, no acute intracranial abnormality, right posterior temporal parietal scalp hematoma. Labs this morning show normal CBC, potassium 2.8, BUN 14, creatinine 0.54. Blood pressure has been stable, no documented orthostatic blood pressures today. Objective - Vital Signs Vital signs: Vital Signs Temp 94 F L 01/07/20 11:03 Pulse 63 01/07/20 11:03 Resp 18 01/07/20 11:03 BP 125/69 01/07/20 11:03 Pulse Ox 94 L 01/07/20 11:03 Intake & Output 01/06/20 01/07/20 01/07/20 18:59 06:59 18:59 Intake Total 480 100 Output Total 200 Balance 480 -200 100 Weight 58.1 kg 59.5 kg Intake: IV 100 Oral 480 Output: Urine 200 Other: Voiding Method Bedpan Bedpan Bedpan # Voids 1 1 2 - Exam PHYSICAL EXAMINATION: HEENT: Right posterior scalp laceration noted. Pupils equal, round. Neck is supple. There is no elevated jugular venous pressure. HEART EXAMINATION: Heart sounds regular, S1 and S2 with a systolic murmur CHEST EXAMINATION: Lungs are clear to auscultation. No chest wall tenderness is noted on palpation or with deep breathing. ABDOMEN: Soft, nontender. Bowel sounds are heard. No organomegaly noted. EXTREMITIES: 2+ peripheral pulses with no evidence of peripheral edema and no calf tenderness noted. NEUROLOGIC patient is awake, alert and oriented x3. - Labs CBC & Chem 7: 01/07/20 11:25 01/07/20 11:25 Labs: Abnormal Lab Results - Last 24 Hours (Table) 01/06/20 01/07/20 01/07/20 Range/Units 15:28 02:13 11:25 INR 1.2 H (<1.2) Potassium 2.8 L (3.5-5.1) mmol/L Carbon Dioxide 34 H (22-30) mmol/L Glucose 122 H (74-99) mg/dL POC Glucose (mg/dL) 122 H (75-99) mg/dL Magnesium 1.3 L (1.6-2.3) mg/dL Assessment and Plan Assessment: #1 symptoms of orthostasis, systolic blood pressure dropped to 190s to 80s, likely due to autonomic dysfunction secondary to Parkinson's, could be e xacerbated by dehydration as the patient has been unable to eat or drink for a while and has lost about 20 pounds #2 paroxysmal atrial fibrillation, maintained sinus mechanism, not anticoagulated because of frequent falls in the past #3 history of Parkinson's disease #4 bradycardia, likely worsened by beta estefania, improved with reduction of beta estefania dose #5 severe esophageal dysmotility, followed by GI, s/p PEG tube placement #6 s/p fall, head laceration, scalp hematoma Plan: From cardiology's perspective, medications were reviewed, we will continue the same. Continue compression stockings. Continue to follow orthostatic vital signs. We will continue to follow the patient and provide further recommendations accordingly. FUEL SYSTEM MAINTENANCE WORKER note has been reviewed, I agree with a documented findings and plan of care. Patient was seen and examined.
[2020-01-07] MEDS: LACTATED RINGERS 1,000 ML IV SCH (15:15)
--- NOTE | 2020-01-07 17:19 | P.PN ---
Progress Note - Text Progress Note Date: 01/07/20 Chief Complaint: Weak tired History of presenting complaint: This is a pleasant 89-year-old patient who follows a Dr. Vincent Montano. Chronic stable medical conditions include atrial fibrillation, GERD, hypertension, severe esophagitis, Parkinson's disease, kidney dysfunction, autonomic dysfunction and orthostatic hypotension, irritable bowel syndrome, stress incontinence,. Patient also has a diagnosis of severe presbyesophagus. Patient states in the past she's had an attempted dilatation of the esophagus that was unsuccessful by ENT physician. Patient did have a PEG tube in the past. When she was encouraged oral intake and subsequently the PEG tube was removed about 2 years ago. History is mainly supplemented by the at the bedside. Patient continues to have trouble with swallowing. Sometimes not able to keep the food also been before cause back up again. We diet. Swallowing is a trouble. As usual also having weight loss. No fever or chills. No shortness of breath no cough. EGD done on January [address] Bao Bonilla showed severe presbyesophagus. No obvious esophagitis.patient had a PEG tube placed after she agreed by Dr. Bao Bonilla on January 06. Today-. patient again regurgitated this morning. Sitting upon a chair. Tired. She is glad that she decided to proceed with a PEG tube. Review of systems: Was done for constitutional, cardiovascular, GI, pulmonary. relevant finding as above Active Medications Acetaminophen (Tylenol Tab) 650 mg PO Q6HR PRN PRN Reason: Fever and/ or Pain Last Admin: 01/07/20 10:13 Dose: 650 mg Documented by: Carbidopa/Levodopa (Sinemet 25-100) 1 each PO BID@1400,2000 [facility] Last Admin: 01/07/20 15:08 Dose: 1 each Documented by: Carbidopa/Levodopa (Sinemet 25-100) 2 each PO DAILY@0800 [facility] Last Admin: 01/07/20 10:13 Dose: 2 each Documented by: Donepezil HCl (Aricept) 10 mg PO DAILY@0800 [facility] Last Admin: 01/07/20 10:13 Dose: 10 mg Documented by: Fludrocortisone Acetate (Florinef) 0.1 mg PO BID@0800,2000 [facility] Last Admin: 01/07/20 11:00 Dose: 0.1 mg Documented by: Lactated Ringer's (Lactated Ringers) 1,000 mls @ 100 mls/hr IV .Q10H [facility] Last Admin: 01/07/20 15:15 Dose: 100 mls/hr Documented by: Memantine (Namenda) 5 mg PO DAILY@0800 [facility] Last Admin: 01/07/20 10:12 Dose: 5 mg Documented by: Metoprolol Tartrate (Lopressor) 25 mg PO TID [facility] Last Admin: 01/07/20 15:08 Dose: 25 mg Documented by: Midodrine (Proamatine) 2.5 mg PO AC-TID [facility] Last Admin: 01/07/20 12:39 Dose: 2.5 mg Documented by: Miscellaneous Information (Potassium Per Protocol) 1 each MISCELLANE DAILY PRN; Protocol PRN Reason: Per Protocol Multivitamins (Theragran) 1 each PO DAILY@0800 [facility] Last Admin: 01/07/20 10:13 Dose: 1 each Documented by: Naloxone HCl (Narcan) 0.2 mg IV Q2M PRN PRN Reason: Opioid Reversal Mirabegron [ (Myrbetriq] 50 Mg) 50 mg PO DAILY@1800 [facility] Last Admin: 01/06/20 17:27 Dose: Not Given Documented by: Pantoprazole Sodium (Protonix) 40 mg PO DAILY@0800 [facility] Last Admin: 01/07/20 10:12 Dose: 40 mg Documented by: Pramipexole Dihydrochloride (Mirapex) 0.25 mg PO DAILY@1800 [facility] Last Admin: 01/06/20 17:48 Dose: 0.25 mg Documented by: Physical examination: VITAL SIGNS: 97.6, 85, 18, 105/54, 94% room air GENERAL: Sitting up in a chair, tired EYES: Pupils equal. Conjunctiva pale. HEENT: External appearance of nose and ears normal, oral cavity grossly normal. NECK: JVD not raised; masses not palpable. HEART: First and second heart sounds are normal; no edema. LUNGS: Respiratory rate normal; clear to auscultation. ABDOMEN: Soft, nontender, liver spleen not palpable, no masses palpable. PSYCH: Alert and oriented x3; mood and affect tired. NEUROLOGICAL: Tremors present. INVESTIGATIONS, reviewed in the clinical context: white count 7.5 hemoglobin 12.4 potassium 2.8. Magnesium 1.3 Previous testing White count 12.3 hemoglobin 13.5 platelets 224 pro time 12.5 potassium 3.7 bicarb 35 bun 22 creatinine 1.19 Troponin I 2 negative UA negative EKG tracing personally reviewed by me-normal sinus rhythm with a by vascular block Chest x-ray film personally reviewed by me-lung mckee are clear, some hyperinflation Assessment: -This is a patient with long-standing history of presbyesoesophagus and trouble with swallowing for a long time. In the past has had a PEG tube. That was discontinued about 2 years ago. And patient studied better. Admitted with progressive time oral intake is gradually gone down. Appetite is gone down bruising weight. Becoming more weak and tired. Patient cause fall of multiple including orthostatic muscle weakness with myopathy and dehydration -Severe presbyesophagus-causing recurrent regurgitation -PEG tube placed on January 06 -Myopathy, multifactorial -Orthostatic hypotension from Parkinson's from autonomic dysfunction. 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 only let her try full liquids. PEG tube feeding to be resumed when okay with Dr. Bao Bonilla. replace electrolytes. Continue IV fluids.
[2020-01-07] MEDS: POTASSIUM CHLORIDE ER 20 MEQ TAB.ER PO SCH ×2 (18:02→22:15)
[2020-01-07] MEDS: PRAMIPEXOLE 0.25 MG TAB PO SCH (18:02)
[2020-01-07] MEDS: MAGNESIUM OXIDE 400 MG TAB PO SCH (22:15)
[2020-01-08] MEDS: LACTATED RINGERS 1,000 ML IV SCH ×2 (04:16→16:03)
[2020-01-08 06:59] LABS: African American GFR (CKD) >90 (>60 ml/min/1.73 sqM); Anion Gap 1 mmol/L; Blood Urea Nitrogen 20 mg/dL (7-17); Calcium 8.4 mg/dL (8.4-10.2); Carbon Dioxide 35 mmol/L (22-30); Chloride 104 mmol/L (98-107); Glucose 91 mg/dL (74-99); Non-African American GFR(CKD) 80 (>60 ml/min/1.73 sqM); Potassium 3.7 mmol/L (3.5-5.1); Sodium 140 mmol/L (137-145)
[2020-01-08] MEDS: MEMANTINE 5 MG TAB PO SCH (08:51)
[2020-01-08] MEDS: CARBIDOPA-LEVODOPA 25-100 MG 1 EACH TAB PO SCH ×3 (08:51→20:58)
[2020-01-08] MEDS: MAGNESIUM OXIDE 400 MG TAB PO SCH ×2 (08:51→20:58)
[2020-01-08] MEDS: METOPROLOL TARTRATE 25 MG TAB PO SCH ×3 (08:51→20:58)
[2020-01-08] MEDS: PANTOPRAZOLE 40 MG TABLET PO SCH (08:51)
[2020-01-08] MEDS: DONEPEZIL 10 MG TAB PO SCH (08:51)
[2020-01-08] MEDS: MULTIVITAMINS, THERA 1 EACH TAB PO SCH (08:51)
[2020-01-08] MEDS: MIDODRINE 5 MG TAB PO SCH (08:52)
[2020-01-08] MEDS: FLUDROCORTISONE 0.1 MG TAB PO SCH ×2 (11:41→20:58)
[2020-01-08 11:47] VITALS: BMI 20.9
--- NOTE | 2020-01-08 12:36 | P.PN ---
Subjective Progress Note Date: 01/08/20 This is a pleasant 89-year-old female with a known history of Parkinson's disease, paroxysmal atrial fibrillation, followed by Dr. Gurrola. Percentage the emergency room with symptoms were progressive weakness and falling at home. No complaints of syncope. She has not been anticoagulated in the past because of unsteadiness while walking and multiple falls which has been discussed by Dr. Gurrola with her and her . She has no current complaints of chest discomfort, orthopnea PND. Continues to have episodes of extreme weakness upon standing. Complains of occasional edema but has none currently and occasional dyspnea on exertion but her activity is quite limited. Orthostatic blood pressures showed significant drop in systolic blood pressure from 190s lying to 80s standing. Patient is quite symptomatic. Continues to have significant orthostatic changes despite stopping Lasix and decreasing Lopressor. Continues to be on Florinef 0.1 mg by mouth twice a day. 01/05/2020 Patient was seen and examined resting comfortably in a chair this morning. She is scheduled to undergo upper endoscopy today following which she will make a determination whether or not to proceed with PEG tube placement. Continues to have significant orthostatic hypotension. 01/06/2020 She was seen and examined today resting in bed. Continues to have significant difficulty swallowing with regurgitation of fluids at this time. EGD performed yesterday showed evidence of diffuse esophageal dysmotility but no evidence of esophageal stricture or esophagitis, mild gastritis, mild cricopharyngeal dysfunction. She was started on a soft diet but if this is not tolerated she's recommended to undergo PEG tube placement. No orthostatic vital signs have been completed yet today. Patient was up to the bedside commode and denies any dizziness, weakness, lightheadedness, syncope or near syncope at that time. She continues on metoprolol 25 mg by mouth 3 times a day, Midodrine 2.5 mg 3 times a day, Sinemet, Aricept, Florinef 0.1 mg by mouth twice a day. 01/07/2020 The patient was seen and examined today resting in bed. She underwent placement of a PEG tube this morning by Dr. Soraya echeverria. Patient did get up out of bed last night by herself, became weak and fell with a scalp laceration. Computed tomography scan of the head showed cerebral atrophy appropriate for age, no acute intracranial abnormality, right posterior temporal parietal scalp hematoma. Labs this morning show normal CBC, potassium 2.8, BUN 14, creatinine 0.54. Blood pressure has been stable, no documented orthostatic blood pressures today. 01/08/2020 Patient was seen and examined today resting comfortably in bed. She is feeling somewhat better today. Has not been up out of bed yet and no orthostatic vital signs have been assessed this morning. Labs today showed potassium 3.7, BUN 20 and creatinine 0.65. He is to be started on tube feedings today. Blood pressure has been elevated. Objective - Vital Signs Vital signs: Vital Signs Temp 97.7 F 01/08/20 11:15 Pulse 57 L 01/08/20 11:15 Resp 16 01/08/20 11:15 BP 165/70 01/08/20 11:15 Pulse Ox 93 L 01/08/20 11:15 Intake & Output 01/07/20 01/08/20 01/08/20 18:59 06:59 18:59 Intake Total 710 800 240 Output Total 200 Balance 710 600 240 Weight 59 kg 59 kg Intake: IV 100 Intake, IV Titration 800 Amount Lactated Ringers 1,000 ml 800 @ 100 mls/hr IV .Q10H [facility] Rx#:[id number] Oral 610 240 Output: Urine 200 Other: Voiding Method Bedpan Bedpan Bedpan # Voids 1 2 - Exam PHYSICAL EXAMINATION: HEENT: Right posterior scalp laceration noted. Pupils equal, round. Neck is supple. There is no elevated jugular venous pressure. HEART EXAMINATION: Heart sounds regular, S1 and S2 with a systolic murmur CHEST EXAMINATION: Lungs are clear to auscultation. No chest wall tenderness is noted on palpation or with deep breathing. ABDOMEN: Soft, nontender. Bowel sounds are heard. No organomegaly noted. PEG tube noted EXTREMITIES: 2+ peripheral pulses with no evidence of peripheral edema and no calf tenderness noted. NEUROLOGIC patient is awake, alert and oriented x3. - Labs CBC & Chem 7: 01/07/20 11:25 01/08/20 05:55 Labs: Abnormal Lab Results - Last 24 Hours (Table) 01/08/20 Range/Units 05:55 Carbon Dioxide 35 H (22-30) mmol/L BUN 20 H (7-17) mg/dL Assessment and Plan Assessment: #1 symptoms of orthostasis, systolic blood pressure dropped to 190s to 80s, likely due to autonomic dysfunction secondary to Parkinson's, could be exacerbated by dehydration as the patient has been unable to eat or drink for a while and has lost about 20 pounds #2 paroxysmal atrial fibrillation, maintained sinus mechanism, not an ticoagulated because of frequent falls in the past #3 history of Parkinson's disease #4 bradycardia, likely worsened by beta estefania, improved with reduction of beta estefania dose #5 severe esophageal dysmotility, followed by GI, s/p PEG tube placement #6 s/p fall, head laceration, scalp hematoma Plan: From cardiology's perspective, medications were reviewed, we will stop Midodrine. Hopefully with the addition of tube feedings patient's orthostasis will improve somewhat. Continue compression stockings. Continue to follow orthostatic vital signs. We will continue to follow the patient and provide further recommendations accordingly. RETAIL SALES MANAGER note has been reviewed, I agree with a documented findings and plan of care. Patient was seen and examined.
--- NOTE | 2020-01-08 16:09 | P.PN ---
Progress Note - Text Progress Note Date: 01/08/20 Chief Complaint: Weak tired History of presenting complaint: This is a pleasant 89-year-old patient who follows a Dr. Vincent Montano. Chronic stable medical conditions include atrial fibrillation, GERD, hypertension, severe esophagitis, Parkinson's disease, kidney dysfunction, autonomic dysfunction and orthostatic hypotension, irritable bowel syndrome, stress incontinence,. Patient also has a diagnosis of severe presbyesophagus. Patient states in the past she's had an attempted dilatation of the esophagus that was unsuccessful by ENT physician. Patient did have a PEG tube in the past. When she was encouraged oral intake and subsequently the PEG tube was removed about 2 years ago. History is mainly supplemented by the at the bedside. Patient continues to have trouble with swallowing. Sometimes not able to keep the food also been before cause back up again. We diet. Swallowing is a trouble. As usual also having weight loss. No fever or chills. No shortness of breath no cough. EGD done on January [address] Bao Bonilla showed severe presbyesophagus. No obvious esophagitis.patient had a PEG tube placed after she agreed by Dr. Bao Bonilla on January 06. Today-. PEG tube feeding started by dietitian. Hoping to do bolus feeding eventually. Sitting upon a chair. Patient fell yesterday. Bumped the back of her head. Computed tomography scan showed a hematoma. No neurological deficits. Review of systems: Was done for constitutional, cardiovascular, GI, pulmonary. relevant finding as above Active Medications Acetaminophen (Tylenol Tab) 650 mg PO Q6HR PRN PRN Reason: Fever and/ or Pain Last Admin: 01/07/20 10:13 Dose: 650 mg Documented by: Carbidopa/Levodopa (Sinemet 25-100) 1 each PO BID@1400,2000 [facility] Last Admin: 01/07/20 22:15 Dose: 1 each Documented by: Carbidopa/Levodopa (Sinemet 25-100) 2 each PO DAILY@0800 [facility] Last Admin: 01/08/20 08:51 Dose: 2 each Documented by: Donepezil HCl (Aricept) 10 mg PO DAILY@0800 [facility] Last Admin: 01/08/20 08:51 Dose: 10 mg Documented by: Fludrocortisone Acetate (Florinef) 0.1 mg PO BID@0800,2000 [facility] Last Admin: 01/08/20 11:41 Dose: Not Given Documented by: Magnesium Oxide (Mag-Ox) 400 mg PO BID [facility] Last Admin: 01/08/20 08:51 Dose: 400 mg Documented by: Memantine (Namenda) 5 mg PO DAILY@0800 [facility] Last Admin: 01/08/20 08:51 Dose: 5 mg Documented by: Metoprolol Tartrate (Lopressor) 25 mg PO TID [facility] Last Admin: 01/08/20 08:51 Dose: 25 mg Documented by: Miscellaneous Information (Potassium Per Protocol) 1 each MISCELLANE DAILY PRN; Protocol PRN Reason: Per Protocol Multivitamins (Theragran) 1 each PO DAILY@0800 [facility] Last Admin: 01/08/20 08:51 Dose: 1 each Documented by: Naloxone HCl (Narcan) 0.2 mg IV Q2M PRN PRN Reason: Opioid Reversal Mirabegron [ (Myrbetriq] 50 Mg) 50 mg PO DAILY@1800 [facility] Last Admin: 01/07/20 18:03 Dose: Not Given Documented by: Pantoprazole Sodium (Protonix) 40 mg PO DAILY@0800 [facility] Last Admin: 01/08/20 08:51 Dose: 40 mg Documented by: Pramipexole Dihydrochloride (Mirapex) 0.25 mg PO DAILY@1800 [facility] Last Admin: 01/07/20 18:02 Dose: 0.25 mg Documented by: Physical examination: VITAL SIGNS: 97.7, 57, 16, 165/70, 93% on room air GENERAL: Sitting up in a chair, awake EYES: Pupils equal. Conjunctiva pale. HEENT: External appearance of nose and ears normal, oral cavity grossly normal. Hematoma on the back part of the scalp on the right side NECK: JVD not raised; masses not palpable. HEART: First and second heart sounds are normal; no edema. LUNGS: Respiratory rate normal; clear to auscultation. ABDOMEN: Soft, nontender, liver spleen not palpable, no masses palpable. PSYCH: Alert and oriented x3; mood and affect tired. NEUROLOGICAL: Tremors present. INVESTIGATIONS, reviewed in the clinical context: white count 7.5 hemoglobin 12.4 potassium 2.8. Magnesium 1.3 Computed tomography scan of the brain-cerebral atrophy. Right posterior temporal parietal scalp hematoma. No fracture Previous testing White count 12.3 hemoglobin 13.5 platelets 224 pro time 12.5 potassium 3.7 bicarb 35 bun 22 creatinine 1.19 Troponin I 2 negative UA negative EKG tracing personally reviewed by me-normal sinus rhythm with a by vascular block Chest x-ray film personally reviewed by me-lung mckee are clear, some hyperinflation Assessment: -This is a patient with long-standing history of presbyesoesophagus and trouble with swallowing for a long time. In the past has had a PEG tube. That was discontinued about 2 years ago. And patient studied better. Admitted with progressive time oral intake is gradually gone down. Appetite is gone down bruising weight. Becoming more weak and tired. Patient cause fall of multiple including orthostatic muscle weakness with myopathy and dehydration -Severe presbyesophagus-causing recurrent regurgitation -PEG tube placed on January 06 -Myopathy, multifactorial -Orthostatic hypotension from Parkinson's from autonomic dysfunction. -GERD -Essential hypertension -Severe presbyesophagus -Idiopathic Parkinson's disease -Chronic gait dysfunction uses a walker -Irritable bowel syndrome -Urinary stress incontinence -Moderate protein calorie malnutrition from decreased oral intake -Acute kidney injury-prerenal from decreased oral intake-improved -Right posterior temporal parietal scalp hematoma secondary to fall. Plan: -Discussed with the patient and daughter the bedside. Explained that the feeding by bottle only for pleasure now. As feeding to will take care of for nutritional aids. Also spoke to the and give him updated all the details. Looking at patient go to the [facility] tomorrow. 2 feeding to be adjusted as per dietitian. His blood pressures running high midodrine was stopped by cardiac surgery. Fall precautions to continue. Total time spent it was about 40-45 minutes with over 25 minutes in discussion.
--- NOTE | 2020-01-08 16:14 | PN ---
PROGRESS NOTE DATE OF SERVICE: 01/08/2020 The patient is an 89-year-old pleasant white female admitted to hospital with dysphagia. EGD revealed esophageal dysmotility. She is not able to swallow much and has decreased oral intake. Hence, she underwent an EGD with a PEG tube placement yesterday. She is doing much better today. She denies any symptoms. She had some pudding for breakfast, tolerated well. She fell down yesterday and had some laceration of the right scalp, but she is feeling better. She had some headache yesterday. PHYSICAL EXAMINATION: She appears comfortable. No apparent distress. Vital signs are stable. Blood pressure is 155/70, pulse rate 57, temperature 97.7. HEENT examination unremarkable. Conjunctivae pink. Sclerae anicteric. Oral cavity, no lesions. NECK: No JVD or lymph node enlargement. CHEST: Clear to auscultation. HEART: Regular rate and rhythm. ABDOMEN: Soft. Bowel sounds are positive. PEG tube in place. The rest of the abdomen was benign. EXTREMITIES: No pedal edema. SKIN; No rashes. NEUROLOGIC: Alert and oriented x3. No focal deficits. LABS: From today, basic metabolic panel is within normal limits. IMPRESSION: 1. Severe dysphagia secondary to esophageal dysmotility, status post EGD with a PEG tube done yesterday. She is feeling better. PEG tube will be used for feeds today. 2. Status post fall yesterday with right scalp laceration. 3. History of Parkinson disease. 4. Gastroesophageal reflux disease on Protonix 40 mg daily. RECOMMENDATION: 1. Continue oral intake. 2. Use PEG tube for feeds as per dietary recommendations. 3. Continue Protonix 40 mg daily. 4. We will follow with you closely. Thank you for this consultation. MMODL / IJN: [id number] /
[2020-01-08] MEDS: PRAMIPEXOLE 0.25 MG TAB PO SCH (18:01)
[2020-01-08] MEDS ORDERED: Magnesium Replacement Protocol 1 EACH MISC MISCELLANE PRN (22:55)
[2020-01-09] MEDS ORDERED: METOPROLOL TARTRATE 50 MG TAB PO STA (04:31)
[2020-01-09 07:07] LABS: Basophils % (A) 0 %; Eosinophils # (A) 0.2 k/uL (0-0.7); Eosinophils % (A) 3 %; HCT 35.6 % (34.0-46.0); HGB 11.5 gm/dL (11.4-16.0); Hypochromasia Slight; Lymphocytes # (A) 0.8 k/uL (1.0-4.8); Lymphocytes % (A) 11 %; MCH 31.5 pg (25.0-35.0); MCHC 32.3 g/dL (31.0-37.0); MCV 97.4 fL (80.0-100.0); Mean Platelet Volume 7.5; Monocytes # (A) 0.3 k/uL (0-1.0); Monocytes % (A) 4 %; Neutrophils # (A) 5.8 k/uL (1.3-7.7); Neutrophils % (A) 79 %; Platelet Count 204 k/uL (150-450); RBC 3.65 m/uL (3.80-5.40); WBC 7.4 k/uL (3.8-10.6)
[2020-01-09 07:14] LABS: Anion Gap 2 mmol/L; Blood Urea Nitrogen 19 mg/dL (7-17); Calcium 8.5 mg/dL (8.4-10.2); Carbon Dioxide 35 mmol/L (22-30); Chloride 103 mmol/L (98-107); Glucose 117 mg/dL (74-99); Magnesium 1.7 mg/dL (1.6-2.3); Potassium 3.5 mmol/L (3.5-5.1); Sodium 140 mmol/L (137-145)
[2020-01-09 07:19] LABS: African American GFR (CKD) >90 (>60 ml/min/1.73 sqM); Non-African American GFR(CKD) 84 (>60 ml/min/1.73 sqM)
[2020-01-09] MEDS: MAGNESIUM OXIDE 400 MG TAB PO SCH ×2 (08:16→21:50)
[2020-01-09] MEDS: DONEPEZIL 10 MG TAB PO SCH (08:16)
[2020-01-09] MEDS: CARBIDOPA-LEVODOPA 25-100 MG 1 EACH TAB PO SCH ×3 (08:16→21:51)
[2020-01-09] MEDS: MEMANTINE 5 MG TAB PO SCH (08:16)
[2020-01-09] MEDS: MULTIVITAMINS, THERA 1 EACH TAB PO SCH (08:16)
[2020-01-09] MEDS: METOPROLOL TARTRATE 50 MG TAB PO SCH ×2 (08:17→21:49)
[2020-01-09] MEDS: FLUDROCORTISONE 0.1 MG TAB PO SCH ×2 (08:17→21:50)
[2020-01-09] MEDS: PANTOPRAZOLE 40 MG TABLET PO SCH (08:17)
--- NOTE | 2020-01-09 09:57 | P.PN ---
Subjective Progress Note Date: 01/09/20 This is a pleasant 89-year-old female with a known history of Parkinson's disease, paroxysmal atrial fibrillation, followed by Dr. Gurrola. Percentage the emergency room with symptoms were progressive weakness and falling at home. No complaints of syncope. She has not been anticoagulated in the past because of unsteadiness while walking and multiple falls which has been discussed by Dr. Gurrola with her and her . She has no current complaints of chest discomfort, orthopnea PND. Continues to have episodes of extreme weakness upon standing. Complains of occasional edema but has none currently and occasional dyspnea on exertion but her activity is quite limited. Orthostatic blood pressures showed significant drop in systolic blood pressure from 190s lying to 80s standing. Patient is quite symptomatic. Continues to have significant orthostatic changes despite stopping Lasix and decreasing Lopressor. Continues to be on Florinef 0.1 mg by mouth twice a day. 01/05/2020 Patient was seen and examined resting comfortably in a chair this morning. She is scheduled to undergo upper endoscopy today following which she will make a determination whether or not to proceed with PEG tube placement. Continues to have significant orthostatic hypotension. 01/06/2020 She was seen and examined today resting in bed. Continues to have significant difficulty swallowing with regurgitation of fluids at this time. EGD performed yesterday showed evidence of diffuse esophageal dysmotility but no evidence of esophageal stricture or esophagitis, mild gastritis, mild cricopharyngeal dysfunction. She was started on a soft diet but if this is not tolerated she's recommended to undergo PEG tube placement. No orthostatic vital signs have been completed yet today. Patient was up to the bedside commode and denies any dizziness, weakness, lightheadedness, syncope or near syncope at that time. She continues on metoprolol 25 mg by mouth 3 times a day, Midodrine 2.5 mg 3 times a day, Sinemet, Aricept, Florinef 0.1 mg by mouth twice a day. 01/07/2020 The patient was seen and examined today resting in bed. She underwent placement of a PEG tube this morning by Dr. Soraya echeverria. Patient did get up out of bed last night by herself, became weak and fell with a scalp laceration. Computed tomography scan of the head showed cerebral atrophy appropriate for age, no acute intracranial abnormality, right posterior temporal parietal scalp hematoma. Labs this morning show normal CBC, potassium 2.8, BUN 14, creatinine 0.54. Blood pressure has been stable, no documented orthostatic blood pressures today. 01/08/2020 Patient was seen and examined today resting comfortably in bed. She is feeling somewhat better today. Has not been up out of bed yet and no orthostatic vital signs have been assessed this morning. Labs today showed potassium 3.7, BUN 20 and creatinine 0.65. He is to be started on tube feedings today. Blood pressure has been elevated. 01/09/2020 Patient was seen and examined this morning resting comfortably in bed. She is currently receiving tube feedings. Planning for discharge to extended care facility for rehab soon. Labs show BUN of 19 and creatinine 0.56. Blood pressure remains elevated with a systolic in the 200s through the night. Objective - Vital Signs Vital signs: Vital Signs Temp 98.0 F 01/09/20 08:00 Pulse 65 01/09/20 08:00 Resp 18 01/09/20 08:00 BP 212/95 01/09/20 08:00 Pulse Ox 93 L 01/09/20 08:00 Intake & Output 01/08/20 01/09/20 01/09/20 18:59 06:59 18:59 Intake Total 480 Balance 480 Weight 59 kg Intake: Oral 480 Other: Voiding Method Bedpan - Exam PHYSICAL EXAMINATION: HEENT: Right posterior scalp laceration noted. Pupils equal, round. Neck is supple. There is no elevated jugular venous pressure. HEART EXAMINATION: Heart sounds regular, S1 and S2 with a systolic murmur CHEST EXAMINATION: Lungs are clear to auscultation. No chest wall tenderness is noted on palpation or with deep breathing. ABDOMEN: Soft, nontender. Bowel sounds are heard. No organomegaly noted. PEG tube noted EXTREMITIES: 2+ peripheral pulses with no evidence of peripheral edema and no calf tenderness noted. NEUROLOGIC patient is awake, alert and oriented x3. - Labs CBC & Chem 7: 01/09/20 06:41 01/09/20 06:41 Labs: Abnormal Lab Results - Last 24 Hours (Table) 01/09/20 01/09/20 Range/Units 06:41 06:41 RBC 3.65 L (3.80-5.40) m/uL Lymphocytes # 0.8 L (1.0-4.8) k/uL Carbon Dioxide 35 H (22-30) mmol/L BUN 19 H (7-17) mg/dL Glucose 117 H (74-99) mg/dL Assessment and Plan Assessment: #1 symptoms of orthostasis, systolic blood pressure dropped to 190s to 80s, likely due to autonomic dysfunction secondary to Parkinson's, could be exacerbated by dehydration as the patient has been unable to eat or drink for a while and has lost about 20 pounds #2 paroxysmal atrial fibrillation, maintained sinus mechanism, not anticoagulated because of frequent falls in the past #3 history of Parkinson's disease #4 bradycardia, likely worsened by beta estefania, improved with reduction of beta estefania dose #5 severe esophageal dysmotility, followed by GI, s/p PEG tube placement #6 s/p fall, head laceration, scalp hematoma Plan: From cardiology's perspective, medications were reviewed, we will add low dose HAY inhibitor. Hopefully with the addition of tube feedings will improve patient's orthostasis somewhat. Continue compression stockings. Continue to follow orthostatic vital signs. We will continue to follow the patient and provide further recommendations accordingly. CYTOLOGY TEACHER note has been reviewed, I agree with a documented findings and plan of care. Patient was seen and examined.
[2020-01-09] MEDS: LISINOPRIL 2.5 MG TAB PO SCH (10:14)
--- NOTE | 2020-01-09 13:04 | P.PN ---
Subjective on-call hospitalist covering for Dr. Shea From the records This is a pleasant 89-year-old patient who follows a Dr. Vincent Montano. Chronic stable medical conditions include atrial fibrillation, GERD, hypertension, severe esophagitis, Parkinson's disease, kidney dysfunction, autonomic dysfunction and orthostatic hypotension, irritable bowel syndrome, stress incontinence,. Patient also has a diagnosis of severe presbyesophagus. Patient states in the past she's had an attempted dilatation of the esophagus that was unsuccessful by ENT physician. Patient did have a PEG tube in the past. When she was encouraged oral intake and subsequently the PEG tube was removed about 2 years ago. History is mainly supplemented by the at the bedside. Patient continues to have trouble with swallowing. Sometimes not able to keep the food also been before cause back up again. We diet. Swallowing is a trouble. As usual also having weight loss. No fever or chills. No shortness of breath no cough. EGD done on January [address] Bao Bonilla showed severe presbyesophagus. No obvious esophagitis.patient had a PEG tube placed after she agreed by Dr. Bao Bonilla on January 06. PEG tube feeding started by dietitian. Hoping to do bolus feeding eventually. Sitting upon a chair. Patient fell yesterday. Bumped the back of her head. Computed tomography scan showed a hematoma. No neurological deficits. subjective 01/09/2020 patient was admitted for dysphagia secondary to her esophageal motility disorder, status post EGD done by GI team on 01/04. Because of this patient underwent PEG tube placement. Patient is from assisted with a known history of Parkinson disease, autonomic nerve dysfunction with consequent orthostatic hypotension and fluctuation in blood pressure, currently on fludrocortisone 0.1 mg twice daily. Cardiology workup following the case and they stopped her medial drain yesterday however her blood pressure today was significantly elevated at 212/90 5 in the morning, lisinopril was added and her blood pressure is better now 148/78. Patient's postoperative be discharged to [facility]CF today however because of her labile blood pressure she will need close monitoring and her discharge was held, other than that patient is fully awake and oriented with no specific complaint. Discuss with social research assistant Objective - Vital Signs Vital signs: Vital Signs Temp 98.0 F 01/09/20 12:00 Pulse 58 L 06/15/20 12:00 Resp 18 01/09/20 12:00 BP 148/78 01/09/20 12:00 Pulse Ox 93 L 01/09/20 12:00 Intake & Output 01/08/20 01/09/20 01/09/20 18:59 06:59 18:59 Intake Total 480 Balance 480 Weight 59 kg Intake: Oral 480 Other: Voiding Method Bedpan Bedpan - Exam -GENERAL: The patient is alert and oriented x3, not in any acute distress. thin built HEENT: Pupils are round and equally reacting to light. EOMI. No scleral icterus. No conjunctival pallor. Normocephalic, atraumatic. No pharyngeal erythema. No thyromegaly. CARDIOVASCULAR: S1 and S2 present. No murmurs, rubs, or gallops. PULMONARY: Chest is clear to auscultation, no wheezing or crackles. -ABDOMEN: Soft, nontender, nondistended, normoactive bowel sounds. No palpable organomegaly. PEG tube is in place MUSCULOSKELETAL: No joint swelling or deformity. EXTREMITIES: No cyanosis, clubbing, or pedal edema. NEUROLOGICAL: Gross neurological examination did not reveal any focal deficits. SKIN: No rashes. no petechiae. - Labs CBC & Chem 7: 01/09/20 06:41 01/09/20 06:41 Labs: Abnormal Lab Results - Last 24 Hours (Table) 01/09/20 01/09/20 Range/Units 06:41 06:41 RBC 3.65 L (3.80-5.40) m/uL Lymphocytes # 0.8 L (1.0-4.8) k/uL Carbon Dioxide 35 H (22-30) mmol/L BUN 19 H (7-17) mg/dL Glucose 117 H (74-99) mg/dL Assessment and Plan Assessment: -dysphagia secondary to esophageal motility disorder,status post PEG tube placement on 12/2012 -Orthostatic hypotension from Parkinson's from autonomic dysfunction. 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 Plan: this is a pleasant 89 years old female who presents with dysphagia secondary to esophageal motility disease, status post Nguyễn, continue with tube feeding. Patient has low blood pressure and hypertensive urgency this morning. Lisinopril was added, patient will need close monitoring of blood pressure. Cartilage team on the case. Labs and medication were reviewed.. Continue same treatment. Continue with symptomatic treatment. Resume home medication. Monitor lytes and vitals. DVT and GI prophylaxis. Further recommendations of the clinical course of the patient DVT prophylaxis: Subcutaneous heparin GI Prophylaxis: ppi
[2020-01-09] MEDS: HEPARIN SODIUM,PORCINE 5,000 UNIT/ML 1 ML VIAL SQ SCH ×3 (16:35→21:55)
[2020-01-09] MEDS: PRAMIPEXOLE 0.25 MG TAB PO SCH (18:44)
[2020-01-10] MEDS: HEPARIN SODIUM,PORCINE 5,000 UNIT/ML 1 ML VIAL SQ SCH (07:59)
[2020-01-10] MEDS: DONEPEZIL 10 MG TAB PO SCH (08:00)
[2020-01-10] MEDS: CARBIDOPA-LEVODOPA 25-100 MG 1 EACH TAB PO SCH (08:00)
[2020-01-10] MEDS: LISINOPRIL 2.5 MG TAB PO SCH (08:00)
[2020-01-10] MEDS: MEMANTINE 5 MG TAB PO SCH (08:00)
[2020-01-10] MEDS: METOPROLOL TARTRATE 50 MG TAB PO SCH (08:00)
[2020-01-10] MEDS: MULTIVITAMINS, THERA 1 EACH TAB PO SCH (08:00)
[2020-01-10] MEDS: PANTOPRAZOLE 40 MG TABLET PO SCH (08:00)
[2020-01-10] MEDS: FLUDROCORTISONE 0.1 MG TAB PO SCH (08:00)
[2020-01-10] MEDS: MAGNESIUM OXIDE 400 MG TAB PO SCH (08:00)
--- NOTE | 2020-01-10 11:04 | PN ---
PROGRESS NOTE Mrs. Lewis is an 89-year-old female, history of Parkinson's disease, who presented with episode of orthostatic hypotension. She has received a PEG tube and starting tube feeding. She is feeling better overall, stronger. She has no significant dizziness. Her blood pressure overall is better. She continued to be in sinus mechanism. She has no palpitations. She is scheduled to be transferred to [facility] for rehab. She continues to be on Sinemet, Zestril 2.5 mg daily, Aricept, metoprolol tartrate 50 mg twice a day, Myrbetriq and Florinef 0.1 mg twice a day. PHYSICAL EXAMINATION: Blood pressure running in the 150 to 160 with a heart rate in the 60s. LUNGS: Clear. HEART: Regular rate and rhythm, S1, S2. No S3. No rub. ABDOMEN: Soft, nontender. EXTREMITIES: No edema. PEG tube in place. LAB DATA: Revealed BUN and creatinine 19 and 0.56, potassium 3.5, hemoglobin of 11.5. IMPRESSION: 1. Episode of orthostatic hypotension, improved. 2. History of supine hypertension, stable. 3. Parkinson's disease. 4. Autonomic dysfunction with esophageal dysmotility. RECOMMENDATION: From the cardiac standpoint, she is stable with the present therapy. I would expect she should be able to be transferred to the [facility] for rehab and followup with Dr. Montano . TINA / HERON: [id number] /
--- NOTE | 2020-01-10 13:25 | P.DS ---
Providers Date of admission: 01/03/20 13:08 Attending physician: Chidi Shea Consults: 01/03/20 13:09 Consult Physician Urgent Consulting Provider: Kaden Saunders Consult Reason/Comments: syncope, weak Do you want consulting provider notified?: Yes Consult Physician Urgent Consulting Provider: Dejuan Pérez Consult Reason/Comments: syncope Do you want consulting provider notified?: Yes Primary care physician: Vincent Montano [facility] Course: Diagnoses: -dysphagia secondary to esophageal motility disorder,status post PEG tube placement on 12/2012 -Orthostatic hypotension from Parkinson's from autonomic dysfunction. 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 Hospital course: This is a pleasant 89-year-old patient who follows a DrBarbara Montano. Chronic stable medical conditions include atrial fibrillation, GERD, hypertension, severe esophagitis, Parkinson's disease, kidney dysfunction, autonomic dysfunction and orthostatic hypotension, irritable bowel syndrome, stress incontinence,. Patient also has a diagnosis of severe presbyesophagus. Patient states in the past she's had an attempted dilatation of the esophagus that was unsuccessful by ENT physician. Patient did have a PEG tube in the past. the PEG tube was removed about 2 years ago. Patient continues to have trouble with swallowing also having weight loss. EGD done on January [address] Bao Bonilla showed severe esophageal motility disorder. No obvious esophagitis.patient had a PEG tube placed after she agreed with Dr. Bao Bonilla on January 06. PEG tube feeding is started and patient tolerated that well Patient also has bilateral blood pressure and his systolic blood pressure went up to 212, cardiology started the patient on metoprolol 50 mg twice daily and lisinopril 2.5 mg daily. Blood pressure then stabilized. On the day of discharge no other complaint, no chest pain or dyspnea. No abdominal pain. No nausea vomiting. No fever Patient was cleared for discharge by electronics technician and corn breeder team's Problems and management plan were discussed with the patient and he verbalized understanding and acceptance Patient was found stable and can be discharged home however he needs follow-up as an outpatient. Patient was instructed to follow up with PCP Dr. Montano within one week and patient agrees Gen: patient is a AAOx3, no distress CVS: S1-S2, RRR, no murmur Lungs: B/L CTA, no wheezing -Abdomen: soft, no distention, no tenderness, positive bowel sounds. PEG tube is in place Extremity: no leg edema or induration Time spent more than 35 minutes Plan - Discharge Summary Discharge Rx Participant: Yes New Discharge Prescriptions: No Action Carbidopa-Levodopa 25-100 mg [Sinemet 25-100 mg] 2 tab PO DAILY@0800 Potassium Chloride Oral Liquid 10 meq PEG/G-TUBE BID@0800,2000 Pramipexole [Mirapex] 0.25 mg PO DAILY@1800 Furosemide [Lasix] 20 mg PO DAILY@0800 Pantoprazole Sodium [Protonix] 40 mg PO DAILY@0800 Multivitamins, Thera [Multivitamin (formulary)] 1 tab PO DAILY@0800 Ferrous Sulfate [Feosol] 325 mg PO DAILY@1000 Mirabegron [Myrbetriq] 50 mg PO DAILY@1800 Memantine [Namenda] 5 mg PO DAILY@0800 Donepezil [Aricept] 10 mg PO DAILY@0800 Metoprolol Tartrate [Lopressor] 50 mg PO BID@0800,1999 Fludrocortisone [Florinef] 0.1 mg PO BID@0800,1999 Carbidopa-Levodopa 25-100 mg [Sinemet 25-100] 1 tab PO BID@1399,1999 Discharge Medication List Carbidopa-Levodopa 25-100 mg [Sinemet 25-100 mg] 2 tab PO DAILY@0800 09/27/17 [History] Potassium Chloride Oral Liquid 10 meq PEG/G-TUBE BID@0800,199904/27/18 [History] Pramipexole [Mirapex] 0.25 mg PO DAILY@1800 08/13/18 [History] Furosemide [Lasix] 20 mg PO DAILY@0800 08/20/18 [History] Pantoprazole Sodium [Protonix] 40 mg PO DAILY@0800 08/20/18 [History] Carbidopa-Levodopa 25-100 mg [Sinemet 25-100] 1 tab PO BID@1400,199901/02/20 [History] Donepezil [Aricept] 10 mg PO DAILY@0800 06/08/20 [History] Ferrous Sulfate [Feosol] 325 mg PO DAILY@1000 01/02/20 [History] Fludrocortisone [Florinef] 0.1 mg PO BID@08,199901/02/20 [History] Memantine [Namenda] 5 mg PO DAILY@0801/02/20 [History] Metoprolol Tartrate [Lopressor] 50 mg PO BID@08,199901/02/20 [History] Mirabegron [Myrbetriq] 50 mg PO DAILY@1800 01/02/20 [History] Multivitamins, Thera [Multivitamin (formulary)] 1 tab PO DAILY@79901/02/20 [History] Follow up Appointment(s)/Referral(s): Manny Yanez MD [STAFF PHYSICIAN] - 1 Week Vincent Montano MD [Primary Care Provider] - 1-2 days
[2020-01-10 13:52] VITALS: BP 133/62; PULSE 59; RESP 17; TEMP 97.5
== END 2020-01-10 14:42 | DRG 392 ==
LOC: EC 10:55 → 3SCARD 13:08
PROVIDERS: ADMIT Hospitalist; ATTEND Hospitalist
PROC: 0DJ08ZZ Inspection of Upper Intestinal Tract, Via Natural or Artificial Opening Endoscopic (ICD-10-PCS; 2020-01-05)
PROC: 3E0G76Z Introduction of Nutritional Substance into Upper GI, Via Natural or Artificial Opening (ICD-10-PCS; principal; 2020-01-07 08:00)
PROC: 0DH63UZ Insertion of Feeding Device into Stomach, Percutaneous Approach (ICD-10-PCS; principal; 2020-01-07 08:00)
DX: K22.4 Dyskinesia of esophagus (principal); E44.0 Moderate protein-calorie malnutrition; I13.0 Hypertensive heart and chronic kidney disease with heart failure and stage 1 through stage 4 chronic kidney disease, or unspecified chronic kidney disease; N17.9 Acute kidney failure, unspecified; G90.3 Multi-system degeneration of the autonomic nervous system; Z68.21 Body mass index [BMI] 21.0-21.9, adult; E78.5 Hyperlipidemia, unspecified; E86.0 Dehydration; F02.80 Dementia in other diseases classified elsewhere, unspecified severity, without behavioral disturbance, psychotic disturbance, mood disturbance, and anxiety; G20 Parkinson's disease; G25.81 Restless legs syndrome; G90.9 Disorder of the autonomic nervous system, unspecified; I48.0 Paroxysmal atrial fibrillation; I50.9 Heart failure, unspecified; K21.0 Gastro-esophageal reflux disease with esophagitis; K22.8 Other specified diseases of esophagus; K29.70 Gastritis, unspecified, without bleeding; K58.9 Irritable bowel syndrome, unspecified; N18.9 Chronic kidney disease, unspecified; N39.3 Stress incontinence (female) (male); R29.6 Repeated falls; Z91.81 History of falling; S01.01XA Laceration without foreign body of scalp, initial encounter; W19.XXXA Unspecified fall, initial encounter; Y92.009 Unspecified place in unspecified non-institutional (private) residence as the place of occurrence of the external cause; Z79.52 Long term (current) use of systemic steroids; Z79.899 Other long term (current) drug therapy; Z80.0 Family history of malignant neoplasm of digestive organs; Z81.1 Family history of alcohol abuse and dependence; Z82.49 Family history of ischemic heart disease and other diseases of the circulatory system; Z85.828 Personal history of other malignant neoplasm of skin; Z87.891 Personal history of nicotine dependence; Z90.710 Acquired absence of both cervix and uterus; Z98.41 Cataract extraction status, right eye; Z98.42 Cataract extraction status, left eye; R00.1 Bradycardia, unspecified; T46.1X5A Adverse effect of calcium-channel blockers, initial encounter; G72.9 Myopathy, unspecified; R26.9 Unspecified abnormalities of gait and mobility
CPT/HCPCS: 36415; 43235; 43246; 70450; 71046; 72125; 80048; 80053; 81003; 83605; 83735; 84100; 84132; 84484; 85025; 85027; 85610; 85730; 93005; 93306; 93880; 99285

== ENCOUNTER 2020-03-21 14:33 | Inpatient (IN) | payer MEDICARE ==
--- NOTE | 2020-03-21 14:54 | ED ---
Altered Mental Status HPI - General Stated Complaint: poss med reaction Time Seen by Provider: 03/21/20 14:33 Source: EMS, RN notes reviewed Mode of arrival: EMS Limitations: no limitations - History of Present Illness Initial Comments: This 89-year-old female with a history of Parkinson's disease also PEG tube other medical issues who recently has had her medications adjusted and started on scopolamine. Apparently per family since scopolamine she's been having altered mental status confusion hallucinations. She normally is awake alert oriented 4. He also had 3 falls since this occurred complains of some left elbow abrasion and right hip pain. No reports of fevers chills nausea vomiting sweats or other symptoms MD Complaint: confusion - Related Data Home Medications Medication Instructions Recorded Confirmed Carbidopa-Levodopa 25-100 mg 2 tab PO DAILY@0800 09/27/17 01/03/20 [Sinemet 25-100 mg] Pramipexole [Mirapex] 0.25 mg PO DAILY@1800 08/13/18 01/03/20 Pantoprazole Sodium [Protonix] 40 mg PO DAILY@0808/20/18 01/03/20 Carbidopa-Levodopa 25-100 mg 1 tab PO BID@1400,199901/02/20 01/03/20 [Sinemet 25-100 mg] Donepezil [Aricept] 10 mg PO DAILY@79901/02/20 01/03/20 Ferrous Sulfate [Iron (65 MG 325 mg PO DAILY@1000 01/02/20 01/03/20 Elemental)] Fludrocortisone [Florinef] 0.1 mg PO BID@0800,199901/02/20 01/03/20 Memantine [Namenda] 5 mg PO DAILY@79901/02/20 01/03/20 Metoprolol Tartrate [Lopressor] 50 mg PO BID@0800,199901/02/20 01/03/20 Mirabegron [Myrbetriq] 50 mg PO DAILY@1800 01/02/20 01/03/20 Multivitamins, Thera [Multivitamin 1 tab PO DAILY@0801/02/20 01/03/20 (formulary)] Previous Rx's Medication Instructions Recorded Acetaminophen Tab [Tylenol] 650 mg PO Q6HR PRN tab 01/10/20 Heparin Sodium,Porcine [Heparin 5,000 unit SQ Q12HR vial 01/10/20 Sodium] Magnesium Oxide [Mag-Ox] 400 mg PO BID 10 Days #20 tab 01/10/20 lisinopriL [Zestril] 2.5 mg PO DAILY tab 01/10/20 Allergies Allergy/AdvReac Type Severity Reaction Status Date / Time No Known Allergies Allergy Verified 01/03/20 13:54 Review of Systems ROS Statement: Those systems with pertinent positive or pertinent negative responses have been documented in the HPI. ROS Other: All systems not noted in ROS Statement are negative. Past Medical History Past Medical History: Atrial Fibrillation, Cancer, Heart Failure, GERD/Reflux, Hypertension, Musculoskeletal Disorder, Neurologic Disorder Additional Past Medical History / Comment(s): Severe presbyesophagus-peg tube removed, severe esophagitis, parkinson's disease, confused at times per spouse dementia, gait dysfunction, falls, automic dysfunction-HTN/orthostatic hypotension, IBS, stress incontinence, goiter, skin cancer with removals. History of Any Multi-Drug Resistant Organisms: None Reported Past Surgical History: Breast Surgery, Cholecystectomy, Ear Surgery, Hysterectomy, Tonsillectomy Additional Past Surgical History / Comment(s): EGDs/Peg tube insertion and removal on 08/17/18, colonoscopy, R ear stapedectomy, bilateral 1/4 breast removed (thought cancer but was calcium deposits), skin cancer removals. Past Psychological History: No Psychological Hx Reported Smoking Status: Never smoker Past Alcohol Use History: None Reported Past Drug Use History: None Reported - Past Family History Mother Family Medical History: Congestive Heart Failure (CHF) Sister(s) Family Medical History: Cancer Additional Family Medical History / Comment(s): Colon cancer Father Additional Family Medical History / Comment(s): Father was an alcoholic. General Exam - General Exam Comments Initial Comments: This is a well-developed asthenic appearing female who is awake alert but lethargic. Limitations: no limitations General appearance: alert, in no apparent distress Head exam: Present: atraumatic, normocephalic, normal inspection Eye exam: Present: normal appearance, PERRL, EOMI. Absent: scleral icterus, conjunctival injection, periorbital swelling ENT exam: Present: mucous membranes dry Neck exam: Present: normal inspection. Absent: tenderness, meningismus, lymphad enopathy Respiratory exam: Present: normal lung sounds bilaterally. Absent: respiratory distress, wheezes, rales, rhonchi, stridor Cardiovascular Exam: Present: regular rate, normal rhythm, normal heart sounds. Absent: systolic murmur, diastolic murmur, rubs, gallop, clicks GI/Abdominal exam: Present: soft, normal bowel sounds. Absent: distended, tenderness, guarding, rebound, rigid Extremities exam: Present: normal inspection, full ROM, normal capillary refill. Absent: tenderness, pedal edema, joint swelling, calf tenderness Back exam: Present: normal inspection Neurological exam: Present: alert, oriented X3, CN II-XII intact Psychiatric exam: Present: normal affect, normal mood Skin exam: Present: warm, dry, intact, normal color. Absent: rash Course Vital Signs 03/21/20 14:35 Temperature 98.5 F Pulse Rate 67 Respiratory 16 Rate Blood Pressure 184/95 O2 Sat by Pulse 100 Oximetry Medical Decision Making - Medical Decision Making I did reevaluate patient several occasions no change in her status and did discuss the findings with her was present he did state that she just started on a scopolamine about a day ago. The symptoms started smoking morning. The doing okay last night scopolamine was started because she was having increased elevation. This did resolve with the symptoms were noted this morning. She also did have several falls. Patient will be admitted case is discussed with Dr. Shea. Neurology will be consulted - Lab Data Result diagrams: 03/21/20 15:32 03/21/20 15:32 Lab Results 03/21/20 03/21/20 03/21/20 Range/Units 15:32 15:32 15:32 WBC 7.1 (3.8-10.6) k/uL RBC 4.43 (3.80-5.40) m/uL Hgb 12.9 (11.4-16.0) gm/dL Hct 41.5 (34.0-46.0) % MCV 93.6 (80.0-100.0) fL MCH 29.0 (25.0-35.0) pg MCHC 31.0 (31.0-37.0) g/dL RDW 14.0 (11.5-15.5) % Plt Count 202 (150-450) k/uL Neutrophils % 82 % Lymphocytes % 7 % Monocytes % 6 % Eosinophils % 1 % Basophils % 1 % Neutrophils # 5.8 (1.3-7.7) k/uL Lymphocytes # 0.5 L (1.0-4.8) k/uL Monocytes # 0.5 (0-1.0) k/uL Eosinophils # 0.1 (0-0.7) k/uL Basophils # 0.1 (0-0.2) k/uL Hypochromasia Slight PT 10.6 (9.0-12.0) sec INR 1.0 (<1.2) APTT 23.0 (22.0-30.0) sec Sodium (137-145) mmol/L Potassium (3.5-5.1) mmol/L Chloride (98-107) mmol/L Carbon Dioxide (22-30) mmol/L Anion Gap mmol/L BUN (7-17) mg/dL Creatinine (0.52-1.04) mg/dL Est GFR (CKD-EPI)AfAm (>60 ml/min/1.73 sqM) Est GFR (CKD-EPI)NonAf (>60 ml/min/1.73 sqM) Glucose (74-99) mg/dL Calcium (8.4-10.2) mg/dL Magnesium (1.6-2.3) mg/dL Total Bilirubin (0.2-1.3) mg/dL AST (14-36) U/L ALT (4-34) U/L Alkaline Phosphatase (38-126) U/L Ammonia (<30) umol/L Creatine Kinase (30-135) U/L Troponin I (0.000-0.034) ng/mL Total Protein (6.3-8.2) g/dL Albumin (3.5-5.0) g/dL Urine Color Colorless Urine Appearance Clear (Clear) Urine pH 7.5 (5.0-8.0) Ur Specific [place] 1.006 (1.001-1.035) Urine Protein Negative (Negative) Urine Glucose (UA) Negative (Negative) Urine Ketones Negative (Negative) Urine Blood Negative (Negative) Urine Nitrite Negative (Negative) Urine Bilirubin Negative (Negative) Urine Urobilinogen <2.0 (<2.0) mg/dL Ur Leukocyte Esterase Negative (Negative) Urine Opiates Screen Not Detected (NotDetected) Ur Oxycodone Screen Not Detected (NotDetected) Urine Methadone Screen Not Detected (NotDetected) Ur Propoxyphene Screen Not Detected (NotDetected) Ur Barbiturates Screen Not Detected (NotDetected) U Tricyclic Antidepress Not Detected (NotDetected) Ur Phencyclidine Scrn Not Detected (NotDetected) Ur Amphetamines Screen Not Detected (NotDetected) U Methamphetamines Scrn Not Detected (NotDetected) U Benzodiazepines Scrn Not Detected (NotDetected) Urine Cocaine Screen Not Detected (NotDetected) U Marijuana (THC) Screen Not Detected (NotDetected) 03/21/20 03/21/20 03/21/20 Range/Units 15:32 15:32 15:32 WBC (3.8-10.6) k/uL RBC (3.80-5.40) m/uL Hgb (11.4-16.0) gm/dL Hct (34.0-46.0) % MCV (80.0-100.0) fL MCH (25.0-35.0) pg MCHC (31.0-37.0) g/dL RDW (11.5-15.5) % Plt Count (150-450) k/uL Neutrophils % % Lymphocytes % % Monocytes % % Eosinophils % % Basophils % % Neutrophils # (1.3-7.7) k/uL Lymphocytes # (1.0-4.8) k/uL Monocytes # (0-1.0) k/uL Eosinophils # (0-0.7) k/uL Basophils # (0-0.2) k/uL Hypochromasia PT (9.0-12.0) sec INR (<1.2) APTT (22.0-30.0) sec Sodium 140 (137-145) mmol/L Potassium 3.7 (3.5-5.1) mmol/L Chloride 97 L (98-107) mmol/L Carbon Dioxide 36 H (22-30) mmol/L Anion Gap 7 mmol/L BUN 28 H (7-17) mg/dL Creatinine 0.64 (0.52-1.04) mg/dL Est GFR (CKD-EPI)AfAm >90 (>60 ml/min/1.73 sqM) Est GFR (CKD-EPI)NonAf 80 (>60 ml/min/1.73 sqM) Glucose 119 H (74-99) mg/dL Calcium 9.3 (8.4-10.2) mg/dL Magnesium 2.1 (1.6-2.3) mg/dL Total Bilirubin 0.7 (0.2-1.3) mg/dL AST 31 (14-36) U/L ALT 7 (4-34) U/L Alkaline Phosphatase 88 (38-126) U/L Ammonia <9 (<30) umol/L Creatine Kinase 49 (30-135) U/L Troponin I <0.012 (0.000-0.034) ng/mL Total Protein 6.5 (6.3-8.2) g/dL Albumin 4.1 (3.5-5.0) g/dL Urine Color Urine Appearance (Clear) Urine pH (5.0-8.0) Ur Specific [place] (1.001-1.035) Urine Protein (Negative) Urine Glucose (UA) (Negative) Urine Ketones (Negative) Urine Blood (Negative) Urine Nitrite (Negative) Urine Bilirubin (Negative) Urine Urobilinogen (<2.0) mg/dL Ur Leukocyte Esterase (Negative) Urine Opiates Screen (NotDetected) Ur Oxycodone Screen (NotDetected) Urine Methadone Screen (NotDetected) Ur Propoxyphene Screen (NotDetected) Ur Barbiturates Screen (NotDetected) U Tricyclic Antidepress (NotDetected) Ur Phencyclidine Scrn (NotDetected) Ur Amphetamines Screen (NotDetected) U Methamphetamines Scrn (NotDetected) U Benzodiazepines Scrn (NotDetected) Urine Cocaine Screen (NotDetected) U Marijuana (THC) Screen (NotDetected) - EKG Data -: EKG Interpreted by Me EKG shows normal: sinus rhythm EKG Comments: Since rhythm first-degree AV block rate 70. Interval 228 QRS duration 126 QT since QTC 474/511 red bundle-branch block with anterior fascicular block evidence of LVH - Radiology Data Radiology results: report reviewed, image reviewed Disposition Clinical Impression: Delirium due to general medical condition, Altered mental status, Medication reaction, Dehydration Disposition: ADMITTED IP TO THIS [facility] Condition: Fair Referrals: Vincent Montano MD [Primary Care Provider] - 1-2 days
[2020-03-21] MEDS ORDERED: SODIUM CHLORIDE 0.9% 1,000 ML IV STA (15:26)
[2020-03-21 15:55] LABS: Basophils # (A) 0.1 k/uL (0-0.2); Basophils % (A) 1 %; Eosinophils # (A) 0.1 k/uL (0-0.7); Eosinophils % (A) 1 %; HCT 41.5 % (34.0-46.0); HGB 12.9 gm/dL (11.4-16.0); Hypochromasia Slight; Lymphocytes # (A) 0.5 k/uL (1.0-4.8); Lymphocytes % (A) 7 %; MCV 93.6 fL (80.0-100.0); Mean Platelet Volume 7.3; Monocytes # (A) 0.5 k/uL (0-1.0); Monocytes % (A) 6 %; Neutrophils # (A) 5.8 k/uL (1.3-7.7); Neutrophils % (A) 82 %; Platelet Count 202 k/uL (150-450); RBC 4.43 m/uL (3.80-5.40); WBC 7.1 k/uL (3.8-10.6)
[2020-03-21 15:56] LABS: Appearance,Urine Clear (Clear); Bilirubin,Urine Negative (Negative); Blood,Urine Negative (Negative); Color,Urine Colorless; Glucose,Urine (UA) Negative (Negative); Ketones,Urine Negative (Negative); Leukocyte Esterase,Urine Negative (Negative); Nitrite,Urine Negative (Negative); PH, Urine 7.5 (5.0-8.0); Protein,Urine Negative (Negative); Specific Gravity,Urine 1.006 (1.001-1.035); Urobilinogen,Urine <2.0 mg/dL (<2.0)
[2020-03-21 16:07] LABS: ALT 7 U/L (4-34); AST 31 U/L (14-36); African American GFR (CKD) >90 (>60 ml/min/1.73 sqM); Albumin 4.1 g/dL (3.5-5.0); Alkaline Phosphatase 88 U/L (38-126); Amphetamine Screen,Urine Not Detected (NotDetected); Anion Gap 7 mmol/L; Barbiturate Screen,Urine Not Detected (NotDetected); Benzodiazepines Screen,Urine Not Detected (NotDetected); Blood Urea Nitrogen 28 mg/dL (7-17); Calcium 9.3 mg/dL (8.4-10.2); Carbon Dioxide 36 mmol/L (22-30); Chloride 97 mmol/L (98-107); Cocaine Screen,Urine Not Detected (NotDetected); Creatine Kinase 49 U/L (30-135); Glucose 119 mg/dL (74-99); Magnesium 2.1 mg/dL (1.6-2.3); Methadone Screen, Urine Not Detected (NotDetected); Non-African American GFR(CKD) 80 (>60 ml/min/1.73 sqM); Opiate Screen,Urine Not Detected (NotDetected); Oxycodone Screen, Urine Not Detected (NotDetected); Phencyclidine Screen,Urine Not Detected (NotDetected); Potassium 3.7 mmol/L (3.5-5.1); Prothrombin Time 10.6 sec (9.0-12.0); Sodium 140 mmol/L (137-145); Total Bilirubin 0.7 mg/dL (0.2-1.3); Total Protein 6.5 g/dL (6.3-8.2); Tricyclic Antidepressant,Urine Not Detected (NotDetected); Urn Cannabinoid Scrn Not Detected (NotDetected)
--- NOTE | 2020-03-21 16:23 | CT ---
EXAMINATION TYPE: CT brain wo con DATE OF EXAM: 03/21/2020 COMPARISON: 01/07/2020 HISTORY: Altered mental status. CT DLP: 1107.[address] of the brain was performed. The ventricles, basal cisterns and sulci overlying the cerebral convexities demonstrate mild enlargem ent. There is no evidence for intracranial hemorrhage or sulcal effacement. There is decreased attenuation about the periventricular white matter and deep white matter of both c erebral hemispheres, compatible with chronic small vessel ischemia. Differential diagnosis does inclu de demyelination. No mass effects are seen.No midline shift. Osseous calvarium is intact. If symptoms persist consider MRI. IMPRESSION: 1. Age related atrophic and chronic small vessel ischemic change without acute intracranial process s een at this time.
--- NOTE | 2020-03-21 16:27 | XR ---
EXAMINATION TYPE: XR chest 2V DATE OF EXAM: 03/21/2020 COMPARISON: 01/03/2020 HISTORY: Shortness of breath TECHNIQUE: Frontal and lateral views of the chest are obtained. FINDINGS: Scattered senescent parenchymal changes noted. Hyperinflation compatible with COPD. No evidence for infiltrate. No evidence for atelectasis. Heart size is stable. Mediastinal structures are stable and grossly unremarkable. No evidence for hilar prominence. Degenerative changes dorsal spine. IMPRESSION: 1. No evidence for acute pulmonary disease.
[2020-03-21] MEDS ORDERED: NALOXONE 0.4 MG/ML 1 ML VIAL IV PRN (17:10)
[2020-03-21] MEDS ORDERED: SODIUM CHLORIDE 0.9% 500 ML 500 ML IV ONE (17:38)
[2020-03-21] MEDS ORDERED: METOPROLOL TARTRATE 50 MG TAB PO STA (17:39)
[2020-03-21] MEDS ORDERED: FERROUS SULFATE 325 MG TAB PO PRN ×2 (17:42→17:51)
[2020-03-21] MEDS: SODIUM CHLORIDE 0.9% 1,000 ML IV SCH (17:45)
[2020-03-21] MEDS ORDERED: NON FORMULARY DRUG (Mirabegron [Myrbetriq] 50 MG) PO SCH (18:00)
[2020-03-21] MEDS ORDERED: FERROUS SULFATE ORAL ELIXIR 300 MG/5 ML CUP PEG/G-TUBE PRN (20:00)
[2020-03-21] MEDS: FLUDROCORTISONE 0.1 MG TAB PEG/G-TUBE SCH (20:08)
[2020-03-21] MEDS: CARBIDOPA-LEVODOPA 25-100 MG 1 EACH TAB PEG/G-TUBE SCH (20:08)
[2020-03-21] MEDS: PRAMIPEXOLE 0.5 MG TAB PEG/G-TUBE SCH (20:09)
[2020-03-21] MEDS: POTASSIUM BICARBONATE/CIT AC 20 MEQ TABLET.EFF PEG/G-TUBE SCH (20:09)
[2020-03-21] MEDS: METOPROLOL TARTRATE 50 MG TAB PO SCH (20:09)
[2020-03-21] MEDS: DONEPEZIL 10 MG TAB PEG/G-TUBE SCH (20:09)
[2020-03-22] MEDS ORDERED: PANTOPRAZOLE 40 MG TABLET PO SCH (08:00)
[2020-03-22] MEDS: NON FORMULARY DRUG (Mirabegron [Myrbetriq] 50 MG) PO SCH (08:34)
[2020-03-22] MEDS: POTASSIUM BICARBONATE/CIT AC 20 MEQ TABLET.EFF PEG/G-TUBE SCH ×2 (08:34→20:09)
[2020-03-22] MEDS: MULTIVITAMINS, THERA 1 EACH TAB PEG/G-TUBE SCH (08:34)
[2020-03-22] MEDS: FUROSEMIDE 20 MG TAB PEG/G-TUBE SCH (08:34)
[2020-03-22] MEDS: CARBIDOPA-LEVODOPA 25-100 MG 1 EACH TAB PEG/G-TUBE SCH ×3 (08:34→20:09)
[2020-03-22] MEDS: SODIUM CHLORIDE 0.9% 1,000 ML IV SCH ×3 (08:34→17:56)
[2020-03-22] MEDS: METOPROLOL TARTRATE 50 MG TAB PO SCH ×2 (08:34→20:09)
[2020-03-22] MEDS: PANTOPRAZOLE 40 MG/10 ML VIAL IVP SCH (08:35)
[2020-03-22] MEDS: FLUDROCORTISONE 0.1 MG TAB PEG/G-TUBE SCH ×2 (08:36→20:09)
--- NOTE | 2020-03-22 16:25 | P.CNNES ---
History of Present Illness Consult date: 03/22/20 Requesting physician: Willam Kim Reason for Consult: Confusion, possible medication reaction, dehydration History of Present Illness: Patient is a 89-year-old female with history of Parkinson's disease, arrived to the hospital yesterday at 2:30 PM for evaluation of altered mental status, hallucinations, frequent falls. Patient was recently started on scopolamine 1 mg patch every 72 hours on 03/20/2020. This was started as patient has been having excessive drooling and nose runs. Few hours after placing the scopolamine patch, the drooling improved, but patient developed significant side effects. She fell 3 times, 1 time she fell backwards while she was walking with her walker to the bathroom, and the other time she fell off the toilet seat, but there was no wall, which prevented a fall to the ground. Patient was having difficulty with ambulation, difficulty moving her feet. She started having hallucinations, seeing people. This prompted transfer to the hospital. No fever or chills. Per patient's , yesterday she was having difficulty speaking, but now has started speaking. Patient's Vital signs on arrival was blood pressure 184/95, pulse rate 67 temperature 98.5. 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 Chest x-ray showed no acute pulmonary disease. EKG shows sinus rhythm with first-degree AV block with premature atrial complexes. Possible left atrial enlargement. Right bundle branch block. Left anterior fascicular block. Patient to test shows normal CBC, CMP, UA and urine drug screen. BUN was mildly elevated 28. Patient's previous B12 was 554 on ., and hemoglobin A1c 5.7. On review of records, patient had Dr. Urias on 01/03/2020, which revealed grayscale atherosclerosis of the right carotid bulb is out of proportion to the measured velocities concerning for stenosis despite the major velocities in the internal carotid artery to common carotid artery ratio. CTA neck is recommended. Incidentally noted cardiac arrhythmia. Correlate with an EKG. Patient had a 2-D echo showing left-ventricular size normal. Mild concentric LVH, EF is 55-60%. Left atrial size is normal. Mitral valve leaflets are mildly thickened. Patient has history of Parkinson's disease diagnosed 7-8 years ago although symptoms had been present for couple years prior to that. Patient has been using walker for over one year. Her has been a main caregiver, par ticularly for last 5 years. They have been for last 55 years. Patient initially followed up with Dr. Cerda, but then started seeing Dr. Woods, and follows up with one of the mid-level provider Dr. Alvarez. Patient currently on Sinemet 25/100, 1 tablet 3 times a day. Also on donepezil 10 mg daily. Patient also on Mirapex 0.5 mg at bedtime and Florinef 0.1 mg twice a day. Patient is still hallucinating, as she tried to take a sip of coffee using her hands, with no cup in her hand. Patient also called her name loudly thinking he is around (before he had arrived this morning). Patient's states that she does have history of hallucinations the past related to the use of carbidopa higher doses but improved with the dose of carbidopa were decreased. At one point she was on Sinemet 25/100, 2 tablet 3 times a day. However now she is on Sinemet 25/100 one tablet 3 times a day. Review of Systems Patient denies any headache, double vision, loss of vision. Denies any hoarseness. Denies any numbness tingling. Denies chest pain shortness of breath wheezing or cough. Denies abdominal pain. All other review of systems unremarkable except as per HPI. Past Medical History Past Medical History: Atrial Fibrillation, Cancer, Heart Failure, GERD/Reflux, Hypertension, Musculoskeletal Disorder, Neurologic Disorder Additional Past Medical History / Comment(s): Severe presbyesophagus-peg tube removed, severe esophagitis, parkinson's disease, confused at times per spouse dementia, gait dysfunction, falls, automic dysfunction-HTN/orthostatic hypotension, IBS, stress incontinence, goiter, skin cancer with removals. History of Any Multi-Drug Resistant Organisms: None Reported Past Surgical History: Breast Surgery, Cholecystectomy, Ear Surgery, Hysterectomy, Tonsillectomy Additional Past Surgical History / Comment(s): EGDs/Peg tube, colonoscopy, R ear stapedectomy, bilateral 1/4 breast removed (thought cancer but was calcium deposits), skin cancer removals. Past Psychological History: No Psychological Hx Reported Smoking Status: Unknown if ever smoked Past Alcohol Use History: None Reported Additional Past Alcohol Use History / Comment(s): Pt started smoking in 1950 and quit in 1976 Past Drug Use History: None Reported - Past Family History Mother Family Medical History: Congestive Heart Failure (CHF) Sister(s) Family Medical History: Cancer Additional Family Medical History / Comment(s): Colon cancer Father Additional Family Medical History / Comment(s): Father was an alcoholic. Medications and Allergies Home Medications Medication Instructions Recorded Confirmed Type Pantoprazole Sodium [Protonix] 40 mg PEG/G-TUBE DAILY@0800 08/20/18 03/21/20 History Carbidopa-Levodopa 25-100 mg 1 tab PEG/G-TUBE TID@0800,1400,199901/02/20 03/21/20 History [Sinemet 25-100 mg] Donepezil [Aricept] 10 mg PEG/G-TUBE HS 01/02/20 03/21/20 History Ferrous Sulfate [Iron (65 MG 325 mg PEG/G-TUBE DAILY PRN 01/02/20 03/21/20 History Elemental)] Fludrocortisone [Florinef] 0.1 mg PEG/G-TUBE BID@0800,199901/02/20 03/21/20 History Metoprolol Tartrate [Lopressor] 50 mg PO BID@0800,199901/02/20 03/21/20 History Mirabegron [Myrbetriq] 50 mg PO DAILY@1800 01/02/20 03/21/20 History Multivitamins, Thera [Multivitamin 1 tab PEG/G-TUBE DAILY@0800 01/02/20 03/21/20 History (formulary)] Furosemide [Lasix] 20 mg PEG/G-TUBE DAILY 03/21/20 03/21/20 History Mirabegron [Myrbetriq] 50 mg PEG/G-TUBE DAILY 03/21/20 03/21/20 History Potassium Chloride 20 meq PEG/G-TUBE BID 03/21/20 03/21/20 History Pramipexole [Mirapex] 0.5 mg PEG/G-TUBE HS 03/21/20 03/21/20 History Scopolamine [Scopolamine 1 MG/72 1 patch TRANSDERM Q72H 03/21/20 03/21/20 Hist ory HR patch] Allergies Allergy/AdvReac Type Severity Reaction Status Date / Time No Known Allergies Allergy Verified 03/21/20 17:09 Physical Examination - Vital Signs Vital Signs: Vital Signs Temp Pulse Pulse Resp BP BP Pulse Ox 03/22/20 06:56 97.8 F 52 L 20 164/73 95 03/22/20 00:02 97.8 F 66 14 162/89 95 03/21/20 23:39 64 16 03/21/20 21:30 114/59 03/21/20 20:00 64 16 03/21/20 19:30 97.7 F 64 16 186/85 94 L 03/21/20 18:40 58 L 18 195/61 99 03/21/20 17:08 68 16 187/80 98 03/21/20 14:35 98.5 F 67 16 184/95 100 Intake and Output 03/21/20 03/22/20 03/22/20 22:59 06:59 14:59 Output Total 850 Balance -850 Output: Urine 850 Straight 600 Other: Voiding Method Bedside Commode Bedside Commode Bedside Commode Diaper Diaper Diaper # Voids 1 2 Weight 68.039 kg 66.3 kg On examination patient is an elderly female, alert and awake, appears mildly encephalopathic, with slow mentation. Patient knows that she is in [place] in [place] and thinks it March and the year is 20. She knows name of the current president and her date of . Her mouth is dry. Speech is mildly slurred, but no aphasia or dysarthria. On cranial nerve examination pupils are round and reacting to light. Visual mckee are full on confrontation, with no neglect on double simultaneous setup technician. Extraocular muscles are intact. Face is symmetric, tongue protrudes to the midline. Palatal elevation sensation normal. Hearing is slightly decreased, shoulder shrug normal. Patient is slightly hallucinating at times as mentioned above. On muscle strength testing there is no pronator drift and the strength is normal in arms and legs distally and proximally. Reflexes are 1+ in the upper limbs, 2 at the knees, 1+ ankles and plantars downgoing. Sensory touch is equal. No ataxia for [id number] testing tone is mildly increased. Gait is deferred. There is no carotid bruit, S1 and S2 audible. Peripheral pulses present no edema. Chest is clear, abdomen soft nontender. Results - Laboratory Findings CBC and BMP: 03/21/20 15:32 03/21/20 15:32 Abnormal Lab Findings: Abnormal Labs 03/21/20 03/21/20 15:32 15:32 Lymphocytes # 0.5 L Chloride 97 L Carbon Dioxide 36 H BUN 28 H Glucose 119 H Assessment and Plan Assessment: * Altered mental status, likely related to delirium from scopolamine patch. Patient is showing anticholinergic side effects, likely from scopolamine patch. * Parkinson's disease * History of paroxysmal atrial fibrillation, currently not on long-term anticoagulation secondary to frequent falls * Hypertension * History of orthostatic hypotension, on Florinef. Plan: * Patient's scopolamine patch was removed yesterday 24 hours ago, but she is still hallucinating. Hopefully will take another 24-48 hours for delirium to clear up. * Patient has history of paroxysmal atrial fibrillation, but currently not on anticoagulation due to fall risk from Parkinson's disease. Patient not on any antiplatelet medication either. We will start aspirin 81 mg daily. Discussed with patient's daughter in detail. * Patient's carotid Doppler from 01/03/2020 showed atherosclerotic disease, but no significant stenosis. We will check lipid panel, hemoglobin A1c. * B12, folate, TSH. * PT OT evaluate gait. * We will follow.
--- NOTE | 2020-03-22 17:34 | P.HPIM ---
History of Present Illness H&P Date: 03/22/20 Chief Complaint: Acute confusion History of presenting complaint: This is a pleasant 89-year-old patient who follows a Dr. Vincent Montano. Chronic stable medical conditions include atrial fibrillation, GERD, hypertension, severe esophagitis, Parkinson's disease, kidney dysfunction, autonomic dysfunction and orthostatic hypotension, irritable bowel syndrome, stress incontinence,. severe presbyesophagus. in the past she's had an attempted dilatation of the esophagus that was unsuccessful by ENT physician. In December of this year patient had a PEG tube placed. does bolus feeding 4 times a day. And patient also does some pressure feeding. Patient has excessive drooling. 24 hours ago she was placed on a scopolamine patch. Following that patient became rather confused hallucinating delirious. Normally able to use a walker and walk a few feet. Scopolamine patch was discontinued to the ER. at the bedside. Review of systems: GEN.: Weak EYES: None HEENT: Drooling NECK: None RESPIRATORY: None CARDIOVASCULAR: None GASTROINTESTINAL: As above GENITOURINARY: None MUSCULOSKELETAL: Bone pains LYMPHATICS: None HEMATOLOGICAL: None PSYCHIATRY: Delirious earlier NEUROLOGICAL: Tremors, gait dysfunction, trouble swallow swallowing Past medical history to include: atrial fibrillation, GERD, hypertension, severe esophagitis, Parkinson's disease, kidney dysfunction, autonomic dysfunction and orthostatic hypotension, irritable bowel syndrome, stress incontinence,.severe presbyesophagus. PEG tube feeding for moderate protein calorie malnutrition. Social history: . Does use of walker. Smoked for 27 years stopped in 1976. No alcohol. Physical examination: VITAL SIGNS: 98.5, 67, 16, 184.95, 100% on room air GENERAL: BMI 22.2, laying in bed, tired awake EYES: Pupils equal. Conjunctiva pale. HEENT: External appearance of nose and ears normal, oral cavity grossly normal. NECK: JVD not raised; masses not palpable. HEART: First and second heart sounds are normal; no edema. LUNGS: Respiratory rate normal; clear to auscultation. ABDOMEN: Soft, nontender, liver spleen not palpable, no masses palpable. PSYCH: Able to answer some questions. NEUROLOGICAL: Cranial nerves grossly intact; no facial asymmetry, power and sensation grossly intact. Trouble with fine movements of the fingers. LYMPHATICS: No lymph nodes palpable in the axilla and neck INVESTIGATIONS, reviewed in the clinical context: White count 7.1 hemoglobin 12.9 potassium 3.7 creatinine 0.64 UA negative. Urine drug screen negative. Assessment: -Acute delirium/metabolic encephalopathy likely from scopolamine patch.- Discontinued -Severe presbyesophagus-causing recurrent regurgitation -PEG tube placed on January 07, 2020 -Myopathy, multifactorial -Orthostatic hypotension from Parkinson's from autonomic dysfunction. -GERD -Essential hypertension -Idiopathic Parkinson's disease -Chronic gait dysfunction uses a walker -Irritable bowel syndrome -Urinary stress incontinence Plan: Scopolamine patch was discontinued. Home medications resumed. IV fluids. Neuro checks. Consult PTOT. Care discussed with the of the bedside. Neurology consulted. PEG tube feeding to be resumed. Past Medical History Past Medical History: Atrial Fibrillation, Cancer, Heart Failure, GERD/Reflux, Hypertension, Musculoskeletal Disorder, Neurologic Disorder Additional Past Medical History / Comment(s): Severe presbyesophagus-peg tube removed, severe esophagitis, parkinson's disease, confused at times per spouse dementia, gait dysfunction, falls, automic dysfunction-HTN/orthostatic hypotension, IBS, stress incontinence, goiter, skin cancer with removals. History of Any Multi-Drug Resistant Organisms: None Reported Past Surgical History: Breast Surgery, Cholecystectomy, Ear Surgery, Hysterectomy, Tonsillectomy Additional Past Surgical History / Comment(s): EGDs/Peg tube, colonoscopy, R ear stapedectomy, bilateral 1/4 breast removed (thought cancer but was calcium deposits), skin cancer removals. Past Psychological History: No Psychological Hx Reported Smoking Status: Unknown if ever smoked Past Alcohol Use History: None Reported Additional Past Alcohol Use History / Comment(s): Pt started smoking in 1950 and quit in 1976 Past Drug Use History: None Reported - Past Family History Mother Family Medical History: Congestive Heart Failure (CHF) Sister(s) Family Medical History: Cancer Additional Family Medical History / Comment(s): Colon cancer Father Additional Family Medical History / Comment(s): Father was an alcoholic. Medications and Allergies Home Medications Medication Instructions Recorded Confirmed Type Pantoprazole Sodium [Protonix] 40 mg PEG/G-TUBE DAILY@0800 08/20/18 03/21/20 History Carbidopa-Levodopa 25-100 mg 1 tab PEG/G-TUBE TID@0800,1400,199901/02/20 03/21/20 History [Sinemet 25-100 mg] Donepezil [Aricept] 10 mg PEG/G-TUBE HS 01/02/20 03/21/20 History Ferrous Sulfate [Iron (65 MG 325 mg PEG/G-TUBE DAILY PRN 01/02/20 03/21/20 History Elemental)] Fludrocortisone [Florinef] 0.1 mg PEG/G-TUBE BID@0800,199901/02/20 03/21/20 History Metoprolol Tartrate [Lopressor] 50 mg PO BID@0800,199901/02/20 03/21/20 History Mirabegron [Myrbetriq] 50 mg PO DAILY@1800 01/02/20 03/21/20 History Multivitamins, Thera [Multivitamin 1 tab PEG/G-TUBE DAILY@0800 01/02/20 03/21/20 History (formulary)] Furosemide [Lasix] 20 mg PEG/G-TUBE DAILY 03/21/20 03/21/20 History Mirabegron [Myrbetriq] 50 mg PEG/G-TUBE DAILY 03/21/20 03/21/20 History Potassium Chloride 20 meq PEG/G-TUBE BID 03/21/20 03/21/20 History Pramipexole [Mirapex] 0.5 mg PEG/G-TUBE HS 03/21/20 03/21/20 History Scopolamine [Scopolamine 1 MG/72 1 patch TRANSDERM Q72H 03/21/20 03/21/20 History HR patch] Allergies Allergy/AdvReac Type Severity Reaction Status Date / Time No Known Allergies Allergy Verified 03/21/20 17:09 Physical Exam Vitals: Vital Signs Temp Pulse Pulse Resp BP BP Pulse Ox 03/22/20 06:56 97.8 F 52 L 20 164/73 95 03/22/20 00:02 97.8 F 66 14 162/89 95 03/21/20 23:39 64 16 03/21/20 21:30 114/59 03/21/20 20:00 64 16 03/21/20 19:30 97.7 F 64 16 186/85 94 L 03/21/20 18:40 58 L 18 195/61 99 03/21/20 17:08 68 16 187/80 98 03/21/20 14:35 98.5 F 67 16 184/95 100 Intake and Output 03/21/20 03/22/20 03/22/20 22:59 06:59 14:59 Output Total 850 Balance -850 Output: Urine 850 Straight 600 Other: Voiding Method Bedside Commode Bedside Commode Bedside Commode Diaper Diaper Diaper # Voids 1 2 Weight 68.039 kg Results CBC & Chem 7: 03/21/20 15:32 03/21/20 15:32 Labs: Abnormal Lab Results - Last 24 Hours (Table) 03/21/20 03/21/20 Range/Units 15:32 15:32 Lymphocytes # 0.5 L (1.0-4.8) k/uL Chloride 97 L (98-107) mmol/L Carbon Dioxide 36 H (22-30) mmol/L BUN 28 H (7-17) mg/dL Glucose 119 H (74-99) mg/dL Thrombosis Risk Factor Assmnt - Choose All That Apply Each Risk Factor Represents 2 Points: Patient confined to bed Each Risk Factor Represents 3 Points: Age 75 years or older Thrombosis Risk Factor Assessment Total Risk Factor Score: 5 Thrombosis Risk Factor Assessment Level: High Risk
[2020-03-22] MEDS: ASPIRIN 81 MG PO SCH (17:56)
[2020-03-22] MEDS: ENOXAPARIN 40 MG/0.4 ML SYRINGE SQ SCH (17:56)
[2020-03-22] MEDS: DONEPEZIL 10 MG TAB PEG/G-TUBE SCH (20:09)
[2020-03-22] MEDS: PRAMIPEXOLE 0.5 MG TAB PEG/G-TUBE SCH (20:10)
[2020-03-23] MEDS: SODIUM CHLORIDE 0.9% 1,000 ML IV SCH ×4 (05:18→21:58)
[2020-03-23] MEDS: FUROSEMIDE 20 MG TAB PEG/G-TUBE SCH (07:48)
[2020-03-23] MEDS: METOPROLOL TARTRATE 50 MG TAB PO SCH ×2 (07:48→21:58)
[2020-03-23] MEDS: POTASSIUM BICARBONATE/CIT AC 20 MEQ TABLET.EFF PEG/G-TUBE SCH ×2 (07:48→21:58)
[2020-03-23] MEDS: NON FORMULARY DRUG (Mirabegron [Myrbetriq] 50 MG) PO SCH (07:48)
[2020-03-23] MEDS: CARBIDOPA-LEVODOPA 25-100 MG 1 EACH TAB PEG/G-TUBE SCH ×2 (07:48→14:56)
[2020-03-23] MEDS: PANTOPRAZOLE 40 MG/10 ML VIAL IVP SCH (07:48)
[2020-03-23] MEDS: MULTIVITAMINS, THERA 1 EACH TAB PEG/G-TUBE SCH (07:48)
[2020-03-23] MEDS: ASPIRIN 81 MG PO SCH (07:48)
[2020-03-23] MEDS: ENOXAPARIN 40 MG/0.4 ML SYRINGE SQ SCH (07:49)
[2020-03-23] MEDS: FLUDROCORTISONE 0.1 MG TAB PEG/G-TUBE SCH ×2 (08:29→21:58)
--- NOTE | 2020-03-23 18:08 | P.PN ---
Subjective Progress Note Date: 03/23/20 Patient was seen for a follow-up. Patient's , and daughters were both present today. Patient continues to have significant hallucinations. Patient is constantly doing actions as if she is eating, chewing, cutting, using scissors, but nothing in her hands. Sometimes she speaks very lucid, clearly, whereas at the time she hallucinates. She was asking for black scissors on the counter, but did not tell her daughter what she wanted it for. No focal symptoms like facial droop, focal weakness, numbness tingling or problem with the vision. Patient's mentions that patient was on Sinemet 25/100, 1 tablet 3 times a day. Her Parkinson's was worse, therefore the dose was increased to 4 times a day few months ago. Patient started having hallucinations. The dose was decreased down to Sinemet 25/100, one tablet twice a day few months ago. The hallucinations went away, but patient was having problems with walking, difficulty turning and worsening parkinsonism. The dose was increased back to Sinemet 25/100, 1 tablet 3 times a day and was also given a patch of scopolamine for excessive nasal dripping and drooling. Within 24 hours patient was hospitalized as mentioned. Objective - Vital Signs Vital signs: Vital Signs Temp 98.3 F 03/23/20 15:00 Pulse 77 03/23/20 15:00 Resp 20 03/23/20 15:00 BP 142/78 03/23/20 15:00 Pulse Ox 98 03/23/20 15:00 Intake & Output 03/22/20 03/23/20 03/23/20 18:59 06:59 18:59 Intake Total 1040 Balance 1040 Weight 66.3 kg 66.3 kg Intake: Intake, IV Titration 1040 Amount Sodium Chloride 0.9% 1, 1040 000 ml @ 130 mls/hr IV . Q7H42M [facility] Rx#:[id number] Other: Voiding Method Bedside Commode Bedside Commode Bedside Commode Diaper Diaper Diaper Incontinent # Voids 3 1 - Exam Patient is delirious, actively hallucinating frequently. She is trying to use her hands almost like cutting with a knife, or with a scissors. When she is trying to eat something and chewing although nothing is there. She moves her arms and legs equally. Face is symmetric. Speech is slurred because of dry mouth and she mumbles with low volume, but no dysarthria or aphasia. Her strength is equal. Gait deferred. - Labs CBC & Chem 7: 03/21/20 15:32 03/21/20 15:32 Labs: Abnormal Lab Results - Last 24 Hours (Table) 03/23/20 Range/Units 08:27 LDL Cholesterol, Calc 102 H (0-99) mg/dL HDL Cholesterol 71 H (40-60) mg/dL Vitamin B12 1248.0 H (200.0-944.0) pg/mL Assessment and Plan Assessment: * Altered mental status, likely related to delirium from anticholinergic side effect scopolamine patch. Patient has history of hallucinations related to Sinemet in the past as well. * Parkinson's disease * History of paroxysmal atrial fibrillation, currently not on long-term anticoagulation secondary to frequent falls * Hypertension * History of orthostatic hypotension, on Florinef. Plan: * Patient has been off scopolamine patch for 48 hours, but she continues to be actively hallucinating. Her dose of Sinemet 25/100 was also increased to 3 times a day, at the same time scopolamine was given. At this time we need to decrease the dose of Sinemet as well, as the hallucinations are not resolving. We will switch from regular Sinemet to Sinemet CR 25/100 twice a day. If hallucinations persist, then Nuplazid could be considered. Neurology service not available on the weekend. Dr. Ariel Yang Will resume neurology service on Thursday. Please contact me with perfect serve, if any concerns over the week end. * Patient has history of paroxysmal atrial fibrillation, but currently not on anticoagulation due to fall risk from Parkinson's disease. Patient started on aspirin 81 mg daily for stroke prevention. Discussed with patient's and daughter in detail. * Patient's carotid Doppler from 01/03/2020 showed atherosclerotic disease, but no significant stenosis. * Lipid panel with cholesterol 190, LDL 102, HDL 71 and triglycerides 86. Consider Lipitor 10 mg daily. TSH is normal 0.0997, B12 normal 1248. * Hemoglobin A1c and folate level still pending. * PT OT evaluate gait. Time with Patient: Greater than 30 (Greater than 50% time spent in counseling and coordinating care.)
[2020-03-23 19:26] LABS: Hemoglobin A1C 5.4 % (4.0-6.0)
--- NOTE | 2020-03-23 21:15 | P.PN ---
Progress Note - Text Progress Note Date: 03/23/20 Chief Complaint: Acute confusion History of presenting complaint: This is a pleasant 89-year-old patient who follows a Dr. Vincent Montano. Chronic stable medical conditions include atrial fibrillation, GERD, hypertension, severe esophagitis, Parkinson's disease, kidney dysfunction, autonomic dysfunction and orthostatic hypotension, irritable bowel syndrome, stress incontinence,. severe presbyesophagus. in the past she's had an attempted dilatation of the esophagus that was unsuccessful by ENT physician. In December of this year patient had a PEG tube placed. does bolus feeding 4 times a day. And patient also does some pressure feeding. Patient has excessive drooling. 24 hours ago she was placed on a scopolamine patch. Following that patient became rather confused hallucinating delirious. Normally able to use a walker and walk a few feet. Scopolamine patch was discontinued to the ER. Today-patient remains to be delirious. Decreased oral intake. Sitting up in a chair. Rather tired. at the bedside. Review of systems cannot be done as patient was lethargic delirious Active Medications Aspirin (Aspirin) 81 mg PO DAILY [facility] Last Admin: 03/23/20 07:48 Dose: 81 mg Documented by: Carbidopa/Levodopa (Sinemet Er 25-100) 1 each PO BID [facility] Enoxaparin Sodium (Lovenox) 40 mg SQ DAILY [facility] Last Admin: 03/23/20 07:49 Dose: 40 mg Documented by: Ferrous Sulfate (Feosol) 300 mg PEG/G-TUBE DAILY PRN PRN Reason: ANEMIA Fludrocortisone Acetate (Florinef) 0.1 mg PEG/G-TUBE BID@ [facility] Last Admin: 03/23/20 08:29 Dose: 0.1 mg Documented by: Sodium Chloride (Saline 0.9%) 1,000 mls @ 130 mls/hr IV .Q7H42M [facility] Last Admin: 03/23/20 17:33 Dose: 130 mls/hr Documented by: Metoprolol Tartrate (Lopressor) 50 mg PO BID@799,1999 [facility] Last Admin: 03/23/20 07:48 Dose: 50 mg Documented by: Multivitamins (Theragran) 1 each PEG/G-TUBE DAILY@799 [facility] Last Admin: 03/23/20 07:48 Dose: 1 each Documented by: Naloxone HCl (Narcan) 0.2 mg IV Q2M PRN PRN Reason: Opioid Reversal Non-Formulary Medication (Mirabegron [Myrbetriq]) 50 mg PO DAILY [facility] Last Admin: 03/23/20 07:48 Dose: 50 mg Documented by: Pantoprazole Sodium (Protonix) 40 mg IVP Q24HR [facility] Last Admin: 03/23/20 07:48 Dose: 40 mg Documented by: Potassium Bicarbonate (K-Lyte) 20 meq PEG/G-TUBE BID [facility] Last Admin: 03/23/20 07:48 Dose: 20 meq Documented by: Pramipexole Dihydrochloride (Mirapex) 0.5 mg PEG/G-TUBE HS [facility] Last Admin: 03/22/20 20:10 Dose: 0.5 mg Documented by: Physical examination: VITAL SIGNS: 97.8, 71, 15, 1 69 x 64, 95% room air GENERAL: Sitting up in a chair, rather confused lethargic EYES: Pupils equal. Conjunctiva pale. HEENT: External appearance of nose and ears normal, oral cavity grossly normal. NECK: JVD not raised; masses not palpable. HEART: First and second heart sounds are normal; no edema. LUNGS: Respiratory rate normal; clear to auscultation. ABDOMEN: Soft, nontender, liver spleen not palpable, no masses palpable. PSYCH: Lethargic, unable to assess INVESTIGATIONS, reviewed in the clinical context: White count 7.1 hemoglobin 12.9 potassium 3.7 creatinine 0.64 UA negative. Urine drug screen negative. Assessment: -Acute delirium/metabolic encephalopathy likely from scopolamine patch.-Discontinued-slow to respond -Severe presbyesophagus-causing recurrent regurgitation -PEG tube placed on January 07, 2020 -Myopathy, multifactorial -Orthostatic hypotension from Parkinson's from autonomic dysfunction. -GERD -Essential hypertension -Idiopathic Parkinson's disease -Chronic gait dysfunction uses a walker -Irritable bowel syndrome -Urinary stress incontinence Plan: Discussed with her . Oral prognosis guarded. Patient removed a probably take some time to recover. Has disturbed sleep cycle. Add melatonin.
[2020-03-23] MEDS: MELATONIN 1 MG TAB PO SCH (21:58)
[2020-03-23] MEDS: PRAMIPEXOLE 0.5 MG TAB PEG/G-TUBE SCH (21:58)
[2020-03-23] MEDS: CARBIDOPA-LEVODOPA ER 25-100MG 1 EACH TABLET.ER PO SCH (21:58)
[2020-03-24] MEDS: ASPIRIN 81 MG PO SCH (07:49)
[2020-03-24] MEDS: CARBIDOPA-LEVODOPA ER 25-100MG 1 EACH TABLET.ER PO SCH ×2 (07:49→20:49)
[2020-03-24] MEDS: POTASSIUM BICARBONATE/CIT AC 20 MEQ TABLET.EFF PEG/G-TUBE SCH ×2 (07:49→20:49)
[2020-03-24] MEDS: MULTIVITAMINS, THERA 1 EACH TAB PEG/G-TUBE SCH (07:49)
[2020-03-24] MEDS: METOPROLOL TARTRATE 50 MG TAB PO SCH ×3 (07:49→23:37)
[2020-03-24] MEDS: PANTOPRAZOLE 40 MG/10 ML VIAL IVP SCH (07:49)
[2020-03-24] MEDS: NON FORMULARY DRUG (Mirabegron [Myrbetriq] 50 MG) PO SCH (07:50)
[2020-03-24] MEDS: FLUDROCORTISONE 0.1 MG TAB PEG/G-TUBE SCH ×2 (07:50→20:49)
[2020-03-24] MEDS: ENOXAPARIN 40 MG/0.4 ML SYRINGE SQ SCH (07:52)
[2020-03-24] MEDS: SODIUM CHLORIDE 0.9% 1,000 ML IV SCH ×2 (07:52→13:22)
--- NOTE | 2020-03-24 17:48 | P.PN ---
Progress Note - Text Progress Note Date: 03/24/20 Chief Complaint: Acute confusion History of presenting complaint: This is a pleasant 89-year-old patient who follows a Dr. Vincent Montano. Chronic stable medical conditions include atrial fibrillation, GERD, hypertension, severe esophagitis, Parkinson's disease, kidney dysfunction, autonomic dysfunction and orthostatic hypotension, irritable bowel syndrome, stress incontinence,. severe presbyesophagus. in the past she's had an attempted dilatation of the esophagus that was unsuccessful by ENT physician. In December of this year patient had a PEG tube placed. does bolus feeding 4 times a day. And patient also does some pressure feeding. Patient has excessive drooling. 24 hours ago she was placed on a scopolamine patch. Following that patient became rather confused hallucinating delirious. Normally able to use a walker and walk a few feet. Scopolamine patch was discontinued to the ER. PEG tube feeding was resumed. Today-sitting up in a chair. Tired. Conversing better today. Delirium better. Review of systems cannot be done as patient was lethargic delirious Active Medications Aspirin (Aspirin) 81 mg PO DAILY [facility] Last Admin: 03/24/20 07:49 Dose: 81 mg Documented by: Carbidopa/Levodopa (Sinemet Er 25-100) 1 each PO BID [facility] Last Admin: 03/24/20 07:49 Dose: 1 each Documented by: Enoxaparin Sodium (Lovenox) 40 mg SQ DAILY [facility] Last Admin: 03/24/20 07:52 Dose: 40 mg Documented by: Ferrous Sulfate (Feosol) 300 mg PEG/G-TUBE DAILY PRN PRN Reason: ANEMIA Fludrocortisone Acetate (Florinef) 0.1 mg PEG/G-TUBE BID@0800,2000 [facility] Last Admin: 03/24/20 07:50 Dose: 0.1 mg Documented by: Sodium Chloride (Saline 0.9%) 1,000 mls @ 50 mls/hr IV .Q20H [facility] Last Admin: 03/24/20 13:22 Dose: Not Given Documented by: Melatonin (Melatonin) 3 mg PO HS [facility] Last Admin: 03/23/20 21:58 Dose: 3 mg Documented by: Metoprolol Tartrate (Lopressor) 50 mg PO TID [facility] Last Admin: 03/24/20 16:35 Dose: 50 mg Documented by: Multivitamins (Theragran) 1 each PEG/G-TUBE DAILY@0800 [facility] Last Admin: 03/24/20 07:49 Dose: 1 each Documented by: Naloxone HCl (Narcan) 0.2 mg IV Q2M PRN PRN Reason: Opioid Reversal Non-Formulary Medication (Mirabegron [Myrbetriq]) 50 mg PO DAILY [facility] Last Admin: 03/24/20 07:50 Dose: 50 mg Documented by: Pantoprazole Sodium (Protonix) 40 mg IVP Q24HR [facility] Last Admin: 03/24/20 07:49 Dose: 40 mg Documented by: Potassium Bicarbonate (K-Lyte) 20 meq PEG/G-TUBE BID [facility] Last Admin: 03/24/20 07:49 Dose: 20 meq Documented by: Pramipexole Dihydrochloride (Mirapex) 0.5 mg PEG/G-TUBE HS [facility] Last Admin: 03/23/20 21:58 Dose: 0.5 mg Documented by: Physical examination: VITAL SIGNS: 97.8, 66, 18, 155-68, 94% on room air GENERAL: Sitting up in a chair, more conversant today. Tired EYES: Pupils equal. Conjunctiva pale. HEENT: External appearance of nose and ears normal, oral cavity grossly normal. NECK: JVD not raised; masses not palpable. HEART: First and second heart sounds are normal; no edema. LUNGS: Respiratory rate normal; clear to auscultation. ABDOMEN: Soft, nontender, liver spleen not palpable, no masses palpable. PSYCH: Answering simple questions INVESTIGATIONS, reviewed in the clinical context: White count 7.1 hemoglobin 12.9 potassium 3.7 creatinine 0.64 UA negative. Urine drug screen negative. Assessment: -Acute delirium/metabolic encephalopathy likely from scopolamine patch.-Slowly improving -Severe presbyesophagus-causing recurrent regurgitation -PEG tube placed on January 07, 2020 -Myopathy, multifactorial -Orthostatic hypotension from Parkinson's from autonomic dysfunction. -GERD -Essential hypertension -Idiopathic Parkinson's disease -Chronic gait dysfunction uses a walker -Irritable bowel syndrome -Urinary stress incontinence -Advancing medical debility Plan: Continue current medication to the plan. Spoke with nurse. Increase activity. wishes to take her home. We'll see how she does. Up in chair as tolerated.
[2020-03-24] MEDS: MELATONIN 1 MG TAB PO SCH (20:49)
[2020-03-24] MEDS: PRAMIPEXOLE 0.5 MG TAB PEG/G-TUBE SCH (20:49)
[2020-03-25] MEDS: METOPROLOL TARTRATE 50 MG TAB PO SCH ×3 (08:55→21:14)
[2020-03-25] MEDS: POTASSIUM BICARBONATE/CIT AC 20 MEQ TABLET.EFF PEG/G-TUBE SCH ×2 (08:55→21:13)
[2020-03-25] MEDS: PANTOPRAZOLE 40 MG/10 ML VIAL IVP SCH (08:55)
[2020-03-25] MEDS: ASPIRIN 81 MG PO SCH (08:55)
[2020-03-25] MEDS: ENOXAPARIN 40 MG/0.4 ML SYRINGE SQ SCH (08:55)
[2020-03-25] MEDS: FLUDROCORTISONE 0.1 MG TAB PEG/G-TUBE SCH ×2 (08:56→21:13)
[2020-03-25] MEDS: CARBIDOPA-LEVODOPA ER 25-100MG 1 EACH TABLET.ER PO SCH ×2 (08:56→21:14)
[2020-03-25] MEDS: MULTIVITAMINS, THERA 1 EACH TAB PEG/G-TUBE SCH (08:56)
[2020-03-25] MEDS: SODIUM CHLORIDE 0.9% 1,000 ML IV SCH (08:57)
[2020-03-25] MEDS: NON FORMULARY DRUG (Mirabegron [Myrbetriq] 50 MG) PO SCH (09:03)
[2020-03-25 13:32] VITALS: BMI 19.5
[2020-03-25 15:13] VITALS: RESP 16
--- NOTE | 2020-03-25 17:52 | P.PN ---
Progress Note - Text Progress Note Date: 03/25/20 Chief Complaint: Acute confusion History of presenting complaint: This is a pleasant 89-year-old patient who follows a Dr. Vincent Montano. Chronic stable medical conditions include atrial fibrillation, GERD, hypertension, severe esophagitis, Parkinson's disease, kidney dysfunction, autonomic dysfunction and orthostatic hypotension, irritable bowel syndrome, stress incontinence,. severe presbyesophagus. in the past she's had an attempted dilatation of the esophagus that was unsuccessful by ENT physician. In December of this year patient had a PEG tube placed. does bolus feeding 4 times a day. And patient also does some pressure feeding. Patient has excessive drooling. 24 hours ago she was placed on a scopolamine patch. Following that patient became rather confused hallucinating delirious. Normally able to use a walker and walk a few feet. Scopolamine patch was discontinued to the ER. PEG tube feeding was resumed. Today-patient doing much better. Delirium is improved. Sitting up in a chair. Communicating. Getting PEG tube feeding. Not confused anymore. Just tired. Review of systems: Was done for constitutional, cardiovascular, GI, pulmonary. relevant finding as above Active Medications Aspirin (Aspirin) 81 mg PO DAILY [facility] Last Admin: 03/25/20 08:55 Dose: 81 mg Documented by: Carbidopa/Levodopa (Sinemet Er 25-100) 1 each PO BID [facility] Last Admin: 03/25/20 08:56 Dose: 1 each Documented by: Enoxaparin Sodium (Lovenox) 40 mg SQ DAILY [facility] Last Admin: 03/25/20 08:55 Dose: 40 mg Documented by: Ferrous Sulfate (Feosol) 300 mg PEG/G-TUBE DAILY PRN PRN Reason: ANEMIA Fludrocortisone Acetate (Florinef) 0.1 mg PEG/G-TUBE BID@0800,2000 [facility] Last Admin: 03/25/20 08:56 Dose: 0.1 mg Documented by: Sodium Chloride (Saline 0.9%) 1,000 mls @ 50 mls/hr IV .Q20H [facility] Last Admin: 03/25/20 08:57 Dose: 50 mls/hr Documented by: Melatonin (Melatonin) 3 mg PO HS [facility] Last Admin: 03/24/20 20:49 Dose: 3 mg Documented by: Metoprolol Tartrate (Lopressor) 50 mg PO TID [facility] Last Admin: 03/25/20 16:05 Dose: 50 mg Documented by: Multivitamins (Theragran) 1 each PEG/G-TUBE DAILY@0800 [facility] Last Admin: 03/25/20 08:56 Dose: 1 each Documented by: Naloxone HCl (Narcan) 0.2 mg IV Q2M PRN PRN Reason: Opioid Reversal Non-Formulary Medication (Mirabegron [Myrbetriq]) 50 mg PO DAILY [facility] Last Admin: 03/25/20 09:03 Dose: 50 mg Documented by: Pantoprazole Sodium (Protonix) 40 mg IVP Q24HR [facility] Last Admin: 03/25/20 08:55 Dose: 40 mg Documented by: Potassium Bicarbonate (K-Lyte) 20 meq PEG/G-TUBE BID [facility] Last Admin: 03/25/20 08:55 Dose: 20 meq Documented by: Pramipexole Dihydrochloride (Mirapex) 0.5 mg PEG/G-TUBE HS [facility] Last Admin: 03/24/20 20:49 Dose: 0.5 mg Documented by: Physical examination: VITAL SIGNS: 98, 84, 17, 162 and bradycardia 9, 95% room air GENERAL: Sitting up in a chair, answering questions EYES: Pupils equal. Conjunctiva pale. HEENT: External appearance of nose and ears normal, oral cavity grossly normal. NECK: JVD not raised; masses not palpable. HEART: First and second heart sounds are normal; no edema. LUNGS: Respiratory rate normal; clear to auscultation. ABDOMEN: Soft, nontender, liver spleen not palpable, no masses palpable. PSYCH: Able to carried out regular conversation INVESTIGATIONS, reviewed in the clinical context: White count 7.1 hemoglobin 12.9 potassium 3.7 creatinine 0.64 UA negative. Urine drug screen negative. Assessment: -Acute delirium/metabolic encephalopathy likely from scopolamine patch.-Improved -Severe presbyesophagus-causing recurrent regurgitation -PEG tube placed on January 07, 2020 -Myopathy, multifactorial -Orthostatic hypotension from Parkinson's from autonomic dysfunction. -GERD -Essential hypertension -Idiopathic Parkinson's disease -Chronic gait dysfunction uses a walker -Irritable bowel syndrome -Urinary stress incontinence -Advancing medical debility Plan: Had a lengthy discussed with the patient. She does understand she is weak. Did discuss about rehab. Patient has declined the same. At the nurse discussed with her . He is comfortable taking the patient home tomorrow the way she is. The patient wishes the same. He will take her home tomorrow. Patient also is concerned about not able to visit the rehab center. Total time spent today about 40 minutes with over 25 minutes of discussion.
[2020-03-25] MEDS: PRAMIPEXOLE 0.5 MG TAB PEG/G-TUBE SCH (21:14)
[2020-03-25] MEDS: MELATONIN 1 MG TAB PO SCH (21:14)
[2020-03-26] MEDS: SODIUM CHLORIDE 0.9% 1,000 ML IV SCH (01:50)
[2020-03-26] MEDS: ENOXAPARIN 40 MG/0.4 ML SYRINGE SQ SCH (07:59)
[2020-03-26] MEDS: PANTOPRAZOLE 40 MG/10 ML VIAL IVP SCH (07:59)
[2020-03-26] MEDS: NON FORMULARY DRUG (Mirabegron [Myrbetriq] 50 MG) PO SCH (08:00)
[2020-03-26] MEDS: METOPROLOL TARTRATE 50 MG TAB PO SCH (08:00)
[2020-03-26] MEDS: MULTIVITAMINS, THERA 1 EACH TAB PEG/G-TUBE SCH (08:00)
[2020-03-26] MEDS: POTASSIUM BICARBONATE/CIT AC 20 MEQ TABLET.EFF PEG/G-TUBE SCH (08:00)
[2020-03-26] MEDS: ASPIRIN 81 MG PO SCH (08:00)
[2020-03-26] MEDS: CARBIDOPA-LEVODOPA ER 25-100MG 1 EACH TABLET.ER PO SCH (08:00)
[2020-03-26] MEDS: FLUDROCORTISONE 0.1 MG TAB PEG/G-TUBE SCH (08:01)
[2020-03-26 08:10] VITALS: BP 192/92; PULSE 58; TEMP 98.6
--- NOTE | 2020-03-26 15:42 | P.PN ---
Subjective Progress Note Date: 03/26/20 Principal diagnosis: Patient was seen at bedside and her accompanied her. Per the he states that the patient the as doing better compared to the last [address] and her feels like is not having further visual hallucination. He denies of any new neurological issue to address. Denied of any new weakness numbness difficulty getting her words out. Objective - Vital Signs Vital signs: Vital Signs Temp 98.6 F 03/26/20 07:00 Pulse 58 L 03/26/20 07:00 Resp 16 03/26/20 07:00 BP 192/92 03/26/20 07:00 Pulse Ox 96 03/26/20 07:00 Intake & Output 03/25/20 03/26/20 03/26/20 18:59 06:59 18:59 Intake Total 0 0 Output Total 400 1000 Balance -400 -1000 Weight 58.5 kg 57.6 kg Intake: Oral 0 0 Output: Urine 400 1000 Other: Voiding Method Diaper Diaper Diaper Incontinent Incontinent Incontinent # Voids 4 - Exam Patient is awake alert oriented to self place. Following simple commands. No aphasia and no neglect. The pupils are round equal reactive to light. The pupils were around 3 mm bilaterally. Visual mckee are full throughout. The sulcal movement intact and no nystagmus is noted. Normal facial sensation/throughout. No facial weakness noted. There is no dysarthria. Motor: The gait is deferred. The strength moving all extremities above gravity and there is no focality. - Labs CBC & Chem 7: 03/21/20 15:32 03/21/20 15:32 Assessment and Plan Assessment: * Altered mental status, likely related to delirium from anticholinergic side effect scopolamine patch. Patient has history of hallucinations related to Sinemet in the past as well. * Parkinson's disease * History of paroxysmal atrial fibrillation, currently not on long-term anticoagulation secondary to frequent falls * Hypertension * History of orthostatic hypotension, on Florinef. Plan: * Patient has been off scopolamine patch for > 48 hours and no further hallucinating. Her dose of Sinemet 25/100 was also increased to 3 times a day, at the same time scopolamine was given. At this time we need to decrease the dose of Sinemet as well, as the hallucinations are not resolving. We switched from regular Sinemet to Sinemet CR 25/100 twice a day. Per she's doing much better today compared to her initial presentation. * Patient has history of paroxysmal atrial fibrillation, but currently not on anticoagulation due to fall risk from Parkinson's disease. Patient started on aspirin 81 mg daily for stroke prevention. Dr. Patterson Discussed with patient's and daughter in detail when he was on service. * Patient's carotid Doppler from 01/03/2020 showed atherosclerotic disease, but no significant stenosis. * Lipid panel with cholesterol 190, LDL 102, HDL 71 and triglycerides 86. Consider Lipitor 10 mg daily. TSH is normal 0.0997, B12 normal 1248. * Hemoglobin A1c: 5.4 and folate was canceled and not sure why. From neurology perspective the patient is doing better today compared to rate her initial presentation. The patient and her were notified that she n eeds to follow up with a neurologist as an outpatient. Ariel Yang MD Neuro-hospitalist. Time with Patient: Greater than 30
--- NOTE | 2020-03-26 22:04 | P.DS ---
Providers Date of admission: 03/21/20 17:10 Expected date of discharge: 03/26/20 Attending physician: Chidi Shea Consults: 03/21/20 17:11 Consult Physician Routine Consulting Provider: Karen Gray Consult Reason/Comments: Confusion, possible medication reaction, dehydration Do you want consulting provider notified?: Yes Primary care physician: Vincent Montano [facility] Course: Chief Complaint: Acute confusion History of presenting complaint: This pleasant 89-year-old patient who follows a Dr. Vincent Montano. Chronic stable medical conditions include atrial fibrillation, GERD, hypertension, severe esophagitis, Parkinson's disease, kidney dysfunction, autonomic dysfunction and orthostatic hypotension, irritable bowel syndrome, stress incontinence,. severe presbyesophagus. in the past she's had an attempted dilatation of the esophagus that was unsuccessful by ENT physician. In December of this year patient had a PEG tube placed. does bolus feeding 4 times a day. And patient also does some pressure feeding. Patient has excessive drooling. 24 hours ago she was placed on a scopolamine patch. Following that patient became rather confused hallucinating delirious. Normally able to use a walker and walk a few feet. Scopolamine patch was discontinued to the ER. PEG tube feeding was resumed. Delirium resolved. Patient was changed to long- acting Sinemet. Seen by neurology. Has been wishes to take the patient home. Option of rehab was discussed. Prognosis guarded. Consultation: Dr. Patterson/Dr. Yang from neurology Physical examination: VITAL SIGNS: 98.6, 58, 16, 114/75, 96% room air GENERAL: Sitting up in a chair, comfortable EYES: Pupils equal. Conjunctiva pale. HEENT: External appearance of nose and ears normal, oral cavity grossly normal. NECK: JVD not raised; masses not palpable. HEART: First and second heart sounds are normal; no edema. LUNGS: Respiratory rate normal; clear to auscultation. ABDOMEN: Soft, nontender, liver spleen not palpable, no masses palpable. PSYCH: Answering questions INVESTIGATIONS, reviewed in the clinical context: White count 7.1 hemoglobin 12.9 potassium 3.7 creatinine 0.64 UA negative. Urine drug screen negative. Assessment: -Acute delirium/metabolic encephalopathy likely from scopolamine patch.-Improved -Severe presbyesophagus-causing recurrent regurgitation -PEG tube placed on January 07, 2020 -Myopathy, multifactorial -Orthostatic hypotension from Parkinson's from autonomic dysfunction. -GERD -Essential hypertension -Idiopathic Parkinson's disease -Chronic gait dysfunction uses a walker -Irritable bowel syndrome -Urinary stress incontinence -Advancing medical debility Disposition: Home with Patient Condition at Discharge: Stable Plan - Discharge Summary New Discharge Prescriptions: New Melatonin 3 mg PO HS tab Carbidopa-Levodopa ER 25-100Mg [Sinemet CR 25-100 mg] 1 each PO BID #60 tablet.er Continue Pantoprazole Sodium [Protonix] 40 mg PEG/G-TUBE DAILY@0800 Multivitamins, Thera [Multivitamin (formulary)] 1 tab PEG/G-TUBE DAILY@0800 Ferrous Sulfate [Iron (65 MG Elemental)] 325 mg PEG/G-TUBE DAILY PRN PRN Reason: Anemia Mirabegron [Myrbetriq] 50 mg PO DAILY@1800 Metoprolol Tartrate [Lopressor] 50 mg PO BID@0800,1999 Fludrocortisone [Florinef] 0.1 mg PEG/G-TUBE BID@0800,1999 Pramipexole [Mirapex] 0.5 mg PEG/G-TUBE HS Mirabegron [Myrbetriq] 50 mg PEG/G-TUBE DAILY Discontinued Donepezil [Aricept] 10 mg PEG/G-TUBE HS Carbidopa-Levodopa 25-100 mg [Sinemet 25-100 mg] 1 tab PEG/G-TUBE TID@0800,1400,1999 Scopolamine [Scopolamine 1 MG/72 HR patch] 1 patch TRANSDERM Q72H Potassium Chloride 20 meq PEG/G-TUBE BID Furosemide [Lasix] 20 mg PEG/G-TUBE DAILY Discharge Medication List Pantoprazole Sodium [Protonix] 40 mg PEG/G-TUBE DAILY@0800 08/20/18 [History] Ferrous Sulfate [Iron (65 MG Elemental)] 325 mg PEG/G-TUBE DAILY PRN 01/02/20 [History] Fludrocortisone [Florinef] 0.1 mg PEG/G-TUBE BID@0800,199901/02/20 [History] Metoprolol Tartrate [Lopressor] 50 mg PO BID@0800,199901/02/20 [History] Mirabegron [Myrbetriq] 50 mg PO DAILY@1800 01/02/20 [History] Multivitamins, Thera [Multivitamin (formulary)] 1 tab PEG/G-TUBE DAILY@0800 06/0 03/15 [History] Mirabegron [Myrbetriq] 50 mg PEG/G-TUBE DAILY 03/21/20 [History] Pramipexole [Mirapex] 0.5 mg PEG/G-TUBE HS 03/21/20 [History] Carbidopa-Levodopa ER 25-100Mg [Sinemet CR 25-100 mg] 1 each PO BID #60 tablet.er 03/26/20 [Rx] Melatonin 3 mg PO HS tab 03/26/20 [Rx] Follow up Appointment(s)/Referral(s): Vincent Montano MD [Primary Care Provider] - 04/04/20 12:30 pm [facility], [NON-STAFF] - As Needed Patient Instructions/Handouts: Dehydration (DC) Discharge Disposition: HOME WITH HOME HEALTH SERVICES
== END 2020-03-26 15:31 | disposition home health service (06) | DRG 92 ==
LOC: EC 14:33 → 4SSUR 17:10
PROVIDERS: ADMIT Hospitalist; ATTEND Hospitalist
PROC: 3E0G76Z Introduction of Nutritional Substance into Upper GI, Via Natural or Artificial Opening (ICD-10-PCS; principal; 2020-03-22)
DX: G92 Toxic encephalopathy (principal); E44.0 Moderate protein-calorie malnutrition; Z68.1 Body mass index [BMI] 19.9 or less, adult; I45.2 Bifascicular block; G90.9 Disorder of the autonomic nervous system, unspecified; G72.9 Myopathy, unspecified; G20 Parkinson's disease; F02.80 Dementia in other diseases classified elsewhere, unspecified severity, without behavioral disturbance, psychotic disturbance, mood disturbance, and anxiety; I50.9 Heart failure, unspecified; I11.0 Hypertensive heart disease with heart failure; Z93.1 Gastrostomy status; I48.0 Paroxysmal atrial fibrillation; K22.8 Other specified diseases of esophagus; I95.1 Orthostatic hypotension; K21.0 Gastro-esophageal reflux disease with esophagitis; R40.2361 Coma scale, best motor response, obeys commands, in the field [EMT or ambulance]; R40.2141 Coma scale, eyes open, spontaneous, in the field [EMT or ambulance]; R40.2241 Coma scale, best verbal response, confused conversation, in the field [EMT or ambulance]; R40.2362 Coma scale, best motor response, obeys commands, at arrival to emergency department; R40.2142 Coma scale, eyes open, spontaneous, at arrival to emergency department; R40.2252 Coma scale, best verbal response, oriented, at arrival to emergency department; R26.9 Unspecified abnormalities of gait and mobility; N39.3 Stress incontinence (female) (male); K58.9 Irritable bowel syndrome, unspecified; E04.9 Nontoxic goiter, unspecified; E86.0 Dehydration; I44.0 Atrioventricular block, first degree; D64.9 Anemia, unspecified; R53.81 Other malaise; M25.551 Pain in right hip; S50.312A Abrasion of left elbow, initial encounter; R29.6 Repeated falls; T44.3X5A Adverse effect of other parasympatholytics [anticholinergics and antimuscarinics] and spasmolytics, initial encounter; W19.XXXA Unspecified fall, initial encounter; Z79.899 Other long term (current) drug therapy; Z85.828 Personal history of other malignant neoplasm of skin; Z90.710 Acquired absence of both cervix and uterus; Z98.890 Other specified postprocedural states; Z90.49 Acquired absence of other specified parts of digestive tract; Z87.891 Personal history of nicotine dependence; Z87.448 Personal history of other diseases of urinary system; Z82.49 Family history of ischemic heart disease and other diseases of the circulatory system; Z80.0 Family history of malignant neoplasm of digestive organs; Z81.1 Family history of alcohol abuse and dependence
CPT/HCPCS: 36415; 70450; 71046; 80053; 80061; 80306; 81003; 82140; 82550; 82607; 82746; 83036; 83735; 84443; 84484; 85025; 85610; 85730; 93005; 96360; 96361; 99285

== ENCOUNTER 2020-09-17 12:40 | Emergency (ER) | payer MEDICARE ==
[2020-09-17 12:55] VITALS: RESP 18; TEMP 96.8
[2020-09-17] MEDS ORDERED: SODIUM CHLORIDE 0.9% 1,000 ML IV STA (13:08)
--- NOTE | 2020-09-17 13:11 | ED ---
Weakness HPI - General Chief complaint: Weakness Stated complaint: Weakness Time Seen by Provider: 09/17/20 12:56 Source: patient, family, EMS, RN notes reviewed Mode of arrival: EMS Limitations: physical limitation - History of Present Illness Initial comments: This is an 89-year-old female presents emergency from via EMS with chief complaint of increased weakness. Patient has long history of Parkinson's disease with multiple comorbidities and complications. Patient reportedly has had increased urinary frequency overnight and about of unresponsive for confusion this morning. states that she so weak that she cannot get up with his help. Patient also was told that her blood sugars severe LV and she has no history of diabetes. Patient does due to pains in which she had not missed any feedings he has increased some fluids to try to help cut she's had recurrent dehydration. She denies any abdominal pain no 7 cough or chest congestion no shortness of breath. - Related Data Home Medications Medication Instructions Recorded Confirmed Pantoprazole Sodium [Protonix] 40 mg PEG/G-TUBE DAILY@0800 08/20/18 03/21/20 Ferrous Sulfate [Iron (65 MG 325 mg PEG/G-TUBE DAILY PRN 01/02/20 03/21/20 Elemental)] Fludrocortisone [Florinef] 0.1 mg PEG/G-TUBE BID@0800,199901/02/20 03/21/20 Metoprolol Tartrate [Lopressor] 50 mg PO BID@0800,199901/02/20 03/21/20 Mirabegron [Myrbetriq] 50 mg PO DAILY@1800 01/02/20 03/21/20 Multivitamins, Thera [Multivitamin 1 tab PEG/G-TUBE DAILY@0800 01/02/20 03/21/20 (formulary)] Mirabegron [Myrbetriq] 50 mg PEG/G-TUBE DAILY 03/21/20 03/21/20 Pramipexole [Mirapex] 0.5 mg PEG/G-TUBE HS 03/21/20 03/21/20 Previous Rx's Medication Instructions Recorded Carbidopa-Levodopa ER 25-100Mg 1 each PO BID #60 tablet.er 03/26/20 [Sinemet CR 25-100 mg] Melatonin 3 mg PO HS tab 03/26/20 Allergies Allergy/AdvReac Type Severity Reaction Status Date / Time epinephrine AdvReac Unknown Verified 09/17/20 12:57 Review of Systems ROS Statement: Those systems with pertinent positive or pertinent negative responses have been documented in the HPI. ROS Other: All systems not noted in ROS Statement are negative. Past Medical History Past Medical History: Atrial Fibrillation, Cancer, Heart Failure, GERD/Reflux, Hypertension, Musculoskeletal Disorder, Neurologic Disorder Additional Past Medical History / Comment(s): Severe presbyesophagus-peg tube removed, severe esophagitis, parkinson's disease, confused at times per spouse dementia, gait dysfunction, falls, automic dysfunction-HTN/orthostatic hypotension, IBS, stress incontinence, goiter, skin cancer with removals. History of Any Multi-Drug Resistant Organisms: None Reported Past Surgical History: Breast Surgery, Cholecystectomy, Ear Surgery, Hysterectomy, Tonsillectomy Additional Past Surgical History / Comment(s): EGDs/Peg tube, colonoscopy, R ear stapedectomy, bilateral 1/4 breast removed (thought cancer but was calcium deposits), skin cancer removals. Past Psychological History: No Psychological Hx Reported Smoking Status: Never smoker, Unknown if ever smoked Past Alcohol Use History: None Reported Past Drug Use History: None Reported - Past Family History Mother Family Medical History: Congestive Heart Failure (CHF) Sister(s) Family Medical History: Cancer Additional Family Medical History / Comment(s): Colon cancer Father Additional Family Medical History / Comment(s): Father was an alcoholic. General Exam Limitations: physical limitation General appearance: alert, in no apparent distress Head exam: Present: atraumatic, normocephalic, normal inspection Eye exam: Present: normal appearance, PERRL, EOMI. Absent: scleral icterus, conjunctival injection, periorbital swelling ENT exam: Present: normal exam, normal oropharynx, mucous membranes moist Neck exam: Present: normal inspection, full ROM. Absent: tenderness, meningismus, lymphadenopathy Respiratory exam: Present: normal lung sounds bilaterally. Absent: respiratory distress, wheezes, rales, rhonchi, stridor Cardiovascular Exam: Present: regular rate, normal rhythm, normal heart sounds. Absent: systolic murmur, diastolic murmur, rubs, gallop, clicks GI/Abdominal exam: Present: soft, normal bowel sounds, other (PEG tube is noted). Absent: distended, tenderness, guarding, rebound, rigid Neurological exam: Present: alert, oriented X3 Skin exam: Present: warm, dry, intact, normal color. Absent: rash Course Vital Signs 09/17/20 09/17/20 09/17/20 12:49 14:51 16:14 Temperature 96.8 F L Pulse Rate 64 64 Pulse Rate [ 69 Right Prone Studio Model ] Pulse Rate [ 67 Right Sitting Studio Model ] Pulse Rate [ 90 Right Standing Studio Model ] Respiratory 18 18 Rate Blood Pressure 160/89 169/89 Blood Pressure 195/96 [Right Arm Sitting] Blood Pressure 142/81 [Right Arm Standing] Blood Pressure 195/108 [Right Arm Supine] O2 Sat by Pulse 97 97 100 Oximetry EKG Findings - EKG Comments: EKG Findings:: EKG performed at 13:31 sinus rhythm with first-degree block, rate of 66 OR 240 QRS 140 QT/QTC 480/503 is a left axis deviation Medical Decision Making - Medical Decision Making 81-year-old presented for generalized weakness. Patient is able to ambulate in the room. Labs reviewed no significant abnormality. Patient does not have evidence of urine tract infection. Patient does have some mild orthostatic hyp otension was given fluids. Patient prefers to go home was offered admission she states that she has her cold vaccine tomorrow does not want to miss her appointment. - Lab Data Result diagrams: 09/17/20 13:46 09/17/20 13:46 Lab Results 09/17/20 09/17/20 09/17/20 Range/Units 13:43 13:46 13:46 WBC 7.6 (3.8-10.6) k/uL RBC 4.06 (3.80-5.40) m/uL Hgb 12.8 (11.4-16.0) gm/dL Hct 38.8 (34.0-46.0) % MCV 95.5 (80.0-100.0) fL MCH 31.4 (25.0-35.0) pg MCHC 32.9 (31.0-37.0) g/dL RDW 13.6 (11.5-15.5) % Plt Count 196 (150-450) k/uL MPV 7.1 Neutrophils % 81 % Lymphocytes % 9 % Monocytes % 6 % Eosinophils % 1 % Basophils % 1 % Neutrophils # 6.2 (1.3-7.7) k/uL Lymphocytes # 0.7 L (1.0-4.8) k/uL Monocytes # 0.4 (0-1.0) k/uL Eosinophils # 0.1 (0-0.7) k/uL Basophils # 0.0 (0-0.2) k/uL PT 11.0 (9.0-12.0) sec INR 1.0 (<1.2) APTT 21.0 L (22.0-30.0) sec Sodium (137-145) mmol/L Potassium (3.5-5.1) mmol/L Chloride (98-107) mmol/L Carbon Dioxide (22-30) mmol/L Anion Gap mmol/L BUN (7-17) mg/dL Creatinine (0.52-1.04) mg/dL Est GFR (CKD-EPI)AfAm (>60 ml/min/1.73 sqM) Est GFR (CKD-EPI)NonAf (>60 ml/min/1.73 sqM) Glucose (74-99) mg/dL POC Glucose (mg/dL) 92 (75-99) mg/dL POC Glu Radio Presenter ID Michael Caldwell Plasma Lactic Acid Stevan (0.7-2.0) mmol/L Calcium (8.4-10.2) mg/dL Magnesium (1.6-2.3) mg/dL Total Bilirubin (0.2-1.3) mg/dL AST (14-36) U/L ALT (4-34) U/L Alkaline Phosphatase (38-126) U/L Troponin I (0.000-0.034) ng/mL NT-Pro-B Natriuret Pep pg/mL Total Protein (6.3-8.2) g/dL Albumin (3.5-5.0) g/dL Urine Color Urine Appearance (Clear) Urine pH (5.0-8.0) Ur Specific Collins (1.001-1.035) Urine Protein (Negative) Urine Glucose (UA) (Negative) Urine Ketones (Negative) Urine Blood (Negative) Urine Nitrite (Negative) Urine Bilirubin (Negative) Urine Urobilinogen (<2.0) mg/dL Ur Leukocyte Esterase (Negative) 09/17/20 09/17/20 09/17/20 Range/Units 13:46 13:46 13:46 WBC (3.8-10.6) k/uL RBC (3.80-5.40) m/uL Hgb (11.4-16.0) gm/dL Hct (34.0-46.0) % MCV (80.0-100.0) fL MCH (25.0-35.0) pg MCHC (31.0-37.0) g/dL RDW (11.5-15.5) % Plt Count (150-450) k/uL MPV Neutrophils % % Lymphocytes % % Monocytes % % Eosinophils % % Basophils % % Neutrophils # (1.3-7.7) k/uL Lymphocytes # (1.0-4.8) k/uL Monocytes # (0-1.0) k/uL Eosinophils # (0-0.7) k/uL Basophils # (0-0.2) k/uL PT (9.0-12.0) sec INR (<1.2) APTT (22.0-30.0) sec Sodium 138 (137-145) mmol/L Potassium 3.4 L (3.5-5.1) mmol/L Chloride 98 (98-107) mmol/L Carbon Dioxide 37 H (22-30) mmol/L Anion Gap 3 mmol/L BUN 31 H (7-17) mg/dL Creatinine 0.81 (0.52-1.04) mg/dL Est GFR (CKD-EPI)AfAm 76 (>60 ml/min/1.73 sqM) Est GFR (CKD-EPI)NonAf 66 (>60 ml/min/1.73 sqM) Glucose 97 (74-99) mg/dL POC Glucose (mg/dL) (75-99) mg/dL POC Glu Radio Presenter ID Plasma Lactic Acid Stevan 0.8 (0.7-2.0) mmol/L Calcium 8.4 (8.4-10.2) mg/dL Magnesium 2.1 (1.6-2.3) mg/dL Total Bilirubin 0.8 (0.2-1.3) mg/dL AST 25 (14-36) U/L ALT 7 (4-34) U/L Alkaline Phosphatase 61 (38-126) U/L Troponin I <0.012 (0.000-0.034) ng/mL NT-Pro-B Natriuret Pep pg/mL Total Protein 5.8 L (6.3-8.2) g/dL Albumin 3.4 L (3.5-5.0) g/dL Urine Color Urine Appearance (Clear) Urine pH (5.0-8.0) Ur Specific Collins (1.001-1.035) Urine Protein (Negative) Urine Glucose (UA) (Negative) Urine Ketones (Negative) Urine Blood (Negative) Urine Nitrite (Negative) Urine Bilirubin (Negative) Urine Urobilinogen (<2.0) mg/dL Ur Leukocyte Esterase (Negative) 09/17/20 09/17/20 Range/Units 13:46 14:17 WBC (3.8-10.6) k/uL RBC (3.80-5.40) m/uL Hgb (11.4-16.0) gm/dL Hct (34.0-46.0) % MCV (80.0-100.0) fL MCH (25.0-35.0) pg MCHC (31.0-37.0) g/dL RDW (11.5-15.5) % Plt Count (150-450) k/uL MPV Neutrophils % % Lymphocytes % % Monocytes % % Eosinophils % % Basophils % % Neutrophils # (1.3-7.7) k/uL Lymphocytes # (1.0-4.8) k/uL Monocytes # (0-1.0) k/uL Eosinophils # (0-0.7) k/uL Basophils # (0-0.2) k/uL PT (9.0-12.0) sec INR (<1.2) APTT (22.0-30.0) sec Sodium (137-145) mmol/L Potassium (3.5-5.1) mmol/L Chloride (98-107) mmol/L Carbon Dioxide (22-30) mmol/L Anion Gap mmol/L BUN (7-17) mg/dL Creatinine (0.52-1.04) mg/dL Est GFR (CKD-EPI)AfAm (>60 ml/min/1.73 sqM) Est GFR (CKD-EPI)NonAf (>60 ml/min/1.73 sqM) Glucose (74-99) mg/dL POC Glucose (mg/dL) (75-99) mg/dL POC Glu Radio Presenter ID Plasma Lactic Acid Stevan (0.7-2.0) mmol/L Calcium (8.4-10.2) mg/dL Magnesium (1.6-2.3) mg/dL Total Bilirubin (0.2-1.3) mg/dL AST (14-36) U/L ALT (4-34) U/L Alkaline Phosphatase (38-126) U/L Troponin I (0.000-0.034) ng/mL NT-Pro-B Natriuret Pep 3050 pg/mL Total Protein (6.3-8.2) g/dL Albumin (3.5-5.0) g/dL Urine Color Light Yellow Urine Appearance Clear (Clear) Urine pH 7.0 (5.0-8.0) Ur Specific Collins 1.005 (1.001-1.035) Urine Protein Negative (Negative) Urine Glucose (UA) Negative (Negative) Urine Ketones Negative (Negative) Urine Blood Negative (Negative) Urine Nitrite Negative (Negative) Urine Bilirubin Negative (Negative) Urine Urobilinogen <2.0 (<2.0) mg/dL Ur Leukocyte Esterase Negative (Negative) Disposition Clinical Impression: Dehydration, Weakness, Parkinsons Disposition: HOME SELF-CARE Condition: Stable Instructions (If sedation given, give patient instructions): Hypotension (ED) Additional Instructions: Please return to the Emergency Department if symptoms worsen or any other concerns. Is patient prescribed a controlled substance at d/c from ED?: No Referrals: Vincent Montano MD [Primary Care Provider] - 1-2 days Time of Disposition: 16:22
[2020-09-17 13:47] LABS: Glucose,Whole Blood 92 mg/dL (75-99)
[2020-09-17 13:58] LABS: Basophils % (A) 1 %; Eosinophils # (A) 0.1 k/uL (0-0.7); Eosinophils % (A) 1 %; HCT 38.8 % (34.0-46.0); HGB 12.8 gm/dL (11.4-16.0); Lymphocytes # (A) 0.7 k/uL (1.0-4.8); Lymphocytes % (A) 9 %; MCH 31.4 pg (25.0-35.0); MCHC 32.9 g/dL (31.0-37.0); MCV 95.5 fL (80.0-100.0); Mean Platelet Volume 7.1; Monocytes # (A) 0.4 k/uL (0-1.0); Monocytes % (A) 6 %; Neutrophils # (A) 6.2 k/uL (1.3-7.7); Neutrophils % (A) 81 %; Platelet Count 196 k/uL (150-450); RBC 4.06 m/uL (3.80-5.40); RDW 13.6 % (11.5-15.5); WBC 7.6 k/uL (3.8-10.6)
[2020-09-17 14:11] LABS: Albumin 3.4 g/dL (3.5-5.0); Calcium 8.4 mg/dL (8.4-10.2); Magnesium 2.1 mg/dL (1.6-2.3); Potassium 3.4 mmol/L (3.5-5.1); Total Bilirubin 0.8 mg/dL (0.2-1.3); Total Protein 5.8 g/dL (6.3-8.2)
[2020-09-17 14:24] LABS: Appearance,Urine Clear (Clear); Bilirubin,Urine Negative (Negative); Blood,Urine Negative (Negative); Color,Urine Light Yellow; Glucose,Urine (UA) Negative (Negative); Ketones,Urine Negative (Negative); Leukocyte Esterase,Urine Negative (Negative); Nitrite,Urine Negative (Negative); Protein,Urine Negative (Negative); Specific Gravity,Urine 1.005 (1.001-1.035); Urobilinogen,Urine <2.0 mg/dL (<2.0)
--- NOTE | 2020-09-17 15:06 | XR ---
EXAMINATION TYPE: XR chest 2V DATE OF EXAM: 09/17/2020 COMPARISON: 03/21/2020 INDICATION: Weakness TECHNIQUE: Frontal and lateral views of the chest are obtained. FINDINGS: The heart size is prominent. The pulmonary vasculature is normal. The lungs are clear. IMPRESSION: 1. Cardiomegaly.
[2020-09-17] MEDS ORDERED: SODIUM CHLORIDE 0.9% 500 ML 500 ML IV ONE (16:20)
[2020-09-17 16:52] VITALS: BP 142/81; PULSE 66
== END 2020-09-17 16:59 | disposition home or self-care (01) ==
LOC: EC 12:40
DX: E86.0 Dehydration (principal); R53.1 Weakness; G20 Parkinson's disease; I11.0 Hypertensive heart disease with heart failure; I50.9 Heart failure, unspecified; K21.9 Gastro-esophageal reflux disease without esophagitis; Z79.899 Other long term (current) drug therapy; Z88.8 Allergy status to other drugs, medicaments and biological substances; Z90.49 Acquired absence of other specified parts of digestive tract; Z90.710 Acquired absence of both cervix and uterus; Z85.828 Personal history of other malignant neoplasm of skin
CPT/HCPCS: 36415; 71046; 80053; 81003; 83605; 83735; 83880; 84484; 85025; 85610; 85730; 93005; 99285

== ENCOUNTER 2020-09-24 10:37 | Emergency (ER) | payer MEDICARE ==
[2020-09-24 10:48] VITALS: BP 136/74; RESP 18
--- NOTE | 2020-09-24 11:10 | ED ---
Recheck HPI - General Chief Complaint: Recheck/Abnormal Lab/Rx Stated Complaint: feeding tube problem Time Seen by Provider: 09/24/20 10:53 Source: family Mode of arrival: wheelchair Limitations: altered mental status, physical limitation - History of Present Illness Initial Comments: Patient is an 89-year-old female, with history of A. fib, Parkinson's, presenting to the emergency department with concerns of a clogged PEG tube. states that he tried to do her feeding this morning but it is not going through. He states he tried to flush and it did not work so they called the office and they recommended coming into the ER. states that they do not do medications through the tube, she has no abdominal pain, no vomiting. There are no other complaints. Upon arrival to the ER, her vitals are stable. - Related Data Home Medications Medication Instructions Recorded Confirmed Pantoprazole Sodium [Protonix] 40 mg PEG/G-TUBE DAILY@0800 08/20/18 03/21/20 Ferrous Sulfate [Iron (65 MG 325 mg PEG/G-TUBE DAILY PRN 01/02/20 03/21/20 Elemental)] Fludrocortisone [Florinef] 0.1 mg PEG/G-TUBE BID@0800,199901/02/20 03/21/20 Metoprolol Tartrate [Lopressor] 50 mg PO BID@0800,199901/02/20 03/21/20 Mirabegron [Myrbetriq] 50 mg PO DAILY@1800 01/02/20 03/21/20 Multivitamins, Thera [Multivitamin 1 tab PEG/G-TUBE DAILY@0800 01/02/20 03/21/20 (formulary)] Mirabegron [Myrbetriq] 50 mg PEG/G-TUBE DAILY 03/21/20 03/21/20 Pramipexole [Mirapex] 0.5 mg PEG/G-TUBE HS 03/21/20 03/21/20 Previous Rx's Medication Instructions Recorded Carbidopa-Levodopa ER 25-100Mg 1 each PO BID #60 tablet.er 03/26/20 [Sinemet CR 25-100 mg] Melatonin 3 mg PO HS tab 03/26/20 Allergies Allergy/AdvReac Type Severity Reaction Status Date / Time No Known Allergies Allergy Verified 09/24/20 10:49 Review of Systems ROS Statement: Those systems with pertinent positive or pertinent negative responses have been documented in the HPI. ROS Other: All systems not noted in ROS Statement are negative. Past Medical History Past Medical History: Atrial Fibrillation, Cancer, Heart Failure, GERD/Reflux, Hypertension, Musculoskeletal Disorder, Neurologic Disorder Additional Past Medical History / Comment(s): Severe presbyesophagus-peg tube removed, severe esophagitis, parkinson's disease, confused at times per spouse dementia, gait dysfunction, falls, automic dysfunction-HTN/orthostatic hypotension, IBS, stress incontinence, goiter, skin cancer with removals. History of Any Multi-Drug Resistant Organisms: None Reported Past Surgical History: Breast Surgery, Cholecystectomy, Ear Surgery, Hysterectomy, Tonsillectomy Additional Past Surgical History / Comment(s): EGDs/Peg tube, colonoscopy, R ear stapedectomy, bilateral 1/4 breast removed (thought cancer but was calcium deposits), skin cancer removals. Past Psychological History: No Psychological Hx Reported Smoking Status: Never smoker, Unknown if ever smoked Past Alcohol Use History: None Reported Past Drug Use History: None Reported - Past Family History Mother Family Medical History: Congestive Heart Failure (CHF) Sister(s) Family Medical History: Cancer Additional Family Medical History / Comment(s): Colon cancer Father Additional Family Medical History / Comment(s): Father was an alcoholic. General Exam - General Exam Comments Initial Comments: GENERAL: Patient is well-developed and well-nourished. Patient is nontoxic and in no acute distress. HEAD: Atraumatic, normocephalic. EYES: Pupils equal round and reactive to light, extraocular movements intact, sclera anicteric, conjunctiva are normal. Eyelids were unremarkable. ENT: TMs normal, nares patent, oropharynx clear without exudates. Moist mucous membranes. NECK: Normal range of motion, supple without lymphadenopathy or JVD. LUNGS: Unlabored respirations. Breath sounds clear to auscultation bilaterally and equal. No wheezes rales or rhonchi. HEART: Regular rate and rhythm without murmurs, rubs or gallops. ABDOMEN: Soft, nontender, normoactive bowel sounds. No guarding, no rebound. No masses appreciated. Peg tube present, no erythema, no signs of infection around the tube. : Deferred MUSCULOSKELETAL: Normal extremities with adequate strength and normal range of motion, no pitting or edema. No clubbing or cyanosis. NEUROLOGICAL: Patient is alert and oriented x 3. Motor and sensory are also intact. Cranial nerves II through XII grossly intact. Symmetrical smile. Normal speech. PSYCH: Normal mood, normal affect. SKIN: Warm, Dry, normal turgor, no rashes or lesions noted. Limitations: altered mental status, physical limitation Course Vital Signs 09/24/20 10:46 Temperature 97.3 F L Pulse Rate 60 Respiratory 18 Rate Blood Pressure 136/74 O2 Sat by Pulse 99 Oximetry Medical Decision Making - Medical Decision Making Patient is a 81-year-old female history of A. fib and Parkinson's presenting for a clogged PEG tube. tried to do morning feedings and it would not go through. Nurse was able to push through warm water and to has been working fine. Patient is stable for discharge. She can follow up with her regular doctor. Patient patient's is in agreement with this plan of care. Case discussed with Dr. Gonzalez. Disposition Clinical Impression: PEG tube malfunction Disposition: HOME SELF-CARE Condition: Stable Instructions (If sedation given, give patient instructions): How to Use and Care for Your PEG Tube (ED) Additional Instructions: Please return to the Emergency Department if symptoms worsen or any other conc erns. Follow-up with your regular doctor. Is patient prescribed a controlled substance at d/c from ED?: No Referrals: Vincent Montano MD [Primary Care Provider] - 1-2 days
[2020-09-24 11:43] VITALS: PULSE 61; TEMP 97.1
== END 2020-09-24 11:43 | disposition home or self-care (01) ==
LOC: EC 10:37
DX: K94.23 Gastrostomy malfunction (principal); F02.80 Dementia in other diseases classified elsewhere, unspecified severity, without behavioral disturbance, psychotic disturbance, mood disturbance, and anxiety; I11.0 Hypertensive heart disease with heart failure; G20 Parkinson's disease; I48.91 Unspecified atrial fibrillation; I50.9 Heart failure, unspecified; K21.9 Gastro-esophageal reflux disease without esophagitis

== ENCOUNTER 2020-09-26 12:03 | Emergency (ER) | payer MEDICARE ==
[2020-09-26 12:10] VITALS: BP 171/80; PULSE 62; RESP 18; TEMP 97.7
--- NOTE | 2020-09-26 12:20 | ED ---
General Adult HPI - General Chief complaint: Fall Stated complaint: fall Time Seen by Provider: 09/26/20 12:05 Source: patient, EMS, RN notes reviewed, old records reviewed Mode of arrival: EMS Limitations: no limitations - History of Present Illness Initial comments: This is an 89-year-old female who presents emergency Department and states that she was just going across the room when she fell and landed on her right side. Patient complains of right upper arm pain little right upper chest pain and states she hit the right side of her head. Patient states it's tender there but she has no headache. Patient states she has right-sided neck pain. No central neck pain. Patient denies any central chest pain left-sided chest pain or back pain. Patient denies any abdominal pain. Patient denies any hip pain. Patient denies any lower extremity pain. Sites of bleeding that she knows of. Report from EMS was that she was on a blood thinner but no one knew what it was. - Related Data Home Medications Medication Instructions Recorded Confirmed Pantoprazole Sodium [Protonix] 40 mg PO DAILY@0800 08/20/18 09/26/20 Ferrous Sulfate [Iron (65 MG 325 mg PO DAILY 01/02/20 09/26/20 Elemental)] Fludrocortisone [Florinef] 0.1 mg PO TID@0800,1300,1800 01/02/20 09/26/20 Metoprolol Tartrate [Lopressor] 50 mg PO BID@0800,2000 01/02/20 09/26/20 Mirabegron [Myrbetriq] 50 mg PO DAILY@0800 03/21/20 09/26/20 Carbidopa-Levodopa ER 25-100Mg 1.5 tab PO TID@0800,1300,1800 09/26/20 09/26/20 [Sinemet CR 25-100 mg] Donepezil [Aricept] 10 mg PO DAILY@1800 09/26/20 09/26/20 Previous Rx's Medication Instructions Recorded Ibuprofen [Motrin] 400 mg PO Q8HR PRN #20 tab 09/26/20 Allergies Allergy/AdvReac Type Severity Reaction Status Date / Time Tetanus Vaccines and Toxoid Allergy Unknown Verified 09/26/20 13:22 Review of Systems ROS Statement: Those systems with pertinent positive or pertinent negative responses have been documented in the HPI. ROS Other: All systems not noted in ROS Statement are negative. Past Medical History Past Medical History: Atrial Fibrillation, Cancer, Heart Failure, GERD/Reflux, Hypertension, Musculoskeletal Disorder, Neurologic Disorder Additional Past Medical History / Comment(s): Severe presbyesophagus-peg tube removed, severe esophagitis, parkinson's disease, confused at times per spouse dementia, gait dysfunction, falls, automic dysfunction-HTN/orthostatic hypotension, IBS, stress incontinence, goiter, skin cancer with removals. History of Any Multi-Drug Resistant Organisms: None Reported Past Surgical History: Breast Surgery, Cholecystectomy, Ear Surgery, Hysterectomy, Tonsillectomy Additional Past Surgical History / Comment(s): EGDs/Peg tube, colonoscopy, R ear stapedectomy, bilateral 1/4 breast removed (thought cancer but was calcium deposits), skin cancer removals. Past Psychological History: No Psychological Hx Reported Smoking Status: Never smoker, Unknown if ever smoked Past Alcohol Use History: None Reported Past Drug Use History: None Reported - Past Family History Mother Family Medical History: Congestive Heart Failure (CHF) Sister(s) Family Medical History: Cancer Additional Family Medical History / Comment(s): Colon cancer Father Additional Family Medical History / Comment(s): Father was an alcoholic. General Exam - General Exam Comments Initial Comments: GENERAL: Patient is well-developed and well-nourished. Patient is nontoxic and well- hydrated and is in mild distress. Patient has a contusion to the lateral aspect of the right forehead. ENT: Neck is soft and supple. No significant lymphadenopathy is noted. Oropharynx is clear. Moist mucous membranes. Neck has full range of motion without eliciting any pain. Patient has some tenderness to palpation of the right trapezius muscle EYES: The sclera were anicteric and conjunctiva were pink and moist. Extraocular movements were intact and pupils were equal round and reactive to light. Eyelids were unremarkable. PULMONARY: Unlabored respirations. Good breath sounds bilaterally. No audible rales rhonchi or wheezing was noted. CARDIOVASCULAR: There is a regular rate and rhythm without any murmurs gallops or rubs. ABDOMEN: Soft and nontender with normal bowel sounds. SKIN: Skin is clear with no lesions or rashes and otherwise unremarkable. NEUROLOGIC Patient is alert and oriented x3. Cranial nerves II through XII are grossly intact. Motor and sensory are also intact. Normal speech, volume and content. Symmetrical smile. MUSCULOSKELETAL: Patient is unable to move the right arm at the shoulder. Patient has tenderness on the lateral and anterior aspect of the shoulder on the right. Patient has some anterior right chest wall tenderness no crepitus is noted. LYMPHATICS: No significant lymphadenopathy is noted PSYCHIATRIC: Normal psychiatric evaluation. Limitations: no limitations Course Vital Signs 09/26/20 12:05 Temperature 97.7 F Pulse Rate 62 Respiratory 18 Rate Blood Pressure 171/80 O2 Sat by Pulse 97 Oximetry Medical Decision Making - Medical Decision Making arrived and indicated that the patient was not on any blood thinners. CT of the brain and C-spine showed no acute abnormality. X-ray of the chest and show a distal clavicle fracture on the right. Patient's x-ray of the shoulder showed the same distal clavicle fracture with disruption of the ligament. Patient is given a sling emergency department and she was able to ambulate with assistance with no other complaints. Disposition Clinical Impression: Fall, Clavicle fracture, Contusion, chest wall Disposition: HOME SELF-CARE Condition: Good Instructions (If sedation given, give patient instructions): Fall Prevention for Older Adults (ED), Clavicle Fracture (ED) Prescriptions: Ibuprofen [Motrin] 400 mg PO Q8HR PRN #20 tab PRN Reason: Pain Is patient prescribed a controlled substance at d/c from ED?: No Referrals: Vincent Montano MD [Primary Care Provider] - 1-2 days Time of Disposition: 13:54
--- NOTE | 2020-09-26 12:54 | CT ---
EXAMINATION TYPE: CT brain radhaine wo con DATE OF EXAM: 09/26/2020 COMPARISON: 03/21/2020 HISTORY: Fall. CT DLP: 1257.7 mGycm, Automated exposure control for dose reduction was used. CONTRAST: Patient injected with 0 mL of Isovue 300. CT of the brain is performed utilizing 3 mm thick sections through the posterior fossa and 3 mm thick sections through the remaining calvarium. Study is performed within 24 hours of arrival to the hospital. No abnormal hyperdensity is present to suggest an acute intracranial hemorrhage. No mass lesion is evident. No acute infarcts are evident. Ventricles and sulci are appropriate for the patient age. Paranasal sinuses and mastoid air cells within the [id number] are clear. IMPRESSIONS: 1. No acute intracranial process. CT cervical spine. COMPARISON: None CT of the cervical spine is performed in the axial plane at 2 mm thick sections. Reconstructed image s in the coronal, and sagittal plane are reviewed on the computer. No acute fractures are evident. Vertebral body alignment is normal. Disc space narrowing is present greatest at C4-5 C5-6. Endplate spurring is present posterior C5-6. Vertebral body heights are preserved. There is some posterior calcification at C6-7 in the right paracentral region. This could have some m ild cord contact. AP spinal canal stenosis is present measuring 0.7 cm. This could be further evaluat ed with MRI. Differential diagnosis could include calcified disc material or small meningioma. Uncovertebral joint hypertrophy contributing to foraminal narrowing at C3-4 bilaterally C4-5 bilatera lly C5-6 bilaterally . Note is made of hypertrophied joints at the sternoclavicular junctions bilaterally. IMPRESSIONS: 1. Herniated disc calcification or a small meningioma right paracentral region C6-7 contributing to s lauri canal narrowing. 2. Uncovertebral joint hypertrophy with mild foraminal narrowing to the mid cervical spine. 3. No acute osseous abnormality.
--- NOTE | 2020-09-26 13:23 | XR ---
EXAMINATION TYPE: XR shoulder complete RT DATE OF EXAM: 09/26/2020 Comparison: None Clinical History: 89-year-old female shoulder pain after fall, trauma Findings: There is an oblique fracture of the distal clavicular shaft with 1.2 cm of superior displacement of t he shaft relative to the distal fragment there may be a concurrent injury of the underlying coracocla vicular ligament. Scattered synovial calcifications at both AC joint and glenohumeral joint. Mild degenerative change w ithin the glenohumeral joint. Visualized right hemithorax is clear. Impression: 1. Oblique fracture distal right clavicle with 1.2 cm of displacement. Suspect underlying tear of the coracoclavicular ligaments as well. 2. Scattered synovial calcifications could represent subclinical gout or underlying CPPD. 3. Mild glenohumeral joint OA.
--- NOTE | 2020-09-26 13:36 | XR ---
EXAMINATION TYPE: XR chest 2V DATE OF EXAM: 09/26/2020 COMPARISON: Chest x-ray 09/17/2020 HISTORY: Difficulty breathing, shoulder pain after fall TECHNIQUE: Frontal and lateral views of the chest are obtained on 3 images. FINDINGS: There is no focal air space opacity, pleural effusion, or pneumothorax seen. The cardiac silhouette size is stable, enlarged. Aorta is dense and ectatic. There is biapical pleural thickening as on prior exam, patient is rotated. The osseous structures are remarkable for distal right clavic ular fracture with superior displacement of the proximal fracture fragment. Calcific tendinitis may b e present in the left shoulder. IMPRESSION: Stable cardiomegaly. Distal right clavicular fracture. Aortic ectasia.
[2020-09-26] MEDS ORDERED: KETOROLAC 15 MG/ML 1 ML VIAL IVP STA (13:39)
== END 2020-09-26 14:25 | disposition home or self-care (01) ==
LOC: EC 12:03
DX: S42.031A Displaced fracture of lateral end of right clavicle, initial encounter for closed fracture (principal); S20.219A Contusion of unspecified front wall of thorax, initial encounter; I48.91 Unspecified atrial fibrillation; I11.0 Hypertensive heart disease with heart failure; I50.9 Heart failure, unspecified; K21.9 Gastro-esophageal reflux disease without esophagitis; Z85.828 Personal history of other malignant neoplasm of skin; Z90.49 Acquired absence of other specified parts of digestive tract; Z90.710 Acquired absence of both cervix and uterus; Z90.09 Acquired absence of other part of head and neck; W18.30XA Fall on same level, unspecified, initial encounter
CPT/HCPCS: 73030; 71046; 72125; 70450; 99284; 96374; J1885

== ENCOUNTER → 2021-02-13 | Outpatient (CLI) | payer MEDICARE ==
--- NOTE | 2021-02-13 15:22 | CT ---
EXAMINATION TYPE: CT abdomen pelvis wo con DATE OF EXAM: 02/13/2021 COMPARISON: None HISTORY: Diarrhea, bowel issues CT DLP: 622 mGycm Examination of the solid and hollow viscera is limited given the lack of contrast. FINDINGS: LUNG BASES: No evidence for nodule. No evidence for infiltrate. LIVER/GB: 4 cm simple cyst lateral segment left hepatic lobe. Additional smaller cysts seen. Cholecys tectomy clips are in place. PANCREAS: No pancreatic mass identified. No inflammatory process seen. SPLEEN: No evidence for splenomegaly. No intrasplenic lesions seen. ADRENALS: No adrenal nodules identified. No evidence for thickening. KIDNEYS: Hypoattenuating left renal lesion may reflect cysts. No nephrolithiasis. No hydronephrosis. BOWEL: Appendix has a normal appearance. No evidence of bowel obstruction. No inflammatory process. G astrostomy tube is noted. Scattered colonic diverticulosis without diverticulitis. Lymph nodes: No evidence for adenopathy greater than 1 cm. Abdominal aorta: Atheromatous changes seen. No evidence for aneurysm. Genital organs: No significant abnormality. Other: No significant abnormality. IMPRESSION: 1. No significant abnormality to account for the patient's symptoms.
== END | disposition home or self-care (01) ==
LOC: RADCTMAIN 14:41
PROVIDERS: ATTEND Family Medicine
DX: K76.89 Other specified diseases of liver (principal); Z90.49 Acquired absence of other specified parts of digestive tract
CPT/HCPCS: 74176

== ENCOUNTER 2021-04-30 20:56 | Emergency (ER) | payer MEDICARE ==
[2021-04-30 21:08] VITALS: RESP 18; TEMP 98.2
[2021-04-30] MEDS ORDERED: LIDOCAINE 1%-EPI 1:100,000 20 ML VIAL SQ STA (22:00)
[2021-04-30] MEDS ORDERED: CEPHALEXIN 500 MG CAP PO STA (22:00)
[2021-04-30] MEDS ORDERED: TOPICAL SKIN ADHESIVE 1 EACH AMP TOPICAL ONE (22:00)
[2021-04-30] MEDS ORDERED: LIDOCAINE 1% INJ 10MG/ML (20 ML MDV) SQ STA (22:02)
--- NOTE | 2021-04-30 22:05 | ED ---
Fall HPI - General Chief Complaint: Fall Stated Complaint: Fall Time Seen by Provider: 04/30/21 21:23 Source: EMS, RN notes reviewed, old records reviewed, Caregiver Mode of arrival: EMS Limitations: no limitations - History of Present Illness Initial Comments: This is an 89-year-old female to the emergency room today. She presents today for evaluation of fall. All from standing secondary to Parkinson's disease. He suffered multiple lacerations and skin tears to the right upper extremity. Complaining of right elbow pain right wrist pain as well as bilateral hip pain. Patient did not hit her head no loss of consciousness no headache chest pain shortness of breath or abdominal pain. MD Complaint: fall -: hour(s) Fall From: standing When Fall Occurred: 1-3 hours [employer]ASH[employer] WORK[employer] Fall Witnessed: no Place Fall Occurred: home Loss of Consciousness: none Prolonged Down Time?: no Symptoms Prior to Fall: none Location - Extremities: Right: Elbow, Forearm Severity: moderate Severity scale (1-10): 4 Quality: burning Context: tripped/slipped Associated Symptoms: denies - Related Data Home Medications Medication Instructions Recorded Confirmed Pantoprazole Sodium [Protonix] 40 mg PO DAILY@0800 08/20/18 09/26/20 Ferrous Sulfate [Iron (65 MG 325 mg PO DAILY 01/02/20 09/26/20 Elemental)] Fludrocortisone [Florinef] 0.1 mg PO TID@0800,1300,1800 01/02/20 09/26/20 Metoprolol Tartrate [Lopressor] 50 mg PO BID@0800,2000 01/02/20 09/26/20 Mirabegron [Myrbetriq] 50 mg PO DAILY@0800 03/21/20 09/26/20 Carbidopa-Levodopa ER 25-100Mg 1.5 tab PO TID@0800,1300,1800 09/26/20 09/26/20 [Sinemet CR 25-100 mg] Donepezil [Aricept] 10 mg PO DAILY@1800 09/26/20 09/26/20 Previous Rx's Medication Instructions Recorded Ibuprofen [Motrin] 400 mg PO Q8HR PRN #20 tab 09/26/20 Allergies Allergy/AdvReac Type Severity Reaction Status Date / Time Tetanus Vaccines and Toxoid Allergy Unknown Verified 04/30/21 21:08 Review of Systems ROS Statement: Those systems with pertinent positive or pertinent negative responses have been documented in the HPI. ROS Other: All systems not noted in ROS Statement are negative. Past Medical History Past Medical History: Atrial Fibrillation, Cancer, Heart Failure, GERD/Reflux, Hypertension, Musculoskeletal Disorder, Neurologic Disorder Additional Past Medical History / Comment(s): Severe presbyesophagus-peg tube removed, severe esophagitis, parkinson's disease, confused at times per spouse dementia, gait dysfunction, falls, automic dysfunction-HTN/orthostatic hypotension, IBS, stress incontinence, goiter, skin cancer with removals. History of Any Multi-Drug Resistant Organisms: None Reported Past Surgical History: Breast Surgery, Cholecystectomy, Ear Surgery, Hysterectomy, Tonsillectomy Additional Past Surgical History / Comment(s): EGDs/Peg tube, colonoscopy, R ear stapedectomy, bilateral 1/4 breast removed (thought cancer but was calcium deposits), skin cancer removals. Past Psychological History: No Psychological Hx Reported Smoking Status: Never smoker, Unknown if ever smoked Past Alcohol Use History: None Reported Past Drug Use History: None Reported - Past Family History Mother Family Medical History: Congestive Heart Failure (CHF) Sister(s) Family Medical History: Cancer Additional Family Medical History / Comment(s): Colon cancer Father Additional Family Medical History / Comment(s): Father was an alcoholic. General Exam - General Exam Comments Initial Comments: Patient has extensive lacerations and skin tear to right upper extremity involving deep subcutaneous fat layer. There are 2 separate lacerations Right upper arm laceration around 10 cm, right elbow to lower arm laceration around 14-15 cm old stellate in nature Limitations: no limitations General appearance: alert, in no apparent distress Head exam: Present: atraumatic, normocephalic, normal inspection Eye exam: Present: normal appearance, PERRL, EOMI. Absent: scleral icterus, conjunctival injection, periorbital swelling ENT exam: Present: normal exam, mucous membranes moist Neck exam: Present: normal inspection. Absent: tenderness, meningismus, lymphadenopathy Respiratory exam: Present: normal lung sounds bilaterally. Absent: respiratory distress, wheezes, rales, rhonchi, stridor Cardiovascular Exam: Present: regular rate, normal rhythm, normal heart sounds. Absent: systolic murmur, diastolic murmur, rubs, gallop, clicks GI/Abdominal exam: Present: soft, normal bowel sounds. Absent: distended, tenderness, guarding, rebound, rigid Extremities exam: Present: normal inspection, full ROM, normal capillary refill. Absent: tenderness, pedal edema, joint swelling, calf tenderness Back exam: Present: normal inspection Neurological exam: Present: alert, oriented X3, CN II-XII intact Psychiatric exam: Present: normal affect, normal mood Skin exam: Present: warm, dry, intact, normal color. Absent: rash Course Vital Signs 04/30/21 21:01 Temperature 98.2 F Pulse Rate 74 Respiratory 18 Rate Blood Pressure 176/79 O2 Sat by Pulse 100 Oximetry - Reevaluation(s) Reevaluation #1: 05/01/21 00:19 Medical records reviewed Reevaluation #2: 05/01/21 00:19 Patient's lacerations are repaired with good hemostasis Reevaluation #3: 05/01/21 00:19 Family and patient aware results, questions answered Procedures - Laceration Laceration #1 Consent Obtained: verbal consent Indication: laceration Site: upper extremity Size (cm): 10 Description: stellate, flap, irregular Depth: simple, single layer Anesthetic Used: lidocaine 1% Anesthesia Technique: local infiltration Type of Sutures: nylon Size of Sutures: 4-0 Technique: simple, interrupted Patient Tolerated Procedure: well Laceration #2 Consent Obtained: verbal consent Indication: laceration Site: upper extremity Size (cm): 14 Description: stellate, flap, irregular Depth: simple, single layer Anesthetic Used: lidocaine 1% Anesthesia Technique: local infiltration Pre-repair: wound explored, irrigated extensively Type of Sutures: nylon Size of Sutures: 4-0 Technique: simple, interrupted Patient Tolerated Procedure: well Medical Decision Making - Medical Decision Making 89 female to the emergency room after a fall today. Patient has multiple areas of injury of the right upper extremity multiple areas of deep lacerations and skin tears. No traumatic fractures, patient's lacerations are repaired, dressed and she can be discharged home - Radiology Data Radiology results: report reviewed (X-ray right elbow right wrist as well as pelvis is negative for traumatic injury), image reviewed Disposition Clinical Impression: Fall, Lacerations of multiple sites of right arm Disposition: HOME SELF-CARE Condition: Good Instructions (If sedation given, give patient instructions): Fall Prevention for Older Adults (ED), Laceration (ED) Is patient prescribed a controlled substance at d/c from ED?: No Referrals: Vincent Montano MD [Primary Care Provider] - 1-2 days
--- NOTE | 2021-04-30 23:03 | XR ---
EXAMINATION TYPE: XR wrist limited RT DATE OF EXAM: 04/30/2021 COMPARISON: NONE HISTORY: Fall. Pain TECHNIQUE: 2 views FINDINGS: Carpal bones are intact. I see no fracture nor dislocation. Metacarpals are intact. IMPRESSION: Negative right wrist exam. No fracture seen.
--- NOTE | 2021-04-30 23:09 | XR ---
EXAMINATION TYPE: XR elbow complete RT DATE OF EXAM: 04/30/2021 COMPARISON: NONE HISTORY: Fall. Pain TECHNIQUE: 3 views FINDINGS: I see no fracture nor dislocation. There is deformity of the soft tissues on the dorsum of the proximal ulna that could be laceration. There is no evidence of a foreign body. There is no sign of joint effusion. IMPRESSION: Soft tissue deformity. No fracture seen.
--- NOTE | 2021-04-30 23:18 | XR ---
EXAMINATION TYPE: XR Hip Bilateral and AP pelvis DATE OF EXAM: 04/30/2021 COMPARISON: NONE HISTORY: Fall. Pain TECHNIQUE: 5 views FINDINGS: Pelvic ring is intact. Proximal femurs are intact. Acetabula appear normal. Sacroiliac join ts appear normal. IMPRESSION: No acute abnormality the pelvis. Degenerative spur formation.
[2021-05-01 01:11] VITALS: BP 167/83; PULSE 64
== END 2021-05-01 01:00 | disposition home or self-care (01) ==
LOC: EC 20:56
DX: S41.111A Laceration without foreign body of right upper arm, initial encounter (principal); S51.011A Laceration without foreign body of right elbow, initial encounter; I11.0 Hypertensive heart disease with heart failure; I50.9 Heart failure, unspecified; I48.91 Unspecified atrial fibrillation; G20 Parkinson's disease; F02.80 Dementia in other diseases classified elsewhere, unspecified severity, without behavioral disturbance, psychotic disturbance, mood disturbance, and anxiety; Z79.1 Long term (current) use of non-steroidal anti-inflammatories (NSAID); Z79.899 Other long term (current) drug therapy; Z85.828 Personal history of other malignant neoplasm of skin; Z90.49 Acquired absence of other specified parts of digestive tract; Z82.49 Family history of ischemic heart disease and other diseases of the circulatory system; W01.0XXA Fall on same level from slipping, tripping and stumbling without subsequent striking against object, initial encounter; Y92.009 Unspecified place in unspecified non-institutional (private) residence as the place of occurrence of the external cause
CPT/HCPCS: 73521; 73080; 73100; 12006; 99284; J2001

== ENCOUNTER 2021-07-24 08:13 | Day surgery (SDC) | payer MEDICARE ==
[2021-07-23 09:31] VITALS: BMI 20.9
[~2021-07-24 08:13] MED LIST changes: -HYDROmorphone 0.5 MG/0.5 ML SYRINGE IVP PRN; -LACTATED RINGERS 1,000 ML IV ONE; +LIDOCAINE 1% (10MG/ML) FOR IV START INTRADERMA PRN; -LIDOCAINE 1% 20 ML VIAL (10MG/ML) FOR IV START INTRADERMA PRN; -LIDOCAINE 1% INJ 10MG/ML (20 ML MDV) ONE; -PROPOFOL 10 MG/ML 20 ML VIAL IV ONE
[2021-07-24 09:31] VITALS: TEMP 96.2
--- NOTE | 2021-07-24 10:30 | P.PCN ---
Date of Procedure: 07/24/21 Procedure(s) Performed: BRIEF HISTORY: Patient is a 89-year-old, pleasant, I female scheduled for an elective replacement today. She has history of oropharyngeal dysphagia and had a PEG tube placed in December 2019.. PROCEDURE PERFORMED: PEG tube replacement PREOPERATIVE DIAGNOSIS: PEG tube malfunction. IV sedation per anesthesia. PROCEDURE: After informed consent was obtained, the patient was brought into the endoscopy unit. The previously noted PEG tube was gently pulled out using traction combative abdominal wall without any difficulty. Following this the gastrostomy site was lubricated and a 20-[place] side effect balloon replacement tube was passed from the gastrostomy site into the stomach and the balloon inflated with 10 mL of normal saline. Bumper was placed at 3 cm sindy. the patient tolerated the procedure well. IMPRESSION: 1. 20-Y[place]ut balloon PEG tube replacement without any immediate complications RECOMMENDATIONS: The findings of this examination were discussed with the patient as well as her family. She was advised to start using the PEG tube today. Follow-up in office as needed.
[2021-07-24 10:59] VITALS: BP 200/93; PULSE 87; RESP 16
== END 2021-07-24 11:38 | disposition home or self-care (01) ==
LOC: ORWHC2ENDO 08:13
PROVIDERS: ATTEND Internal Medicine Gastroenterology
DX: Z43.1 Encounter for attention to gastrostomy (principal)
CPT/HCPCS: 43762

== ENCOUNTER 2021-08-25 11:03 | Emergency (ER) | payer MEDICARE ==
[2021-08-25 11:15] VITALS: BP 104/56; PULSE 61; RESP 16; TEMP 98.3
--- NOTE | 2021-08-25 11:34 | ED ---
General Adult HPI - General Chief complaint: Altered Mental Status Stated complaint: altered mental status Time Seen by Provider: 08/25/21 11:09 Source: EMS Mode of arrival: EMS - History of Present Illness Initial comments: Dictation was produced using [employer] dictation software. please excuse any grammatical, word or spelling errors. Chief Complaint: 89-year-old female with multiple comorbidities presents to the emergency department for episode of unresponsiveness History of Present Illness: Patient is an 89-year-old female she has multiple comorbidities. She has history of Parkinson's dementia. Patient is brought in by EMS. According to EMS patient had an episode of unresponsiveness. EMS spoke with who is the one who called EMS. reports that patient was unresponsive but her eyes are open after tube feeding. Patient denies any issues at this time she does not know why she is here. She states she did have a syncopal episode. She states that she almost fell but her caught her. Some clear patient is a reliable historian at this time. She denies any pain complaints. States that she is passing gas but has not had any good bowel movement in 3 days. She denies any abdominal pain. Denies any constitutional symptoms. The ROS documented in this emergency department record has been reviewed and confirmed by me. Those systems with pertinent positive or negative responses have been documented in the HPI. All other systems are other negative and/or noncontributory. PHYSICAL EXAM: General Impression: Alert and oriented x3, not in acute distress HEENT: Normocephalic atraumatic, extra-ocular movements intact, pupils equal and reactive to light bilaterally, mucous membranes moist. Cardiovascular: Heart regular rate and rhythm Chest: Able to complete full sentences, no retractions, no tachypnea Abdomen: abdomen soft, non-tender, non-distended, no organomegaly Musculoskeletal: Pulses present and equal in all extremities, no peripheral edema Motor: no focal deficits noted Neurological: CN II-XII grossly intact, no focal motor or sensory deficits noted Skin: Intact with no visualized rashes Psych: Normal affect and mood ED course: 89-year-old female brought to the emergency Department from home for episode of unresponsiveness. Vital Signs upon arrival are within acceptable limits. Physical examination is benign. Patient has no focal neurologic deficits. She is not aphasic and alert and oriented. EKG interpretation: Ventricular rate 50, sinus bradycardia with first-degree AV block, MA interval 246, QTC 1:30, QTC 484. No MA prolongation, no QTC prolongation, no ST or T-wave changes noted. EKG compared to September 17 2020 showing no changes. Overall, this EKG is unremarkable Laboratory evaluation obtained. CBC metabolic panel is unremarkable. COVID-19 test is unremarkable. Patient observed in the emergency department for approximately one hours and 45 minutes. She is reevaluated at bedside at 12:40 PM. is at the bedside. He states that patient was unresponsive for approximately 15 minutes. He was able to check her pulse ox and her blood pressure which were both normal at the time. He was unsure if he should've called EMS finally he did end up calling patient is brought to the emergency room. He states that at the bedside she looks normal. Disposition options were discussed. Patient reports that she wants to be discharged. He is agreeable at taking the patient home. He strongly advised to follow-up with primary care doctor within the next 2 days. Return precautions discussed. - Related Data Home Medications Medication Instructions Recorded Confirmed Pantoprazole Sodium [Protonix] 40 mg PO DAILY 08/20/18 08/25/21 Fludrocortisone [Florinef] 0.1 mg PO DAILY 01/02/20 08/25/21 Metoprolol Tartrate [Lopressor] 25 mg PO BID 01/02/20 08/25/21 Carbidopa-Levodopa ER 25-100Mg 1.5 tab PO TID 09/26/20 08/25/21 [Sinemet CR 25-100 mg] Donepezil [Aricept] 20 mg PO HS 09/26/20 08/25/21 Solifenacin Succinate 10 mg PO DAILY 07/23/21 08/25/21 Mirabegron [Myrbetriq] 25 mg PO DAILY 08/25/21 08/25/21 Allergies Allergy/AdvReac Type Severity Reaction Status Date / Time epinephrine Allergy Unknown Verified 08/25/21 12:08 Tetanus Vaccines and Toxoid Allergy Unknown Verified 08/25/21 12:08 Review of Systems ROS Statement: Those systems with pertinent positive or pertinent negative responses have been documented in the HPI. ROS Other: All systems not noted in ROS Statement are negative. Past Medical History Past Medical History: Atrial Fibrillation, Cancer, Heart Failure, GERD/Reflux, Hypertension, Musculoskeletal Disorder, Neurologic Disorder Additional Past Medical History / Comment(s): Severe presbyesophagus-peg tube removed, severe esophagitis, parkinson's disease, confused at times per spouse dementia, gait dysfunction, falls, autonomic dysfunction-HTN/orthostatic hypotension, IBS, stress incontinence, goiter, skin cancer with removals. History of Any Multi-Drug Resistant Organisms: None Reported Past Surgical History: Breast Surgery, Cholecystectomy, Ear Surgery, Hysterectomy, Tonsillectomy Additional Past Surgical History / Comment(s): EGDs/Peg tube, colonoscopy, R ear stapedectomy, bilateral 1/4 breast removed (thought cancer but was calcium deposits), skin cancer removals. Past Anesthesia/Blood Transfusion Reactions: No Reported Reaction Past Psychological History: No Psychological Hx Reported Smoking Status: Former smoker Past Alcohol Use History: None Reported Past Drug Use History: None Reported - Past Family History Mother Family Medical History: Congestive Heart Failure (CHF) Sister(s) Family Medical History: Cancer Additional Family Medical History / Comment(s): Colon cancer Father Additional Family Medical History / Comment(s): Father was an alcoholic. Course Vital Signs 08/25/21 11:05 Temperature 98.3 F Pulse Rate 61 Respiratory 16 Rate Blood Pressure 104/56 O2 Sat by Pulse 97 Oximetry Medical Decision Making - Lab Data Result diagrams: 08/25/21 11:32 08/25/21 11:32 Lab Results 08/25/21 08/25/21 08/25/21 Range/Units 11:32 11:32 11:32 WBC 6.7 (3.8-10.6) k/uL RBC 3.82 (3.80-5.40) m/uL Hgb 11.8 (11.4-16.0) gm/dL Hct 37.6 (34.0-46.0) % MCV 98.5 (80.0-100.0) fL MCH 30.8 (25.0-35.0) pg MCHC 31.3 (31.0-37.0) g/dL RDW 14.1 (11.5-15.5) % Plt Count 223 (150-450) k/uL MPV 7.5 Neutrophils % 80 % Lymphocytes % 10 % Monocytes % 6 % Eosinophils % 1 % Basophils % 0 % Neutrophils # 5.4 (1.3-7.7) k/uL Lymphocytes # 0.7 L (1.0-4.8) k/uL Monocytes # 0.4 (0-1.0) k/uL Eosinophils # 0.1 (0-0.7) k/uL Basophils # 0.0 (0-0.2) k/uL Sodium 135 L (137-145) mmol/L Potassium 4.0 (3.5-5.1) mmol/L Chloride 101 (98-107) mmol/L Carbon Dioxide 32 H (22-30) mmol/L Anion Gap 2 mmol/L BUN 37 H (7-17) mg/dL Creatinine 1.06 H (0.52-1.04) mg/dL Est GFR (CKD-EPI)AfAm 54 (>60 ml/min/1.73 sqM) Est GFR (CKD-EPI)NonAf 47 (>60 ml/min/1.73 sqM) Glucose 136 H (74-99) mg/dL Calcium 8.7 (8.4-10.2) mg/dL Coronavirus (PCR) Not Detected (Not Detectd) Disposition Clinical Impression: Unresponsive episode Disposition: HOME SELF-CARE Condition: Fair Instructions (If sedation given, give patient instructions): Altered Mental Status (ED) Additional Instructions: Please seek medical attention if patient has a repeat episode. Otherwise continue to monitor patient at home and follow up with Dr. Montano Is patient prescribed a controlled substance at d/c from ED?: No Referrals: Vincent Montano MD [Primary Care Provider] - 1-2 days
[2021-08-25 11:42] LABS: Basophils % (A) 0 %; Eosinophils # (A) 0.1 k/uL (0-0.7); Eosinophils % (A) 1 %; HCT 37.6 % (34.0-46.0); HGB 11.8 gm/dL (11.4-16.0); Lymphocytes # (A) 0.7 k/uL (1.0-4.8); Lymphocytes % (A) 10 %; MCH 30.8 pg (25.0-35.0); MCHC 31.3 g/dL (31.0-37.0); MCV 98.5 fL (80.0-100.0); Mean Platelet Volume 7.5; Monocytes # (A) 0.4 k/uL (0-1.0); Monocytes % (A) 6 %; Neutrophils # (A) 5.4 k/uL (1.3-7.7); Neutrophils % (A) 80 %; Platelet Count 223 k/uL (150-450); RBC 3.82 m/uL (3.80-5.40); RDW 14.1 % (11.5-15.5); WBC 6.7 k/uL (3.8-10.6)
[2021-08-25 11:52] LABS: Calcium 8.7 mg/dL (8.4-10.2)
== END 2021-08-25 13:10 | disposition home or self-care (01) ==
LOC: EC 11:03
DX: R55 Syncope and collapse (principal); Z20.822 Contact with and (suspected) exposure to COVID-19; I11.0 Hypertensive heart disease with heart failure; I50.9 Heart failure, unspecified; I48.91 Unspecified atrial fibrillation; K21.9 Gastro-esophageal reflux disease without esophagitis; G20 Parkinson's disease; F02.80 Dementia in other diseases classified elsewhere, unspecified severity, without behavioral disturbance, psychotic disturbance, mood disturbance, and anxiety; Z87.891 Personal history of nicotine dependence; Z79.899 Other long term (current) drug therapy
CPT/HCPCS: 36415; 80048; 85025; 87635; 93005; 99284

== ENCOUNTER 2021-10-12 15:25 | Observation (INO) | payer MEDICARE ==
[2021-10-12] MEDS ORDERED: SODIUM CHLORIDE 0.9% 1,000 ML IV STA ×2 (16:00→18:06)
--- NOTE | 2021-10-12 16:01 | ED ---
General Adult HPI - General Chief complaint: Weakness Stated complaint: weakness Time Seen by Provider: 10/12/21 15:33 Source: patient, EMS Mode of arrival: EMS Limitations: physical limitation - History of Present Illness Initial comments: Dictation was produced using [employer] dictation software. please excuse any grammatical, word or spelling errors. Chief Complaint: 89-year-old female presents to emergency department via EMS for weakness History of Present Illness: She is an 89-year-old female. History present illness obtained from was at the bedside. 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 He states that she is here because of significant weakness over the last 7-10 days. He states the weakness has been progressive. reports that one of his daughters check patient's urine for UTI. reports that she did test positive. states that patient has been significantly weak over the last several days the point where she can't stand or perform any sort of activities of daily living. States that it came on suddenly. Patient states that she feels really weak. She has a history of Parkinson's dementia. The ROS documented in this emergency department record has been reviewed and confirmed by me. Those systems with pertinent positive or negative responses have been documented in the HPI. All other systems are other negative and/or noncontributory. PHYSICAL EXAM: General Impression: Alert and oriented x3/4, not in acute distress HEENT: Normocephalic atraumatic, extra-ocular movements intact, pupils equal and reactive to light bilaterally, dry mucous membranes Cardiovascular: Heart regular rate and rhythm Chest: Able to complete full sentences, no retractions, no tachypnea Abdomen: abdomen soft, non-tender, non-distended, no organomegaly, feeding tube in place Musculoskeletal: Pulses present and equal in all extremities, no peripheral edema Motor: no focal deficits noted Neurological: CN II-XII grossly intact, no focal motor or sensory deficits noted Skin: Intact with no visualized rashes Psych: Normal affect and mood ED course: 89-year-old female presents to the emergency department for weakness and possible urinary tract infection. Vital signs upon arrival are within acceptable limits. Laboratory evaluation obtained. CBC within acceptable limits. Cardiac panel is unremarkable. Metabolic panel shows BUN of 49 with a creatinine of 0.9 suggesting dehydration. Troponin level was 0.024 patient has some history of elevated troponin. Urinalysis shows 17 white blood cells. Patient is significantly dehydrated. There is concern of UTI. She is given 1 g cef triaxone. Patient given bolus of fluids started on high rate IV fluids. Patient admitted to [facility] to observation. EKG interpretation: Ventricular rate 63, sinus rhythm, IA interval 254, care is 143, QTC 470. no QTC prolongation, no ST or T-wave changes noted. EKG compared to 08/25/2021 showing no changes. Overall, this EKG is unremarkable - Related Data Home Medications Medication Instructions Recorded Confirmed Pantoprazole Sodium [Protonix] 40 mg PO DAILY 08/20/18 10/12/21 Fludrocortisone [Florinef] 0.1 mg PO DAILY 01/02/20 10/12/21 Carbidopa-Levodopa ER 25-100Mg 1.5 tab PO TID 09/26/20 10/12/21 [Sinemet CR 25-100 mg] Donepezil [Aricept] 20 mg PO HS 09/26/20 10/12/21 Solifenacin Succinate 10 mg PO DAILY PRN 07/23/21 10/12/21 Metoprolol Tartrate [Lopressor] 25 mg PO BID 10/12/21 10/12/21 Mirabegron [Myrbetriq] 25 mg PO DAILY PRN 10/12/21 10/12/21 Allergies Allergy/AdvReac Type Severity Reaction Status Date / Time epinephrine Allergy Unknown Verified 10/12/21 16:15 Tetanus Vaccines and Toxoid Allergy Unknown Verified 10/12/21 16:15 Review of Systems ROS Statement: Those systems with pertinent positive or pertinent negative responses have been documented in the HPI. ROS Other: All systems not noted in ROS Statement are negative. Past Medical History Past Medical History: Atrial Fibrillation, Cancer, Heart Failure, GERD/Reflux, Hypertension, Musculoskeletal Disorder, Neurologic Disorder Additional Past Medical History / Comment(s): Severe presbyesophagus-peg tube removed, severe esophagitis, parkinson's disease, confused at times per spouse dementia, gait dysfunction, falls, autonomic dysfunction-HTN/orthostatic hy potension, IBS, stress incontinence, goiter, skin cancer with removals. History of Any Multi-Drug Resistant Organisms: None Reported Past Surgical History: Breast Surgery, Cholecystectomy, Ear Surgery, Hysterectomy, Tonsillectomy Additional Past Surgical History / Comment(s): EGDs/Peg tube, colonoscopy, R ear stapedectomy, bilateral 1/4 breast removed (thought cancer but was calcium deposits), skin cancer removals. Past Anesthesia/Blood Transfusion Reactions: No Reported Reaction Past Psychological History: No Psychological Hx Reported Smoking Status: Former smoker Past Alcohol Use History: None Reported Past Drug Use History: None Reported - Past Family History Mother Family Medical History: Congestive Heart Failure (CHF) Sister(s) Family Medical History: Cancer Additional Family Medical History / Comment(s): Colon cancer Father Additional Family Medical History / Comment(s): Father was an alcoholic. General Exam Limitations: physical limitation Course Vital Signs 10/12/21 15:45 Temperature 97.5 F L Pulse Rate 71 Respiratory 18 Rate Blood Pressure 113/55 O2 Sat by Pulse 100 Oximetry Medical Decision Making - Lab Data Result diagrams: 10/12/21 16:28 10/12/21 16:28 Lab Results 10/12/21 10/12/21 10/12/21 Range/Units 16:28 16:28 16:28 WBC 6.6 (3.8-10.6) k/uL RBC 3.50 L (3.80-5.40) m/uL Hgb 12.0 (11.4-16.0) gm/dL Hct 36.3 (34.0-46.0) % MCV 103.6 H D (80.0-100.0) fL MCH 34.2 (25.0-35.0) pg MCHC 33.0 (31.0-37.0) g/dL RDW 12.9 (11.5-15.5) % Plt Count 189 (150-450) k/uL MPV 7.5 Neutrophils % 78 % Lymphocytes % 9 % Monocytes % 8 % Eosinophils % 1 % Basophils % 1 % Neutrophils # 5.2 (1.3-7.7) k/uL Lymphocytes # 0.6 L (1.0-4.8) k/uL Monocytes # 0.5 (0-1.0) k/uL Eosinophils # 0.1 (0-0.7) k/uL Basophils # 0.1 (0-0.2) k/uL Macrocytosis Slight PT 11.2 (9.0-12.0) sec INR 1.0 (<1.2) APTT 18.5 L (22.0-30.0) sec Sodium 136 L (137-145) mmol/L Potassium 4.0 (3.5-5.1) mmol/L Chloride 103 (98-107) mmol/L Carbon Dioxide 32 H (22-30) mmol/L Anion Gap 1 mmol/L BUN 47 H (7-17) mg/dL Creatinine 0.90 (0.52-1.04) mg/dL Est GFR (CKD-EPI)AfAm 66 (>60 ml/min/1.73 sqM) Est GFR (CKD-EPI)NonAf 57 (>60 ml/min/1.73 sqM) Glucose 96 (74-99) mg/dL Plasma Lactic Acid Stevan (0.7-2.0) mmol/L Calcium 7.6 L (8.4-10.2) mg/dL Ionized Calcium Clive 4.7 (4.5-5.3) mg/dL Magnesium 2.2 (1.6-2.3) mg/dL Total Bilirubin 0.9 (0.2-1.3) mg/dL AST 26 (14-36) U/L ALT 8 (4-34) U/L Alkaline Phosphatase 61 (38-126) U/L Troponin I (0.000-0.034) ng/mL Total Protein 5.3 L (6.3-8.2) g/dL Albumin 3.1 L (3.5-5.0) g/dL Urine Color Urine Appearance (Clear) Urine pH (5.0-8.0) Ur Specific [place] (1.001-1.035) Urine Protein (Negative) Urine Glucose (UA) (Negative) Urine Ketones (Negative) Urine Blood (Negative) Urine Nitrite (Negative) Urine Bilirubin (Negative) Urine Urobilinogen (<2.0) mg/dL Ur Leukocyte Esterase (Negative) Urine RBC (0-5) /hpf Urine WBC (0-5) /hpf Ur Squamous Epith Cells (0-4) /hpf Urine Bacteria (None) /hpf Hyaline Casts (0-2) /lpf Urine Mucus (None) /hpf 10/12/21 10/12/21 10/12/21 Range/Units 16:28 16:28 17:05 WBC (3.8-10.6) k/uL RBC (3.80-5.40) m/uL Hgb (11.4-16.0) gm/dL Hct (34.0-46.0) % MCV (80.0-100.0) fL MCH (25.0-35.0) pg MCHC (31.0-37.0) g/dL RDW (11.5-15.5) % Plt Count (150-450) k/uL MPV Neutrophils % % Lymphocytes % % Monocytes % % Eosinophils % % Basophils % % Neutrophils # (1.3-7.7) k/uL Lymphocytes # (1.0-4.8) k/uL Monocytes # (0-1.0) k/uL Eosinophils # (0-0.7) k/uL Basophils # (0-0.2) k/uL Macrocytosis PT (9.0-12.0) sec INR (<1.2) APTT (22.0-30.0) sec Sodium (137-145) mmol/L Potassium (3.5-5.1) mmol/L Chloride (98-107) mmol/L Carbon Dioxide (22-30) mmol/L Anion Gap mmol/L BUN (7-17) mg/dL Creatinine (0.52-1.04) mg/dL Est GFR (CKD-EPI)AfAm (>60 ml/min/1.73 sqM) Est GFR (CKD-EPI)NonAf (>60 ml/min/1.73 sqM) Glucose (74-99) mg/dL Plasma Lactic Acid Stevan 0.9 (0.7-2.0) mmol/L Calcium (8.4-10.2) mg/dL Ionized Calcium Clive (4.5-5.3) mg/dL Magnesium (1.6-2.3) mg/dL Total Bilirubin (0.2-1.3) mg/dL AST (14-36) U/L ALT (4-34) U/L Alkaline Phosphatase (38-126) U/L Troponin I 0.024 (0.000-0.034) ng/mL Total Protein (6.3-8.2) g/dL Albumin (3.5-5.0) g/dL Urine Color Yellow Urine Appearance Clear (Clear) Urine pH 6.0 (5.0-8.0) Ur Specific [place] 1.023 (1.001-1.035) Urine Protein Trace H (Negative) Urine Glucose (UA) Negative (Negative) Urine Ketones Trace H (Negative) Urine Blood Negative (Negative) Urine Nitrite Negative (Negative) Urine Bilirubin Negative (Negative) Urine Urobilinogen 2.0 (<2.0) mg/dL Ur Leukocyte Esterase Moderate H (Negative) Urine RBC 1 (0-5) /hpf Urine WBC 17 H (0-5) /hpf Ur Squamous Epith Cells 1 (0-4) /hpf Urine Bacteria Many H (None) /hpf Hyaline Casts 3 H (0-2) /lpf Urine Mucus Rare H (None) /hpf Disposition Clinical Impression: Dehydration, UTI (urinary tract infection) Disposition: ADMITTED IP TO THIS HOSP Condition: Fair Referrals: Vincent Montano MD [Primary Care Provider] - 1-2 days
[2021-10-12 16:41] LABS: Basophils # (A) 0.1 k/uL (0-0.2); Basophils % (A) 1 %; Eosinophils # (A) 0.1 k/uL (0-0.7); Eosinophils % (A) 1 %; HCT 36.3 % (34.0-46.0); Lymphocytes # (A) 0.6 k/uL (1.0-4.8); Lymphocytes % (A) 9 %; MCH 34.2 pg (25.0-35.0); Macrocytosis Slight; Mean Platelet Volume 7.5; Monocytes # (A) 0.5 k/uL (0-1.0); Monocytes % (A) 8 %; Neutrophils # (A) 5.2 k/uL (1.3-7.7); Neutrophils % (A) 78 %; Platelet Count 189 k/uL (150-450); RDW 12.9 % (11.5-15.5); WBC 6.6 k/uL (3.8-10.6)
[2021-10-12 16:57] LABS: Prothrombin Time 11.2 sec (9.0-12.0)
[2021-10-12 17:02] LABS: Ionized Calcium 4.7 mg/dL (4.5-5.3)
[2021-10-12 17:06] LABS: Albumin 3.1 g/dL (3.5-5.0); Calcium 7.6 mg/dL (8.4-10.2); Magnesium 2.2 mg/dL (1.6-2.3); Total Bilirubin 0.9 mg/dL (0.2-1.3); Total Protein 5.3 g/dL (6.3-8.2)
[2021-10-12 17:09] LABS: Partial Thromboplastin Time 18.5 sec (22.0-30.0)
[2021-10-12 17:18] LABS: MCV 103.6 fL (80.0-100.0)
--- NOTE | 2021-10-12 17:27 | XR ---
EXAMINATION TYPE: XR chest 1V portable DATE OF EXAM: 10/12/2021 5:19 PM COMPARISON:Chest radiographs from09/26/2020 TECHNIQUE: XR chest 1V portable Frontal view of the chest. CLINICAL INDICATION:Female, 89 years old with history of episodic dyspnea and chest pain; FINDINGS: Lungs/Pleura: There is no evidence of pleural effusion, focal consolidation, or pneumothorax. Pulmonary vascularity: Unremarkable. Heart/mediastinum: Cardiomediastinal silhouette is prominent in size. Musculoskeletal: No acute osseous pathology. Similar right distal clavicular fracture with superior d isplacement. IMPRESSION: 1. Similar cardiomegaly 2. Similar distal right clavicle injury dating back to 09/26/2020.
[2021-10-12 17:40] LABS: Appearance,Urine Clear (Clear); Bacteria,Urine Many /hpf; Bilirubin,Urine Negative (Negative); Blood,Urine Negative (Negative); Color,Urine Yellow; Glucose,Urine (UA) Negative (Negative); Hyaline Casts,Urine 3 /lpf (0-2); Ketones,Urine Trace (Negative); Leukocyte Esterase,Urine Moderate (Negative); Mucus,Urine Rare /hpf; Nitrite,Urine Negative (Negative); Protein,Urine Trace (Negative); RBC,Urine 1 /hpf (0-5); Specific Gravity,Urine 1.023 (1.001-1.035); Squamous Epithelial Cell,Urine 1 /hpf (0-4); WBC,Urine 17 /hpf (0-5)
--- NOTE | 2021-10-12 17:47 | CT ---
EXAMINATION TYPE: CT brain cspine wo con CT DLP: Falls, weakness mGycm, Automated exposure control for dose reduction was used. DATE OF EXAM: 10/12/2021 5:34 PM COMPARISON: CT brain and C-spine 01/07/2020. CT brain 03/21/2020. CLINICAL INDICATION:Female, 89 years old with history of falls; 1358.2 TECHNIQUE: Brain: Multiple axial CT images of the brain were obtained without IV contrast. Cspine: Axial CT images from the skull base to the inferior aspect of T2 we obtained without intraven ous contrast. Coronal and sagittal reformatted images were also reviewed. FINDINGS: Brain: Extra-axial spaces: No abnormal extra-axial fluid collections. Ventricular system: Dilatation in proportion to cerebral atrophy. Cerebral parenchyma: No acute intraparenchymal hemorrhage or mass effect. The neal-white junction is well differentiated. Cerebellum: Unremarkable. Mass effect: No evidence of midline shift. Intracranial vasculature: Atherosclerotic calcifications of the intracranial vessels. Soft tissues: Normal. Calvarium/osseous structures: No depressed skull fracture. Paranasal sinuses and mastoid air cells: There is opacification of the left maxillary sinus and the a nterior and posterior ethmoid air cells on the left. Visualized orbits: Bilateral aphakia Cervical spine: Fracture: None. Osseous structures: Multilevel degenerative disc disease changes with endplate spurring and disc oste ophyte complex's. Vertebral alignment: Within normal limits. Spinal canal/Neural Foramina: At least moderate spinal canal stenosis at C4-C5 C5-C6 and possibly sev ere at C6-C7 from disc osteophyte complex. Neck soft tissues: Prevertebral soft tissues are within normal limits. Other: The airway is patent. Peripheral nodular changes Severe right atherosclerotic changes of the c arotid bifurcation. IMPRESSION: 1. No acute intracranial process. 2. Paranasal sinus disease, which is new with complete opacification of the left maxillary sinus and ostiomeatal complex. 3. No evidence of cervical spine fracture. 4. Moderate multilevel degenerative disc disease resulting in multilevel moderate to severe spinal ca nal stenosis worse at C6-C7. 5. Calcified plaquing at the right carotid bifurcation. 6. Scattered 3 mm peripheral pulmonary nodules partially visualized. Consider comparison with priors and dedicated low-dose CT lung scan for further evaluation of the lungs.
[2021-10-12] MEDS ORDERED: cefTRIAXone IN SWFI 1,000 MG/10 ML SYRINGE IVP STA (18:07)
[2021-10-12] MEDS ORDERED: NALOXONE 0.4 MG/ML 1 ML VIAL IV PRN (18:18)
[2021-10-13] MEDS ORDERED: NON FORMULARY DRUG (Mirabegron [Myrbetriq] 25 MG Tablet) PO PRN (01:25)
--- NOTE | 2021-10-13 02:05 | P.HPIM ---
History of Present Illness H&P Date: 10/12/21 Chief Complaint: Generalized weakness 89-year-old female with Parkinson disease, dementia, hypertension Patient comes in due to concerns for urinary tract infection she's been feeling tired with generalized weakness over the past few days with frequent episodes of falling. Patient denies any head injury or loss of consciousness patient is not on any blood thinners. At home she was tested for urinary tract infection and was positive therefore family brought her in for evaluation. Patient denies any fevers or chills denies any nausea vomiting denies any chest pain trouble breathing abdominal pain denies any diarrhea. She reports that she always had urinary problems but denies any hematuria Patient has a PEG tube for feeding as she has difficulty with swallowing. In the ED blood work showed no leukocytosis patient had no fevers. Urine analysis was positive for leukocyte esterases. Review of Systems Pertinent positives as noted in HPI. All other systems were reviewed and are negative Past Medical History Past Medical History: Atrial Fibrillation, Cancer, Heart Failure, GERD/Reflux, Hypertension, Musculoskeletal Disorder, Neurologic Disorder Additional Past Medical History / Comment(s): Severe presbyesophagus-peg tube removed, severe esophagitis, parkinson's disease, confused at times per spouse dementia, gait dysfunction, falls, autonomic dysfunction-HTN/orthostatic hypotension, IBS, stress incontinence, goiter, skin cancer with removals. History of Any Multi-Drug Resistant Organisms: None Reported Past Surgical History: Breast Surgery, Cholecystectomy, Ear Surgery, Hysterectomy, Tonsillectomy Additional Past Surgical History / Comment(s): EGDs/Peg tube, colonoscopy, R ear stapedectomy, bilateral 1/4 breast removed (thought cancer but was calcium deposits), skin cancer removals. Past Anesthesia/Blood Transfusion Reactions: No Reported Reaction Past Psychological History: No Psychological Hx Reported Additional Psychological History / Comment(s): Pt resides with her spouse. She ambulates with a walker. Smoking Status: Former smoker Past Alcohol Use History: None Reported Additional Past Alcohol Use History / Comment(s): Pt started smoking in 1950 and quit in 1976 Past Drug Use History: None Reported - Past Family History Mother Family Medical History: Congestive Heart Failure (CHF) Sister(s) Family Medical History: Cancer Additional Family Medical History / Comment(s): Colon cancer Father Additional Family Medical History / Comment(s): Father was an alcoholic. Medications and Allergies Home Medications Medication Instructions Recorded Confirmed Type Pantoprazole Sodium [Protonix] 40 mg PO DAILY 08/20/18 10/12/21 History Fludrocortisone [Florinef] 0.1 mg PO DAILY 01/02/20 10/12/21 History Carbidopa-Levodopa ER 25-100Mg 1.5 tab PO TID 09/26/20 10/12/21 History [Sinemet CR 25-100 mg] Donepezil [Aricept] 20 mg PO HS 09/26/20 10/12/21 History Solifenacin Succinate 10 mg PO DAILY PRN 07/23/21 10/12/21 History Metoprolol Tartrate [Lopressor] 25 mg PO BID 10/12/21 10/12/21 History Mirabegron [Myrbetriq] 25 mg PO DAILY PRN 10/12/21 10/12/21 History Allergies Allergy/AdvReac Type Severity Reaction Status Date / Time epinephrine Allergy Unknown Verified 10/12/21 16:15 Tetanus Vaccines and Toxoid Allergy Unknown Verified 10/12/21 16:15 Physical Exam Vitals: Vital Signs Temp Pulse Pulse Resp BP BP Pulse Ox 10/12/21 23:20 76 18 10/12/21 22:20 97.8 F 76 18 175/94 100 10/12/21 20:00 76 22 173/87 100 10/12/21 19:00 70 18 180/86 100 10/12/21 18:00 68 20 165/85 100 10/12/21 17:00 63 24 105/51 100 10/12/21 15:45 97.5 F L 71 18 113/55 100 Intake and Output 10/12/21 10/12/21 10/13/21 14:59 22:59 06:59 Output Total 380 Balance -380 Output: Urine 380 Straight 280 Other: Voiding Method Indwelling Catheter Weight 58.06 kg Constitutional: No acute distress, conversant, pleasant Eyes: Anicteric sclerae, moist conjunctiva, Pupils equal round reactive to light ENMT: NC/AT Oropharynx clear, no erythema, or exudates Neck: Supple, no masses, or JVD No carotid bruits No thyromegaly Lungs: Clear to auscultation Clear to percussion Normal respiratory effort, no accessory muscle use Cardiovascular: Heart regular in rate and rhythm, No murmurs, gallops, or rubs No peripheral edema Abdominal: Soft, PEG tube in place clean base no drainage Nontender, no guarding, rebound or rigidity Abdomen moving with respiration Normoactive bowel sounds No hepatomegaly, No splenomegaly No palpable mass No abdominal wall hernia noted Skin: Patient has excessive dry skin over her bilateral upper extremities and lower extremities Extremities: No digital cyanosis No clubbing Pedal pulses intact and symmetrical Radial pulses intact and symmetrical No calf tenderness Psychiatric: Alert and oriented to person, place and time Appropriate affect fair judgement Neuro Muscles Strength 3-4/5 in all 4 extremities Sensation to light touch grossly present throughout Cranial nerves II-XII grossly intact No focal sensory deficits Lymphatics: no palpable cervical or supraclavicular , or inguinal lymph nodes Results CBC & Chem 7: 10/12/21 16:28 10/12/21 16:28 Labs: Abnormal Lab Results - Last 24 Hours (Table) 10/12/21 10/12/21 10/12/21 Range/Units 16:28 16:28 16:28 RBC 3.50 L (3.80-5.40) m/uL MCV 103.6 H D (80.0-100.0) fL Lymphocytes # 0.6 L (1.0-4.8) k/uL APTT 18.5 L (22.0-30.0) sec Sodium 136 L (137-145) mmol/L Carbon Dioxide 32 H (22-30) mmol/L BUN 47 H (7-17) mg/dL Calcium 7.6 L (8.4-10.2) mg/dL Total Protein 5.3 L (6.3-8.2) g/dL Albumin 3.1 L (3.5-5.0) g/dL Urine Protein (Negative) Urine Ketones (Negative) Ur Leukocyte Esterase (Negative) Urine WBC (0-5) /hpf Urine Bacteria (None) /hpf Hyaline Casts (0-2) /lpf Urine Mucus (None) /hpf 10/12/21 Range/Units 17:05 RBC (3.80-5.40) m/uL MCV (80.0-100.0) fL Lymphocytes # (1.0-4.8) k/uL APTT (22.0-30.0) sec Sodium (137-145) mmol/L Carbon Dioxide (22-30) mmol/L BUN (7-17) mg/dL Calcium (8.4-10.2) mg/dL Total Protein (6.3-8.2) g/dL Albumin (3.5-5.0) g/dL Urine Protein Trace H (Negative) Urine Ketones Trace H (Negative) Ur Leukocyte Esterase Moderate H (Negative) Urine WBC 17 H (0-5) /hpf Urine Bacteria Many H (None) /hpf Hyaline Casts 3 H (0-2) /lpf Urine Mucus Rare H (None) /hpf Thrombosis Risk Factor Assmnt - Choose All That Apply Each Risk Factor Represents 3 Points: Age 75 years or older Thrombosis Risk Factor Assessment Total Risk Factor Score: 3 Thrombosis Risk Factor Assessment Level: Moderate Risk Assessment and Plan Assessment: Urinary tract infection Follow-up cultures Patient initiated on Rocephin IV fluid hydration Fall precautions PT evaluation, due to frequent falling at home Parkinson disease Continue with home medications No code DVT prophylaxis heparin subcu 3 times a day Anticipated length of stay less than 2 midnights
[2021-10-13] MEDS: HEPARIN SODIUM,PORCINE/PF 5,000 UNIT/0.5 ML SYRINGE SQ SCH ×3 (08:49→21:02)
[2021-10-13] MEDS: FLUDROCORTISONE 0.1 MG TAB PO SCH (08:49)
[2021-10-13] MEDS: PANTOPRAZOLE 40 MG TABLET PO SCH (08:49)
[2021-10-13] MEDS: CARBIDOPA-LEVODOPA ER 25-100MG 1 EACH TABLET.ER PO SCH ×3 (08:49→21:01)
[2021-10-13] MEDS ORDERED: GLUCAGON 1 MG/ML VIAL IVP STA (09:01)
[2021-10-13] MEDS: METOPROLOL TARTRATE 25 MG TAB PO SCH ×2 (09:03→21:00)
--- NOTE | 2021-10-13 09:26 | XR ---
EXAMINATION TYPE: XR chest 1V portable DATE OF EXAM: 10/13/2021 CLINICAL HISTORY: Weakness . TECHNIQUE: Single AP portable upright view of the chest is obtained. COMPARISON: Chest x-ray from one day earlier and older studies. FINDINGS: There is chronic parenchymal change bilaterally without suspicious new focal airspace opac ity, pleural effusion, or pneumothorax seen. There is cardiomegaly with atherosclerotic thoracic aort a. Osseous structures are demineralized. Underlying scoliosis is present. Right AC joint separation r edemonstrated. IMPRESSION: Chronic changes and cardiomegaly without acute pulmonary process. No significant change f rom one day earlier.
[2021-10-13] MEDS ORDERED: LOPERAMIDE 2 MG CAP PO PRN (13:01)
--- NOTE | 2021-10-13 13:01 | P.PN ---
Subjective Progress Note Date: 10/13/21 Pt tells me she has the feel of food stuck in her chest. CXR neg for food impaction. She is able to swallow her spit and water. Discussed case with GI Dr. Oviedo in [place], and believed to be low probability of food impaction. Otherwise being tx with IV abx and fluids. Medicare pt upgraded to inpatient with likelihood of staying > 2 midnights. Gen: awake, alert HEENT: normocephalic, atraumatic, good hearing acuity, moist mucous membranes Resp: good air exchange, breathing comfortably with no accessory muscle use CVS: good distal perfusion x 4, GI: soft, NTTP, ND, +PEG tube : no SPT, no CVAT, hackett catheter not present MSK: no pitting edema, no clubbing Neuro: non-focal, moving all extremities Psych: cooperative, euthymic mood Assessment/Plan: Generalized Weakness PT consult Will need DME: hospital bed, PEG tube supplies Needs: home nurse (has LTC insurance), home health aide, PT/OT at home Diarrhea Nutrition consult Imodium Urinary tract infection Follow-up cultures Patient initiated on Rocephin IV fluid hydration Fall precautions PT evaluation, due to frequent falling at home Parkinson disease Continue with home medications No code DVT prophylaxis heparin subcu 3 times a day Anticipated length of stay less than 2 midnights Objective - Vital Signs Vital signs: Vital Signs Temp 98.6 F 10/13/21 07:00 Pulse 75 10/13/21 08:40 Resp 20 10/13/21 08:40 BP 189/79 10/13/21 07:00 Pulse Ox 100 10/13/21 07:00 Intake & Output 10/12/21 10/13/21 10/13/21 18:59 06:59 18:59 Output Total 380 Balance -380 Weight 58.06 kg Output: Urine 380 Straight 280 Other: Voiding Method Indwelling Catheter Indwelling Catheter - Labs CBC & Chem 7: 10/12/21 16:28 10/12/21 16:28 Labs: Abnormal Lab Results - Last 24 Hours (Table) 10/12/21 10/12/21 10/12/21 Range/Units 16:28 16:28 16:28 RBC 3.50 L (3.80-5.40) m/uL MCV 103.6 H D (80.0-100.0) fL Lymphocytes # 0.6 L (1.0-4.8) k/uL APTT 18.5 L (22.0-30.0) sec Sodium 136 L (137-145) mmol/L Carbon Dioxide 32 H (22-30) mmol/L BUN 47 H (7-17) mg/dL Calcium 7.6 L (8.4-10.2) mg/dL Total Protein 5.3 L (6.3-8.2) g/dL Albumin 3.1 L (3.5-5.0) g/dL Urine Protein (Negative) Urine Ketones (Negative) Ur Leukocyte Esterase (Negative) Urine WBC (0-5) /hpf Urine Bacteria (None) /hpf Hyaline Casts (0-2) /lpf Urine Mucus (None) /hpf 10/12/21 Range/Units 17:05 RBC (3.80-5.40) m/uL MCV (80.0-100.0) fL Lymphocytes # (1.0-4.8) k/uL APTT (22.0-30.0) sec Sodium (137-145) mmol/L Carbon Dioxide (22-30) mmol/L BUN (7-17) mg/dL Calcium (8.4-10.2) mg/dL Total Protein (6.3-8.2) g/dL Albumin (3.5-5.0) g/dL Urine Protein Trace H (Negative) Urine Ketones Trace H (Negative) Ur Leukocyte Esterase Moderate H (Negative) Urine WBC 17 H (0-5) /hpf Urine Bacteria Many H (None) /hpf Hyaline Casts 3 H (0-2) /lpf Urine Mucus Rare H (None) /hpf Microbiology - Last 24 Hours (Table) 10/12/21 17:05 Urine Culture - Preliminary Urine,Voided
--- NOTE | 2021-10-13 13:34 | CT ---
EXAMINATION TYPE: CT chest wo con DATE OF EXAM: 10/13/2021 COMPARISON: Chest x-ray earlier today. HISTORY: food impaction CT DLP: 248.80 mGycm. Automated Exposure Control for Dose Reduction was Utilized. TECHNIQUE: CT scan of the thorax is performed without IV contrast. FINDINGS: LUNGS: Mild chronic parenchymal scarring bilaterally. No suspicious focal consolidation. No pleural e ffusion or pneumothorax seen bilaterally. No suspicious masses. MEDIASTINUM: Lack of IV contrast is noted to limit evaluation for mediastinal and especially hilar ad enopathy. There are no definitive greater than 1 cm mediastinal lymph nodes. Cardiomegaly redemonstra [place]. Moderate left atrial dilatation is seen. Calcification along the mitral valve posteriorly is not ed. No pericardial effusion is seen. Coronary artery calcification is present which is noted marker f or underlying coronary artery disease. 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 Esophagus is gas-filled up to level of divina. At this level there is transit ion to nondilated esophagus without definitive mass or intraluminal foreign body. OTHER: Cholecystectomy clips. Partial visualization of percutaneous gastrostomy tube. Osseous structu res are demineralized. Scoliotic curvature in the upper thoracic spine. Mild chronic type compression fractures at the T7 and T8 vertebra superior endplates. IMPRESSION: No definitive intraluminal mass in the mid esophagus on noncontrast CT. Partial visualiza tion of PEG tube. Mild chronic parenchymal scarring without acute pulmonary process.
[2021-10-13] MEDS: DONEPEZIL 10 MG TAB PO SCH (21:00)
[2021-10-14] MEDS: HEPARIN SODIUM,PORCINE/PF 5,000 UNIT/0.5 ML SYRINGE SQ SCH ×3 (09:04→22:04)
[2021-10-14] MEDS: FLUDROCORTISONE 0.1 MG TAB PO SCH (09:05)
[2021-10-14] MEDS: PANTOPRAZOLE 40 MG TABLET PO SCH (09:05)
[2021-10-14] MEDS: METOPROLOL TARTRATE 25 MG TAB PO SCH ×2 (09:05→22:02)
[2021-10-14] MEDS: CARBIDOPA-LEVODOPA ER 25-100MG 1 EACH TABLET.ER PO SCH ×3 (09:06→22:02)
[2021-10-14 10:34] LABS: Glucose,Whole Blood 80 mg/dL (75-99)
[2021-10-14 11:17] LABS: Basophils % (A) 1 %; Eosinophils # (A) 0.1 k/uL (0-0.7); Eosinophils % (A) 1 %; HCT 36.2 % (34.0-46.0); HGB 12.3 gm/dL (11.4-16.0); Lymphocytes # (A) 0.7 k/uL (1.0-4.8); Lymphocytes % (A) 10 %; MCH 34.5 pg (25.0-35.0); MCHC 33.8 g/dL (31.0-37.0); MCV 101.9 fL (80.0-100.0); Macrocytosis Slight; Mean Platelet Volume 7.7; Monocytes # (A) 0.4 k/uL (0-1.0); Monocytes % (A) 5 %; Neutrophils # (A) 5.8 k/uL (1.3-7.7); Neutrophils % (A) 81 %; Platelet Count 200 k/uL (150-450); RBC 3.56 m/uL (3.80-5.40); RDW 13.4 % (11.5-15.5); WBC 7.2 k/uL (3.8-10.6)
[2021-10-14] MEDS ORDERED: SODIUM CHLORIDE 0.9% 500 ML 500 ML IV ONE (11:34)
[2021-10-14 11:40] LABS: ALT <6 U/L (4-34); AST 26 U/L (14-36); African American GFR (CKD) 71 (>60 ml/min/1.73 sqM); Albumin 3.1 g/dL (3.5-5.0); Albumin/Globulin Ratio 1.3; Alkaline Phosphatase 46 U/L (38-126); Anion Gap 6 mmol/L; Blood Urea Nitrogen 31 mg/dL (7-17); Calcium 8.6 mg/dL (8.4-10.2); Carbon Dioxide 29 mmol/L (22-30); Chloride 102 mmol/L (98-107); Globulin 2.3 g/dL; Glucose 79 mg/dL (74-99); Non-African American GFR(CKD) 62 (>60 ml/min/1.73 sqM); Sodium 137 mmol/L (137-145); Total Bilirubin 1.5 mg/dL (0.2-1.3); Total Protein 5.4 g/dL (6.3-8.2)
--- NOTE | 2021-10-14 15:16 | P.PN ---
Subjective Progress Note Date: 10/14/21 Hospital course: Patient is a very pleasant 89-year-old female with a past medical history of Parkinson's disease, Alzheimer's dementia, paroxysmal atrial fibrillation not on anticoagulation, and hypertension. She presented to the emergency department with a chief complaint of generalized weakness and increased falling over the past few days. Patient's daughter expressed concerns that patient had a UTI because she tested her at home with home monitoring strips which flagged posi tive for UTI and patient has long-standing history of urinary retention and incontinence. Patient also has PEG tube secondary to difficulties with swallowing.she was admitted under the services on 10/12/21 with a chief complaint of generalized weakness and possible assistance with SNF placement. Physical exam: Vital signs reviewed and stable. General: Nontoxic, no distress and appears stated age. Derm: Skin warm and dry, normal coloration for ethnicity. Head: Atraumatic, normocephalic and symmetric. Eyes: EOMs intact, no lid lag, and anicteric sclera Mouth: no lip lesions, mucus membranes moist Cardiovascular: regular rate and rhythm with normal S1S2, systolic murmur, positive posterior tibial pulses bilaterally, and cap refill < 2 seconds. Lungs: Respirations even, regular, and unlabored on room air. Lungs CTA bilaterally, no rhonchi, no rales, no wheezing, and no accessory muscle usage. Abdominal: soft, nontender to palpation, no guarding, no appreciable organomegaly Ext: ROM intact. No gross muscle atrophy, no edema, no contractures Neuro: GCS 14. Speech clear, face symmetrical and CN II-XII grossly intact with no noted focal neuro deficits Psych: Alert and oriented to person and confused to time, place, and situation which is patient's baseline mentation. Appropriate and pleasant affect. Assessment and Plan of Care: Generalized weakness Dehydration IV fluid hydration Resume PEG tube feedings Diarrhea Nutrition consult Imodium Urinary tract infection Follow-up cultures, preliminary culture gram-negative bacilli continue with IV antibiotics: Rocephin IV fluid hydration Fall precautions PT evaluation, due to frequent falling at home Parkinson disease Increasing weakness and falls Continue with home medications PT/OT evaluation Arrangements being made for SNF placement secondary to increasing frequent falling at home. Awaiting insurance authorization. CODE STATUS: DO NOT RESUSCITATE/DO NOT INTUBATE DVT prophylaxis: heparin Discussed with: patient, case management, and RN. Anticipated discharge date: likely tomorrow morning pending insurance authorization. Anticipated discharge place: SNF A total of 36 minutes was spent on the care of this complex patient more than 50% of the time was spent in counseling and care coordination. Bhavik Forrester NP rendered care for this patient independently, reviewed the findings and plan as documented in the note above. I did not physically speak with or examine the patient on this date. Objective - Vital Signs Vital signs: Vital Signs Temp 97 F L 10/14/21 07:00 Pulse 83 10/14/21 07:00 Resp 16 10/14/21 07:00 BP 178/73 10/14/21 07:00 Pulse Ox 100 10/14/21 07:00 Intake & Output 10/13/21 10/14/21 10/14/21 18:59 06:59 18:59 Output Total 400 400 Balance -400 -400 Output: Urine 400 400 Other: Voiding Method Indwelling Catheter Indwelling Catheter - Labs CBC & Chem 7: 10/14/21 10:47 10/14/21 10:47 Labs: Microbiology - Last 24 Hours (Table) 10/12/21 17:05 Urine Culture - Preliminary Urine,Voided
[2021-10-14 15:30] VITALS: BMI 20.6
[2021-10-14] MEDS: DONEPEZIL 10 MG TAB PO SCH (22:03)
[2021-10-15] MEDS: HEPARIN SODIUM,PORCINE/PF 5,000 UNIT/0.5 ML SYRINGE SQ SCH ×2 (11:16→18:12)
[2021-10-15] MEDS: CARBIDOPA-LEVODOPA ER 25-100MG 1 EACH TABLET.ER PO SCH ×2 (11:16→20:09)
[2021-10-15] MEDS: METOPROLOL TARTRATE 25 MG TAB PO SCH ×2 (11:17→22:23)
[2021-10-15] MEDS: FLUDROCORTISONE 0.1 MG TAB PO SCH (11:17)
[2021-10-15] MEDS: PANTOPRAZOLE 40 MG TABLET PO SCH (11:18)
--- NOTE | 2021-10-15 13:26 | P.PN ---
Subjective Progress Note Date: 10/15/21 Patient is a very pleasant 89-year-old female with a past medical history of Parkinson's disease, Alzheimer's dementia, paroxysmal atrial fibrillation not on anticoagulation, and hypertension. She presented to the emergency department with a chief complaint of generalized weakness and increased falling over the past few days. Patient's daughter expressed concerns that patient had a UTI because she tested her at home with home monitoring strips which flagged positive for UTI and patient has long-standing history of urinary retention and incontinence. Patient also has PEG tube secondary to difficulties with swallowing.she was admitted under the services on 10/12/21 with a chief complaint of generalized weakness and possible assistance with SNF placement. Patient stated that she is having increased urinary frequency. Patient states that she has some pain in her left hip area. She believes it is due to the fall. 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 Psych - Calm and cooperative - Labs CBC & Chem 7: 10/14/21 10:47 10/14/21 10:47 Labs: Microbiology - Last 24 Hours (Table) 10/12/21 17:05 Urine Culture - Final Urine,Voided Klebsiella pneumoniae Assessment and Plan Assessment: Generalized weakness Dehydration Frequent falls -Resume IV fluids -Resume PEG tube feedings -PT OT recommends shelter facility -Check left hip x-ray to rule out fracture Diarrhea -Imodium as needed Urinary tract infection -Urine culture grew Klebsiella pneumonia there is on any resistant to ampicillin -Resume IV Rocephin -We'll plan to discharge patient on Ceftin Parkinson's disease -Resume home medications DVT prophylaxis: heparin Discussed with: patient, case management, and RN. Anticipated discharge date: likely tomorrow morning pending insurance authorization. Anticipated discharge place: SNF
--- NOTE | 2021-10-15 15:34 | XR ---
EXAMINATION TYPE: XR Hip LT and AP Pelvis DATE OF EXAM: 10/15/2021 COMPARISON: Pelvic and bilateral hip x-rays April 30, 2021 HISTORY: Pain after fall injury. TECHNIQUE: A single AP view of the pelvis is obtained. Two views of the left hip are obtained. FINDINGS: There is no acute displaced fracture evident in the pelvis. Pubic symphysis remains intact . Sacroiliac joints show mild to moderate narrowing bilaterally. There is moderate axial joint space loss and acetabular spurring in both hips. Some ossifications or calcifications at level of both hips redemonstrated. There is groin vascular calcification again seen greater on the left. Images of left hip show no acute displaced fracture. No suspicious focal osseous lytic or sclerotic l esion is present. IMPRESSION: There is no acute fracture or dislocation in the pelvis or left hip.
[2021-10-15] MEDS: CARBIDOPA-LEVODOPA 25-100 MG 1 EACH TAB PO SCH ×2 (18:23→22:24)
[2021-10-15] MEDS: DONEPEZIL 10 MG TAB PO SCH (22:23)
[2021-10-16] MEDS: HEPARIN SODIUM,PORCINE/PF 5,000 UNIT/0.5 ML SYRINGE SQ SCH ×3 (01:11→15:59)
[2021-10-16] MEDS: PANTOPRAZOLE 40 MG TABLET PO SCH (09:00)
[2021-10-16] MEDS: FLUDROCORTISONE 0.1 MG TAB PO SCH (09:01)
[2021-10-16] MEDS: METOPROLOL TARTRATE 25 MG TAB PO SCH (09:01)
[2021-10-16] MEDS: CARBIDOPA-LEVODOPA 25-100 MG 1 EACH TAB PO SCH ×2 (09:03→15:59)
[2021-10-16 09:16] VITALS: RESP 18
[2021-10-16 10:55] LABS: African American GFR (CKD) 76.6 (60.0-200.0); Albumin 3.7 g/dL (3.8-4.9); Albumin/Globulin Ratio 2.32 (1.60-3.17); Anion Gap 13.8 mmol/L (10.00-18.00); BUN/Creat Ratio 36.19 Ratio (12.00-20.00); Blood Urea Nitrogen 28.7 mg/dL (9.0-27.0); Calcium 9.2 mg/dL (8.7-10.3); Carbon Dioxide 28.2 mmol/L (20.0-27.5); Globulin 1.6 g/dL (1.6-3.3); Non-African American GFR(CKD) 66.1 (60.0-200.0); Total Bilirubin 0.4 mg/dL (0.30-1.20); Total Protein 5.3 g/dL (6.2-8.2)
--- NOTE | 2021-10-16 13:34 | CDI ---
Documentation Clarification Form Date: 10/16/2021 01:16:40 PM From: Jeimy Acuna RN CCDS Admit Date: 10/13/2021 10:44:00 AM Patient Name: Mary Lewis Visit Number: [id number] Discharge Date: ATTENTION: The Clinical Documentation Specialists (CDI) and [facility] Coding Staff appreciate your assistance in clarifying documentation. Please respond to the clarification below the line at the bottom and electronically sign. The CDI & [facility] Coding staff will review the response and follow-up if needed. Please note: Queries are made part of the Legal Health Record. If you have any questions, please contact the author of this message via ITS. Dr. Marisol Ramsey MD The Dietitian assessment on 10/14 documents the patient has inadequate oral intake, 10/14, Dietitian consult. Based on this information and the findings below, is there an additional diagnosis that is clinically appropriate for this patient? History/Risk Factors: 89-year-old female presents to the ED with concerns of UTI and feeling tired with generalized weakness and frequent falling. Medical History: Parkinsons. 10/15, H&P. 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 Difficulty swallowing. Body mass Index: Underweight [place] Body weight In Kcals energy formula estimated nutritional needs 25-30 Kcals/Kg.Energy needs [id number]. [place] Body weight in Estimated Protein range 1.0 1.2 grams/kg; Estimated protein needs 59-70 grams/day. Nutrition Diagnosis: Inadequate oral intake. Related to Difficulty swallowing . Evidenced by: PEG Tube, home EN not yet restarted. Treatment: Monitor tube feeds Dietary Consult: see above TPN: Jevity 1.5; Volum 983ml @ 41ml/hr. Total Kcals 1,476. Protein grams 62. Is there an additional diagnosis that is clinically appropriate for this patient? [ ] Mild Protein-Calorie Malnutrition [ ] Moderate Protein-Calorie Malnutrition [ X ] Severe Protein-Calorie Malnutrition [ ] Other condition, please specify [ ] Unable to Determine (Template Last Revised: September 2020) MTDD
--- NOTE | 2021-10-16 13:37 | P.DS ---
Providers Date of admission: 10/13/21 10:44 Expected date of discharge: 10/16/21 Attending physician: Alexia Chaudhry DO Primary care physician: Vincent Montano [facility] Course: Discharge Diagnosis: Generalized weakness Dehydration Frequent falls Diarrhea Urinary tract infection Parkinson's disease Hospital Course: Patient is a very pleasant 89-year-old female with a past medical history of Parkinson's disease, Alzheimer's dementia, paroxysmal atrial fibrillation not on anticoagulation, and hypertension. She presented to the emergency department with a chief complaint of generalized weakness and increased falling over the past few days. Patient's daughter expressed concerns that patient had a UTI because she tested her at home with home monitoring strips which flagged positive for UTI and patient has long-standing history of urinary retention and incontinence. Patient also has PEG tube secondary to difficulties with swallowing.she was admitted under the services on 10/12/21 with a chief complaint of generalized weakness and possible assistance with SNF placement. Patient's urine culture grew Klebsiella pneumonia. At the time of discharge patient reported feeling better. She worked with physical therapy recommended alf facility. survey research manager arranged for patient to go to [facility]. Patient was deemed stable for discharge. She'll be discharged Keflex for 3 more days. Patient seen and examined at bedside.[] Vital signs reviewed and stable. General: [non toxic], [no distress], [appears at stated age], appears chronically debilitated, malnutrition Derm: [warm], [dry] Head: [atraumatic], [normocephalic], [symmetric] Eyes: [EOMI], [no lid lag], [anicteric sclera] Mouth: [no lip lesion], [mucus membranes moist] Cardiovascular: [S1S2 reg], [no murmur], [positive posterior tibial pulse bilateral], Lungs: [CTA bilateral], [no rhonchi, no rales] , [no accessory muscle use] Abdominal: [soft], [ nontender to palpation], [no guarding], [no appreciable organomegaly] Ext: [no gross muscle atrophy], [no edema], [no contractures] Neuro: [ CN II-XI grossly intact], [no focal neuro deficits] Psych: [Alert], [oriented], [appropriate affect] A total of [33] minutes of time were spent preparing this complex discharge summary . Patient Condition at Discharge: Fair Plan - Discharge Summary Discharge Rx Participant: No New Discharge Prescriptions: New Loperamide [Imodium] 2 mg PO QID PRN cap PRN Reason: Diarrhea Cephalexin [Keflex] 500 mg PO Q12HR 3 Days #6 cap Continue Pantoprazole Sodium [Protonix] 40 mg PO DAILY Fludrocortisone [Florinef] 0.1 mg PO DAILY Donepezil [Aricept] 20 mg PO HS Carbidopa-Levodopa ER 25-100Mg [Sinemet CR 25-100 mg] 1.5 tab PO TID Metoprolol Tartrate [Lopressor] 25 mg PO BID Mirabegron [Myrbetriq] 25 mg PO DAILY PRN PRN Reason: IBS Solifenacin Succinate 10 mg PO DAILY PRN PRN Reason: IBS Discharge Medication List Pantoprazole Sodium [Protonix] 40 mg PO DAILY 08/20/18 [History] Fludrocortisone [Florinef] 0.1 mg PO DAILY 01/02/20 [History] Carbidopa-Levodopa ER 25-100Mg [Sinemet CR 25-100 mg] 1.5 tab PO TID 09/26/20 [History] Donepezil [Aricept] 20 mg PO HS 09/26/20 [History] Solifenacin Succinate 10 mg PO DAILY PRN 07/23/21 [History] Metoprolol Tartrate [Lopressor] 25 mg PO BID 10/12/21 [History] Mirabegron [Myrbetriq] 25 mg PO DAILY PRN 10/12/21 [History] Cephalexin [Keflex] 500 mg PO Q12HR 3 Days #6 cap 10/16/21 [Rx] Loperamide [Imodium] 2 mg PO QID PRN cap 10/16/21 [Rx] Follow up Appointment(s)/Referral(s): Vincent Montano MD [Primary Care Provider] - 1-2 days Discharge Disposition: TRANSFER TO SNF/ECF
[2021-10-16 15:01] VITALS: BP 90/57; PULSE 79; TEMP 97.3
== END 2021-10-16 17:34 ==
LOC: EC 15:25 → 6NMEDSUR 18:18 → OBSVTOIN 10-13 10:44 → INTOOBSV 10-13 10:44 → UNDODISIN 10-16 17:34
PROVIDERS: ADMIT Internal Medicine; ATTEND Internal Medicine
DX: N39.0 Urinary tract infection, site not specified (principal); E86.0 Dehydration; B96.1 Klebsiella pneumoniae [K. pneumoniae] as the cause of diseases classified elsewhere; G20 Parkinson's disease; F02.80 Dementia in other diseases classified elsewhere, unspecified severity, without behavioral disturbance, psychotic disturbance, mood disturbance, and anxiety; G30.9 Alzheimer's disease, unspecified; E43 Unspecified severe protein-calorie malnutrition; I11.0 Hypertensive heart disease with heart failure; I50.9 Heart failure, unspecified; K22.89 Other specified disease of esophagus; I48.0 Paroxysmal atrial fibrillation; K58.0 Irritable bowel syndrome with diarrhea; M50.30 Other cervical disc degeneration, unspecified cervical region; M48.02 Spinal stenosis, cervical region; I65.21 Occlusion and stenosis of right carotid artery; Z91.81 History of falling; R29.6 Repeated falls; Z66 Do not resuscitate; M25.552 Pain in left hip; W19.XXXA Unspecified fall, initial encounter; Y92.009 Unspecified place in unspecified non-institutional (private) residence as the place of occurrence of the external cause; Z16.11 Resistance to penicillins; R79.89 Other specified abnormal findings of blood chemistry; R91.8 Other nonspecific abnormal finding of lung field; Z68.1 Body mass index [BMI] 19.9 or less, adult; N39.3 Stress incontinence (female) (male); E04.9 Nontoxic goiter, unspecified; Z93.1 Gastrostomy status; Z79.52 Long term (current) use of systemic steroids; Z79.899 Other long term (current) drug therapy; Z88.7 Allergy status to serum and vaccine; Z88.8 Allergy status to other drugs, medicaments and biological substances; Z90.710 Acquired absence of both cervix and uterus; Z85.828 Personal history of other malignant neoplasm of skin; Z87.891 Personal history of nicotine dependence; Z90.49 Acquired absence of other specified parts of digestive tract; Z98.890 Other specified postprocedural states; Z80.0 Family history of malignant neoplasm of digestive organs; Z81.1 Family history of alcohol abuse and dependence; Z82.49 Family history of ischemic heart disease and other diseases of the circulatory system
CPT/HCPCS: 96361 ×4; 96365; 96366; 96372 ×4; 96375; 96376; 99285; 51702; 36415; 94760; 93005; 97116; 97110; 97530 ×2; 97162; 97535 ×2; 97167; 80053 ×3; 82330; 83605; 83735 ×2; 84484; 85025 ×2; 85610; 85730; 81001; 87086; 87077; 87186; 73502; 71045 ×2; 72125; 70450; 71250; G0378 ×5; J1610; J0696 ×4; J1644 ×4; 96374